=== PATIENT | male | born 1960 | race Caucasian/White ===

== ENCOUNTER 2019-01-02 05:01 | Inpatient (IN) | payer MEDICARE, MEDICAID ==
[2019-01-02] VITALS (19 sets, daily range): BP systolic 122–235; BP diastolic 78–153
[~2019-01-02] VITALS: Ht 175.3 cm; Wt 133.0 kg
--- OUTSIDE RECORDS SUMMARY | 2019-01-02 05:08 | XMS REPORT | Continuity of Care Document ---
Author Organization Unknown Address Unknown Allergies There is no data. Medications There is no data. Problems Date Dx Coded Attending Type Code Diagnosis Diagnosed By 10/14/2012 296.32 MO DEPRESSIVE RECURRENT MODERATE 10/14/2012 300.02 AN GEN ANXIETY 10/14/2012 296.32 MO DEPRESSIVE RECURRENT MODERATE 10/14/2012 300.02 AN GEN ANXIETY 10/14/2012 296.32 MO DEPRESSIVE RECURRENT MODERATE 10/14/2012 300.02 AN GEN ANXIETY 10/14/2012 296.32 MO DEPRESSIVE RECURRENT MODERATE 10/14/2012 300.02 AN GEN ANXIETY 10/14/2012 ESTEVAN MESA PHD 296.32 MO DEPRESSIVE RECURRENT MODERATE 10/14/2012 ESTEVAN MESA PHD 300.02 AN GEN ANXIETY 04/29/2013 ESTEVAN MESA PHD 296.25 MO DEPRESSIVE SINGLE IN PART OR UNSPECIFIED REMISSION Procedures [place] [address] PSYCH DIAGNOSTIC EVALUATION 10/17/2012 61214 PSYTX PT&/FAMILY 45 MINUTES 11/15/2012 65064 PSYTX PT&/FAMILY 45 MINUTES 01/17/2013 62379 PSYTX PT&/FAMILY 45 MINUTES 03/10/2013 33958 PSYTX PT&/FAMILY 30 MINUTES 04/30/2013 Results There is no data. Encounters ACCT No. Visit Date/Time Discharge Status Pt. Type Provider Facility Loc./Unit Complaint [id number] 04/29/2013 09:10:00 04/29/2013 23:59:59 CLS Outpatient ESTEVAN MESA PHD [id number] 10/14/2012 12:46:00 10/14/2012 23:59:59 CLS Outpatient [id number] 03/07/2013 14:21:00 Document Registration [id number] 01/15/2013 13:33:00 Document Registration [id number] 11/15/2012 12:26:00 Document Registration [id number] 10/01/2018 11:20:00 10/01/2018 23:59:59 CLS Outpatient AIDEN LYON LAC
[2019-01-02] MEDS ORDERED: EZET10TA49 PO (05:13)
[2019-01-02] MEDS ORDERED: LISI-552 PO (05:13)
[2019-01-02] MEDS ORDERED: CARV25TA PO (05:13)
[2019-01-02] MEDS ORDERED: ATOR40TA70 PO (05:13)
[2019-01-02] MEDS ORDERED: DAPA10TA PO (05:13)
[2019-01-02] MEDS ORDERED: SITA100T12 PO (05:13)
[2019-01-02] MEDS ORDERED: METF-399 PO (05:13)
[2019-01-02] MEDS ORDERED: LABETALOL HCL 20 MG/4 ML VIAL IV ONE ×2 (05:15→06:00)
[2019-01-02] MEDS ORDERED: ONDANSETRON 4 MG/2 ML (SDV) Z0FRAN IVP ONE ×2 (05:15→06:30)
[2019-01-02 05:20] LABS: BASOPHILS # (AUTO) 0.1 10^3/uL (0.0-0.1); BASOPHILS % (AUTO) 1 % (0-10); EOSINOPHILS # (AUTO) 0.2 10^3/uL (0.0-0.3); EOSINOPHILS % (AUTO) 2 % (0-10); HEMATOCRIT 51 % (40-54); HEMOGLOBIN 17.8 G/DL (13.3-17.7); LYMPHOCYTES # (AUTO) 2.5 X 10^3 (1.0-4.0); LYMPHOCYTES % (AUTO) 23 % (12-44); MEAN CORPUSCULAR HEMOGLOBIN 29 PG (25-34); MEAN CORPUSCULAR HGB CONC 35 G/DL (32-36); MEAN CORPUSCULAR VOLUME 81 FL (80-99); MEAN PLATELET VOLUME 10.2 FL (7.4-10.4); MONOCYTES # (AUTO) 0.7 X 10^3 (0.0-1.0); MONOCYTES % (AUTO) 6 % (0-12); NEUTROPHILS # (AUTO) 7.6 X 10^3 (1.8-7.8); NEUTROPHILS % (AUTO) 69 % (42-75); PLATELET COUNT 253 10^3/uL (130-400); RED CELL DISTRIBUTION WIDTH 14.8 % (10.0-14.5)
[2019-01-02 05:39] LABS: FIBRIN DEGRADATION PRODUCTS 0.78 UG/ML (0.00-0.49); INR 0.9 (0.8-1.4); PROTHROMBIN TIME PATIENT 12.6 SEC (12.2-14.7)
--- NOTE | 2019-01-02 05:43 | NUR ---
iv x 1 by me 18 g l f/a. labs with iv and to lab by me
--- NOTE | 2019-01-02 05:45 | ED Neurological Problem ---
General Chief Complaint: Altered Mental Status Stated Complaint: ALTERED MENTAL STATUS Nursing Triage Note: altered mental status, hypertension, high glucose Nursing Sepsis Screen: No Definite Risk Source: EMS Exam Limitations: other (PT IS UNABLE TO GIVE ANY RELIABLE INFORMATION--IS CONFUSED AND HAVING SOME DIFFUCULTY GETTING WORDS OUT, NO PRIOR RECORDS HERE, AND DID NOT ACCOMPANY PT TO ER. ) History of Present Illness Date Seen by Provider: Jan 02, 2019 Time Seen by Provider: 04:59 Initial Comments PT ARRIVES VIA EMS CALLED EMS DUE TO PT WAKING UP CONFUSED, AND HAD WET THE BED--OCCURRED JUST PRIOR TO CALLING EMS REPORTED TO EMS THAT WHEN THEY WENT TO BED AT 2230, HE "WASN'T ACTING RIGHT" AT THAT TIME WELL LAST KNOWN WELL TIME IS NOT KNOWN. REPORTED TO EMS THAT PT SIMPLY QUIT TAKING ALL OF HIS MEDICATIONS AT LEAST 2 MONTHS AGO PT IS DIABETIC, AND HAS PRESCRIPTIONS FOR : FARXIGA, JANUVIA, METFORMIN AND VICTOZA ACCUCHECK 240 FOR EMS PT ALSO HAS HISTORY OF HTN, AND HAS PRESCRIPTION FOR ZETIA, COREG, LISINOPRIL BP"S FOR EMS > 200'S/>100'S PT ALSO HAS RX FOR CYMBALTA EMS REPORTS THAT PT C/O HEADACHE PT WITH NAUSEA AND DRY HEAVES ENROUTE EMS REPORTS THAT PT REPEATS "I JUST CAN'T" ( JUST CAN'T UNDERSTAND WHAT'S GOING ON ) PT UNABLE TO FOLLOW MOST COMMANDS PT IS CONFUSED ON ARRIVAL AND IS UNABLE TO COMPLETE SENTENCES PT DOES ANSWER SOME YES/NO QUESTIONS, SEEMINGLY APPROPRIATE DENIES CHEST PAIN DENIES SHORTNESS OF BREATH DENIES ABDOMINAL PAIN PMH IS ROUGHLY BASED ON EXAM, MEDICATIONS AND FINDINGS ON XRAY/CT. PCP: [facility], PER PT'S PRESCRIPTIONS Allergies and Home Medications Allergies Coded Allergies: No Allergy Information Available (Unverified , 01/02/19) Patient Home Medication List Home Medication List Reviewed: Yes Review of Systems Review of Systems Constitutional: other (VERY LIMITED) Respiratory: No short of breath Cardiovascular: No chest pain Gastrointestinal: nausea, vomiting (DRY HEAVES) Genitourinary: incontinence Psychiatric/Neurological: Cognitive Dysfunction, Headache Endocrine: See HPI Past Ldnawfs-Xdpwht-Erepsn Hx Patient Social History Recreational Drug Use: Yes (TESTED + FOR THC ON 01/02/19) Drug of Choice: TESTED + FOR THC ON 01/02/19 Smoking Status: Unknown if Ever Smoked 2nd Hand Smoke Exposure: No Recent Foreign Travel: No Contact w/Someone Who Travel: No Recent Infectious Disease Expo: No Recent Hopitalizations: No Immunizations Up To Date Tetanus Booster (TDap): Unknown Seasonal Allergies Seasonal Allergies: No Past Medical History Surgeries: Yes (BASED ON EXAM AND XRAY/CT FINDINGS: RIGHT FOOT SURGERY; CERVICAL SPINE SURGERY) Orthopedic Respiratory: No Cardiac: Yes (BASED ON MEDICATIONS) High Cholesterol, Hypertension Neurological: No (UNKNOWN) Genitourinary: No (UNKNOWN) Gastrointestinal: No (UNKNOWN) Musculoskeletal: Yes (DOES STATE BORN WITH RIGHT LEG "CRIPPLED" ; EVIDENCE OF CERVICAL SPINE SURGERY ON XRAYS) Endocrine: Yes Diabetes, Insulin dep, Diabetes, Non-Insulin dep HEENT: No (UNKNOWN) Cancer: No (UNKNOWN) Psychosocial: No (UNKNOWN--PT IS ON CYMBALTA) Physical Exam Vital Signs Vital Signs - First Documented Capillary Refill : Less Than 3 Seconds Height, Weight, BMI Height: 6'" Weight: 260lbs. oz. 117.422692zq; BMI Method:Estimated General Appearance: obese, other (MILDLY LETHARGIC, DRY HEAVING ON ARRIVAL) HEENT: other (ORAL MUCOSA DRY) Neck: normal inspection Respiratory: normal breath sounds, no respiratory distress, no accessory muscle use Cardiovascular: regular rate, rhythm, no murmur Peripheral Pulses: 2+ Dorsalis Pedis (R), 2+ Left Dors-Pedis (L), 2+ Radial Pulses (R), 2+ Radial Pulses (L) Gastrointestinal: non tender, soft Back: no CVA tenderness Extremities: normal capillary refill, other (RIGHT LEG WITH GENERALIZED ATROPHY, AND CHRONIC APPEARING ) Neurologic/Psychiatric: alert; No facial droop; other (PT KNOWS OWN NAME, BUT NOT WIFES' NAME. PT KNOWS HE IS IN HOSPITAL, BUT DOES NOT KNOW WHICH ONE OR WHAT TOWN, OR THE NAME OF THE TOWN THAT HE LIVES IN . PT CONFUSED TO EVERYTHING ELSE. PT UNABLE TO COMPLETE SENTENCES, AND SPEECH IS NON-SENSICAL AND UNINTELLIGIBLE AT TIMES. PT HAS DIFFICULTY FOLLOWING COMMANDS, BUT IS ABLE TO TRANSFER HIMSELF FROM EMS CART ER ER CART WITH SOME ASSIST, WHEN ASKED, BUT CANNOT FOLLOW MANY OTHER COMMANDS. PT WITH GENERALIZED WEAKNESS, BUT DOES NOT APPEAR TO HAVE UNILATERAL WEAKNESS, BUT CANNOT FOLLOW COMMANDS TO DO SPECIFIC MOTOR TESTING. ) Skin: normal color, warm/dry, tattoos/piercings (TATTOOS) Focused Exam Lactate Level 01/02/19 05:09: Lactic Acid Level 2.31*H Lactic Acid Level Laboratory Tests Test 01/02/19 05:09 Lactic Acid Level 2.31 MMOL/L (0.50-2.00) *H Progress/Results/Core Measures Results/Orders Lab Results Laboratory Tests Test 01/02/19 05:09 01/02/19 05:39 01/02/19 05:45 01/02/19 05:56 Range/Units White Blood Count 11.0 4.3-11.0 10^3/uL Red Blood Count 6.22 H 4.35-5.85 10^6/uL Hemoglobin 17.8 H 13.3-17.7 G/DL Hematocrit 51 40-54 % Mean Corpuscular Volume 81 80-99 FL Mean Corpuscular Hemoglobin 29 25-34 PG Mean Corpuscular Hemoglobin Concent 35 32-36 G/DL Red Cell Distribution Width 14.8 H 10.0-14.5 % Platelet Count 253 130-400 10^3/uL Mean Platelet Volume 10.2 7.4-10.4 FL Neutrophils (%) (Auto) 69 42-75 % Lymphocytes (%) (Auto) 23 12-44 % Monocytes (%) (Auto) 6 0-12 % Eosinophils (%) (Auto) 2 0-10 % Basophils (%) (Auto) 1 0-10 % Neutrophils # (Auto) 7.6 1.8-7.8 X 10^3 Lymphocytes # (Auto) 2.5 1.0-4.0 X 10^3 Monocytes # (Auto) 0.7 0.0-1.0 X 10^3 Eosinophils # (Auto) 0.2 0.0-0.3 10^3/uL Basophils # (Auto) 0.1 0.0-0.1 10^3/uL Prothrombin Time 12.6 12.2-14.7 SEC INR Comment 0.9 0.8-1.4 Activated Partial Thromboplast Time 29 24-35 SEC D-Dimer 0.78 H 0.00-0.49 UG/ML Sodium Level 137 135-145 MMOL/L Potassium Level 3.3 L 3.6-5.0 MMOL/L Chloride Level 97 L 98-107 MMOL/L Carbon Dioxide Level 23 21-32 MMOL/L Anion Gap 17 H 5-14 MMOL/L Blood Urea Nitrogen 14 7-18 MG/DL Creatinine 1.44 H 0.60-1.30 MG/DL Estimat Glomerular Filtration Rate 51 BUN/Creatinine Ratio 10 Glucose Level 346 H 70-105 MG/DL Lactic Acid Level 2.31 *H 0.50-2.00 MMOL/L Calcium Level 9.6 8.5-10.1 MG/DL Corrected Calcium 9.7 8.5-10.1 MG/DL Magnesium Level 1.9 1.8-2.4 MG/DL Total Bilirubin 0.7 0.1-1.0 MG/DL Aspartate Amino Transf (AST/SGOT) 17 5-34 U/L Alanine Aminotransferase (ALT/SGPT) 17 0-55 U/L Alkaline Phosphatase 122 40-136 U/L Myoglobin 55.3 10.0-92.0 NG/ML Troponin I < 0.028 <0.028 NG/ML B-Type Natriuretic Peptide 10.8 <100.0 PG/ML Total Protein 7.9 6.4-8.2 GM/DL Albumin 3.9 3.2-4.5 GM/DL Amylase Level 28 25-125 U/L Lipase 53 8-78 U/L TSH Grant Testing 0.90 0.35-4.94 UIU/ML Serum Alcohol < 10 <10 MG/DL Blood Gas Puncture Site RRAD Blood Gas Patient Temperature 97.3 Arterial Blood pH 7.36 L 7.37-7.43 Arterial Blood Partial Pressure CO2 54 H 35-45 MMHG Arterial Blood Partial Pressure O2 75 L 79-93 MMHG Arterial Blood HCO3 30 H 23-27 MMOL/L Arterial Blood Total CO2 31.5 H 21.0-31.0 MMOL/L Arterial Blood Oxygen Saturation 95 94-100 % Arterial Blood Base Excess 4.5 H -2.5-2.5 MMOL/L Noel Test YES-POS Blood Gas Ventilator Setting NO Blood Gas Inspired Oxygen 4L Glucometer 379 H 70-110 MG/DL Urine Color YELLOW Urine Clarity CLEAR Urine pH 7 5-9 Urine Specific [place] 1.015 L 1.016-1.022 Urine Protein 4+ NEGATIVE Urine Glucose (UA) 4+ H NEGATIVE Urine Ketones 1+ H NEGATIVE Urine Nitrite NEGATIVE NEGATIVE Urine Bilirubin NEGATIVE NEGATIVE Urine Urobilinogen NORMAL NORMAL MG/DL Urine Leukocyte Esterase NEGATIVE NEGATIVE Urine RBC (Auto) 2+ H NEGATIVE Urine RBC RARE /HPF Urine WBC RARE /HPF Urine Squamous Epithelial Cells NONE /HPF Urine Crystals NONE /LPF Urine Bacteria NEGATIVE /HPF Urine Casts NONE /LPF Urine Mucus SMALL H /LPF Urine Culture Indicated NO Urine Opiates Screen NEGATIVE NEGATIVE Urine Oxycodone Screen NEGATIVE NEGATIVE Urine Methadone Screen NEGATIVE NEGATIVE Urine Propoxyphene Screen NEGATIVE NEGATIVE Urine Barbiturates Screen NEGATIVE NEGATIVE Ur Tricyclic Antidepressants Screen NEGATIVE NEGATIVE Urine Phencyclidine Screen NEGATIVE NEGATIVE Urine Amphetamines Screen NEGATIVE NEGATIVE Urine Methamphetamines Screen NEGATIVE NEGATIVE Urine Benzodiazepines Screen NEGATIVE NEGATIVE Urine Cocaine Screen NEGATIVE NEGATIVE Urine Cannabinoids Screen POSITIVE H NEGATIVE Test 01/02/19 06:25 Range/Units Ammonia 14 11-32 UMOL/L My Orders Orders - ALEX RODRIGUEZ DO Cbc With Automated Diff (01/02/19 05:06) Protime With Inr (01/02/19 05:06) Partial Thromboplastin Time (01/02/19 05:06) Comprehensive Metabolic Panel (01/02/19 05:06) Fibrin Degradation Products (01/02/19 05:06) Troponin I (01/02/19 05:06) Ua Culture If Indicated (01/02/19 05:06) Chest 1 View, Ap/Pa Only (01/02/19 05:06) Catheter(Urinary) Insert & Ass 03,15 (01/02/19 05:06) Ekg Tracing (01/02/19 05:06) Nothing By Mouth (01/02/19 Lunch) Accucheck Stat ONCE (01/02/19 05:06) Ed Iv/Invasive Line Start (01/02/19 05:06) Ed Iv/Invasive Line Start (01/02/19 05:06) Vital Signs Stroke Patient Q15M (01/02/19 05:06) Ct Head Wo-R/O Stroke (01/02/19 05:06) O2 (01/02/19 05:06) Intake & Output 06,14,22 (01/02/19 05:06) Monitor-Rhythm Ecg Trace Only (01/02/19 05:06) Dysphagia Screening Tool (01/02/19 05:06) Post Thrombolytic Adminstratio (01/02/19 05:06) Lipid Panel (01/03/19 06:00) I-Stat Bedside Testing (01/02/19 05:06) Alcohol (01/02/19 05:06) Amylase (01/02/19 05:06) BNP (01/02/19 05:06) Drug Screen Stat (Urine) (01/02/19 05:06) Lactic Acid Analyzer (01/02/19 05:06) Lipase (01/02/19 05:06) Magnesium (01/02/19 05:06) Thyroid Analyzer (01/02/19 05:06) Blood Culture (01/02/19 05:06) Ed Iv/Invasive Line Start (01/02/19 05:06) Ondansetron Injection (Zofran Injectio (01/02/19 05:15) Labetalol Injection (Normodyne Injection (01/02/19 05:15) Arterial Blood Gas (01/02/19 05:13) Myoglobin Serum (01/02/19 05:13) Ct Angio Head/Neck (01/02/19 05:32) Ed Iv/Invasive Line Start (01/02/19 05:49) Ns Iv 1000 Ml (Sodium Chloride 0.9%) (01/02/19 05:49) Insulin (Regular) Human (Humulin R (Per (01/02/19 06:00) Labetalol Injection (Normodyne Injection (01/02/19 06:00) Ammonia (01/02/19 06:05) Rt Request For Service (01/02/19 06:05) Ondansetron Injection (Zofran Injectio (01/02/19 06:30) Scopolamine Patch (Transderm-Scop Patch) (01/02/19 06:30) Iohexol Injection (Omnipaque 350 Mg/Ml 1 (01/02/19 06:30) Received Contrast (Hold Metformin- Contr (01/02/19 06:30) Ns (Ivpb) (Sodium Chloride 0.9% Ivpb Bag (01/02/19 06:30) Ns Iv 1000 Ml (Sodium Chloride 0.9%) (01/02/19 05:49) Insulin (Regular) Human (Humulin R (Per (01/02/19 05:50) Scopolamine Patch (Transderm-Scop Patch) (01/02/19 06:20) Medications Given in ED Current Medications Medications Dose Ordered Sig/Jarvis Route Start Time Stop Time Status Last Admin Dose Admin Insulin Human Regular 20 unit ONCE ONCE IV 01/02/19 06:00 01/02/19 06:36 DC 01/02/19 05:55 20 UNIT Iohexol 75 ml ONCE ONCE IV 01/02/19 06:30 01/02/19 06:31 DC 01/02/19 06:22 75 ML Labetalol HCl 20 mg ONCE ONCE IV 01/02/19 05:15 01/02/19 05:16 DC 01/02/19 05:20 20 MG Labetalol HCl 20 mg ONCE ONCE IV 01/02/19 06:00 01/02/19 06:36 DC 01/02/19 05:55 20 MG Ondansetron HCl 8 mg ONCE ONCE IVP 01/02/19 05:15 01/02/19 05:16 DC 01/02/19 05:20 8 MG Ondansetron HCl 8 mg ONCE ONCE IVP 01/02/19 06:30 01/02/19 06:36 DC 01/02/19 06:25 8 MG Scopolamine 1.5 mg ONCE ONCE TD 01/02/19 06:30 01/02/19 06:36 DC 01/02/19 06:25 1.5 MG Sodium Chloride 100 ml ONCE ONCE IV 01/02/19 06:30 01/02/19 06:31 DC 01/02/19 06:22 80 ML Sodium Chloride 1,000 ml @ 0 mls/hr Q0M ONCE IV 01/02/19 05:49 01/02/19 06:36 DC 01/02/19 05:55 0 MLS/HR Vital Signs/I&O 01/02/19 01/02/19 01/02/19 05:02 05:02 06:38 Temp 97.3 Pulse 103 77 Resp 14 17 B/P (MAP) 205/140 (161) Pulse Ox 93 94 97 O2 Delivery Nasal Cannula Nasal Cannula O2 Flow Rate 4.00 4.00 50.00 Blood Pressure Mean: 161 Progress Progress Note : Progress Note O2 SATS 90-92% ON O2 AT 5L/NC BIPAP INITIATED AFTER RECEIVING ABG RESULTS. O2 SATS IMPROVED, AND PT SEEMS TO HAVE SOME SLIGHT IMPROVEMENT IN MENTATION, SEEMS SOMEWHAT LESS CONFUSED, BUT IS STILL HAVING DIFFICULTY GETTING WORDS OUT, ALTHOUGH THIS ALSO APPEARS TO BE MILDLY IMPROVED. . BP HIGH 240'S/160'S AT ONE POINT. PT GIVEN LABETALOL 40 MG TOTAL, WITHOUT SIGNIFICANT IMPROVEMENT. PT GIVEN HYDRALAZINE 10 MG WITH SIGNIFICANT IMPROVEMENT--BP DOWN TO 160'S/90'S NAUSEA RESOLVED WITH ZOFRAN AND SCOPOLAMINE. Initial ECG Impression Date: Jan 02, 2019 Initial ECG Impression Time: 05:29 Initial ECG Rate: 80 Initial ECG Rhythm: Normal Sinus Initial ECG Comparisson: No Previous ECG Available Diagnostic Imaging Comments CT HEAD--CHRONIC SMALL VESSEL ISCHEMIC CHANGES, NO ACUTE PROCESS, PER [facility] RADIOLOGIST VIA PHONE AND FAX AT 0532 CXR--CARDIOMEGALY, MILD VASCULAR CONGESTION, PENDING RADIOLOGIST REVIEW CT ANGIOGRAM OF HEAD AND NECK --NO ACUTE PROCESS, NO LARGE VESSEL OCCLUSION, MILD CAROTID DISEASE, AND SMALL VESSEL DISEASE--PER RADIOLOGIST VIA PHONE AT 0637 Reviewed: Reviewed by Me, Discussed w/Radiologist Critical Care Note Critical Care Total Time (minutes) 60 Departure Communication (Admissions) 0640--SPOKE WITH DR. MAYFIELD, HOSPITALIST, ACCEPTS PT FOR ADMIT Impression Primary Impression: Altered mental status Additional Impressions: Uncontrolled diabetes mellitus MILD DIABETIC KETOACIDOSIS Malignant hypertension Hypokalemia Respiratory failure with hypoxia and hypercapnia Lactic acidosis Non-compliance Nausea & vomiting Marijuana use Disposition: ADMITTED INPATIENT Condition: Improved Admissions Decision to Admit/Date: Jan 02, 2019 Time/Decision to Admit Time: 06:40 Departure-Patient Inst. Referrals: PRICE MARIA MD (PCP) Primary Care Physician ALEX RODRIGUEZ DO Jan 02, 2019 05:45
--- NOTE | 2019-01-02 05:46 | NUR ---
[place] colon in [facility] - 01/02/19 at 0604 by [id number] morelia levine w/o problems and ua to lab by
[2019-01-02 05:47] LABS: ALANINE AMINOTRANSFERASE 17 U/L (0-55); ALBUMIN 3.9 GM/DL (3.2-4.5); ALKALINE PHOSPHATASE 122 U/L (40-136); AMYLASE 28 U/L (25-125); BILIRUBIN,TOTAL 0.7 MG/DL (0.1-1.0); BUN/CREATININE RATIO 10; CALCIUM 9.6 MG/DL (8.5-10.1); CARBON DIOXIDE 23 MMOL/L (21-32); CHLORIDE 97 MMOL/L (98-107); CREATININE SERUM 1.44 MG/DL (0.60-1.30); GFR ESTIMATED 51; GLUCOSE 346 MG/DL (70-105); LIPASE 53 U/L (8-78); MAGNESIUM 1.9 MG/DL (1.8-2.4); POTASSIUM 3.3 MMOL/L (3.6-5.0); SODIUM 137 MMOL/L (135-145); TOTAL PROTEIN 7.9 GM/DL (6.4-8.2)
[2019-01-02 05:47] LABS: ABG BASE EXCESS 4.5 MMOL/L (-2.5-2.5); ABG OXYGEN SATURATION 95 % (94-100); ABG PCO2 54 MMHG (35-45); ABG PH 7.36 (7.37-7.43); ABG PO2 75 MMHG (79-93); ABG TCO2 31.5 MMOL/L (21.0-31.0)
[2019-01-02 05:49] LABS: ALLENS TEST YES-POS; INSPIRED O2 4L; PATIENT TEMP 97.3; VENTILATOR NO
[2019-01-02] MEDS ORDERED: NS IV 1000 ML 1,000 ML IV ONE (05:49)
[2019-01-02] MEDS ORDERED: NS IV 1000 ML 1,000 ML ONE (05:49)
[2019-01-02] MEDS ORDERED: inSUlin (REGULAR) HUMAN 1 UNIT/0.01 ML (CHARGE PER UNIT) ONE (05:50)
--- NOTE | 2019-01-02 05:56 | NUR ---
morelia by me /o problems and ua to lab by me
[2019-01-02] MEDS ORDERED: inSUlin (REGULAR) HUMAN 1 UNIT/0.01 ML (CHARGE PER UNIT) IV ONE (06:00)
--- NOTE | 2019-01-02 06:11 | Diagnostic Imaging Report ---
PROCEDURE: CT head wo r/o stroke. TECHNIQUE: Multiple contiguous axial images were obtained through the brain without the use of intravenous contrast. Auto Exposure Controls were utilized during the CT exam to meet ALARA standards for radiation dose reduction. INDICATION: Altered mental status with weakness There is no previous study for comparison. There is ventricular prominence diffusely with low density seen throughout the cerebral white matter. There is also focal low density in the inferior left cerebellar hemisphere. No hemorrhage is identified. There is no abnormal mass effect or shift of midline structures. There is no evidence of calvarial fracture. Minimal mural thickening seen within the left maxillary sinus. IMPRESSION: Findings suggest advanced involutional changes for patient's age. There may be mild hydrocephalus as well. Normal pressure hydrocephalus is not excluded. Clinical correlation is recommended. Consideration could be given to MRI for further characterization. Dictated by: Dictated on workstation # [id number]
[2019-01-02] MEDS ORDERED: SCOPOLAMINE 1.5 MG (TRANSDERM-SCOP) PATCH ONE (06:20)
[2019-01-02 06:21] LABS: BACTERIA,URINE NEGATIVE /HPF; BILIRUBIN,URINE NEGATIVE (NEGATIVE); CLARITY,URINE CLEAR; COLOR,URINE YELLOW; GLUCOSE, URINE (UA) 4+ (NEGATIVE); KETONES,URINE 1+ (NEGATIVE); LEUKOCYTE ESTERASE ,URINE NEGATIVE (NEGATIVE); NITRITE,URINE NEGATIVE (NEGATIVE); PH,URINE 7 (5-9); PROTEIN,URINE 4+ (NEGATIVE); RBC,URINE RARE /HPF; UROBILINOGEN,URINE NORMAL (NORMAL); WBC,URINE RARE /HPF
--- NOTE | 2019-01-02 06:27 | NUR ---
more labs from pl by me and to lab by me
[2019-01-02] MEDS ORDERED: NS 100 ML (IVPB) BAG IV ONE (06:30)
[2019-01-02] MEDS ORDERED: IOHEXOL 350 MG/ML 100 ML (OMNIPAQUE 350) VIAL IV ONE (06:30)
[2019-01-02] MEDS ORDERED: HOLD METFORMIN - RECEIVED CONTRAST 20 ML VIAL IV SCH (06:30)
[2019-01-02] MEDS ORDERED: SCOPOLAMINE 1.5 MG (TRANSDERM-SCOP) PATCH TD ONE (06:30)
[2019-01-02 06:33] LABS: AMPHETAMINE SCREEN, URINE NEGATIVE (NEGATIVE); BARBITURATE SCREEN URINE NEGATIVE (NEGATIVE); BENZODIAZEPINES SCREEN URINE NEGATIVE (NEGATIVE); CANNABINOID SCREEN, URINE POSITIVE (NEGATIVE); COCAINE SCREEN URINE NEGATIVE (NEGATIVE); METHADONE STAT NEGATIVE (NEGATIVE); METHAMPHETAMINE SCREEN URINE S NEGATIVE (NEGATIVE); OPIATE SCREEN URINE NEGATIVE (NEGATIVE); OXYCODONE STAT NEGATIVE (NEGATIVE); PROPOXYPHENE STAT NEGATIVE (NEGATIVE); TRICYCLIC ANTIDEPRESSANTS SCRE NEGATIVE (NEGATIVE)
--- OUTSIDE RECORDS SUMMARY | 2019-01-02 06:51 | XMS REPORT | Continuity of Care Document ---
[...] MESA PHD 300.02 AN GEN ANXIETY 04/29/2013 ESTEVNA MESA PHD 296.25 MO DEPRESSIVE SINGLE IN PART OR UNSPECIFIED REMISSION Procedures Code [place] [address] PSYCH DIAGNOSTIC EVALUATION 10/17/2012 72639 PSYTX PT&/FAMILY 45 MINUTES 11/15/2012 81166 PSYTX PT&/FAMILY 45 MINUTES 01/17/2013 10903 PSYTX PT&/FAMILY 45 MINUTES 03/10/2013 49194 PSYTX PT&/FAMILY 30 MINUTES 04/30/2013 Results There is no data. Encounters ACCT No. Visit Date/Time Discharge Status Pt. Type Provider Facility Loc./Unit Complaint [id number] 04/29/2013 09:10:00 04/29/2013 23:59:59 CLS Outpatient ESTEVAN MESA PHD [id number] 10/14/2012 12:46:00 10/14/2012 23:59:59 CLS Outpatient [id number] 03/07/2013 14:21:00 Document Registration [id number] 01/15/2013 13:33:00 Document Registration [id number] 11/15/2012 12:26:00 Document Registration [id number] 10/01/2018 11:20:00 10/01/2018 23:59:59 CLS Outpatient AIDEN LYON LAC
[2019-01-02] MEDS ORDERED: hydrALAZINE (APESOLINE) 20 MG/ML VIAL IV ONE (07:00)
--- NOTE | 2019-01-02 07:23 | Diagnostic Imaging Report ---
PROCEDURE: CT angiography of the head and CT angiography of the neck with and without contrast. TECHNIQUE: Contiguous noncontrast images were obtained from the skull base through the vertex. After intravenous contrast administration, helical CT angiography of the neck was performed. Source data was reformatted into multiple MIP projections. Delayed post contrast acquisition was also obtained. Auto Exposure Controls were utilized during the CT exam to meet ALARA standards for radiation dose reduction. INDICATION: Altered mental status, weakness and vomiting. Comparison made with prior CT head from 01/02/2019. FINDINGS: The lung apices are clear. Evaluation of the aortic bifurcation is limited due to body habitus. Neither proximal vertebral artery is well visualized. More distally there appear to be codominant vertebral arteries. The common carotid arteries are widely patent. There is minimal plaque about the carotid bifurcations bilaterally. There is no dissection, stenosis or occlusion in the neck. Distal vertebral arteries and basilar artery are widely patent. There is some mild atherosclerotic calcification of the cavernous carotid arteries bilaterally. There are no proximal intracranial branch occlusions, vascular malformations or aneurysms. There are no large vessel occlusions. The globes and intraorbital structures are unremarkable. The sinuses and mastoid air cells are clear. The nasopharyngeal, oropharyngeal, hypopharyngeal tissues are symmetric and without mass effect. The parotid, submandibular and thyroid gland is normal in appearance. Lung apices are clear. There is moderate cervical spondylosis. There are also postsurgical changes in the lower cervical spine. The epiglottis is unremarkable. Prevertebral soft tissues are within normal limits. IMPRESSION: Minimal atherosclerotic plaque about the carotid bifurcations bilaterally. There is no dissection, stenosis or occlusion in the neck although the proximal vertebral arteries and common carotid arteries are not well visualized due to body habitus and beam hardening artifact. No evidence of large vessel intracranial occlusion. Atrophy and moderately severe chronic microvascular ischemic disease greater than expected for age. Dictated by: Dictated on workstation # [id number]
--- NOTE | 2019-01-02 07:26 | Diagnostic Imaging Report ---
INDICATION: Weakness and vomiting. No prior examinations are available for comparison. FINDINGS: There is cardiomegaly. There is mild venous congestion. There is no pleural effusion, pneumothorax or pneumonia. Mediastinum is unremarkable. IMPRESSION: Cardiomegaly and mild central pulmonary venous congestion. Dictated by: Dictated on workstation # [id number]
--- NOTE | 2019-01-02 08:05 | NUR ---
TYLER RODRÍGUEZ Tod admitted to room CU8-1, with an admitting diagnosis of AMS, RESP FAILURE, DKA, N/V, MALIGNANT HTN, on 01/02/19 from ER via ST[facility], accompanied by STAFF.TYLER RODRÍGUEZ introduced to surroundings, call light, bed controls, phone, TV, temperature control, lights, meal times, smoking policy, visitor policy, side rail policy, bathrooms and showers. Patient Rights given to patient in the handbook. TYLER RODRÍGUEZ verbalizes understanding that [facility] is not responsible for the loss or damage to any personal effects or valuables that are kept in the patients posession during their hospitalization. The following Patient Care Plans were discussed with the PT: Discharge Planning, FEAR,ANXIETY, and HIGH RISK INJURY. TYLER RODRÍGUEZ verbalizes understanding of Interdisciplinary Patient Education. Patient and family were informed about the Rapid Response Team and its purpose.
--- NOTE | 2019-01-02 08:31 | NUR ---
please note--dr correa unavailable for consult.
[2019-01-02] MEDS ORDERED: CATHETER FLUSH 10 ML SYR IV PRN (08:45)
[2019-01-02] MEDS ORDERED: ONDANSETRON 4 MG/2 ML (SDV) Z0FRAN IV PRN (08:45)
[2019-01-02] MEDS: NS W/KCL 20 MEQ/L 1,000 ML IV SCH ×3 (08:59→21:59)
--- NOTE | 2019-01-02 09:30 | NUR ---
DR MAYFIELD INFORMED OF CONSISTENTLY ELEVATED BP, DR TO ENTER NEW ORDERS.
[2019-01-02] MEDS ORDERED: OMG1KC PO (09:38)
[2019-01-02] MEDS ORDERED: IBUP-30 PO (09:38)
--- NOTE | 2019-01-02 09:39 | NUR ---
THE BOTTLES THE PATIENT BROUGHT IN ARE FROM JUNE 2018- MOST OF THEM HAVE BEEN REFILLED IN NOVEMBER AT [facility] HOWEVER HIS GIRLFRIEND STATES HE HAS NOT TAKEN ANY OF THESE MEDICATIONS FOR THE PAST 6 MONTHS. IN ADDITION TO THE MEDS I PUT ON THE MED REC HE HAS A BOTTLE OF CYMBALTA AND A BOX OF VICTOZA WITH HIM HOWEVER THEY HAVE NOT BEEN FILLED SINCE . HIS GIRLFRIEND STATES HE HAS NEVER USED THE VICTOZA AND HE TOOK ONE DOSE OF THE CYMBALTA AND HAD A SIMILAR EPISODE HE IS HAVING NOW THAT HE ENDED UP IN THE [facility] AND HE HAS NOT TAKEN THAT MEDICATION SINCE. I DID NOT INCLUDE THE VICTOZA OR THE CYMBALTA ON THE MED REC AT THIS TIME. SHE STATES HE OCCASIONALLY WILL TAKE IBU OTC PRN AND IS SUPPOSED TO TAKE FISH OIL.
--- NOTE | 2019-01-02 11:12 | NUR ---
DR MAYFIELD INFORMED OF BP 235/136.
[2019-01-02] MEDS ORDERED: RT-ALBUTEROL/IPRATROPIUM 3 ML (DUONEB) VIAL INH PRN (11:15)
[2019-01-02] MEDS: hydrALAZINE (APESOLINE) 20 MG/ML VIAL IV PRN ×2 (11:27→17:38)
[2019-01-02] MEDS: inSUlin ASPART (NovoLOG) 1 UNIT/0.01 ML (CHARGE PER UNIT) SC SCH ×3 (12:10→23:34)
--- NOTE | 2019-01-02 12:51 | NUR ---
DR MAYFIELD INFORMED PTS BP CONTINUES TO BE HIGH DESPITE APRESOLINE.
[2019-01-02] MEDS ORDERED: meTOprolol 5 MG/5 ML (LOPRESSOR) VIAL IV NR (13:30)
--- NOTE | 2019-01-02 14:00 | History & Physical-Hospitalist ---
History of Present Illness HPI/Chief Complaint The patient is a 58-year-old white male who appeared at the emergency room early this morning. He been brought there by family because he had been found to be quite clearly confused. Workup at the emergency room was negative for stroke. It was determined that the patient was very hypertensive. It was further determ ined that several months ago he had a referral he discontinued all of his medications. This included diabetic and antihypertensive drugs. More recently and without apparent rationale, he had renewed a few of these. The blood pressure maximum has been to 35 or 136. His weight is 285+. His lactic acid was noted to be 2.31. CT scans of the head was negative and the stroke workup. Hemoglobin was 17.8 and appears to be likely a function of both smoking and likely sleep apnea. Blood sugars have been running in the 300 range. The pharmacy informatics manager has informed me that he stopped all medications several months ago and then more recently has refilled some of them without apparent rationale. Date Seen 01/02/19 Time Seen by a Provider: 13:53 Attending Physician Pedro Mayfield MD PCP Demond Craig MD Referring Physician Date of Admission Jan 02, 2019 at 06:47 Home Medications & Allergies Home Medications Reviewed patient Home Medication Reconciliation performed by pharmacy medication reconciliations mechanical system technician and/or nursing. Patients Allergies have been reviewed. Allergies Allergies Coded Allergies No Allergy Information Available (Unverified01/02/19) Past Nqlgwjw-Oifgpl-Egwtqw Hx Past Med/Social Hx: Reviewed Nursing Past Med/Soc Hx Patient Social History Recreational Drug Use: Yes (TESTED + FOR THC ON 01/02/19) Drug of Choice: TESTED + FOR THC ON 01/02/19 Smoking Status: Unknown if Ever Smoked 2nd Hand Smoke Exposure: No Recent Foreign Travel: No Contact w/other who traveled: No Recent Hopitalizations: No Recent Infectious Disease Expo: No Immunizations Up To Date Tetanus Booster (TDap): Unknown Seasonal Allergies Seasonal Allergies: No Past Medical History Surgeries: Orthopedic Cardiac: High Cholesterol, Hypertension Endocrine: Diabetes, Insulin dep, Diabetes, Non-Insulin dep Family History Patient reports no known family medical history. Review of Systems Constitutional: see HPI EENTM: no symptoms reported Respiratory: short of breath Cardiovascular: no symptoms reported Gastrointestinal: no symptoms reported Genitourinary: frequency Musculoskeletal: no symptoms reported Skin: no symptoms reported Psychiatric/Neurological: No Symptoms Reported Physical Exam Physical Exam Vital Signs Vital Signs - First Documented 01/02/19 08:05 FiO2 50 Capillary Refill : Less Than 3 SecondsLess Than 3 Seconds Height, Weight, BMI Height: 5'9.00" Weight: 290lbs. 8.0oz. [id number]; 42.9 BMI Method:Estimated General Appearance: Mild Distress Eyes: Bilateral Eye Normal Inspection HEENT: Normal ENT Inspection Neck: Other (short neck and double chin) Respiratory: Accessory Muscle Use, Decreased Breath Sounds (distant. BiPAP mask is in place.) Cardiovascular: Regular Rate, Rhythm, No Edema, No Gallop, No JVD, No Murmur, Normal Peripheral Pulses Gastrointestinal: Other (very large tummy) Back: Normal Inspection Neurologic/Psychiatric: Alert, No Motor/Sensory Deficits, Normal Mood/Affect Comments Bizarre right foot deformity with very prominent bunion and valgus deformity. The second and fourth toes are underlying Results Results/Procedures Labs Laboratory Tests 01/02/19 05:09 Patient resulted labs reviewed. Assessment/Plan Admission Diagnosis Altered mental status. 2.severe hypertension. 3.poor diabetic management. 4.morbid obesity. 5.suspect sleep apnea Admission Status: Inpatient Order (span 2 midnights) Reason for Inpatient Admission: too many problems to fix in 2 days Clinical Quality Measures DVT/VTE Risk/Contraindication: Risk Factor Score Per Nursin RFS Level Per Nursing on Admit: 4+=Very High PEDRO MAYFIELD MD Jan 02, 2019 14:00
--- NOTE | 2019-01-02 16:03 | NUR ---
ATTEMPTED TO CALL DR MAYFIELD REGARDING BP, NO ANSWER.
--- NOTE | 2019-01-02 16:05 | NUR ---
E-ICU NOTIFIED OF ELEVATED BP, AWAITING CALL BACK W/ NEW ORDERS.
[2019-01-02] MEDS ORDERED: lisINopril 20 MG (PRINIVIL) TABLET ONE (16:23)
[2019-01-02] MEDS ORDERED: lisINopril 20 MG (PRINIVIL) TABLET PO NR (16:30)
--- NOTE | 2019-01-02 16:45 | NUR ---
LISINOPRIL GIVEN PER E-ICU ORDER.
[2019-01-02] MEDS: meTOprolol 5 MG/5 ML (LOPRESSOR) VIAL IV SCH ×2 (17:38→23:34)
[2019-01-02] MEDS: RT-ALBUTEROL/IPRATROPIUM 3 ML (DUONEB) VIAL INH ONE ×2 (18:59→22:12)
[2019-01-03] VITALS (17 sets, daily range): BP systolic 120–176; BP diastolic 75–111
[2019-01-03 04:05] LABS: BASOPHILS # (AUTO) 0.1 10^3/uL (0.0-0.1); BASOPHILS % (AUTO) 0 % (0-10); EOSINOPHILS % (AUTO) 0 % (0-10); HEMATOCRIT 45 % (40-54); HEMOGLOBIN 15.3 G/DL (13.3-17.7); LYMPHOCYTES # (AUTO) 2.5 X 10^3 (1.0-4.0); LYMPHOCYTES % (AUTO) 19 % (12-44); MEAN CORPUSCULAR HEMOGLOBIN 29 PG (25-34); MEAN CORPUSCULAR HGB CONC 34 G/DL (32-36); MEAN CORPUSCULAR VOLUME 85 FL (80-99); MEAN PLATELET VOLUME 10.7 FL (7.4-10.4); MONOCYTES # (AUTO) 0.7 X 10^3 (0.0-1.0); MONOCYTES % (AUTO) 5 % (0-12); NEUTROPHILS # (AUTO) 10.2 X 10^3 (1.8-7.8); NEUTROPHILS % (AUTO) 75 % (42-75); PLATELET COUNT 260 10^3/uL (130-400); WHITE BLOOD COUNT 13.5 10^3/uL (4.3-11.0)
[2019-01-03 04:26] LABS: CALCIUM 8.5 MG/DL (8.5-10.1); CREATININE SERUM 1.33 MG/DL (0.60-1.30); MAGNESIUM 1.7 MG/DL (1.8-2.4); POTASSIUM 3.6 MMOL/L (3.6-5.0)
[2019-01-03] MEDS: NS W/KCL 20 MEQ/L 1,000 ML IV SCH ×3 (04:28→16:45)
[2019-01-03] MEDS ORDERED: POTASSIUM CL 10MEQ/50ML IVPB 100 ML IV ONE (04:34)
[2019-01-03] MEDS ORDERED: MAGNESIUM 1 GM/100 ML IVPB 200 ML IV ONE (04:34)
[2019-01-03] MEDS: POTASSIUM CL 10MEQ/50ML IVPB 50 ML IV SCH ×2 (04:56→05:53)
[2019-01-03] MEDS: MAGNESIUM 1 GM/100 ML IVPB 100 ML IV SCH ×2 (04:56→05:53)
[2019-01-03 04:59] LABS: CHOLESTEROL 183 MG/DL (< 200); HDL CHOLESTEROL 31 MG/DL (40-60); TRIGLYCERIDES 376 MG/DL (<150); VLDL CHOLESTEROL 75 MG/DL (5-40)
[2019-01-03] MEDS: inSUlin ASPART (NovoLOG) 1 UNIT/0.01 ML (CHARGE PER UNIT) SC SCH ×4 (05:36→21:04)
[2019-01-03] MEDS: meTOprolol 5 MG/5 ML (LOPRESSOR) VIAL IV SCH ×2 (05:36→11:15)
[2019-01-03] MEDS ORDERED: KCL 20 MEQ TAB (K-DUR) PO SCH (06:00)
[2019-01-03] MEDS ORDERED: MAGNESIUM 1 GM/100 ML IVPB 100 ML IV SCH (06:00)
[2019-01-03] MEDS ORDERED: POTASSIUM CL 10MEQ/50ML IVPB 50 ML IV SCH (06:00)
--- NOTE | 2019-01-03 07:07 | Diagnostic Imaging Report ---
INDICATION: Shortness of air. Altered mental status. COMPARISON: 01/02/2019 FINDINGS: Single frontal radiographic view of the chest was obtained and shows stable mild cardiomegaly. Pulmonary vasculature is within normal limits. There has been interval development of alveolar airspace disease within the right base partially obscuring the right hemidiaphragm. Patchy opacities are also noted in the left base. No large effusion or pneumothorax is seen on either side. Bony structures show no gross acute abnormalities. IMPRESSION: 1. Interval development of bibasilar airspace disease concerning for pneumonia, right greater than left. Continued followup is recommended. 2. Mild cardiomegaly. Dictated by: Dictated on workstation # [id number]
[2019-01-03] MEDS: lisINopril 20 MG (PRINIVIL) TABLET PO SCH (09:06)
--- NOTE | 2019-01-03 13:30 | NUR ---
Report called to DWAIN Salinas on 4th floor.
--- NOTE | 2019-01-03 13:35 | Progress Note-Hospitalist ---
Progress Note Progress Notes/Assess & Plan Date Seen 01/03/19 Time Seen by Provider: 13:32 Assessment & Plan The patient looks greatly improved. He has been taken off of ventilatory pressure support. He is oriented. He does not have any particular insight into what brought him here. Physical exam: He is pink and alert. Lungs show breath sounds to be somewhat distant. CV is regular. Abdomen is obese. The dorsum of the hands appears to be swollen left greater than right. Impression altered mental status improved. 2.evidence of mild metabolic acidosis. 3.accelerated hypertension with possible encephalopathy. 4.suspect sleep apnea. Plan: Transfer to fourth floor and mobilize Focused Exam Lactate Level 01/02/19 05:09: Lactic Acid Level 2.31*H 01/02/19 07:10: Lactic Acid Level 3.22*H STANTON MAYFIELD MD Jan 03, 2019 13:35
[2019-01-03] MEDS: hydrALAZINE (APESOLINE) 20 MG/ML VIAL IV PRN (13:42)
--- NOTE | 2019-01-03 13:50 | NUR ---
Pt transferred to room 420 via recliner. Personal belongings accompanied pt, Laura, girlfriend accompanied pt during transfer. Met COMMERCIAL PLUMBER in room. Pt alert and oriented and in stable condition at time of transfer.
[2019-01-03] MEDS: CARVEDILOL 12.5 MG (COREG) TABLET PO SCH ×2 (16:48→21:03)
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
[2019-01-04] VITALS: BP 159/84
[2019-01-04 04:00] VITALS: BP 111/70
[2019-01-04] MEDS: inSUlin ASPART (NovoLOG) 1 UNIT/0.01 ML (CHARGE PER UNIT) SC SCH ×4 (06:05→21:23)
[2019-01-04] MEDS: lisINopril 20 MG (PRINIVIL) TABLET PO SCH (08:26)
[2019-01-04] MEDS: CARVEDILOL 12.5 MG (COREG) TABLET PO SCH ×2 (08:26→21:23)
--- NOTE | 2019-01-04 10:43 | Progress Note-Hospitalist ---
Subjective HPI/CC On Admission Date Seen by Provider: Jan 04, 2019 Time Seen by Provider: 10:30 The patient is a 58-year-old white male who appeared at the emergency room early this morning. He been brought there by family because he had been found to be quite clearly confused. Workup at the emergency room was negative for stroke. It was determined that the patient was very hypertensive. It was further determined that several months ago he had a referral he discontinued all of his medications. This included diabetic and antihypertensive drugs. More recently and without apparent rationale, he had renewed a few of these. The blood pressure maximum has been to 35 or 136. His weight is 285+. His lactic acid was noted to be 2.31. CT scans of the head was negative and the stroke workup. Hemoglobin was 17.8 and appears to be likely a function of both smoking and likely sleep apnea. Blood sugars have been running in the 300 range. The pharmacy messenger has informed me that he stopped all medications several months ago and then more recently has refilled some of them without apparent rationale. Subjective/Events-last exam Patient is sitting up this morning seems to be alert and oriented. He is on disability and lives alone with 2 dogs in his greatest amount of activity is letting the dogs out in the backyard. He has a club foot of the right leg which is the etiology for his disability. CT showed a great deal of atrophy of the brain. He relates having had a very heavy alcohol use in the past. Patient complains primarily of urinary incontinence this morning he had had a catheter placed and is now having trouble. He admits to having had a history of sleep apnea but doesn't wear his CPAP mask. He doesn't really have a doctor and noncompliance seems to be his biggest problem. He was restarted on some of his medications blood pressure is much better this morning. Review of Systems Genitourinary: Frequency, Incontinence Neurological: Weakness Focused Exam Lactate Level Objective Exam Vital Signs Vital Signs Date Time Temp Pulse Resp B/P (MAP) Pulse Ox O2 Delivery O2 Flow Rate FiO2 01/06/19 01:41 70 01/06/19 00:25 97.0 21 173/74 (107) 95 Nasal Cannula 4.00 01/02/19 16:00 45 Capillary Refill : Less Than 3 SecondsLess Than 3 Seconds General Appearance: No Apparent Distress, WD/WN, Mild Distress HEENT: Normal ENT Inspection Neck: Other (short neck and double chin) Respiratory: Accessory Muscle Use, Decreased Breath Sounds (distant. BiPAP mask is in place.) Cardiovascular: Regular Rate, Rhythm, No Edema, No Gallop, No JVD, No Murmur, Normal Peripheral Pulses Gastrointestinal: Other (very large tummy) Back: Normal Inspection Extremity: Other (Clubfoot right) Neurologic/Psychiatric: Alert, No Motor/Sensory Deficits, Normal Mood/Affect Results/Procedures Lab Laboratory Tests 01/05/19 10:42 Patient resulted labs reviewed. Assessment/Plan Assessment and Plan Assess & Plan/Chief Complaint Mental status changes with hypertensive encephalopathy. Currently resolved Urinary incontinence we will check bladder scan for post void residual Hypertensive emergency. Resolved Weakness Possibly underlying dementia consider normal pressure hydrocephalus. Diabetes with medical noncompliance started on insulin-will probably need an oral agent for ease of administration Clinical Quality Measures DVT/VTE Risk/Contraindication: Risk Factor Score Per Nursin RFS Level Per Nursing on Admit: 4+=Very High ARIES VEGA MD Jan 04, 2019 10:43
[2019-01-04] MEDS ORDERED: glipiZIDE 5 MG (GLUCOTROL) TAB PO ONE (11:30)
[2019-01-04 15:55] VITALS: BP 157/79
[2019-01-04] MEDS: metFORMIN 500 MG (GLUCOPHAGE) TAB PO SCH (17:06)
[2019-01-04 20:16] VITALS: BP 156/84
[2019-01-04 23:55] VITALS: BP 166/88
[2019-01-05] MEDS: inSUlin ASPART (NovoLOG) 1 UNIT/0.01 ML (CHARGE PER UNIT) SC SCH ×4 (05:58→20:45)
[2019-01-05] MEDS: metFORMIN 500 MG (GLUCOPHAGE) TAB PO SCH ×2 (06:09→17:04)
[2019-01-05 08:00] VITALS: BP 169/82
[2019-01-05] MEDS ORDERED: SCOPOLAMINE PATCH REMOVAL TP SCH (08:59)
[2019-01-05] MEDS ORDERED: SCOPOLAMINE 1.5 MG (TRANSDERM-SCOP) PATCH TOP SCH (09:00)
[2019-01-05] MEDS: lisINopril 20 MG (PRINIVIL) TABLET PO SCH (09:30)
[2019-01-05] MEDS: CARVEDILOL 12.5 MG (COREG) TABLET PO SCH ×2 (09:30→20:45)
[2019-01-05 10:50] LABS: BASOPHILS % (AUTO) 0 % (0-10); EOSINOPHILS # (AUTO) 0.2 10^3/uL (0.0-0.3); EOSINOPHILS % (AUTO) 3 % (0-10); HEMATOCRIT 46 % (40-54); HEMOGLOBIN 15.8 G/DL (13.3-17.7); LYMPHOCYTES # (AUTO) 1.9 X 10^3 (1.0-4.0); LYMPHOCYTES % (AUTO) 21 % (12-44); MEAN CORPUSCULAR HEMOGLOBIN 29 PG (25-34); MEAN CORPUSCULAR HGB CONC 34 G/DL (32-36); MEAN CORPUSCULAR VOLUME 85 FL (80-99); MEAN PLATELET VOLUME 10.6 FL (7.4-10.4); MONOCYTES # (AUTO) 0.6 X 10^3 (0.0-1.0); MONOCYTES % (AUTO) 7 % (0-12); NEUTROPHILS # (AUTO) 6.2 X 10^3 (1.8-7.8); NEUTROPHILS % (AUTO) 69 % (42-75); PLATELET COUNT 236 10^3/uL (130-400); RED CELL DISTRIBUTION WIDTH 14.6 % (10.0-14.5)
[2019-01-05 11:10] LABS: ALBUMIN 3.4 GM/DL (3.2-4.5); BILIRUBIN,TOTAL 0.6 MG/DL (0.1-1.0); CALCIUM 8.9 MG/DL (8.5-10.1); CREATININE SERUM 1.41 MG/DL (0.60-1.30); POTASSIUM 3.8 MMOL/L (3.6-5.0); TOTAL PROTEIN 6.4 GM/DL (6.4-8.2)
--- NOTE | 2019-01-05 11:12 | Diagnostic Imaging Report ---
EXAM: CHEST PA/LAT (2 VIEW) INDICATION: Hypoxia. COMPARISON: Chest radiograph 01/03/2019. FINDINGS: Stable cardiomegaly and prominence of central pulmonary vascularity. Mild increased interstitial opacities. No pleural effusion or pneumothorax. No acute osseous findings. Postoperative changes in the cervical spine. IMPRESSION: 1. Cardiomegaly with prominent central pulmonary vascularity and mild interstitial opacities suggesting a degree of interstitial edema. 2. Previously seen consolidation in the right lung base has resolved. Dictated by: Dictated on workstation # [id number]
--- NOTE | 2019-01-05 11:43 | Progress Note-Hospitalist ---
Subjective HPI/CC On Admission Date Seen by Provider: Jan 05, 2019 Time Seen by Provider: 11:05 The patient is a 58-year-old white male who appeared at the emergency room early this morning. He been brought there by family because he had been found to be quite clearly confused. Workup at the emergency room was negative for stroke. It was determined that the patient was very hypertensive. It was further determined that several months ago he had a referral he discontinued all of his medications. This included diabetic and antihypertensive drugs. More recently and without apparent rationale, he had renewed a few of these. The blood pressure maximum has been to 35 or 136. His weight is 285+. His lactic acid was noted to be 2.31. CT scans of the head was negative and the stroke workup. Hemoglobin was 17.8 and appears to be likely a function of both smoking and likely sleep apnea. Blood sugars have been running in the 300 range. The pharmacy messenger has informed me that he stopped all medications several months ago and then more recently has refilled some of them without apparent rationale. Subjective/Events-last exam Patient says he feels a lot better. He continues to wear his oxygen. His primary complaint is that he continues to be completely incontinent of urine since he had a Aguero catheter taken out. BNP is normal chest x-ray shows what appears to be like interstitial edema. Blood sugars are much better control he was restarted on his metformin Review of Systems Genitourinary: Frequency, Incontinence Objective Exam Vital Signs Vital Signs Date Time Temp Pulse Resp B/P (MAP) Pulse Ox O2 Delivery O2 Flow Rate FiO2 01/05/19 19:21 Room Air 01/05/19 19:00 69 01/05/19 16:06 98.8 20 177/89 (118) 92 4.00 01/02/19 16:00 45 Capillary Refill : Less Than 3 SecondsLess Than 3 Seconds General Appearance: No Apparent Distress, WD/WN, Mild Distress HEENT: Normal ENT Inspection Neck: Other (short neck and double chin) Respiratory: Accessory Muscle Use, Decreased Breath Sounds (distant. BiPAP mask is in place.) Cardiovascular: Regular Rate, Rhythm, No Edema, No Gallop, No JVD, No Murmur, Normal Peripheral Pulses Gastrointestinal: Other (very large tummy) Back: Normal Inspection Extremity: Other (Clubfoot right) Neurologic/Psychiatric: Alert, No Motor/Sensory Deficits, Normal Mood/Affect Results/Procedures Lab Laboratory Tests 01/05/19 10:42 Patient resulted labs reviewed. Assessment/Plan Assessment and Plan Assess & Plan/Chief Complaint Mental status changes with hypertensive encephalopathy. Currently resolved Urinary incontinence we will check bladder scan for post void residual-we'll consult Dr. Ruano-we'll check a UA Hypertensive emergency. Resolved Weakness Possibly underlying dementia consider normal pressure hydrocephalus. Diabetes with medical noncompliance could be started on glyburide since I think he would be noncompliant with insulin. Also restarted on metformin. 2100: O2 sat did not drop below 92 %, Dr. Ruano to see pt in consult in am , needs SW to help coordinate medication complience Clinical Quality Measures DVT/VTE Risk/Contraindication: Risk Factor Score Per Nursin RFS Level Per Nursing on Admit: 4+=Very High ARIES VEGA MD Jan 05, 2019 11:43
--- NOTE | 2019-01-05 14:26 | NUR ---
HOME OXYGEN STUDY PT WALKED ON ROOM AIR AND DIDNT DESATURATE BELOW 92% SPO2, PT DOES NOT REQUIRE OXYGEN AT THIS TIME.
[2019-01-05 15:46] LABS: BILIRUBIN,URINE NEGATIVE (NEGATIVE); CLARITY,URINE CLEAR; COLOR,URINE YELLOW; GLUCOSE, URINE (UA) 2+ (NEGATIVE); KETONES,URINE NEGATIVE (NEGATIVE); LEUKOCYTE ESTERASE ,URINE 1+ (NEGATIVE); NITRITE,URINE NEGATIVE (NEGATIVE); PH,URINE 5 (5-9); PROTEIN,URINE 3+ (NEGATIVE); UROBILINOGEN,URINE 1 MG/DL (NORMAL)
[2019-01-05 16:06] VITALS: BP 177/89
[2019-01-05 16:09] LABS: BACTERIA,URINE MODERATE /HPF
[2019-01-06 00:25] VITALS: BP 173/74
[2019-01-06] MEDS: inSUlin ASPART (NovoLOG) 1 UNIT/0.01 ML (CHARGE PER UNIT) SC SCH ×4 (05:19→21:33)
[2019-01-06] MEDS: metFORMIN 500 MG (GLUCOPHAGE) TAB PO SCH ×2 (06:00→16:49)
[2019-01-06 08:00] VITALS: BP 181/87
[2019-01-06] MEDS: CARVEDILOL 12.5 MG (COREG) TABLET PO SCH ×2 (08:02→21:32)
[2019-01-06] MEDS: lisINopril 20 MG (PRINIVIL) TABLET PO SCH (08:02)
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
--- NOTE | 2019-01-06 09:30 | NUR ---
BLADDER SCAN AFTER [id number] JC NOTIFIED OF RESULTS.
--- NOTE | 2019-01-06 09:33 | Physical Therapy Evaluation ---
PT Evaluation-General Medical Diagnosis Admission Date Jan 02, 2019 at 06:47 Medical Diagnosis: AMS/respiratory failure/DKA Onset Date: Jan 02, 2019 Therapy Diagnosis Therapy Diagnosis: debility Height/Weight Height (Feet): 5 Height (Inches): 9.00 Weight (Pounds): 293 Weight (Ounces): 2.0 Precautions Precautions/Isolations: Standard Precautions Weight Bear Status Right Lower Extremity: Right Weight Bearing/Tolerated Left Lower Extremity: Left Weight Bearing/Tolerated Referral Physician: Joshua Reason for Referral: Evaluation/Treatment Medical History Pertinent Medical History: DM, HTN Current History EMS secondary to increase confusion and 2 month ceasing of meds Reviewed History: Yes Social History Home: Single Level Current Living Status: Significant Other Entry Into Home: Level Entry Prior/Core FIM Prior Level of Function Therapy Code Descriptions/Definitions Functional [place] Measure: 0=Not Assessed/NA 4=Minimal Assistance 1=Total Assistance 5=Supervision or Setup 2=Maximal Assistance 6=Modified [place] 3=Moderate Assistance 7=Complete [place] Therapy Quality Codes: 6 Independent with activity with or without an assistive device 5 Patient requires set up or clean up by helper. Patient completes activity by themselves 4 Supervision or touching assist (CGA). [place] provide cues , steadying assist 3 The helper provides less than half the effort to complete the activity 2 The helper provides more than half the effort to complete the activity 1 Dependent. The helper does all the effort to complete an activity 7 Patient refused to complete or attempt activity 9 The patient did not perform the activity before the current illness or injury 88 Not attempted due to Medical conditions or safety concerns Functional Abilities and Goals: Independent: Patient completed the activities by him/herself, with or without an assistive device, with no assistance from a helper. Needed Some Help: Patient needed partial assistance from another person to complete activities. Dependent: A helper completed the activities for the patient. Unknown: Not Applicable: Bed Mobility: 6 Transfers (B,C,W/C) (FIM): 6 Gait: 6 Indoor Mobility (Ambulation): Independent Prior Devices Use: None (cane) PT Evaluation-Current Subjective Patient reports he is up in room independently. Agrees to PT. Pain Numeric Pain Scale: 0-No Pain Location: No Pain Reported Objective Patient Orientation: Person, Time, Situation Problem Solving: Fair ROM/Strength ROM Lower Extremities bilateral LE WFL Strength Lower Extremities right LE 3+/5 grossly/left LE 4/5 grossly Integumentary/Posture Integumentary refer to nursing notes Bowel Incontinence: No Bladder Incontinence: No Posture WFL Neuromuscular (Tone, Coordination, Reflexes) grossly intact Sensory Vision: Wears Glasses Hearing: Functional Sensation Right Lower Extremit: Impaired Sensation Left Lower Extremity: Impaired Transfers Therapy Code Descriptions/Definitions Functional [place] Measure: 0=Not Assessed/NA 4=Minimal Assistance 1=Total Assistance 5=Supervision or Setup 2=Maximal Assistance 6=Modified [place] 3=Moderate Assistance 7=Complete [place] Transfers (B, C, W/C) (FIM): 6 Scootin Rollin Supine to/from Sit: 6 Sit to/from Stand: 6 Gait Mode of Locomotion: Walk Anticipated Mode of Locomotion: Walk Gait (FIM): 6 Distance (FIM): 3=150 ft Distance: >500' Gait Level of Assist: 6 Gait Assistive Device: FWW Comments/Gait Description safe and functional Balance Sitting Static: Normal Sitting Dynamic: Normal Standing Static: Normal Standing Dynamic: Normal Assessment/Needs 58 y.o. male, will be seen short term by skilled PT to address safe functional mobility to ensure safe return to home at maximum LOF. Rehab Potential: Fair Post Rehab Potential-Barriers: compliance PT Short Term Goals Short Term Goals Time Frame: Jan 10, 2019 Transfers (B,C,W/C) (FIM): 6 Gait (FIM): 6 Distance (FIM): 3=150 ft Gait Level of Assist: 6 Gait Assistive Device: FWW PT Plan Treatment/Plan Treatment Plan: Continue Plan of Care Treatment Plan: Education, Functional Activity Andrei, Functional Strength, Gait, Safety, Therapeutic Exercise Treatment Duration: Jan 10, 2019 Frequency: 5 times per week Estimated Hrs Per Day: .25 hour per day Patient and/or Family Agrees t: Yes Discharge Recommendations Therapy D/C Recommendations: Home w/ Family Support Time/GCodes Time In: 825 Time Out: 845 Total Billed Treatment Time: 20 Total Billed Treatment 1 visit EVMod 20 min MIRIAN OLIVA PT Jan 06, 2019 09:33
--- NOTE | 2019-01-06 09:58 | Pulmonary Consultation ---
History of Present Illness History of Present Illness Date of Consultation 01/06/19 09:53 Time Seen by Provider: 12:34 Date of Admission History of Present Illness 58yo with hx of DM, and morbid obesity presented to ED secondary to worsening confusion. Pt went to bed at 2230 and woke up confused. pt quit taking all of his meds 2 mo ago. He was found to have a BS of 240. no prior episodes like this in the past. I am consulted for pulmonary management. Allergies and Home Medications Allergies Coded Allergies: No Allergy Information Available (Unverified , 01/02/19) Home Medications Atorvastatin Calcium 40 Mg Tablet, 40 MG PO HS, (Reported) Carvedilol 25 Mg Tablet, 25 MG PO BID, (Reported) Dapagliflozin Propanediol 10 Mg Tablet, 10 MG PO DAILY, (Reported) Ezetimibe 10 Mg Tablet, 10 MG PO DAILY, (Reported) Glyburide 5 Mg Tablet, 5 MG PO twice a day Prescribed by: STANTON MAYFIELD on 01/07/19 1239 Ibuprofen 200 Mg Tablet, 400 MG PO TID PRN for PAIN-MILD, (Reported) Lisinopril 20 Mg Tablet, 20 MG PO DAILY, (Reported) Metformin HCl 1,000 Mg Tablet, 1,000 MG PO BID, (Reported) [place] 3 Polyunsat Fatty Acids 1,000 Mg Cap, 1,000 MG PO DAILY, (Reported) Sitagliptin Phosphate 100 Mg Tablet, 100 MG PO DAILY, (Reported) Past Ueglfot-Gzooyg-Nlorkt Hx Past Med/Social Hx: Reviewed Nursing Past Med/Soc Hx Patient Social History Recreational Drug Use: Yes (TESTED + FOR THC ON 01/02/19) Drug of Choice: TESTED + FOR THC ON 01/02/19 Smoking Status: Unknown if Ever Smoked 2nd Hand Smoke Exposure: No Recent Foreign Travel: No Contact w/Someone Who Travel: No Recent Infectious Disease Expo: No Recent Hopitalizations: No Immunizations Up To Date Tetanus Booster (TDap): Unknown Seasonal Allergies Seasonal Allergies: No Past Medical History Surgeries: Yes (BASED ON EXAM AND XRAY/CT FINDINGS: RIGHT FOOT SURGERY; CERVICAL SPINE SURGERY) Orthopedic Respiratory: No Cardiac: Yes (BASED ON MEDICATIONS) High Cholesterol, Hypertension Neurological: No (UNKNOWN) Genitourinary: No (UNKNOWN) Gastrointestinal: No (UNKNOWN) Musculoskeletal: Yes (DOES STATE BORN WITH RIGHT LEG "CRIPPLED" ; EVIDENCE OF CERVICAL SPINE SURGERY ON XRAYS) Endocrine: Yes Diabetes, Insulin dep, Diabetes, Non-Insulin dep HEENT: No (UNKNOWN) Cancer: No (UNKNOWN) Psychosocial: No (UNKNOWN--PT IS ON CYMBALTA) Family Medical History Patient reports no known family medical history. Review of Systems Time Seen by Provider: 12:36 Constitutional: Fever, Sweats, Weakness, Malaise; No: Chills, Other Eyes: No: Pain, Vision change, Conjunctivae inflammation, Eyelid inflammation, Other, Redness ENT: Nose congestion; No: Ear pain, Ear discharge, Nose pain, Nose discharge, Mouth pain, Mouth swelling, Throat pain, Throat swelling, Other Respiratory: Cough, Shortness of breath, SOB with excertion, Wheezing Cardiovascular: No: Chest Pain, Palpitations, Orthopnea, Paroxysmal Noc. Dyspnea, Edema, Lt Headedness, Other Gastrointestinal: Nausea, Constipation; No: Vomiting, Abdominal Pain, Diarrhea, Melena, Hematochezia, Other Sepsis Event Evaluation Height, Weight, BMI Height: 5'9.00" Weight: 293lbs. 2.0oz. 132.333777bi; 42.9 BMI Method:Estimated Exam Exam Vital Signs Date Time Temp Pulse Resp B/P (MAP) Pulse Ox O2 Delivery O2 Flow Rate FiO2 01/06/19 08:00 97.3 69 22 181/87 (118) 95 Room Air 01/06/19 07:00 64 01/06/19 01:41 70 01/06/19 00:25 97.0 64 21 173/74 (107) 95 Nasal Cannula 4.00 01/05/19 20:00 Nasal Cannula 4.00 01/05/19 19:21 Room Air 01/05/19 19:00 69 01/05/19 16:06 98.8 70 20 177/89 (118) 92 Nasal Cannula 4.00 01/05/19 13:00 66 I & O 01/06/19 07:00 Intake Total 1340 ml Output Total 900 ml Balance 440 ml Height & Weight Height: 5'9.00" Weight: 293lbs. 2.0oz. 132.379627wl; 42.9 BMI Method:Estimated General Appearance: No Apparent Distress, WD/WN, Mild Distress HEENT: Normal ENT Inspection Neck: Other (short neck and double chin) Respiratory: Accessory Muscle Use, Decreased Breath Sounds (distant. BiPAP mask is in place.) Cardiovascular: Regular Rate, Rhythm, No Edema, No Gallop, No JVD, No Murmur, Normal Peripheral Pulses Capillary Refill: Less Than 3 Seconds Peripheral Pulses: 2+ Dorsalis Pedis (R), 2+ Left Dors-Pedis (L), 2+ Radial Pulses (R), 2+ Radial Pulses (L) Gastrointestinal: non tender, soft Extremity: Normal Capillary Refill, Normal Inspection, No Pedal Edema, Other (Clubfoot right) Neurologic/Psychiatric: Alert, No Motor/Sensory Deficits, Normal Mood/Affect Results Lab Laboratory Tests 01/05/19 10:42 Assessment/Plan Assessment/Plan chronic respiratory failure with Morbid obesity with OHS -ABG shows C02 54 -pt would benefit from vent to mask -PT is at risk of multiple hospitalizations secondary to chronic respiratory failure and OHS. -I discussed with [facility] they are going to try to arrange home vent to mask. Metabolic encephalopathy SANTY BEAN DO Jan 06, 2019 09:58
--- NOTE | 2019-01-06 13:10 | Progress Note-Hospitalist ---
Progress Note Progress Notes/Assess & Plan Date Seen 01/06/19 Time Seen by Provider: 13:06 Assessment & Plan The patient is beginning to ambulate. He is feeling much better. 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 Vital signs are stable. It would appear he will be able to manage his diabetes at this time with oral agents. Physical exam: He is sitting in the chair at bedside he has alert and oriented and his color is good. Lungs are clear to auscultation. CV is regular without murmur. He reports that ambulation is difficult as he has some atrophy and deformity of the right ankle and foot. He had club foot surgery as a child. Impression: Hypertensive urgency/possible encephalopathy. 2.suspect sleep apnea. 3.diabetes. 4.noncompliance with antihypertensives and hypoglycemics. Plan: Discontinue telemetry. Encourage ambulation. Await completion of urologic needs. STANTON MAYFIELD MD Jan 06, 2019 13:10
--- NOTE | 2019-01-06 14:53 | CONSULTATION REPORT ---
DATE OF SERVICE: 01/06/2019 ATTENDING PHYSICIAN: ____. SUMMARY: A 58-year-old white man who was admitted with unconsciousness. He had a Aguero catheter that was about 2 days, it was removed. The patient was voiding well, but had complains of frequency, nocturia and urgency with some incontinence mostly at night when he cannot get on time to the bathroom. He is able to get on time to the bathroom during the daytime. He denies any previous voiding symptoms before the incident and he is not taking any medication for prostate or bladder. He denies any infections in the bladder or prostate before or surgeries. Physical exam was deferred at the time of cystoscopy. We did a bladder scan postvoid residual on him. It was 264 mL. We will observe for now. IMPRESSION: Benign prostatic hyperplasia with overactive bladder and some retention with possible silent prostatism. PLAN: Flexible cystoscopy at bedside tomorrow under local. Physical exam at that time. Procedure was fully explained to the patient. His questions were answered. Job ID: [id number] DocumentID: [id number] Dictated Date: 01/06/2019 09:32:05 Power And Recovery Supervisor Date: 01/06/2019 10:04:29 Dictated By: MORGAN JC MD
[2019-01-06 16:33] VITALS: BP 216/106
[2019-01-06] MEDS: hydrALAZINE (APESOLINE) 20 MG/ML VIAL IV PRN (16:49)
--- NOTE | 2019-01-06 16:49 | NUR ---
BP= 216/106 APRESOLINE 10 MG GIVEN IV SLOWLY . TEL ON. DR. MAYFIELD NOTIFIED OF PTS HIGH BP AND UNABLE TO DC TEL. AT THIS TIME BECAUSE OF IV BP MEDS.
[2019-01-06] MEDS ORDERED: MILK OF MAGNESIA 400 MG/5 ML 30 ML UDC PO PRN (17:00)
[2019-01-06 18:39] VITALS: BP 181/91
[2019-01-06 19:00] VITALS: BP 169/79
[2019-01-06] MEDS ORDERED: diphenhydrAMINE 25 MG TAB (BENADRYL) PO PRN (19:15)
[2019-01-06] MEDS: hydrALAZINE (APRESOLINE) 25 MG TAB PO PRN (23:31)
[2019-01-06 23:48] VITALS: BP 184/88
[2019-01-07] MEDS: inSUlin ASPART (NovoLOG) 1 UNIT/0.01 ML (CHARGE PER UNIT) SC SCH ×2 (06:33→11:13)
[2019-01-07] MEDS: metFORMIN 500 MG (GLUCOPHAGE) TAB PO SCH (06:43)
--- NOTE | 2019-01-07 07:21 | Pulmonary Progress Note ---
Subjective Time Seen by a Provider: 12:40 Sepsis Event Evaluation Height, Weight, BMI Height: 5'9.00" Weight: 293lbs. 2.0oz. 132.555226ne; 42.9 BMI Method:Estimated Exam Exam Vital Signs Date Time Temp Pulse Resp B/P (MAP) Pulse Ox O2 Delivery O2 Flow Rate FiO2 01/06/19 23:48 97.6 70 20 184/88 (120) 90 Room Air 01/06/19 20:00 Room Air 01/06/19 19:00 98.4 84 20 169/79 (109) 92 Room Air 01/06/19 18:47 Room Air 01/06/19 18:39 80 20 181/91 (121) 94 Room Air 01/06/19 16:33 98.0 63 20 216/106 (142) 95 Room Air 01/06/19 13:00 65 01/06/19 08:00 97.3 69 22 181/87 (118) 95 Room Air 01/06/19 08:00 Nasal Cannula 4.00 I & O 01/07/19 07:00 Intake Total 1540 ml Balance 1540 ml Height & Weight Height: 5'9.00" Weight: 293lbs. 2.0oz. 132.046727oo; 42.9 BMI Method:Estimated General Appearance: No Apparent Distress, WD/WN, Mild Distress HEENT: Normal ENT Inspection Neck: Other (short neck and double chin) Respiratory: Accessory Muscle Use, Decreased Breath Sounds (distant. BiPAP mask is in place.) Cardiovascular: Regular Rate, Rhythm, No Edema, No Gallop, No JVD, No Murmur, Normal Peripheral Pulses Capillary Refill: Less Than 3 Seconds Peripheral Pulses: 2+ Dorsalis Pedis (R), 2+ Left Dors-Pedis (L), 2+ Radial Pulses (R), 2+ Radial Pulses (L) Gastrointestinal: non tender, soft Extremity: Other (Clubfoot right) Neurologic/Psychiatric: Alert, No Motor/Sensory Deficits, Normal Mood/Affect Results Lab Laboratory Tests 01/05/19 10:42 Assessment/Plan Assessment/Plan chronic respiratory failure with Morbid obesity with OHS -ABG shows C02 54 -pt would benefit from vent to mask -PT is at risk of multiple hospitalizations secondary to chronic respiratory failure and OHS. -I discussed with Nick[facility] PEREYRA they are unable to get it approved. Will have to do out pt PSG Metabolic encephalopathy DM SANTY RANDALL DO Jan 07, 2019 07:21
[2019-01-07 08:00] VITALS: BP 168/90
--- NOTE | 2019-01-07 08:12 | Progress Note-Pre Operative ---
Pre-Operative Progress Note H&P Reviewed The H&P was reviewed, patient examined and no changes noted. Date Seen by Provider: Jan 07, 2019 Time Seen by Provider: 08:12 Date H&P Reviewed: Jan 07, 2019 Time H&P Reviewed: 08:12 Pre-Operative Diagnosis: URINE RETENTION AND INCONTINENCE MORGAN JC MD Jan 07, 2019 08:12
--- NOTE | 2019-01-07 08:13 | Progress Note-Post Operative ---
Post-Operative Progess Note Surgeon (s)/Billing Coordinator (s) Surgeon MORGAN JC MD Billing Coordinator: NONE Pre-Operative Diagnosis URINE RETENTION AND INCONTINENCE Post-Operative Diagnosis SAME Procedure & Operative Findings Date of Procedure 01/07/19 Procedure Performed/Findings CYSTOSCOPY Anesthesia Type LOCAL Estimated Blood Loss Estimated blood loss (mL): NONE Specimens/Packing Specimens Removed NONE Packing: NONE MORGAN JC MD Jan 07, 2019 08:13
[2019-01-07] MEDS ORDERED: LIDOCAINE UROJET 2% GEL 10 ML PKG ONE (08:14)
[2019-01-07] MEDS: lisINopril 20 MG (PRINIVIL) TABLET PO SCH (08:15)
[2019-01-07] MEDS: CARVEDILOL 12.5 MG (COREG) TABLET PO SCH (08:15)
[2019-01-07] MEDS: hydrALAZINE (APRESOLINE) 25 MG TAB PO PRN (08:25)
--- NOTE | 2019-01-07 11:42 | Physical Therapy Daily Note ---
PT Daily Note-Current Subjective Patient reports he hopes to go home today. Agrees to PT. Pain Numeric Pain Scale: 0-No Pain Location: No Pain Reported Mental Status Patient Orientation: Normal For Age Transfers Therapy Code Descriptions/Definitions Functional [place] Measure: 0=Not Assessed/NA 4=Minimal Assistance 1=Total Assistance 5=Supervision or Setup 2=Maximal Assistance 6=Modified [place] 3=Moderate Assistance 7=Complete [place] Therapy Quality Codes: 6 Independent with activity with or without an assistive device 5 Patient requires set up or clean up by helper. Patient completes activity by themselves 4 Supervision or touching assist (CGA). [place] provide cues , steadying assist 3 The helper provides less than half the effort to complete the activity 2 The helper provides more than half the effort to complete the activity 1 Dependent. The helper does all the effort to complete an activity 7 Patient refused to complete or attempt activity 9 The patient did not perform the activity before the current illness or injury 88 Not attempted due to Medical conditions or safety concerns Transfers (B, C, W/C) (FIM): 6 Scootin Sit to/from Stand: 6 Weight Bearing Right Lower Extremity: Right Weight Bearing/Tolerated Left Lower Extremity: Left Weight Bearing/Tolerated Gait Training Gait (FIM): 6 Distance (FIM): 3=150 ft Distance: >500' Gait Level of Assist: 6 Gait Assistive Device: FWW Assessment Patient is currently at [facility] with all gross motor skills safely and no longer requires skilled therapy intervention. PT to dismiss patient from services at this time. PT Short Term Goals Short Term Goals Time Frame: Jan 10, 2019 Transfers (B,C,W/C) (FIM): 6 Gait (FIM): 6 Distance (FIM): 3=150 ft Gait Level of Assist: 6 Gait Assistive Device: FWW PT Plan Treatment/Plan Treatment Plan: Discontinue PT, goals met Treatment Plan: Education, Functional Activity Andrei, Functional Strength, Gait, Safety, Therapeutic Exercise Treatment Duration: Jan 10, 2019 Frequency: 5 times per week Estimated Hrs Per Day: .25 hour per day Patient and/or Family Agrees t: Yes Time/GCodes Time In: 1050 Time Out: 1100 Total Billed Treatment Time: 10 Total Billed Treatment 1 visit FA 10 min MIRIAN OLIVA PT Jan 07, 2019 11:42
--- NOTE | 2019-01-07 12:35 | Progress Note-Hospitalist ---
Progress Note Progress Notes/Assess & Plan Date Seen 01/07/19 Time Seen by Provider: 12:32 Assessment & Plan The patient had a bedside cystoscopy performed by Dr. Ruano this morning. As voiced by the patient no obstruction or prostate problem was noted. He has been able to empty his bladder. He is ready for discharge. Physical exam: Lungs are clear to auscultation. CV is regular. Abdomen is quite large. Extremities show any with third right lower extremity without edema and a normal left lower extremity with 1+ pretibial edema. Impression: Altered mental status of combined etiology. This has now cleared. 2.morbid obesity. 3.hypercapnia/sleep apnea. 4.diabetes mellitus type II. Plan: Discharge. See discharge sequence for meds and routines. STANTON MAYFIELD MD Jan 07, 2019 12:35
[2019-01-07] MEDS ORDERED: GLYB5TAB6 PO (12:39)
--- NOTE | 2019-01-07 12:45 | Discharge Inst-Simple/Standard ---
Discharge Inst-Standard Discharge Medications New, Converted or Re-Newed RX: Transmitted to Pharmacy Patient Instructions/Follow Up Plan of Care/Instructions/FU: Medications as listed in the discharge sequence. Make appointment to see Dr. Garcia in 10-14 days. An appointment has been made for you to see Leigh Cordova at [facility] on 01/09 at 1 p.m. The project here is to address more aggressive treatment of diabetes. Activity as Tolerated: Yes Goal: General improvement in managing sleep apnea issues. Better management of diabetes and hypertension. Discharge Diet: ADA Diet Planned Outpatient Orders/Ref. Pneu Vac Indicated: Yes STANTON MAYFIELD MD Jan 07, 2019 12:45
--- NOTE | 2019-01-07 14:55 | OPERATIVE REPORT ---
DATE OF SERVICE: 01/07/2019 PREOPERATIVE DIAGNOSIS: Urinary retention and incontinence. POSTOPERATIVE DIAGNOSIS: Urinary retention and incontinence. OPERATION PERFORMED: Cystoscopy. SURGEON: Jovanny Jc MD ANESTHESIA: Local. COMPLICATIONS: None. DESCRIPTION OF PROCEDURE: With the patient in supine position, genitalia were prepped and draped in the usual sterile fashion. The urethra was infiltrated with 2% lidocaine jelly. Penile clamp was applied. This was then removed and a flexible cystoscope was introduced under vision. The anterior urethra was normal. The prostate was small and nonobstructing. The bladder neck was open. Bladder was entered, revealed mild trabeculation. No foreign body, bladder tumor or stone visualized. Ureteric orifices with clear effluxes. Cystoscopy was confirmed in an antegrade fashion and the cystoscope was removed. The patient tolerated the procedure and anesthesia well and will remain in his bed in stable condition. PLAN: Since his frequency and nocturia has gradually improved. We will just observe. We will put him on some Flomax because he had some residual yesterday. We will watch the residual bladder scan and possible straight catheterization of over 300 and we will manage accordingly. The plan was fully explained to the patient. Job ID: [id number] DocumentID: [id number] Dictated Date: 01/07/2019 09:16:05 Cargo Supervisor Date: 01/07/2019 14:54:41 Dictated By: JOVANNY JC MD
[2019-01-07] MEDS ORDERED: TAMSULOSIN 0.4 MG (FLOMAX) CAP PO SCH (18:00)
== END 2019-01-07 14:00 | disposition home or self-care (01) | DRG 77 ==
LOC: EDUNIT# 05:01 → ER 05:04 → ICU 06:47 → 4TH 01-03 13:50
PROVIDERS: ADMIT Internal Medicine; ATTEND Family Medicine
PROC: 0TJD8ZZ Inspection of Urethra, Via Natural or Artificial Opening Endoscopic (ICD-10-PCS; 2019-01-07)
PROC: 0TJB8ZZ Inspection of Bladder, Via Natural or Artificial Opening Endoscopic (ICD-10-PCS; principal; 2019-01-07 08:48)
DX: I67.4 Hypertensive encephalopathy (principal); I16.1 Hypertensive emergency; G93.41 Metabolic encephalopathy; E11.10 Type 2 diabetes mellitus with ketoacidosis without coma; E66.2 Morbid (severe) obesity with alveolar hypoventilation; J96.11 Chronic respiratory failure with hypoxia; J96.12 Chronic respiratory failure with hypercapnia; E87.2 Acidosis; N40.1 Benign prostatic hyperplasia with lower urinary tract symptoms; R32 Unspecified urinary incontinence; R35.0 Frequency of micturition; N32.81 Overactive bladder; R35.1 Nocturia; R39.15 Urgency of urination; Z91.14 Patient's other noncompliance with medication regimen; F03.90 Unspecified dementia, unspecified severity, without behavioral disturbance, psychotic disturbance, mood disturbance, and anxiety; E78.00 Pure hypercholesterolemia, unspecified; E87.6 Hypokalemia; Q66.89 Other specified congenital deformities of feet
CPT/HCPCS: 36415; 51702; 70450; 70496; 70498; 71045; 71046; 80048; 80053; 80061; 80306; 80320; 81000; 82140; 82150; 82805; 82962; 83036; 83605; 83690; 83735; 83874; 83880; 84100; 84443; 84484; 85025; 85379; 85610; 85730; 87040; 87081; 87088; 93005; 93041; 94640; 94664; 94761; 96361; 96374; 96375; 96376; 99291

== ENCOUNTER 2019-05-01 19:37 | Outpatient (CLI) | payer MEDICARE, MEDICAID ==
[~2019-05-01 19:37] MED LIST: ATOR40TA70 PO; CARV25TA PO; DAPA10TA PO; EZET10TA49 PO; GLYB5TAB6 PO; IBUP-30 PO; LISI-552 PO; METF-399 PO; OMG1KC PO; SITA100T12 PO
== END 2019-05-02 07:04 | disposition home or self-care (01) ==
LOC: SLEEP 19:37
PROVIDERS: ATTEND Nurse Practitioner Family
DX: G47.33 Obstructive sleep apnea (adult) (pediatric) (principal); J98.4 Other disorders of lung; J30.9 Allergic rhinitis, unspecified; Z72.0 Tobacco use

== ENCOUNTER 2019-05-07 08:33 | Outpatient (RCR) | payer MEDICARE, MEDICAID | END 2019-05-23 11:54 | disposition home or self-care (01) | PROVIDERS: ATTEND Nurse Practitioner Family | DX: M17.0 Bilateral primary osteoarthritis of knee (principal) ==

== ENCOUNTER 2019-06-09 05:48 | Outpatient (CLI) | payer MEDICARE, MEDICAID ==
[~2019-06-09] VITALS: Ht 175.3 cm; Wt 140.5 kg
[2019-06-09] MEDS ORDERED: CYAN100088 PO (13:43)
[2019-06-09] MEDS ORDERED: GABA-488 PO (13:43)
[2019-06-09] MEDS ORDERED: GLYB5TAB6 PO (13:43)
== END 2019-06-09 13:47 | disposition home or self-care (01) ==
LOC: PREOP 05:48
PROVIDERS: ATTEND Surgery
DX: Z01.818 Encounter for other preprocedural examination (principal)

== ENCOUNTER 2019-06-16 09:20 | Day surgery (SDC) | payer MEDICARE, MEDICAID ==
[2019-06-16] VITALS (8 sets, daily range): BP systolic 97–193; BP diastolic 56–109
[~2019-06-16] VITALS: Ht 175.3 cm; Wt 140.5 kg
[~2019-06-16 09:20] MED LIST changes: +CYAN100088 PO; +GABA-488 PO
[2019-06-16] MEDS ORDERED: LACTATED RINGERS 1,000 ML IV STA (09:29)
[2019-06-16] MEDS ORDERED: LACTATED RINGERS 1,000 ML IV ONE (09:36)
--- NOTE | 2019-06-16 11:15 | Progress Note-Pre Operative ---
Pre-Operative Progress Note H&P Reviewed The H&P was reviewed, patient examined and no changes noted. Time Seen by Provider: 10:51 Date H&P Reviewed: Jun 16, 2019 Time H&P Reviewed: 10:52 Pre-Operative Diagnosis: hx of colon polyps TOVA CORDOVA DO Jun 16, 2019 11:15 POS
[2019-06-16] MEDS ORDERED: PROPOFOL INJECTION 50 ML IV ONE (11:48)
[2019-06-16] MEDS ORDERED: proPOfol 200 MG/20 ML (DIPRIVAN) VIAL IV ONE (12:15)
--- NOTE | 2019-06-16 13:40 | Endoscopy Discharge Instruct ---
Endo Procedure/Findings Findings 1.: Polyp 2.: Internal Hemorrhoids Discharge Instructions - Activity: You might feel a little sleepy until tomorrow. This is due to the medicine you received to relax you. Until tomorrow, you should: NOT drive a car, operate machinery or power tools. NOT drink any alcoholic beverages. NOT make any important decisions or sign importortant papers. Do not return to work until tomorrow, unless otherwise instructed. Resume previous activities tomorrow. Diet: Start by taking liquids. If you tolerate liquids, advance to solid food. make an appointment for one week 1.: Colonoscopy in 1 year Notify Physician - If you experience excessive bleeding, unusual abdominal pain, fever, or chest pain, contact your doctor immediately. TOVA CORDOVA DO Jun 16, 2019 13:40 POS
--- NOTE | 2019-06-16 14:25 | Anesthesia-General Post-Op ---
MAC Patient Condition Mental Status/LOC: Same as Preop Cardiovascular: Satisfactory Nausea/Vomiting: Absent Respiratory: Satisfactory Pain: Controlled Complications: Absent Post Op Complications Complications None Follow Up Care/Instructions Patient Instructions None needed. Anesthesiology Discharge Order Discharge Order Patient is doing well, no complaints, stable vital signs, no apparent adverse anesthesia problems. No complications reported per nursing. ERICKA DAS CRNA Jun 16, 2019 14:25 POS
--- NOTE | 2019-06-16 15:05 | OPERATIVE REPORT ---
DATE OF SERVICE: 06/16/2019 PREOPERATIVE DIAGNOSIS: History of colon polyps. POSTOPERATIVE DIAGNOSES: 1. Colon polyps. 2. Internal hemorrhoids. PROCEDURE PERFORMED: Colonoscopy with snare polypectomy. SURGEON: Bryan Kelly DO. BIOPHYSICS SCIENTIST: Deion Brooks MS3 ANESTHESIA: IV sedation by AUTOMOTIVE HARDWARE ENGINEER. SPECIMEN: A polyp from the transverse colon. BLOOD LOSS: Scant. FLUIDS: Per Anesthesia. POSTOPERATIVE CONDITION: Stable. INDICATION FOR PROCEDURE: The patient is a 59-year-old male with a history of colon polyps and needs a surveillance colonoscopy. FINDINGS: The patient had a polyp in the transverse colon. He also had a polyp in the cecum. They were unable to obtain, a little bit of retained fecal material, able to suction most of this out and had some small internal hemorrhoids. PROCEDURE NOTE: After informed consent was obtained, the patient was brought to the endoscopy suite and placed in the left lateral decubitus position. He was administered IV sedation by the AUTOMOTIVE HARDWARE ENGINEER who then monitored his vitals the entire time, heart rate, blood pressure, continuous pulse ox. Scope was then inserted, pushed in. The patient had a very large belly and large colon. In the transverse colon, saw a polyp, able to do a snare polypectomy of this, removed in 2 pieces and then continued on pushed all the way to the cecum, able to get to the cecum after some manipulation. The patient had to be rolled onto his back and then pressing on his abdomen, able to get into the cecum, saw the appendiceal orifice and then saw a polyp. I elected to try and do a snare polypectomy on this polyp, but unfortunately the patient coughed and pushed this right out. I then spent 20 minutes trying to get back in the cecum and could not get back into the cecum because of a very small polyp. So at this point, I elected just to slowly withdraw the scope, insufflating to look circumferentially at the casas, looking at the ascending colon up to the hepatic flexure, down the transverse colon, the splenic flexure, into the descending colon down in the sigmoid and finally into the rectum, retroflexed the rectal vault, saw some minimal internal hemorrhoids, took a picture of this and then removed the scope. The patient tolerated the procedure. He will need a repeat colonoscopy within the next year because of the polyp left behind, maybe a little better prep and we may have to try different positioning in order to get all the way to cecum. Job ID: [id number] DocumentID: [id number] Dictated Date: 06/16/2019 13:12:04 Face Cleaner Date: 06/16/2019 15:04:43 Dictated By: DO MADISON HOSKINS
== END 2019-06-16 13:50 | disposition home or self-care (01) ==
LOC: ENDO 09:20
PROVIDERS: ATTEND Surgery
DX: Z12.11 Encounter for screening for malignant neoplasm of colon (principal); D12.3 Benign neoplasm of transverse colon; K64.8 Other hemorrhoids; I10 Essential (primary) hypertension; G47.33 Obstructive sleep apnea (adult) (pediatric); K21.9 Gastro-esophageal reflux disease without esophagitis; E66.01 Morbid (severe) obesity due to excess calories; F17.210 Nicotine dependence, cigarettes, uncomplicated; Z68.42 Body mass index [BMI] 45.0-49.9, adult; Z83.3 Family history of diabetes mellitus; Z80.9 Family history of malignant neoplasm, unspecified
CPT/HCPCS: 82962; 88305

== ENCOUNTER → 2019-07-14 | Outpatient (CLI) | payer MEDICARE, MEDICAID ==
[~2019-07-14] MED LIST changes: +RT-ALBUTEROL SULF 2.5 MG/3 ML PRE-MIX VIAL INH ONE
[2019-07-14 08:08] LABS: CREATININE SERUM 1.61 MG/DL (0.60-1.30)
--- NOTE | 2019-07-14 09:01 | Diagnostic Imaging Report ---
EXAMINATION: CT Chest without contrast. TECHNIQUE: Multiple contiguous axial images were obtained through the chest without the use of intravenous contrast. All CT scans use one or more of the following dose optimizing techniques: automated exposure control, MA and/or KvP adjustment based on a patient size and exam type, or iterative reconstruction. HISTORY: COPD COMPARISON: None available. FINDINGS: There is no significant emphysema. No bronchial wall thickening or mucous plugging. A lobular focus of air trapping in the left upper lobe is within the spectrum of normal. No edema or pneumonia. No pleural effusion or pneumothorax. No suspicious nodules. Heart size is normal. No pericardial effusion. Aorta is normal in caliber. There is no axillary or supraclavicular lymphadenopathy. There is no mediastinal lymphadenopathy. Limited views of the upper abdomen are unremarkable. There are no suspicious osseus lesions. IMPRESSION: 1. No CT evidence of emphysema or chronic bronchitis. Dictated by: Dictated on workstation # [id number]
== END ==
LOC: RT 07:30
PROVIDERS: ATTEND Nurse Practitioner Family
DX: J44.9 Chronic obstructive pulmonary disease, unspecified (principal); J98.4 Other disorders of lung; G47.33 Obstructive sleep apnea (adult) (pediatric); G47.36 Sleep related hypoventilation in conditions classified elsewhere; Z72.0 Tobacco use; T78.40XA Allergy, unspecified, initial encounter
CPT/HCPCS: 36415; 71250; 82565; 84520; 94060; 94726; 94729

== ENCOUNTER → 2020-07-15 | Outpatient (CLI) | payer MEDICARE, MEDICAID ==
[~2020-07-15] MED LIST changes: -RT-ALBUTEROL SULF 2.5 MG/3 ML PRE-MIX VIAL INH ONE
--- NOTE | 2020-07-15 14:12 | Diagnostic Imaging Report ---
CT Lung Screening INDICATION:45 pack year smoking history for low dose CT screening. TECHNIQUE: Noncontrast, low-dose CT imaging performed according to the lung cancer screening protocol. Auto Exposure Controls were utilize during the CT exam to meet ALARA standards for radiation dose reduction. COMPARISON: Routine chest CT 07/14/2019 FINDINGS: No lung mass or suspicious pulmonary nodule. No bronchiectasis, blebs, bullous disease or air cysts. The lungs are clear. Thoracic aorta normal in caliber. There is no pleural or pericardial effusion. No acute soft tissue or osseous chest wall pathology. The visualized upper abdomen appeared nonacute. IMPRESSION: Negative exam. No mass or acute abnormality. No suspicious finding. LUNG-RADS CATEGORY: Category 1 MODIFIER: None OTHER SIGNIFICANT FINDINGS: None Dictated by: Dictated on workstation # [id number]
== END ==
LOC: RAD 12:29
PROVIDERS: ATTEND Nurse Practitioner Family
DX: Z12.2 Encounter for screening for malignant neoplasm of respiratory organs (principal); F17.210 Nicotine dependence, cigarettes, uncomplicated

== ENCOUNTER → 2020-11-01 | Outpatient (CLI) | payer MEDICARE, MEDICAID ==
[~2020-11-01] MED LIST changes: +AMLO-250 PO; +ASCO100024 PO; +ASPI-1238 PO; +ATOR80TA76 PO; +CETI10TA49 PO; +CHOL-34 PO; +CLOP75TA28 PO; +DAPA1TAB3 PO; +DULA0.75 SQ; +FISH1CAP15 PO; +GABA300C PO; +GLBR5T PO; +GLIP10TA13 PO; -GLYB5TAB6 PO; -LISI-552 PO; +LISI20TA26 PO; +LISI40TA9 PO; +ZINC50TA58 PO
== END ==
LOC: PREOP 06:36
PROVIDERS: ATTEND Surgery
DX: Z01.812 Encounter for preprocedural laboratory examination (principal); Z86.010 Personal history of colon polyps

== ENCOUNTER 2020-11-04 00:35 | Inpatient (IN) | payer MEDICARE, MEDICAID ==
[~2020-11-04] VITALS: Ht 175 cm; Wt 146.0 kg
[2020-11-04] VITALS (8 sets, daily range): BP systolic 144–182; BP diastolic 72–94
[~2020-11-04 00:35] MED LIST changes: -AMLO-250 PO; -ASCO100024 PO; -ASPI-1238 PO; -ATOR80TA76 PO; -CETI10TA49 PO; -CHOL-34 PO; -CLOP75TA28 PO; -DAPA1TAB3 PO; -DULA0.75 SQ; -FISH1CAP15 PO; -GABA300C PO; -GLIP10TA13 PO; -LISI40TA9 PO; -ZINC50TA58 PO
[2020-11-04 01:04] LABS: BASOPHILS # (AUTO) 0.1 10^3/uL (0.0-0.1); BASOPHILS % (AUTO) 1 % (0-10); EOSINOPHILS # (AUTO) 0.4 10^3/uL (0.0-0.3); EOSINOPHILS % (AUTO) 3 % (0-10); HEMATOCRIT 49 % (40-54); HEMOGLOBIN 15.9 g/dL (13.3-17.7); LYMPHOCYTES # (AUTO) 3.6 10^3/uL (1.0-4.0); LYMPHOCYTES % (AUTO) 23 % (12-44); MEAN CORPUSCULAR HEMOGLOBIN 29 pg (25-34); MEAN CORPUSCULAR HGB CONC 32 g/dL (32-36); MEAN CORPUSCULAR VOLUME 88 fL (80-99); MONOCYTES # (AUTO) 1.2 10^3/uL (0.0-1.0); MONOCYTES % (AUTO) 7 % (0-12); NEUTROPHILS # (AUTO) 10.5 10^3/uL (1.8-7.8); NEUTROPHILS % (AUTO) 66 % (42-75); PLATELET COUNT 353 10^3/uL (130-400); WHITE BLOOD COUNT 15.8 10^3/uL (4.3-11.0)
[2020-11-04 01:08] LABS: ALBUMIN 3.8 GM/DL (3.2-4.5); POTASSIUM 3.8 MMOL/L (3.6-5.0)
[2020-11-04 01:09] LABS: CALCIUM 9.7 MG/DL (8.5-10.1)
[2020-11-04 01:11] LABS: TOTAL PROTEIN 7.7 GM/DL (6.4-8.2)
[2020-11-04 01:12] LABS: BILIRUBIN,TOTAL 0.4 MG/DL (0.1-1.0); FIBRIN DEGRADATION PRODUCTS 0.84 UG/ML (0.00-0.49); INR 0.9 (0.8-1.4); PROTHROMBIN TIME PATIENT 12.3 SEC (12.2-14.7)
[2020-11-04 01:14] LABS: CREATININE SERUM 1.87 MG/DL (0.60-1.30)
[2020-11-04 01:31] LABS: BAND NEUTROPHILS 0 %; BASOPHILS % (MANUAL) 0 %; EOSINOPHILS % (MANUAL) 1 %; LYMPHOCYTES % (MANUAL) 21 %; MONOCYTES % (MANUAL) 2 %; NEUTROPHILS % (MANUAL) 68 %; RBC MORPH NORMAL; REACTIVE LYMPHOCYTES 8 %
[2020-11-04] MEDS ORDERED: NS IV 1000 ML 1,000 ML IV SCH ×2 (02:00→04:15)
[2020-11-04 02:32] LABS: BILIRUBIN,URINE NEGATIVE (NEGATIVE); CLARITY,URINE CLEAR; COLOR,URINE YELLOW; GLUCOSE, URINE (UA) 3+ (NEGATIVE); KETONES,URINE NEGATIVE (NEGATIVE); LEUKOCYTE ESTERASE ,URINE NEGATIVE (NEGATIVE); NITRITE,URINE NEGATIVE (NEGATIVE); PH,URINE 5.5 (5-9); PROTEIN,URINE TRACE (NEGATIVE)
[2020-11-04 02:40] LABS: AMORPHOUS SEDIMENT,UR FEW AMOR URATES /LPF; BACTERIA,URINE NEGATIVE /HPF; HYALINE CASTS, URINE RARE /LPF; SQUAMOUS EPITHELIAL CELL,UR RARE /HPF; WBC,URINE RARE /HPF
[2020-11-04] MEDS ORDERED: ASPIRIN 325 MG (5 GR) TABLET PO ONE (03:00)
[2020-11-04] MEDS ORDERED: CLOPIDOGREL 75 MG (PLAVIX) TABLET PO ONE (03:15)
--- NOTE | 2020-11-04 03:19 | ED Neurological Problem ---
General Chief Complaint: Neuro-Stroke Like Symptoms Stated Complaint: WEAKNESS Nursing Triage Note: Pt to ED 6 via EMS w/ c/o right sided weakness, states he has fallen 3-4 times today since 729. Nursing Sepsis Screen: No Definite Risk Source: patient, EMS, old records Exam Limitations: no limitations History of Present Illness Date Seen by Provider: Nov 04, 2020 Time Seen by Provider: 00:36 Initial Comments This 60-year-old gentleman presents to the emergency room via EMS with complaints of right sided weakness. Symptoms developed sometime between him getting up around 07:30 and noon. He reports symptoms were definitely worse at noon than they were when he woke up. He walks with a walker which he has been able to continue doing, but he states it feels like his right leg is giving out. 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 He denies any cognitive or speech deficits. Blood sugar was 218 by EMS. Stroke activation was paged during initial assessment and NIH score was 2 for numbness of the right hand and subtle drift of the right leg. Allergies and Home Medications Allergies Coded Allergies: No Known Drug Allergies (Verified , 06/16/19) Home Medications Atorvastatin Calcium 40 Mg Tablet, 40 MG PO HS, (Reported) Carvedilol 25 Mg Tablet, 25 MG PO BID, (Reported) Cyanocobalamin (Vitamin B-12) 1,000 Mcg Tablet, 1,000 MCG PO DAILY, (Reported) Dapagliflozin Propanediol 10 Mg Tablet, 10 MG PO DAILY, (Reported) Ezetimibe 10 Mg Tablet, 10 MG PO DAILY, (Reported) Gabapentin 300 Mg Capsule, 300 MG PO TID, (Reported) Glyburide 5 Mg Tablet, 5 MG PO BID, (Reported) Ibuprofen 200 Mg Tablet, 400 MG PO TID PRN for PAIN-MILD, (Reported) Lisinopril 20 Mg Tablet, 20 MG PO DAILY, (Reported) Metformin HCl 1,000 Mg Tablet, 1,000 MG PO BID, (Reported) [place] 3 Polyunsat Fatty Acids 1,000 Mg Cap, 1,000 MG PO DAILY, (Reported) Sitagliptin Phosphate 100 Mg Tablet, 100 MG PO DAILY, (Reported) Patient Home Medication List Home Medication List Reviewed: Yes Review of Systems Review of Systems Constitutional: no symptoms reported Eyes: No Symptoms Reported Ears, Nose, Mouth, Throat: no symptoms reported Respiratory: no symptoms reported Cardiovascular: no symptoms reported Gastrointestinal: no symptoms reported Genitourinary: no symptoms reported Musculoskeletal: no symptoms reported Skin: no symptoms reported Psychiatric/Neurological: See HPI Endocrine: No Symptoms Reported Hematologic/Lymphatic: No Symptoms Reported Past Jzfsbje-Vtycqp-Rpdxkw Hx Past Med/Social Hx: Reviewed Nursing Past Med/Soc Hx Patient Social History Alcohol Use: Denies Use Drug of Choice: TESTED + FOR THC ON 01/02/19 Type Used: Cigarettes 2nd Hand Smoke Exposure: No Recent Infectious Disease Expo: No Recent Hopitalizations: No Immunizations Up To Date Tetanus Booster (TDap): Unknown PED Vaccines UTD: No Date of Influenza Vaccine: Apr 29, 2020 Seasonal Allergies Seasonal Allergies: No Past Medical History Surgeries: Yes Appendectomy, Orthopedic Respiratory: No Currently Using CPAP: No Currently Using BIPAP: No Cardiac: Yes (BASED ON MEDICATIONS) High Cholesterol, Hypertension Neurological: No Sexually Transmitted Disease: No HIV/AIDS: No Genitourinary: No Gastrointestinal: No 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 Physical Exam Vital Signs Vital Signs - First Documented 11/04/20 11/04/20 00:40 01:43 Temp 36.8 Pulse 87 Resp 18 B/P (MAP) 152/81 (104) Pulse Ox 92 O2 Delivery Room Air O2 Flow Rate 2.00 Capillary Refill : Less Than 3 Seconds Height, Weight, BMI Height: 5'9.00" Weight: 293lbs. 2.0oz. 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 nml as tested, no motor/sensory deficits, alert, normal mood/affect, oriented x 3, abnormal cerebellar tests Crainal Nerves: normal hearing, normal speech, PERRL Motor/Sensory: sensory deficit (Partial numbness of the right hand), weak motor strength RLE (Subtle drift) Skin: normal color, warm/dry Stroke Onset of Symptoms Date of Onset of Symptoms: Nov 03, 2020 NIH Stroke Scale Assessment Select: Initial Level of Consciousness: 0=Alert (0), Level of Consciousness- Questions: 0=Answers both month/age (0), LOC Commands: 0=Performs both tasks (0), Visual Choudhury: 0=No visual loss (0), Facial Movement (Facial Paresis): 0=Normal symmetrical mnt (0), Motor Function-Arms Right: 0=No drift (0), Motor Function-Arms Left: 0=No drift (0), Motor Function-Legs Right: 1=Drift (1), Motor Function-Legs Left: 0=No drift (0), Limb Ataxia: 0=Absent (0), Sensory: 1=Mild to Moderate loss (1), Best Language: 0=No aphasia (0), Dysarthria: 0=Normal (0), Extinction & Inattention: 0=No abnormality (0), Total: 2 Stroke Thrombolytic Exclusion Age 18 or Over: Yes Progress/Results/Core Measures Results/Orders Lab Results Laboratory Tests Test 11/04/20 00:46 11/04/20 01:26 11/04/20 02:18 Range/Units White Blood Count 15.8 H 4.3-11.0 10^3/uL Red Blood Count 5.57 H 4.30-5.52 10^6/uL Hemoglobin 15.9 13.3-17.7 g/dL Hematocrit 49 40-54 % Mean Corpuscular Volume 88 80-99 fL Mean Corpuscular Hemoglobin 29 25-34 pg Mean Corpuscular Hemoglobin Concent 32 32-36 g/dL Red Cell Distribution Width 15.1 H 10.0-14.5 % Platelet Count 353 130-400 10^3/uL Mean Platelet Volume 11.0 9.0-12.2 fL Immature Granulocyte % (Auto) 0 % Neutrophils (%) (Auto) 66 42-75 % Lymphocytes (%) (Auto) 23 12-44 % Monocytes (%) (Auto) 7 0-12 % Eosinophils (%) (Auto) 3 0-10 % Basophils (%) (Auto) 1 0-10 % Neutrophils # (Auto) 10.5 H 1.8-7.8 10^3/uL Lymphocytes # (Auto) 3.6 1.0-4.0 10^3/uL Monocytes # (Auto) 1.2 H 0.0-1.0 10^3/uL Eosinophils # (Auto) 0.4 H 0.0-0.3 10^3/uL Basophils # (Auto) 0.1 0.0-0.1 10^3/uL Immature Granulocyte # (Auto) 0.1 0.0-0.1 10^3/uL Neutrophils % (Manual) 68 % Lymphocytes % (Manual) 21 % Monocytes % (Manual) 2 % Eosinophils % (Manual) 1 % Basophils % (Manual) 0 % Band Neutrophils 0 % Reactive Lymphocytes 8 % Blood Morphology Comment NORMAL Prothrombin Time 12.3 12.2-14.7 SEC INR Comment 0.9 0.8-1.4 Activated Partial Thromboplast Time 35 24-35 SEC D-Dimer 0.84 H 0.00-0.49 UG/ML Sodium Level 138 135-145 MMOL/L Potassium Level 3.8 3.6-5.0 MMOL/L Chloride Level 102 98-107 MMOL/L Carbon Dioxide Level 21 21-32 MMOL/L Anion Gap 15 H 5-14 MMOL/L Blood Urea Nitrogen 20 H 7-18 MG/DL Creatinine 1.87 H 0.60-1.30 MG/DL Estimat Glomerular Filtration Rate 37 BUN/Creatinine Ratio 11 Glucose Level 237 H 70-105 MG/DL Calcium Level 9.7 8.5-10.1 MG/DL Corrected Calcium 9.9 8.5-10.1 MG/DL Total Bilirubin 0.4 0.1-1.0 MG/DL Aspartate Amino Transf (AST/SGOT) 13 5-34 U/L Alanine Aminotransferase (ALT/SGPT) 22 0-55 U/L Alkaline Phosphatase 112 40-136 U/L Troponin I 0.090 H <0.028 NG/ML C-Reactive Protein High Sensitivity 1.87 H 0.00-0.50 MG/DL Total Protein 7.7 6.4-8.2 GM/DL Albumin 3.8 3.2-4.5 GM/DL Glucometer 279 H 70-110 MG/DL Urine Color YELLOW Urine Clarity CLEAR Urine pH 5.5 5-9 Urine Specific [place] 1.025 H 1.016-1.022 Urine Protein TRACE H NEGATIVE Urine Glucose (UA) 3+ H NEGATIVE Urine Ketones NEGATIVE NEGATIVE Urine Nitrite NEGATIVE NEGATIVE Urine Bilirubin NEGATIVE NEGATIVE Urine Urobilinogen 0.2 < = 1.0 MG/DL Urine Leukocyte Esterase NEGATIVE NEGATIVE Urine RBC (Auto) NEGATIVE NEGATIVE Urine RBC NONE /HPF Urine WBC RARE /HPF Urine Squamous Epithelial Cells RARE /HPF Urine Crystals PRESENT H /LPF Urine Amorphous Sediment FEW ANGELA URATES H /LPF Urine Bacteria NEGATIVE /HPF Urine Casts PRESENT /LPF Urine Hyaline Casts RARE /LPF Urine Mucus SMALL H /LPF Urine Culture Indicated NO My Orders Orders - RICKY NUNO MD Cbc With Automated Diff (11/04/20 00:57) Protime With Inr (11/04/20 00:57) Partial Thromboplastin Time (11/04/20 00:57) Comprehensive Metabolic Panel (11/04/20 00:57) Fibrin Degradation Products (11/04/20 00:57) Troponin I (11/04/20 00:57) Ua Culture If Indicated (11/04/20 00:57) Chest 1 View, Ap/Pa Only (11/04/20 00:57) Ekg Tracing (11/04/20 00:57) Nothing By Mouth (11/04/20 Breakfast) Accucheck Stat ONCE (11/04/20 00:57) Ed Iv/Invasive Line Start (11/04/20 00:57) Ed Iv/Invasive Line Start (11/04/20 00:57) Vital Signs Stroke Patient Q15M (11/04/20 00:57) Ct Head Wo-R/O Stroke (11/04/20 00:57) O2 (11/04/20 00:57) Intake & Output 06,14,22 (11/04/20 00:57) Monitor-Rhythm Ecg Trace Only (11/04/20 00:57) Dysphagia Screening Tool (11/04/20 00:57) Lipid Panel (11/05/20 06:00) Manual Differential (11/04/20 00:46) Hs C Reactive Protein (11/04/20 01:34) Ns Iv 1000 Ml (Sodium Chloride 0.9%) (11/04/20 02:00) Aspirin Tablet (Aspirin Tablet) (11/04/20 03:00) Clopidogrel Tablet (Plavix Tablet) (11/04/20 03:15) Medications Given in ED Current Medications Medications Dose Ordered Sig/Jarvis Route Start Time Stop Time Status Last Admin Dose Admin Aspirin 325 mg ONCE ONCE PO 11/04/20 03:00 11/04/20 03:01 DC 11/04/20 02:59 325 MG Vital Signs/I&O 11/04/20 11/04/20 11/04/20 11/04/20 00:40 00:50 00:50 01:43 Temp 36.8 Pulse 87 87 Resp 18 18 B/P (MAP) 152/81 (104) 152/81 Pulse Ox 92 92 92 94 O2 Delivery Room Air Room Air Nasal Cannula O2 Flow Rate 2.00 11/04/20 01:45 Pulse 80 Resp 18 B/P (MAP) 175/94 Pulse Ox 94 Blood Pressure Mean: 104 FSBG Bedside Testing Finger Stick Blood Glucose: 279 Progress Progress Note : Progress Note Patient had subtle deficits on the right during examination. Stroke activation was paged. CT of the head was unremarkable. I discussed the patient with Dr. Hsu at 01:35. Due to the patient's kidney failure and low NIH score, we will not be obtaining a CT angiogram of the head and neck. Alternatively, Dr. Hsu recommends MRA of the head and neck later in the morning. Patient received a liter of IV fluid for treatment of acute kidney injury. Troponin was noted to be elevated on the stroke work-up. No ST elevation was identified on EKG. Dr. Alexander was consulted and recommended treating with both aspirin and Plavix. Both were administered in the ER. Patient passed his dysphagia screen. Initial ECG Impression Date: Nov 04, 2020 Initial ECG Impression Time: 01:19 Initial ECG Rate: 82 Initial ECG Rhythm: Normal Sinus Comment Sinus rhythm with no ST elevation or depression. Right bundle branch block. CO interval 233. No axis deviation. Diagnostic Imaging Diagonstic Imaging: Xray Plain Films/CT/US/NM/MRI: chest Comments No significant adverse change since prior. X-ray viewed by me. Report not yet available. Compared with prior. Diagonstic Imaging: CT Plain Films/CT/US/NM/MRI: head Comments CT head viewed by me and stat rad report reviewed. No acute pathology identified. Departure Communication (Admissions) Time/Spoke to Admitting Phy: 02:55 Dr. Kerr Time/Spoke to Consulting Phy: 03:00 Dr. Alexander Impression Primary Impression: Right sided weakness Additional Impressions: Elevated troponin Acute kidney injury Disposition: ADMITTED INPATIENT Condition: Stable Admissions Decision to Admit Reason: Admit from ER (General) Decision to Admit/Date: Nov 04, 2020 Time/Decision to Admit Time: 03:40 Departure-Patient Inst. Referrals: NO,LOCAL PHYSICIAN (PCP) Primary Care Physician RONAN REHMAN APRN (Family) Primary Care Physician Copy Copies To 1: JAYNA SMALL JOSHUA T MD Nov 04, 2020 03:19
[2020-11-04] MEDS ORDERED: ONDANSETRON 4 MG/2 ML (SDV) Z0FRAN IVP PRN (04:15)
[2020-11-04] MEDS ORDERED: MILK OF MAGNESIA 400 MG/5 ML 30 ML UDC PO PRN (04:15)
[2020-11-04] MEDS ORDERED: BISACODYL 10 MG SUPP (DULCOLAX) PR PRN (04:15)
--- NOTE | 2020-11-04 05:58 | Diagnostic Imaging Report ---
INDICATION: Right-sided paresthesia. Portable chest 11:00 AM FINDINGS: Heart size and pulmonary vascularity are normal. Lungs are clear. There are no effusions or pneumothoraces. IMPRESSION: No acute abnormalities in the chest. Dictated by: Dictated on workstation # [id number]
[2020-11-04] MEDS: inSUlin ASPART (NovoLOG) 1 UNIT/0.01 ML (CHARGE PER UNIT) SC SCH ×4 (06:12→20:11)
[2020-11-04] MEDS ORDERED: RT-ALBUTEROL/IPRATROPIUM 3 ML (DUONEB) VIAL INH PRN (06:30)
--- NOTE | 2020-11-04 07:28 | Diagnostic Imaging Report ---
PROCEDURE: CT head wo r/o stroke. TECHNIQUE: Multiple contiguous axial images were obtained through the brain without the use of intravenous contrast. Auto Exposure Controls were utilized during the CT exam to meet ALARA standards for radiation dose reduction. INDICATION: Right-sided weakness There is mild atrophy. There are no masses or hemorrhages. There are no extra-axial fluid collections. Paranasal sinuses are clear. 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 There is no CT evidence of acute infarct or hemorrhage. I agree with preliminary interpretation. Dictated by: Dictated on workstation # [id number]
--- NOTE | 2020-11-04 09:27 | Speech Therapy Progress Note ---
Therapy Progress Note ST received bedside dysphasia orders, however, pt is on regular diet level with thin liquids. No difficulty or s/s of aspiration noted. D/C orders. LAUREN KENDRICK Nov 04, 2020 09:27
[2020-11-04] MEDS ORDERED: ATOR80TA76 PO (09:33)
[2020-11-04] MEDS ORDERED: GLIP10TA13 PO (09:33)
[2020-11-04] MEDS ORDERED: GABA300C PO ×2 (09:33)
[2020-11-04] MEDS ORDERED: DAPA1TAB3 PO (09:33)
[2020-11-04] MEDS ORDERED: ASPI-1238 PO (09:33)
[2020-11-04] MEDS ORDERED: AMLO-250 PO (09:33)
[2020-11-04] MEDS ORDERED: ZINC50TA58 PO (09:33)
[2020-11-04] MEDS ORDERED: LISI40TA9 PO (09:33)
[2020-11-04] MEDS ORDERED: CHOL-34 PO (09:33)
[2020-11-04] MEDS ORDERED: CETI10TA49 PO (09:33)
[2020-11-04] MEDS ORDERED: FISH1CAP15 PO (09:33)
[2020-11-04] MEDS ORDERED: ASCO100024 PO (09:33)
[2020-11-04] MEDS: CLOPIDOGREL 75 MG (PLAVIX) TABLET PO SCH (09:35)
[2020-11-04] MEDS: ASPIRIN E.C. 325 MG (ECOTRIN) TABLET PO SCH (09:35)
[2020-11-04] MEDS ORDERED: DULA0.75 SQ (09:43)
[2020-11-04 09:57] LABS: BASOPHILS # (AUTO) 0.1 10^3/uL (0.0-0.1); BASOPHILS % (AUTO) 1 % (0-10); EOSINOPHILS # (AUTO) 0.4 10^3/uL (0.0-0.3); EOSINOPHILS % (AUTO) 3 % (0-10); HEMATOCRIT 50 % (40-54); HEMOGLOBIN 15.4 g/dL (13.3-17.7); LYMPHOCYTES # (AUTO) 3.4 10^3/uL (1.0-4.0); LYMPHOCYTES % (AUTO) 26 % (12-44); MEAN CORPUSCULAR HEMOGLOBIN 29 pg (25-34); MEAN CORPUSCULAR HGB CONC 31 g/dL (32-36); MEAN CORPUSCULAR VOLUME 92 fL (80-99); MEAN PLATELET VOLUME 10.6 fL (9.0-12.2); MONOCYTES % (AUTO) 8 % (0-12); NEUTROPHILS % (AUTO) 61 % (42-75); PLATELET COUNT 297 10^3/uL (130-400)
[2020-11-04] MEDS: RT-ALBUTEROL/IPRATROPIUM 3 ML (DUONEB) VIAL INH SCH ×2 (09:57→21:26)
[2020-11-04 10:15] LABS: POTASSIUM 4.1 MMOL/L (3.6-5.0)
[2020-11-04 10:16] LABS: CALCIUM 8.7 MG/DL (8.5-10.1)
[2020-11-04 10:21] LABS: CREATININE SERUM 1.47 MG/DL (0.60-1.30)
--- NOTE | 2020-11-04 10:22 | Physical Therapy Evaluation ---
PT Evaluation-General Medical Diagnosis Admission Date Nov 04, 2020 at 03:07 Medical Diagnosis: right sided weakness/elevated troponin, AMI Onset Date: Nov 04, 2020 Therapy Diagnosis Therapy Diagnosis: debility/weakness Height/Weight Height (Feet): 5 Height (Inches): 9.00 Weight (Pounds): 293 Weight (Ounces): 2.0 Precautions Precautions/Isolations: Fall Prevention, Standard Precautions Referral Physician: Usha Reason for Referral: Evaluation/Treatment Medical History Pertinent Medical History: DM, HTN, Smoking Additional Medical History morbid obesity Current History EMS secondary to right sided weakness and multiple falls. Reviewed History: Yes Social History Home: Apartment Current Living Status: Alone Entry Into Home: Level Entry Prior Prior Level of Function SCALE: Activities may be completed with or without assistive devices. 1-Ehukrgwcmf-ddthxlm completes the activity by him/herself with no assistance from a helper. 5-Set-up or Clean-up Assistance-helper sets up or cleans up; patient completes activity. [place] assists only prior to or following the activity. 4-Supervision or Touching Assistance-helper provides verbal cues and/or touching/steadying and/or contact guard assistance as patient completes activity. Assistance may be provided throughout the activity or intermittently. 3-Partial/Moderate Assistance-helper does LESS THAN HALF the effort. [place] lifts, holds or supports trunk or limbs, but provides less than half the effort. 2-Substantial/Maximal Assistance-helper does MORE THAN HALF the effort. [place] lifts or holds trunk or limbs and provides more than half the effort. 6-Klicytaml-spifmu does ALL the effort. Patient does none of the effort to complete the activity. Or, the assistance of 2 or more helpers is required for the patient to complete the activity. If activity was not attempted, code reason: 7-Patient Refused. 9-Not Applicable-not attempted and the patient did not perform the activity before the current illness, exacerbation or injury. 10-Not Attempted due to Environmental Limitations-(lack of equipment, weather restraints, etc.). 88-Not Attempted due to Medical Conditions or Safety Concerns. Bed Mobility: 6 Transfers (B,C,W/C): 6 Gait: 6 Stairs: 9 Indoor Mobility (Ambulation): Independent Stairs: Not Applicalbe Prior Devices Use: Walker per patient ambulates short distances only PT Evaluation-Current Subjective Patient reports 9/10 right knee pain. Reluctantly agrees to PT. Pain Numeric Pain Scale: 9 Location: Right Location Body Site: Knee Pain Description: Ache Objective Patient Orientation: Normal For Age Attachments: IV ROM/Strength ROM Lower Extremities bilateral LE WFL Strength Lower Extremities right knee flexion 3+/5; extension 4-/5; hip flexion 4/5 left knee flexion 4-/5; extension, 4-/5; hip flexion 4/5 Integumentary/Posture Integumentary refer to nursing notes Bowel Incontinence: No Bladder Incontinence: Yes Posture WFL Neuromuscular (Tone, Coordination, Reflexes) grossly intact Sensory Vision: Functional Hearing: Functional Transfers Roll Left to Right (QC): 6 Sit to Lying (QC): 6 Lying to Sitting/Side of Bed(Q: 6 Sit to Stand (QC): 4 Chair/Hhe-fz-Wrqjy Xfer(QC): 7 Gait Does the Patient Walk?: Yes Mode of Locomotion: Walk Anticipated Mode of Locomotion: Walk Walk 10 feet (QC): 4 Walk 50 ft with 2 Turns(QC): 7 Walk 150 ft (QC): 7 Distance: 10' Gait Assistive Device: FWW Comments/Gait Description yelled in pain with right LE weight bearing/adamantly declined to ambulate distance Balance Sitting Static: Normal Sitting Dynamic: Normal Standing Static: Fair Standing Dynamic: Fair Assessment/Needs 60 y.o. male, will be seen short term by skilled PT to address functional mobility to improve current LOF. Patient is currently limited by right knee pain and morbid obesity. Rehab Potential: Fair PT Senior Living Goals Senior Living Goals PT Survey Research Analyst Goals Time Frame: Nov 13, 2020 Roll Left & Right (QC): 6 Sit to Lying (QC): 6 Lying-Sitting on Side/Bed(QC): 6 Sit to Stand (QC): 6 Chair/Rvj-xb-Mcjkn Xfer(QC): 6 Toilet Transfer (QC): 6 Does the Patient Walk: Yes Walk 10 feet (QC): 6 Walk 50ft with 2 Turns (QC): 6 PT Plan Problem List Problem List: Activity Tolerance, Functional Strength, Safety, Balance, Gait, Transfer Treatment/Plan Treatment Plan: Continue Plan of Care Treatment Plan: Education, Functional Activity Andrei, Functional Strength, Gait, Safety, Therapeutic Exercise, Transfers Treatment Duration: Nov 13, 2020 Frequency: 6 times per week Estimated Hrs Per Day: .25 hour per day Patient and/or Family Agrees t: Yes Time/GCodes Time In: 901 Time Out: 916 Total Billed Treatment Time: 15 Total Billed Treatment 1 visit [facility] 15 min MIRIAN OLIVA PT Nov 04, 2020 10:22
[2020-11-04] MEDS ORDERED: NON-FORMULARY MEDICATION 1 EA EA (Dulaglutide (Trulicity) 0.75 MG) SQ SCH (11:45)
--- NOTE | 2020-11-04 12:18 | History & Physical-Hospitalist ---
MJ ROSARIO MED STUDENT 11/04/20 1218: History of Present Illness HPI/Chief Complaint CC: Acute R-Sided Weakness Mr. 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 He presented to [facility] ED via EMS yesterday with acute onset right-sided weakness that occurred upon awakening morning of 11/03 causing him to fall 4x at home. He complains of right leg "giving out" and right UE weakness with right hand numbness but no cognitive, visual or speech deficits. Initial NIH score was [address] head CT was negative for acute infarct or hemorrhage. He presented with glucose of 279, normotensive, with leukocytosis (15.8), elevated troponin (0.09), and AMI (creatinine 1.87). He is admitted for further workup of stroke- like symptoms; however, his size prohibits use of MRI so pt needs to lose 23 lbs before able to investigate symptoms further. Pt injured R knee during falls so we will obtain 3-view R knee xray today. Source: patient, old records Exam Limitations: no limitations Date Seen 11/04/20 Time Seen by a Provider: 11:00 Attending Physician Shayy Hroton DO PCP No,Local Physician Referring Physician Date of Admission Nov 04, 2020 at 03:07 Home Medications & Allergies Home Medications Reviewed patient Home Medication Reconciliation performed by pharmacy medication reconciliations radiology technician and/or nursing. Patients Allergies have been reviewed. Allergies Allergies Coded Allergies No Known Drug Allergies ([id number]/19) Patient Social History Tobacco Use?: Yes Tobacco type used: Cigarettes Smoking Status: Current Everyday Smoker Use of E-Cig and/or Vaping dev: No Substance use?: Yes Substance type: Marijuana Substance frequency: Daily Alcohol Use?: No Pt stated abuse/neglect: No Immunizations Up To Date Influenza Vaccine Up-to-Date: Yes; Up-to-Date Tetanus Booster (TDap): Less Than 5 Years Current Status Do you have an Advance Directi: No Communicates: Verbally Primary Language: Khmer Preferred Spoken Language: Khmer Is interpretation needed?: No Sensory deficits: Vision impairment Implanted or Applied Medical D: CPAP Past Medical History HTN Hyperlipidemia Diabetes Family Medical History No known family hx Review of Systems Constitutional: No chills, No diaphoresis, No fever; weakness (R leg weakness) EENTM: No hearing loss, No blurred vision, No throat pain Respiratory: No cough, No dyspnea on exertion, No orthopnea, No short of breath; wheezing (expiratory wheezing) Cardiovascular: No chest pain, No edema, No palpitations, No syncope Gastrointestinal: No abdominal pain, No dysphagia, No nausea, No vomiting Genitourinary: No hematuria, No hesitancy Musculoskeletal: joint pain; No muscle cramps (R knee pain), No muscle twitching; muscle weakness (R UE and R LE weakness); No neck pain Skin: No rash; other (abrasion R knee) Psychiatric/Neurological: Denies Headache; Numbness (R Hand 1-3rd digits), Paresthesia Physical Exam Physical Exam Vital Signs Vital Signs - First Documented 11/04/20 11/04/20 11/04/20 00:40 01:43 06:17 Temp 36.8 Pulse 87 Resp 18 B/P (MAP) 152/81 (104) Pulse Ox 92 O2 Delivery Room Air O2 Flow Rate 2.00 FiO2 32 Capillary Refill : Less Than 3 Seconds Height, Weight, BMI Height: 5'9.00" Weight: 293lbs. 2.0oz. 132.308917sq; 47.67 BMI Method:Estimated General Appearance: No Apparent Distress; No Anxious; Obese Eyes: Bilateral Eye Normal Inspection HEENT: Pharynx Normal, Moist Mucous Membranes Neck: Full Range of Motion, Normal Inspection, Non Tender Respiratory: Chest Non Tender, No Accessory Muscle Use, No Respiratory Distress; No Crackles; Wheezing (expiratory) Cardiovascular: Regular Rate, Rhythm, No Edema, No JVD, Normal Peripheral Pulses Gastrointestinal: Normal Bowel Sounds, Non Tender, Soft Back: Normal Inspection, No CVA Tenderness Extremity: Normal Capillary Refill, Non Tender, No Calf Tenderness, Other (decreased strength UE - R hand 3/5) Neurologic/Psychiatric: Alert, Oriented x3, Normal Mood/Affect, Abnormal Gait (unable to walk due to right leg weakness) Skin: Normal Color, Warm/Dry Lymphatic: No Adenopathy Results Results/Procedures Labs Laboratory Tests 11/04/20 00:46 11/04/20 09:47 Patient resulted labs reviewed. Imaging: Reviewed Imaging Films, Reviewed Imaging Report Imaging CXR negative Head CT no contrast - no evidence of acute infarct or hemorrhage Assessment/Plan Admission Diagnosis R-Sided Weakness Admission Status: Inpatient Order (span 2 midnights) Reason for Inpatient Admission: Evaluation of acute right-sided weakness AMI Mildly elevated troponin Assessment and Plan 11/04/20 Acute Onset R-Sided Weakness - Head CT negative. Size prohibits MRI. Begin inpatient diet. ASA 325 and Clopidogrel 75 mg Leukoctyosis - CXR negative; monitor WBC. Obtain UA if no improvement or worsening Elevated troponin - EKG normal; down to 0.072 from 0.09 on admission AMI- improved since admission (creatinine 1.47 down from 1.87) IVF; recheck kidney function tomorrow JULIANA - uses CPAP at home; continue. MAT protocol Right Knee Pain - obtain 3 view xray of R knee Diabetes - Sliding scale insulin, Glipizide 10 mg HTN - resume home meds (Amlodipine 5mg PO, Carvedilol 25 mg, Lisinopril 40 mg) Hyperlipidemia - resume home meds (Ezetimibe 10 mg, Atorvastatin 80 mg) Obesity H/O Anxiety Depression Diagnosis/Problems Diagnosis/Problems (1) Elevated troponin Status: Acute (2) Acute kidney injury Status: Acute (3) Right sided weakness Status: Acute (4) Hypertension Status: Chronic (5) Hyperlipemia Status: Chronic (6) Diabetes Status: Chronic Clinical Quality Measures Stroke: Date of last known well: Nov 03, 2020 CLIFFORDSHAYY ORDOÑEZ 11/05/20 0556: History of Present Illness HPI/Chief Complaint CC: Right sided weakness HPI: This is a very complicated 60yoWM who presents to the ER with right sided weakness and falls. Patient has findings suspicious for CVA but MRI cannot be performed due to weight limitations. Knee xray ordered due to fall and knee pain now. DM is OOC. Cardiology consulted; Patient Social History Marrital Status: Employed/Student: unemployed Smoking Status: Current Everyday Smoker Current Status Implanted or Applied Medical D: CPAP Past Medical History HTN DM HLP JULIANA Family Medical History Family Hx: HTN Review of Systems Constitutional: see HPI, weakness (R leg weakness) Physical Exam Physical Exam General Appearance: No Apparent Distress, Chronically ill, Obese Respiratory: No Accessory Muscle Use, No Respiratory Distress, Decreased Breath Sounds Cardiovascular: Regular Rate, Rhythm Neurologic/Psychiatric: Alert, Oriented x3, No Motor/Sensory Deficits, Normal Mood/Affect Assessment/Plan Admission Diagnosis Assessment: CVA with right sided weakness Obesity JULIANA on CPAP DM HTN HLP Plan: PT OT Right knee xray Admission Status: Inpatient Order (span 2 midnights) Reason for Inpatient Admission: CVA Supervisory-Addendum Brief Verification & Attestation Participated in pt care: history, MDM, physical Personally performed: exam, history, MDM, supervision of care Care discussed with: Medical Student Procedures: n/a Results interpretation: Verified all documentation Verification and Attestation of Medical Student E/M Service A medical student performed and documented this service in my presence. I reviewed and verified all information documented by the medical student and made modifications to such information, when appropriate. I personally performed the physical exam and medical decision making. Shayy Horton, Nov 05, 2020,05:56 MJ ROSARIO MED STUDENT Nov 04, 2020 12:18 SHAYY HORTON DO Nov 05, 2020 05:56
--- NOTE | 2020-11-04 14:43 | Diagnostic Imaging Report ---
INDICATION: Right knee pain. Time of exam 1:22 PM 3 views right knee were obtained. There are severe medial and patellofemoral compartmental degenerative changes with joint space narrowing and marginal spurring. Milder lateral compartment degenerative changes noted. There is no fracture or dislocation. A moderate-sized joint effusion is noted. IMPRESSION: Degenerative changes and moderate joint effusion. No acute bony abnormality is detected. Dictated by: Dictated on workstation # [id number]
--- NOTE | 2020-11-04 15:06 | Occupational Therapy Eval ---
OT Evaluation-General/PLF Medical Diagnosis Admission Date Nov 04, 2020 at 03:07 Medical Diagnosis: right sided weakness/elevated troponin, AMI Onset Date: Nov 04, 2020 Therapy Diagnosis Therapy Diagnosis: Debility Height/Weight Height (Feet): 5 Height (Inches): 9.00 Weight (Pounds): 293 Weight (Ounces): 2.0 Precautions Precautions/Isolations: Fall Prevention, Standard Precautions Weight Bear Status Weight Bearing Restriction: Weight Bearing/Tolerated Referral Physician: Usha Referral Reason: Activity Tolerance, Self Care, Evaluation/Treatment, Strengthening/ROM Medical History Pertinent Medical History: DM, HTN, Smoking 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 began falling at home. Came to ER with right sided weakness. Reviewed History: Yes Social History Home: Apartment Current Living Status: Significant Other Entry Into Home: Level Entry Pt. lives in apartment with girlfriend. She doesn't work but does drive. Pt. does not drive. She will be home with him. ADL-Prior Level of Function SCALE: Activities may be completed with or without assistive devices. 3-Tajjkiabgw-lcijqjg completes the activity by him/herself with no assistance from a helper. 5-Set-up or Clean-up Assistance-helper sets up or cleans up; patient completes activity. [place] assists only prior to or following the activity. 4-Supervision or Touching Assistance-helper provides verbal cues and/or touching/steadying and/or contact guard assistance as patient completes act ivity. Assistance may be provided throughout the activity or intermittently. 3-Partial/Moderate Assistance-helper does LESS THAN HALF the effort. [place] lifts, holds or supports trunk or limbs, but provides less than half the effort. 2-Substantial/Maximal Assistance-helper does MORE THAN HALF the effort. [place] lifts or holds trunk or limbs and provides more than half the effort. 9-Jqsedainq-swbgeo does ALL the effort. Patient does none of the effort to complete the activity. Or, the assistance of 2 or more helpers is required for the patient to complete the activity. If activity was not attempted, code reason: 7-Patient Refused. 9-Not Applicable-not attempted and the patient did not perform the activity before the current illness, exacerbation or injury. 10-Not Attempted due to Environmental Limitations-(lack of equipment, weather restraints, etc.). 88-Not Attempted due to Medical Conditions or Safety Concerns. ADL PLOF Comments Pt. states that he is independent at home with bathing and dressing, but does state that sometimes his girlfriend does help him. He uses a walker at home. 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 He is unsure if his current pain is due to that or from multiple falls at home from weakness. Self Care: Unknown Functional Cognition: Unknown DME/Equipment: Bath Chair, Tub/Shower DME/Equipment Comments Pt. has walker and cane Occupation: Pt. does not work Drive Self: No OT Current Status Subjective Pt. states that he only has pain in right knee when he stands on it. Pt. stands, and reports pain, but does not state pain level. Pt. has had pain medication. Mental Status/Objective Patient Orientation: Person, Place Current Upper Extremity ROM WFL bilateral UE Upper Extremity Sensation Pt. indicates numbness and tingling on right palm. Does not report this anywhere else. Upper Extremity Strength Right UE- 3/5 overall left UE- 4/5 proximal, 3+/5 distally ADL-Treatment Eating (QC): 6 (Reported by pt.) Upper Body Dressing (QC): 5 (Per clinical judgment, pt. could don shirt with set up.) On/Off Footwear (QC): 4 (Increased time needed to doff/don slipper socks seated in chair.) Other Treatments Pt. is able to stand from chair with SBA at walker. Pt. is able to maintain standing, but states, "I can't take any steps." Reports pain in right knee, but does not report pain level. Pt. is unsure when knee starting to hurt, if it was from falling. Pt. has some reported memory issues, and in fact can't tell this therapist what town he lives in. States that he lives past the hospital, but can't remember exact location. Pt. is educated about OT goals and pt. verbalizes understanding. Pt. states that he lives with girlfriend, and she babysits a child in the home. Otherwise, she helps him as needed. Pt does not drive, but his girlfriend does. All needs are met up in chair. Education OT Patient Education: Correct positioning, Modified ADL techniques, Progress toward Goal/Update tx plan, Purpose of tx/functional activities, Reviewed precautions, Rehab process, Transfer techniques Teaching Recipient: Patient Teaching Methods: Demonstration, Discussion Response to Teaching: Verbalize Understanding, Return Demonstration OT Half-Way Goals Education Instructor Goals Time Frame: Nov 18, 2020 Eating (QC): 6 Oral Hygiene (QC): 6 Toileting Hygiene (QC): 6 Shower/Bathe Self (QC): 4 Upper Body Dressing (QC): 6 Lower Body Dressing (QC): 6 On/Off Footwear (QC): 6 Additional Goals: 1-Demonstrate ADL Tasks, 2-Verbalize Understanding, 3- ImproveStrength/Andrei 1=Demonstrate adherence to instructed precautions during ADL tasks. 2=Patient will verbalize/demonstrate understanding of assistive devices/modifications for ADL. 3=Patient will improve strength/tolerance for activity to enable patient to perform ADL's. OT Education/Plan Problem List/Assessment Assessment: Decreased Activ Tolerance, Decreased UE Strength, Impaired I ADL's, Impaired Self-Care Skills Discharge Recommendations Plan/Recommendations: Continue POC Therapy Discharge Recommendati: Post Acute OT Treatment Plan/Plan of Care Treatment,Training & Education: Yes Patient would benefit from OT for education, treatment and training to promote independence in ADL's, mobility, safety and/or upper extremity function for ADL's. Plan of Care: ADL Retraining, Functional Mobility, UE Funct Exercise/Act Treatment Duration: Nov 18, 2020 Frequency: 5 times per week Estimated Hrs Per Day: .25 hour per day Agreement: Yes Rehab Potential: Good Time/GCodes Start Time: 14:00 Stop Time: 14:18 Total Time Billed (hr/min): 18 Billed Treatment Time 1, RON POOLE OT Nov 04, 2020 15:06
--- NOTE | 2020-11-04 16:04 | Consultation-Cardiology ---
HPI-Cardiology Cardiology Consultation Date of Consultation 11/04/20 Date of Admission Time Seen by Provider: 08:00 Indication: Right-sided weakness HPI 60 years old gentleman with history of hypertension, hyperlipidemia and diabetes mellitus, uses a walker usually, noted that he has been having right-sided weakness occurred on waking up on November 03, 2020. He fell at home, he reported that he has been having episodes of falling and numbness in his leg. He did not have any chest pain, no palpitation. No syncope Home Medications & Allergies Allergies: Coded Allergies: No Known Drug Allergies (Verified , 06/16/19) Home Medication List Reviewed: Yes DOS-Rnasyz-Vhxxai Hx Patient Social History Recreational Drug Use: No Drug of Choice: TESTED + FOR THC ON 01/02/19 Smoking Status: Current Everyday Smoker Type Used: Cigarettes 2nd Hand Smoke Exposure: No Recent Hopitalizations: No Have you traveled recently?: No Alcohol Use?: No Substance type: Marijuana Immunizations Up To Date Tetanus Booster (TDap): Unknown Date of Influenza Vaccine: Apr 29, 2020 Past Medical History Discussed below Family Medical History Family Medical Hx Noncontributory Family History: Patient reports no known family medical history. Review of Systems-General Review of Systems Constitutional: see HPI; No chills, No diaphoresis, No fever; weakness (R leg weakness) EENTM: see HPI; No hearing loss, No blurred vision, No throat pain Respiratory: see HPI; No cough, No dyspnea on exertion, No orthopnea, No short of breath; wheezing (expiratory wheezing) Cardiovascular: see HPI; No chest pain, No edema, No palpitations, No syncope Gastrointestinal: No abdominal pain, No dysphagia, No nausea, No vomiting Genitourinary: No hematuria, No hesitancy Musculoskeletal: joint pain; No muscle cramps (R knee pain), No muscle twitching; muscle weakness (R UE and R LE weakness); No neck pain Skin: No rash; other (abrasion R knee) Psychiatric/Neurological: Denies Headache; Numbness (R Hand 1-3rd digits), Paresthesia Reviewed Test Results Reviewed Test Results Lab Laboratory Tests Test 11/04/20 00:46 11/04/20 01:26 11/04/20 02:18 11/04/20 06:07 Range/Units White Blood Count 15.8 H 4.3-11.0 10^3/uL Red Blood Count 5.57 H 4.30-5.52 10^6/uL Hemoglobin 15.9 13.3-17.7 g/dL Hematocrit 49 40-54 % Mean Corpuscular Volume 88 80-99 fL Mean Corpuscular Hemoglobin 29 25-34 pg Mean Corpuscular Hemoglobin Concent 32 32-36 g/dL Red Cell Distribution Width 15.1 H 10.0-14.5 % Platelet Count 353 130-400 10^3/uL Mean Platelet Volume 11.0 9.0-12.2 fL Immature Granulocyte % (Auto) 0 % Neutrophils (%) (Auto) 66 42-75 % Lymphocytes (%) (Auto) 23 12-44 % Monocytes (%) (Auto) 7 0-12 % Eosinophils (%) (Auto) 3 0-10 % Basophils (%) (Auto) 1 0-10 % Neutrophils # (Auto) 10.5 H 1.8-7.8 10^3/uL Lymphocytes # (Auto) 3.6 1.0-4.0 10^3/uL Monocytes # (Auto) 1.2 H 0.0-1.0 10^3/uL Eosinophils # (Auto) 0.4 H 0.0-0.3 10^3/uL Basophils # (Auto) 0.1 0.0-0.1 10^3/uL Immature Granulocyte # (Auto) 0.1 0.0-0.1 10^3/uL Neutrophils % (Manual) 68 % Lymphocytes % (Manual) 21 % Monocytes % (Manual) 2 % Eosinophils % (Manual) 1 % Basophils % (Manual) 0 % Band Neutrophils 0 % Reactive Lymphocytes 8 % Blood Morphology Comment NORMAL Prothrombin Time 12.3 12.2-14.7 SEC INR Comment 0.9 0.8-1.4 Activated Partial Thromboplast Time 35 24-35 SEC D-Dimer 0.84 H 0.00-0.49 UG/ML Sodium Level 138 135-145 MMOL/L Potassium Level 3.8 3.6-5.0 MMOL/L Chloride Level 102 98-107 MMOL/L Carbon Dioxide Level 21 21-32 MMOL/L Anion Gap 15 H 5-14 MMOL/L Blood Urea Nitrogen 20 H 7-18 MG/DL Creatinine 1.87 H 0.60-1.30 MG/DL Estimat Glomerular Filtration Rate 37 BUN/Creatinine Ratio 11 Glucose Level 237 H 70-105 MG/DL Calcium Level 9.7 8.5-10.1 MG/DL Corrected Calcium 9.9 8.5-10.1 MG/DL Total Bilirubin 0.4 0.1-1.0 MG/DL Aspartate Amino Transf (AST/SGOT) 13 5-34 U/L Alanine Aminotransferase (ALT/SGPT) 22 0-55 U/L Alkaline Phosphatase 112 40-136 U/L Troponin I 0.090 H <0.028 NG/ML C-Reactive Protein High Sensitivity 1.87 H 0.00-0.50 MG/DL Total Protein 7.7 6.4-8.2 GM/DL Albumin 3.8 3.2-4.5 GM/DL Glucometer 279 H 151 H 70-110 MG/DL Urine Color YELLOW Urine Clarity CLEAR Urine pH 5.5 5-9 Urine Specific Palmer 1.025 H 1.016-1.022 Urine Protein TRACE H NEGATIVE Urine Glucose (UA) 3+ H NEGATIVE Urine Ketones NEGATIVE NEGATIVE Urine Nitrite NEGATIVE NEGATIVE Urine Bilirubin NEGATIVE NEGATIVE Urine Urobilinogen 0.2 < = 1.0 MG/DL Urine Leukocyte Esterase NEGATIVE NEGATIVE Urine RBC (Auto) NEGATIVE NEGATIVE Urine RBC NONE /HPF Urine WBC RARE /HPF Urine Squamous Epithelial Cells RARE /HPF Urine Crystals PRESENT H /LPF Urine Amorphous Sediment FEW ANGELA URATES H /LPF Urine Bacteria NEGATIVE /HPF Urine Casts PRESENT /LPF Urine Hyaline Casts RARE /LPF Urine Mucus SMALL H /LPF Urine Culture Indicated NO Test 11/04/20 09:47 11/04/20 12:04 11/04/20 15:30 Range/Units White Blood Count 13.0 H 4.3-11.0 10^3/uL Red Blood Count 5.41 4.30-5.52 10^6/uL Hemoglobin 15.4 13.3-17.7 g/dL Hematocrit 50 40-54 % Mean Corpuscular Volume 92 80-99 fL Mean Corpuscular Hemoglobin 29 25-34 pg Mean Corpuscular Hemoglobin Concent 31 L 32-36 g/dL Red Cell Distribution Width 15.2 H 10.0-14.5 % Platelet Count 297 130-400 10^3/uL Mean Platelet Volume 10.6 9.0-12.2 fL Immature Granulocyte % (Auto) 1 % Neutrophils (%) (Auto) 61 42-75 % Lymphocytes (%) (Auto) 26 12-44 % Monocytes (%) (Auto) 8 0-12 % Eosinophils (%) (Auto) 3 0-10 % Basophils (%) (Auto) 1 0-10 % Neutrophils # (Auto) 8.0 H 1.8-7.8 10^3/uL Lymphocytes # (Auto) 3.4 1.0-4.0 10^3/uL Monocytes # (Auto) 1.0 0.0-1.0 10^3/uL Eosinophils # (Auto) 0.4 H 0.0-0.3 10^3/uL Basophils # (Auto) 0.1 0.0-0.1 10^3/uL Immature Granulocyte # (Auto) 0.1 0.0-0.1 10^3/uL Sodium Level 137 135-145 MMOL/L Potassium Level 4.1 3.6-5.0 MMOL/L Chloride Level 106 98-107 MMOL/L Carbon Dioxide Level 18 L 21-32 MMOL/L Anion Gap 13 5-14 MMOL/L Blood Urea Nitrogen 17 7-18 MG/DL Creatinine 1.47 H 0.60-1.30 MG/DL Estimat Glomerular Filtration Rate 49 BUN/Creatinine Ratio 12 Glucose Level 162 H 70-105 MG/DL Calcium Level 8.7 8.5-10.1 MG/DL Troponin I 0.072 H <0.028 NG/ML C-Reactive Protein High Sensitivity 1.77 H 0.00-0.50 MG/DL Glucometer 169 H 167 H 70-110 MG/DL Physical Exam Physical Exam Vital Signs Vital Signs - First Documented 11/04/20 11/04/20 11/04/20 00:40 01:43 06:17 Temp 36.8 Pulse 87 Resp 18 B/P (MAP) 152/81 (104) Pulse Ox 92 O2 Delivery Room Air O2 Flow Rate 2.00 FiO2 32 Capillary Refill : Less Than 3 Seconds Height, Weight, BMI Height: 5'9.00" Weight: 293lbs. 2.0oz. 132.713365dg; 47.67 BMI Method:Estimated General Appearance: No Apparent Distress; No Anxious; Obese Eyes: Bilateral Eye Normal Inspection HEENT: Pharynx Normal, Moist Mucous Membranes Neck: Full Range of Motion, Normal Inspection, Non Tender Respiratory: Chest Non Tender, No Accessory Muscle Use, No Respiratory Distress; No Crackles; Wheezing (expiratory) Cardiovascular: Regular Rate, Rhythm, No Edema, No JVD, Normal Peripheral Pulses Gastrointestinal: Normal Bowel Sounds, Non Tender, Soft Back: Normal Inspection, No CVA Tenderness Extremity: Normal Capillary Refill, Non Tender, No Calf Tenderness, Other (decreased strength UE - R hand 3/5) Neurologic/Psychiatric: Alert, Oriented x3, Normal Mood/Affect, Abnormal Gait (unable to walk due to right leg weakness) Skin: Normal Color, Warm/Dry Lymphatic: No Adenopathy A/P-Cardiology Admission Diagnosis Acute CVA Type II myocardial infarction Hypertension Hyperlipidemia Assessment/Plan Acute CVA with right-sided weakness, work-up so far has been negative with CT scan, treated with aspirin and Plavix, continue to monitor, evaluate carotid ultrasound Elevated troponin, type II myocardial infarction, no chest pain, no acute EKG changes. Continue to monitor to trend, patient was started on aspirin and Plavix. Acute renal failure, started on IV fluid, monitor renal function closely Hypertension, restart home medication and monitor blood pressure Hyperlipidemia, restart home medication monitor lipids Obstructive sleep apnea, using CPAP at home Obesity, discussed weight loss Diabetes mellitus, followed and managed by primary care physician History of anxiety, depression. Followed and managed by primary care physician Clinical Quality Measures Stroke: Date of last known well: Nov 03, 2020 SMITA PEÑA MD Nov 04, 2020 16:04
[2020-11-04] MEDS: GABAPENTIN 300 MG (NEURONTIN) CAP PO SCH ×2 (17:17→20:13)
[2020-11-04] MEDS: CARVEDILOL 12.5 MG (COREG) TABLET PO SCH (20:13)
[2020-11-04] MEDS: OMEGA 3 (FISH OIL) 1000 MG CAP PO SCH (20:13)
[2020-11-04] MEDS ORDERED: LORATADINE (CLARITIN) 10 MG TAB PO SCH (21:00)
[2020-11-04] MEDS ORDERED: NON-FORMULARY MEDICATION 1 EA EA (Glipizide 10 MG) PO SCH (21:00)
[2020-11-04] MEDS ORDERED: NON-FORMULARY MEDICATION 1 EA EA (Carvedilol 25 MG) PO SCH (21:00)
[2020-11-04] MEDS ORDERED: glipiZIDE 5 MG (GLUCOTROL) TAB PO SCH (21:00)
[2020-11-04] MEDS ORDERED: NON-FORMULARY MEDICATION 1 EA EA (Fish Oil/Dha/Epa (Fish Oil 1,200 mg Fish Oil) 1 EACH) PO SCH (21:00)
[2020-11-04] MEDS ORDERED: NON-FORMULARY MEDICATION 1 EA EA (Cetirizine HCl (Zyrtec) 10 MG) PO SCH (21:00)
[2020-11-05 00:58] VITALS: BP 157/83
[2020-11-05 04:28] VITALS: BP 128/76
[2020-11-05 05:51] LABS: TRIGLYCERIDES 266 MG/DL (<150); VLDL CHOLESTEROL 53 MG/DL (5-40)
[2020-11-05 05:55] LABS: CHOLESTEROL 114 MG/DL (< 200)
[2020-11-05 05:56] LABS: HDL CHOLESTEROL 28 MG/DL (40-60)
[2020-11-05] MEDS: inSUlin ASPART (NovoLOG) 1 UNIT/0.01 ML (CHARGE PER UNIT) SC SCH ×2 (06:20→12:09)
[2020-11-05] MEDS: RT-ALBUTEROL/IPRATROPIUM 3 ML (DUONEB) VIAL INH SCH (06:47)
[2020-11-05 07:48] LABS: BASOPHILS # (AUTO) 0.1 10^3/uL (0.0-0.1); BASOPHILS % (AUTO) 1 % (0-10); EOSINOPHILS # (AUTO) 0.4 10^3/uL (0.0-0.3); EOSINOPHILS % (AUTO) 4 % (0-10); HEMATOCRIT 45 % (40-54); HEMOGLOBIN 14.4 g/dL (13.3-17.7); LYMPHOCYTES # (AUTO) 3.6 10^3/uL (1.0-4.0); LYMPHOCYTES % (AUTO) 31 % (12-44); MEAN CORPUSCULAR HEMOGLOBIN 28 pg (25-34); MEAN CORPUSCULAR HGB CONC 32 g/dL (32-36); MEAN CORPUSCULAR VOLUME 88 fL (80-99); MEAN PLATELET VOLUME 11.2 fL (9.0-12.2); MONOCYTES % (AUTO) 8 % (0-12); NEUTROPHILS # (AUTO) 6.6 10^3/uL (1.8-7.8); NEUTROPHILS % (AUTO) 56 % (42-75); PLATELET COUNT 323 10^3/uL (130-400); WHITE BLOOD COUNT 11.8 10^3/uL (4.3-11.0)
[2020-11-05 07:55] LABS: ALBUMIN 3.4 GM/DL (3.2-4.5); POTASSIUM 3.8 MMOL/L (3.6-5.0)
[2020-11-05 07:56] LABS: CALCIUM 8.5 MG/DL (8.5-10.1)
[2020-11-05 07:58] LABS: TOTAL PROTEIN 6.7 GM/DL (6.4-8.2)
[2020-11-05 07:59] LABS: BILIRUBIN,TOTAL 0.5 MG/DL (0.1-1.0)
[2020-11-05] MEDS ORDERED: ASCORBIC ACID (VIT C) 500 MG TABLET PO SCH (08:00)
[2020-11-05] MEDS ORDERED: ZINC SULFATE 220 MG CAPSULE PO SCH (08:00)
[2020-11-05 08:01] LABS: CREATININE SERUM 1.27 MG/DL (0.60-1.30)
[2020-11-05 08:08] VITALS: BP 178/83
[2020-11-05] MEDS: ASPIRIN E.C. 325 MG (ECOTRIN) TABLET PO SCH (08:27)
[2020-11-05] MEDS: CLOPIDOGREL 75 MG (PLAVIX) TABLET PO SCH (08:27)
[2020-11-05] MEDS: CARVEDILOL 12.5 MG (COREG) TABLET PO SCH (08:28)
[2020-11-05] MEDS: OMEGA 3 (FISH OIL) 1000 MG CAP PO SCH (08:28)
[2020-11-05] MEDS: GABAPENTIN 300 MG (NEURONTIN) CAP PO SCH (08:28)
[2020-11-05] MEDS ORDERED: VITAMIN D3 25 MCG (1,000 UNITS) TABLET PO SCH (09:00)
[2020-11-05] MEDS ORDERED: NON-FORMULARY MEDICATION 1 EA EA (Ascorbic Acid (Vitamin C) 1,000 MG) PO SCH (09:00)
[2020-11-05] MEDS ORDERED: eZETimibe 10 MG (ZETIA) TABLET PO SCH (09:00)
[2020-11-05] MEDS ORDERED: lisINopril 40 MG (PRINIVIL) TABLET PO SCH (09:00)
[2020-11-05] MEDS ORDERED: amLODIPine 5 MG (NORVASC) TAB PO SCH (09:00)
[2020-11-05] MEDS ORDERED: NON-FORMULARY MEDICATION 1 EA EA (Zinc 50 MG) PO SCH (09:00)
--- NOTE | 2020-11-05 09:07 | Diagnostic Imaging Report ---
PROCEDURE: US carotid duplex, bilateral. INDICATION: History of diabetes and tobacco use. Stroke. TECHNIQUE: Multiple real-time grayscale images were obtained over the carotid arteries in various projections bilaterally. Additional spectral analysis and color Doppler and Duplex images were also obtained. FINDINGS: Right carotid circulation: There is mild plaque formation in the right carotid bifurcation. Based on grayscale images and flow velocity criteria, there is no significant stenoses of the right internal carotid artery. Left carotid circulation: There is mild plaque formation in the left carotid bifurcation. Based on grayscale images and flow velocity criteria, there is no significant stenoses of the left internal carotid artery. Flow in the bilateral vertebral arteries is antegrade. IMPRESSION: 1. No significant stenosis of the internal carotid arteries. Parameters based on the consensus panel Mckinney-Scale and Doppler ultrasound criteria published May 2003, Radiology, Volume 229. DOPPLER (peak systolic velocity M/S Right Left CCA 0.84 1.12 ICA Proximal 0.40 0.45 ICA Mid 0.52 0.67 ICA Distal 0.52 0.64 RATIO 0.62 0.59 ECA 1.52 1.05 VERT 0.17 0.15 Dictated by: Dictated on workstation # [id number]
[2020-11-05] MEDS ORDERED: methylPREDNISolone 40 MG/ML (DEPO MEDROL) VIAL IA ONE (10:15)
[2020-11-05] MEDS ORDERED: BUPIVACAINE 0.25% 30 ML (SENSORCAINE) VIAL INJ ONE (10:15)
[2020-11-05] MEDS ORDERED: methylPREDNISolone 80 MG/ML (DEPO MEDROL) VIAL IA ONE (10:45)
[2020-11-05 11:39] VITALS: BP 145/77
--- NOTE | 2020-11-05 12:29 | Progress Note - Hospitalist ---
MJ ROSARIO MED STUDENT 11/05/20 1229: Subjective HPI/CC On Admission Date Seen by Provider: Nov 05, 2020 Time Seen by Provider: 12:15 CC: Right sided weakness HPI: This is a very complicated 60yoWM who presents to the ER with right sided weakness and falls. Patient has findings suspicious for CVA but MRI cannot be performed due to weight limitations. Knee xray ordered due to fall and knee pain now - it was negative for acute bony abnormalities but did show moderate effusion. DM is OOC. Cardiology consulted; ortho consulted Subjective/Events-last exam 11/05/20 Pt appears stronger today and moves about room to shower, etc Right senior center manager strength improved on PE today (+4/5) although patient denies feeling stronger Continues to complain of numbness in R hand R knee pain bothersome but xray negative except for mod effusion - ortho will drain effusion and do steroid injection Glucose better controlled today at 116 Possible transfer to IRF pending approval from insurance and progress of patient Objective Exam Vital Signs Vital Signs Date Time Temp Pulse Resp B/P (MAP) Pulse Ox O2 Delivery O2 Flow Rate FiO2 11/05/20 11:39 36.0 68 18 145/77 (99) 92 Room Air 11/05/20 08:00 2.00 11/04/20 06:17 32 Capillary Refill : Less Than 3 Seconds General Appearance: No Apparent Distress, Obese HEENT: PERRL/EOMI Neck: Full Range of Motion, Non Tender Respiratory: Chest Non Tender, Lungs Clear, Normal Breath Sounds, No Accessory Muscle Use, No Respiratory Distress Cardiovascular: Regular Rate, Rhythm, No Gallop, No JVD, Normal Peripheral Pulses Gastrointestinal: Normal Bowel Sounds, Non Tender, Soft Back: No CVA Tenderness, No Vertebral Tenderness Extremity: Normal Capillary Refill, No Calf Tenderness, Pedal Edema (1+ b/l), Other (r knee abrasion) Neurologic/Psychiatric: Alert, Oriented x3, Normal Mood/Affect, Other (senior center manager strength R hand 4/5, left hand 5/5) Skin: Normal Color, Warm/Dry Lymphatic: No Adenopathy Results/Procedures Lab Laboratory Tests 11/05/20 06:15 Patient resulted labs reviewed. Imaging: Reviewed Imaging Films, Reviewed Imaging Report Assessment/Plan Assessment and Plan Assess & Plan/Chief Complaint 11/04/20 Discussed possibility of inpatient rehab with pt. He is willing to try pending approval by insurance. Pt may gain enough strength before discharge and not require any rehab. Acute Onset R-Sided Weakness - Improved, ASA 325 and Clopidogrel [address] negative. Size prohibits MRI so may repeat CT in a few weeks Leukoctyosis - Improved. CXR negative, UA negative. Monitor WBC Elevated troponin - EKG normal; down to 0.072 from 0.09 on admission AMI- improved since admission (creatinine 1.27 down from 1.47) IVF; recheck kidney function tomorrow JULIANA - uses CPAP at home; continue. MAT protocol Right Knee Pain - obtained 3 view xray of R knee - moderate effusion and degenerative changes. Ortho consulted to drain effusion and inject with steroid Diabetes - better controlled today. Sliding scale insulin, Glipizide 10 mg HTN - resume home meds (Amlodipine 5mg PO, Carvedilol 25 mg, Lisinopril 40 mg) Hyperlipidemia - resume home meds (Ezetimibe 10 mg, Atorvastatin 80 mg) Obesity H/O Anxiety Depression Diagnosis/Problems Diagnosis/Problems (1) Elevated troponin Status: Acute (2) Acute kidney injury Status: Acute (3) Right sided weakness Status: Acute (4) Hypertension Status: Chronic (5) Hyperlipemia Status: Chronic (6) Diabetes Status: Chronic Clinical Quality Measures Stroke: Date of last known well: Nov 03, 2020 SHAYY HORTON DO 11/06/20 0926: Supervisory-Addendum Brief Verification & Attestation Participated in pt care: history, MDM, physical Personally performed: exam, history, MDM, supervision of care Care discussed with: Medical Student Procedures: n/a Results interpretation: Verified all documentation Verification and Attestation of Medical Student E/M Service A medical student performed and documented this service in my presence. I reviewed and verified all information documented by the medical student and made modifications to such information, when appropriate. I personally performed the physical exam and medical decision making. Shayy Horton, Nov 06, 2020,09:25 MJ ROSARIO MED STUDENT Nov 05, 2020 12:29 SHAYY HORTON DO Nov 06, 2020 09:26
--- NOTE | 2020-11-05 14:21 | Physical Therapy Daily Note ---
PT Daily Note-Current Subjective Patient states he is feeling better today and agrees to PT. Mental Status Patient Orientation: Normal For Age Transfers SCALE: Activities may be completed with or without assistive devices. 2-Ruoacmsfsm-vclcdqs completes the activity by him/herself with no assistance from a helper. 5-Set-up or Clean-up Assistance-helper sets up or cleans up; patient completes activity. [place] assists only prior to or following the activity. 4-Supervision or Touching Assistance-helper provides verbal cues and/or touching/steadying and/or contact guard assistance as patient completes activity. Assistance may be provided throughout the activity or intermittently. 3-Partial/Moderate Assistance-helper does LESS THAN HALF the effort. [place] lifts, holds or supports trunk or limbs, but provides less than half the effort. 2-Substantial/Maximal Assistance-helper does MORE THAN HALF the effort. [place] lifts or holds trunk or limbs and provides more than half the effort. 2-Jbhcllyzh-cmfzaw does ALL the effort. Patient does none of the effort to complete the activity. Or, the assistance of 2 or more helpers is required for the patient to complete the activity. If activity was not attempted, code reason: 7-Patient Refused. 9-Not Applicable-not attempted and the patient did not perform the activity before the current illness, exacerbation or injury. 10-Not Attempted due to Environmental Limitations-(lack of equipment, weather restraints, etc.). 88-Not Attempted due to Medical Conditions or Safety Concerns. Sit to Stand (QC): 4 (SBA) Gait Training Does the Patient Walk?: Yes Distance: 50' x 2 Walk 10 feet (QC): 4 Walk 50 ft with 2 Turns(QC): 4 Gait Assistive Device: FWW functional gait sequence (patient declined distance secondary he reports he does not ambulate more than 20-50' at home) Exercises Seated Therapy Exercises: Ankle pumps, Long arc quads, Hip flexion Seated Reps: 15 Assessment Patient remains up in recliner with needs met. Patient tolerated treatment well. PT Senior Living Goals Simplex Printer Installer Goals PT Senior Living Goals Time Frame: Nov 13, 2020 Roll Left & Right (QC): 6 Sit to Lying (QC): 6 Lying-Sitting on Side/Bed(QC): 6 Sit to Stand (QC): 6 Chair/Ccu-rm-Lenyb Xfer(QC): 6 Toilet Transfer (QC): 6 Does the Patient Walk: Yes Walk 10 feet (QC): 6 Walk 50ft with 2 Turns (QC): 6 PT Plan Treatment/Plan Treatment Plan: Continue Plan of Care Treatment Plan: Education, Functional Activity Andrei, Functional Strength, Gait, Safety, Therapeutic Exercise, Transfers Treatment Duration: Nov 13, 2020 Frequency: 6 times per week Estimated Hrs Per Day: .25 hour per day Patient and/or Family Agrees t: Yes Time/GCodes Time In: 1345 Time Out: 1355 Total Billed Treatment Time: 10 Total Billed Treatment 1 visit FA 10 min MIRIAN OLIVA PT Nov 05, 2020 14:21
--- NOTE | 2020-11-05 14:45 | Occupational Ther Daily Note ---
OT Current Status-Daily Note Subjective Pt alert, sitting in recliner. Pt agrees to therapy. No c/o pain. Mental Status/Objective Patient Orientation: Person, Place, Time, Situation ADL-Treatment Therapy Code Descriptions/Definitions Functional [place] Measure: 0=Not Assessed/NA 4=Minimal Assistance 1=Total Assistance 5=Supervision or Setup 2=Maximal Assistance 6=Modified [place] 3=Moderate Assistance 7=Complete IndependenceSCALE: Activities may be completed with or without assistive devices. 7-Lmcmsjlwqm-fgvbjbx completes the activity by him/herself with no assistance f rom a helper. 5-Set-up or Clean-up Assistance-helper sets up or cleans up; patient completes activity. [place] assists only prior to or following the activity. 4-Supervision or Touching Assistance-helper provides verbal cues and/or touching/steadying and/or contact guard assistance as patient completes activity. Assistance may be provided throughout the activity or intermittently. 3-Partial/Moderate Assistance-helper does LESS THAN HALF the effort. [place] lifts, holds or supports trunk or limbs, but provides less than half the effort. 2-Substantial/Maximal Assistance-helper does MORE THAN HALF the effort. [place] lifts or holds trunk or limbs and provides more than half the effort. 9-Rvutdwqpu-qvgwpi does ALL the effort. Patient does none of the effort to complete the activity. Or, the assistance of 2 or more helpers is required for the patient to complete the activity. If activity was not attempted, code reason: 7-Patient Refused. 9-Not Applicable-not attempted and the patient did not perform the activity before the current illness, exacerbation or injury. 10-Not Attempted due to Environmental Limitations-(lack of equipment, weather restraints, etc.). 88-Not Attempted due to Medical Conditions or Safety Concerns. Other Treatment Pt stated that he had already bathed today. Pt stated that he was not able to complete footwear due to painful knees. Pt educated on lower body dressing equipment to assist with donning/doffing footwear. Pt then completed 3 B UE exercises to increase strength for daily functional tasks, 2 sets 10 reps due to increased fatigue. After therapy, pt sitting in recliner with call light/phone in reach. All needs met in room. OT Custodial Goals Nurse First Assist Goals Time Frame: Nov 18, 2020 Eating (QC): 6 Oral Hygiene (QC): 6 Toileting Hygiene (QC): 6 Shower/Bathe Self (QC): 4 Upper Body Dressing (QC): 6 Lower Body Dressing (QC): 6 On/Off Footwear (QC): 6 Additional Goals: 1-Demonstrate ADL Tasks, 2-Verbalize Understanding, 3- ImproveStrength/Andrei 1=Demonstrate adherence to instructed precautions during ADL tasks. 2=Patient will verbalize/demonstrate understanding of assistive devices/modifications for ADL. 3=Patient will improve strength/tolerance for activity to enable patient to perform ADL's. OT Education/Plan Problem List/Assessment Assessment: Decreased Activ Tolerance, Decreased UE Strength, Impaired Self- Care Skills Discharge Recommendations Plan/Recommendations: Continue POC Treatment Plan/Plan of Care Patient would benefit from OT for education, treatment and training to promote independence in ADL's, mobility, safety and/or upper extremity function for ADL's. Plan of Care: ADL Retraining, Functional Mobility, UE Funct Exercise/Act Treatment Duration: Nov 18, 2020 Frequency: 5 times per week Estimated Hrs Per Day: .25 hour per day Agreement: Yes Rehab Potential: Good Time/GCodes Start Time: 13:25 Stop Time: 13:35 Total Time Billed (hr/min): 10 Billed Treatment Time 1 visit-EX 1 (10 min) PAULA FIERRO Nov 05, 2020 14:45
[2020-11-05 15:22] VITALS: BP 145/78
[2020-11-05] MEDS ORDERED: CLOP75TA28 PO (15:22)
--- NOTE | 2020-11-05 15:23 | Discharge Summary ---
Diagnosis/Chief Complaint Date of Admission Nov 04, 2020 at 03:07 Date of Discharge Discharge Date: Nov 05, 2020 Discharge Diagnosis Acute Onset R-Sided Weakness - Improved, ASA 325 and Clopidogrel [address] negative. Size prohibits MRI so may repeat CT in a few weeks Leukoctyosis - Improved. CXR negative, UA negative. Monitor WBC Elevated troponin - EKG normal; down to 0.072 from 0.09 on admission AMI- improved since admission (creatinine 1.27 down from 1.47) IVF; recheck kidney function tomorrow JULIANA - uses CPAP at home; continue. MAT protocol Right Knee Pain - obtained 3 view xray of R knee - moderate effusion and degenerative changes. Ortho consulted to drain effusion and inject with steroid Diabetes - better controlled today. Sliding scale insulin, Glipizide 10 mg HTN - resume home meds (Amlodipine 5mg PO, Carvedilol 25 mg, Lisinopril 40 mg) Hyperlipidemia - resume home meds (Ezetimibe 10 mg, Atorvastatin 80 mg) Obesity H/O Anxiety Depression Discharge Summary Discharge Physical Examination Allergies: Coded Allergies: No Known Drug Allergies (Verified , 06/16/19) Vitals & I&Os Vital Signs Date Time Temp Pulse Resp B/P (MAP) Pulse Ox O2 Delivery O2 Flow Rate FiO2 11/05/20 15:22 36.4 68 18 145/78 (100) 92 Room Air 11/05/20 08:00 2.00 11/04/20 06:17 32 General Appearance: Alert, Oriented X3, Cooperative Respiratory: Clear to Auscultation Cardiovascular: Regular Rate Hospital Course Was the Problem List Reviewed?: Yes Labs (last 24 hrs) Laboratory Tests 11/04/20 00:46: White Blood Count 15.8H, Red Blood Count 5.57H, Hemoglobin 15.9, Hematocrit 49, Mean Corpuscular Volume 88, Mean Corpuscular Hemoglobin 29, Mean Corpuscular Hemoglobin Concent 32, Red Cell Distribution Width 15.1H, Platelet Count 353, Mean Platelet Volume 11.0, Immature Granulocyte % (Auto) 0, Neutrophils (%) (Auto) 66, Lymphocytes (%) (Auto) 23, Monocytes (%) (Auto) 7, Eosinophils (%) (Auto) 3, Basophils (%) (Auto) 1, Neutrophils # (Auto) 10.5H, Lymphocytes # (Aut o) 3.6, Monocytes # (Auto) 1.2H, Eosinophils # (Auto) 0.4H, Basophils # (Auto) 0.1, Immature Granulocyte # (Auto) 0.1, Neutrophils % (Manual) 68, Lymphocytes % (Manual) 21, Monocytes % (Manual) 2, Eosinophils % (Manual) 1, Basophils % (Manual) 0, Band Neutrophils 0, Reactive Lymphocytes 8, Blood Morphology Comment NORMAL, Prothrombin Time 12.3, INR Comment 0.9, Activated Partial Thromboplast Time 35, D-Dimer 0.84H, Sodium Level 138, Potassium Level 3.8, Chloride Level 102, Carbon Dioxide Level 21, Anion Gap 15H, Blood Urea Nitrogen 20H, Creatinine 1.87H, Estimat Glomerular Filtration Rate 37, BUN/Creatinine Ratio 11, Glucose Level 237H, Calcium Level 9.7, Corrected Calcium 9.9, Total Bilirubin 0.4, Aspartate Amino Transf (AST/SGOT) 13, Alanine Aminotransferase (ALT/SGPT) 22, Alkaline Phosphatase 112, Troponin I 0.090H, C-Reactive Protein High Sensitivity 1.87H, Total Protein 7.7, Albumin 3.8 11/04/20 01:26: Glucometer 279H 11/04/20 02:18: Urine Color YELLOW, Urine Clarity CLEAR, Urine pH 5.5, Urine Specific [place] 1.025H, Urine Protein TRACEH, Urine Glucose (UA) 3+H, Urine Ketones NEGATIVE, Urine Nitrite NEGATIVE, Urine Bilirubin NEGATIVE, Urine Urobilinogen 0.2, Urine Leukocyte Esterase NEGATIVE, Urine RBC (Auto) NEGATIVE, Urine RBC NONE, Urine WBC RARE, Urine Squamous Epithelial Cells RARE, Urine Crystals PRESENTH, Urine Amorphous Sediment FEW ANGELA URATESH, Urine Bacteria NEGATIVE, Urine Casts PRESENT, Urine Hyaline Casts RARE, Urine Mucus SMALLH, Urine Culture Indicated NO 11/04/20 06:07: Glucometer 151H 11/04/20 09:47: White Blood Count 13.0H, Red Blood Count 5.41, Hemoglobin 15.4, Hematocrit 50, Mean Corpuscular Volume 92, Mean Corpuscular Hemoglobin 29, Mean Corpuscular Hemoglobin Concent 31L, Red Cell Distribution Width 15.2H, Platelet Count 297, Mean Platelet Volume 10.6, Immature Granulocyte % (Auto) 1, Neutrophils (%) (Auto) 61, Lymphocytes (%) (Auto) 26, Monocytes (%) (Auto) 8, Eosinophils (%) (Auto) 3, Basophils (%) (Auto) 1, Neutrophils # (Auto) 8.0H, Lymphocytes # (Aut o) 3.4, Monocytes # (Auto) 1.0, Eosinophils # (Auto) 0.4H, Basophils # (Auto) 0.1, Immature Granulocyte # (Auto) 0.1, Sodium Level 137, Potassium Level 4.1, Chloride Level 106, Carbon Dioxide Level 18L, Anion Gap 13, Blood Urea Nitrogen 17, Creatinine 1.47H, Estimat Glomerular Filtration Rate 49, BUN/Creatinine Ratio 12, Glucose Level 162H, Calcium Level 8.7, Troponin I 0.072H, C-Reactive Protein High Sensitivity 1.77H 11/04/20 12:04: Glucometer 169H 11/04/20 15:30: Glucometer 167H 11/04/20 20:11: Glucometer 134H 11/05/20 05:04: Triglycerides Level 266H, Cholesterol Level 114, LDL Cholesterol Direct 49, VLDL Cholesterol 53H, HDL Cholesterol 28L 11/05/20 06:13: Glucometer 116H 11/05/20 06:15: White Blood Count 11.8H, Red Blood Count 5.09, Hemoglobin 14.4, Hematocrit 45, Mean Corpuscular Volume 88, Mean Corpuscular Hemoglobin 28, Mean Corpuscular Hemoglobin Concent 32, Red Cell Distribution Width 15.0H, Platelet Count 323, Mean Platelet Volume 11.2, Immature Granulocyte % (Auto) 1, Neutrophils (%) (Auto) 56, Lymphocytes (%) (Auto) 31, Monocytes (%) (Auto) 8, Eosinophils (%) (Auto) 4, Basophils (%) (Auto) 1, Neutrophils # (Auto) 6.6, Lymphocytes # (Auto) 3.6, Monocytes # (Auto) 1.0, Eosinophils # (Auto) 0.4H, Basophils # (Auto) 0.1, Immature Granulocyte # (Auto) 0.1, Sodium Level 139, Potassium Level 3.8, Chloride Level 105, Carbon Dioxide Level 23, Anion Gap 11, Blood Urea Nitrogen 15, Creatinine 1.27, Estimat Glomerular Filtration Rate 58, BUN/Creatinine Ratio 12, Glucose Level 94, Calcium Level 8.5, Corrected Calcium 9.0, Total Bilirubin 0.5, Aspartate Amino Transf (AST/SGOT) 16, Alanine Aminotransferase (ALT/SGPT) 18, Alkaline Phosphatase 87, Total Protein 6.7, Albumin 3.4 11/05/20 11:42: Glucometer 195H 11/05/20 16:24: Glucometer 145H Pending Labs Laboratory Tests 11/04/20 00:46: White Blood Count 15.8, Red Blood Count 5.57, Hemoglobin 15.9, Hematocrit 49, Mean Corpuscular Volume 88, Mean Corpuscular Hemoglobin 29, Mean Corpuscular Hemoglobin Concent 32, Red Cell Distribution Width 15.1, Platelet Count 353, Mean Platelet Volume 11.0, Immature Granulocyte % (Auto) 0, Neutrophils (%) (Auto) 66, Lymphocytes (%) (Auto) 23, Monocytes (%) (Auto) 7, Eosinophils (%) (Auto) 3, Basophils (%) (Auto) 1, Neutrophils # (Auto) 10.5, Lymphocytes # (Auto) 3.6, Monocytes # (Auto) 1.2, Eosinophils # (Auto) 0.4, Basophils # (Auto) 0.1, Immature Granulocyte # (Auto) 0.1, Neutrophils % (Manual) 68, Lymphocytes % (Manual) 21, Monocytes % (Manual) 2, Eosinophils % (Manual) 1, Basophils % (Manual) 0, Band Neutrophils 0, Reactive Lymphocytes 8, Blood Morphology Comment NORMAL, Prothrombin Time 12.3, INR Comment 0.9, Activated Partial Thromboplast Time 35, D-Dimer 0.84, Sodium Level 138, Potassium Level 3.8, Chloride Level 102, Carbon Dioxide Level 21, Anion Gap 15, Blood Urea Nitrogen 20, Creatinine 1.87, Estimat Glomerular Filtration Rate 37, BUN/Creatinine Ratio 11, Glucose Level 237, Calcium Level 9.7, Corrected Calcium 9.9, Total Bilirubin 0.4, Aspartate Amino Transf (AST/SGOT) 13, Alanine Aminotransferase (ALT/SGPT) 22, Alkaline Phosphatase 112, Troponin I 0.090, C-Reactive Protein High Sensitivity 1.87, Total Protein 7.7, Albumin 3.8 11/04/20 01:26: Glucometer 279 11/04/20 02:18: Urine Color YELLOW, Urine Clarity CLEAR, Urine pH 5.5, Urine Specific [place] 1.025, Urine Protein TRACE, Urine Glucose (UA) 3+, Urine Ketones NEGATIVE, Urine Nitrite NEGATIVE, Urine Bilirubin NEGATIVE, Urine Urobilinogen 0.2, Urine Leukocyte Esterase NEGATIVE, Urine RBC (Auto) NEGATIVE, Urine RBC NONE, Urine WBC RARE, Urine Squamous Epithelial Cells RARE, Urine Crystals PRESENT, Urine Amorphous Sediment FEW [place] URATES, Urine Bacteria NEGATIVE, Urine Casts PRESENT, Urine Hyaline Casts RARE, Urine Mucus SMALL, Urine Culture Indicated NO 11/04/20 06:07: Glucometer 151 11/04/20 09:47: White Blood Count 13.0, Red Blood Count 5.41, Hemoglobin 15.4, Hematocrit 50, Mean Corpuscular Volume 92, Mean Corpuscular Hemoglobin 29, Mean Corpuscular Hemoglobin Concent 31, Red Cell Distribution Width 15.2, Platelet Count 297, Mean Platelet Volume 10.6, Immature Granulocyte % (Auto) 1, Neutrophils (%) (Auto) 61, Lymphocytes (%) (Auto) 26, Monocytes (%) (Auto) 8, Eosinophils (%) (Auto) 3, Basophils (%) (Auto) 1, Neutrophils # (Auto) 8.0, Lymphocytes # (Auto) 3.4, Monocytes # (Auto) 1.0, Eosinophils # (Auto) 0.4, Basophils # (Auto) 0.1, Immature Granulocyte # (Auto) 0.1, Sodium Level 137, Potassium Level 4.1, Chloride Level 106, Carbon Dioxide Level 18, Anion Gap 13, Blood Urea Nitrogen 17, Creatinine 1.47, Estimat Glomerular Filtration Rate 49, BUN/Creatinine Ratio 12, Glucose Level 162, Calcium Level 8.7, Troponin I 0.072, C-Reactive Protein High Sensitivity 1.77 11/04/20 12:04: Glucometer 169 11/04/20 15:30: Glucometer 167 11/04/20 20:11: Glucometer 134 11/05/20 05:04: Triglycerides Level 266, Cholesterol Level 114, LDL Cholesterol Direct 49, VLDL Cholesterol 53, HDL Cholesterol 28 11/05/20 06:13: Glucometer 116 11/05/20 06:15: White Blood Count 11.8, Red Blood Count 5.09, Hemoglobin 14.4, Hematocrit 45, Mean Corpuscular Volume 88, Mean Corpuscular Hemoglobin 28, Mean Corpuscular Hemoglobin Concent 32, Red Cell Distribution Width 15.0, Platelet Count 323, Mean Platelet Volume 11.2, Immature Granulocyte % (Auto) 1, Neutrophils (%) (Auto) 56, Lymphocytes (%) (Auto) 31, Monocytes (%) (Auto) 8, Eosinophils (%) (Auto) 4, Basophils (%) (Auto) 1, Neutrophils # (Auto) 6.6, Lymphocytes # (Auto) 3.6, Monocytes # (Auto) 1.0, Eosinophils # (Auto) 0.4, Basophils # (Auto) 0.1, Immature Granulocyte # (Auto) 0.1, Sodium Level 139, Potassium Level 3.8, Chloride Level 105, Carbon Dioxide Level 23, Anion Gap 11, Blood Urea Nitrogen 15, Creatinine 1.27, Estimat Glomerular Filtration Rate 58, BUN/Creatinine Ratio 12, Glucose Level 94, Calcium Level 8.5, Corrected Calcium 9.0, Total Bilirubin 0.5, Aspartate Amino Transf (AST/SGOT) 16, Alanine Aminotransferase (ALT/SGPT) 18, Alkaline Phosphatase 87, Total Protein 6.7, Albumin 3.4 11/05/20 11:42: Glucometer 195 11/05/20 16:24: Glucometer 145 Discussion & Recommendations Standard med-surg hospital course. Admitted for suspicion for CVA. Right sided weakness. Right knee pain due to 5 falls on it required ortho consult and knee injection with good results. DM and HTN were in better control and ultimately patient was approved for rehab by insurance and was transferred for aggressive PT OT. Discharge Home Medications: Active Scripts Active Clopidogrel (Clopidogrel Bisulfate) 75 Mg Tablet 75 Mg PO DAILY 365 Days Reported Trulicity (Dulaglutide) 0.75 Mg/0.5 Ml Pen.injctr 0.75 Mg SQ Sun11-03-2020 WAS THE FIRST INJECTION Zyrtec (Cetirizine HCl) 10 Mg Tablet 10 Mg PO HS Aspirin EC (Aspirin) 81 Mg Tablet.dr 81 Mg PO DAILY Vitamin D3 (Cholecalciferol (Vitamin D3)) 25 Mcg Tablet 25 Mcg PO DAILY Zinc 50 Mg Tablet 50 Mg PO DAILY Vitamin C (Ascorbic Acid) 1,000 Mg Tablet 1,000 Mg PO DAILY Fish Oil 1,200 mg Fish Oil (Fish Oil/Dha/Epa) 1 Each Capsule 1 Each PO BID Glipizide 10 Mg Tablet 10 Mg PO HS Atorvastatin Calcium 80 Mg Tablet 80 Mg PO HS Lisinopril 40 Mg Tablet 40 Mg PO DAILY Amlodipine Besylate 5 Mg Tablet 5 Mg PO DAILY Xigduo Xr 5 mg-1,000 mg Tablet (Dapagliflozin/Metformin HCl) 1 Each Tab.bp.24h 1 Ea PO DAILY Neurontin (Gabapentin) 300 Mg Capsule 300 Mg PO 0800,1700,2200 Ezetimibe 10 Mg Tablet 10 Mg PO DAILY Carvedilol 25 Mg Tablet 25 Mg PO BID Instructions to patient/family Please see electronic discharge instructions given to patient. Clinical Quality Measures Stroke: Date of last known well: Nov 03, 2020 TAMRA HORTON DO Nov 05, 2020 15:23
--- NOTE | 2020-11-05 15:27 | Cardiology Progress Note ---
Subjective Date Seen by Provider: Nov 05, 2020 Time Seen by Provider: 15:25 Subjective/Events-last exam Patient seen at bedside, feeling better today Review of Systems General: No Chills, No Night Sweats, No Fatigue, No Malaise, No Appetite, No Other HEENT: No Head Aches, No Visual Changes, No Eye Pain, No Ear Pain, No Dysphasia, No Sinus Congestion, No Post Nasal Drip, No Sore Throat, No Other Pulmonary: No Dyspnea, No Cough, No Pleuritic Chest Pain, No Other Cardiovascular: No: Chest Pain, Palpitations, Orthopnea, Paroxysmal Noc. Dyspnea, Edema, Lt Headedness, Other Objective-Cardiology Exam Last Set of Vital Signs Vital Signs 11/04/20 11/05/20 11/05/20 06:17 08:00 15:22 Temp 36.4 Pulse 68 Resp 18 B/P (MAP) 145/78 (100) Pulse Ox 92 O2 Delivery Room Air O2 Flow Rate 2.00 FiO2 32 Capillary Refill : Less Than 3 Seconds I&O Intake and Output 11/05/20 00:00 Intake Total 3200 ml Output Total 1100 ml Balance 2100 ml Intake Oral 1200 ml IV Total 2000 ml Output Urine Total 1100 ml # Voids 3 Daily Weight Change No General: Alert, Oriented X3, Cooperative HEENT: Atraumatic, PERRLA Neck: Supple, No JVD, No Thyromegaly Lungs: Clear to Auscultation, Normal Air Movement Heart: Regular Rate, Normal S1, Normal S2, No Murmurs Abdomen: Normal Bowel Sounds, Soft, No Tenderness, No Hepatosplenomegaly, No Masses Extremities: No Clubbing, No Cyanosis, No Edema, Normal Pulses, No Tend erness/Swelling Skin: No Rashes, No Breakdown, No Significant Lesion Neuro: Normal Gait, Normal Speech, Strength at 5/5 X4 Ext, Normal Tone, Sensation Intact Psych/Mental Status: Mental Status NL, Mood NL Results Lab Laboratory Tests 11/05/20 06:15 A/P-Cardiology Admission Diagnosis Acute CVA Type II myocardial infarction Hypertension Hyperlipidemia Assessment/Plan Acute CVA with right-sided weakness, work-up so far has been negative with CT scan, Carotid Us was negative, treated with aspirin and Plavix, continue to monitor Elevated troponin, type II myocardial infarction, no chest pain, no acute EKG changes. Continue to monitor to trend, patient was started on aspirin and Plavix. Acute renal failure, Improved, renal function are back to normal Hypertension,monitor blood pressure Hyperlipidemia, monitor lipids Obstructive sleep apnea, using CPAP at home Obesity, discussed weight loss Diabetes mellitus, followed and managed by primary care physician History of anxiety, depression. Followed and managed by primary care physician Clinical Quality Measures Stroke: Date of last known well: Nov 03, 2020 SMITA PEÑA MD Nov 05, 2020 15:27
== END 2020-11-05 15:35 | DRG 64 ==
LOC: EDUNIT# 00:35 → ER 00:36 → CSD 03:07 → 4TH 12:30
PROVIDERS: ADMIT Internal Medicine; ATTEND Internal Medicine
DX: I63.9 Cerebral infarction, unspecified (principal); I21.A1 Myocardial infarction type 2; G81.91 Hemiplegia, unspecified affecting right dominant side; N17.9 Acute kidney failure, unspecified; Z68.41 Body mass index [BMI] 40.0-44.9, adult; R29.702 NIHSS score 2; E11.9 Type 2 diabetes mellitus without complications; G47.33 Obstructive sleep apnea (adult) (pediatric); E66.9 Obesity, unspecified; S89.91XA Unspecified injury of right lower leg, initial encounter; W19.XXXA Unspecified fall, initial encounter; Z91.81 History of falling; E78.00 Pure hypercholesterolemia, unspecified; E78.5 Hyperlipidemia, unspecified; I10 Essential (primary) hypertension; D72.829 Elevated white blood cell count, unspecified; H54.7 Unspecified visual loss; F41.9 Anxiety disorder, unspecified; F32.9 Major depressive disorder, single episode, unspecified; F17.210 Nicotine dependence, cigarettes, uncomplicated; Z89.421 Acquired absence of other right toe(s); Z79.84 Long term (current) use of oral hypoglycemic drugs
CPT/HCPCS: 36415; 51701; 70450; 71045; 73562; 80048; 80053; 80061; 81000; 82962; 84484; 85007; 85025; 85027; 85379; 85610; 85730; 86141; 93005; 93041; 93306; 93880; 94640; 94664; 94760

== ENCOUNTER 2020-11-05 15:16 | Inpatient (IN) | payer MEDICARE, MEDICAID ==
[~2020-11-05] VITALS: Ht 175.3 cm; Wt 143.5 kg
[~2020-11-05 15:16] MED LIST changes: +AMLO-250 PO; +ASCO100024 PO; +ASPI-1238 PO; +ATOR80TA76 PO; +CETI10TA49 PO; +CHOL-34 PO; +DAPA1TAB3 PO; +DULA0.75 SQ; +FISH1CAP15 PO; +GABA300C PO; +GLIP10TA13 PO; +LISI40TA9 PO; +ZINC50TA58 PO
[2020-11-05] MEDS ORDERED: CLOP75TA28 PO (15:22)
[2020-11-05] MEDS ORDERED: DOCUSATE SODIUM 100 MG (COLACE) CAP PO PRN (15:30)
[2020-11-05] MEDS ORDERED: FLEET ENEMA ADULT 1 EA BTL PR PRN (15:30)
[2020-11-05] MEDS ORDERED: LOPERAMIDE 2 MG (IMODIUM) TABLET PO PRN (15:30)
[2020-11-05] MEDS ORDERED: ALPRAZolam 0.25 MG (XANAX) TAB PO PRN (15:30)
[2020-11-05] MEDS ORDERED: BISACODYL 10 MG SUPP (DULCOLAX) PR PRN ×2 (15:30→16:15)
[2020-11-05] MEDS ORDERED: MELATONIN 3 MG TABLET PO PRN (15:30)
[2020-11-05] MEDS ORDERED: LACTULOSE SYRUP 10GM/15ML (ENULOSE) 30ML UDC PO PRN (15:30)
[2020-11-05] MEDS ORDERED: guaiFENesin/CODEINE (ROBITUSSIN AC) 10ML UDC PO PRN (15:30)
[2020-11-05] MEDS ORDERED: ONDANSETRON 4 MG (ZOFRAN) ORAL DISSOLVE TAB PO PRN (15:30)
[2020-11-05] MEDS ORDERED: CALCIUM CARBONATE 500 MG (TUMS) TAB.CHEW PO PRN (15:30)
--- NOTE | 2020-11-05 15:55 | Occupational Therapy Eval ---
OT Evaluation-General/PLF Medical Diagnosis Admission Date Nov 05, 2020 at 15:44 Medical Diagnosis: CVA Onset Date: Nov 04, 2020 Therapy Diagnosis Therapy Diagnosis: weakness, decreased ADL status Height/Weight Height (Feet): 5 Height (Inches): 9.00 Weight (Pounds): 293 Weight (Ounces): 2.0 Referral Physician: Usha Referral Reason: Evaluation/Treatment Medical History Pertinent Medical History: DM, HTN, Smoking 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 began falling at home. Came to ER with right sided weakness. Social History Home: Apartment Current Living Status: Significant Other (girlfriend) Entry Into Home: Level Entry ADL-Prior Level of Function SCALE: Activities may be completed with or without assistive devices. 0-Blhziczyvm-arqsnaj completes the activity by him/herself with no assistance from a helper. 5-Set-up or Clean-up Assistance-helper sets up or cleans up; patient completes activity. [place] assists only prior to or following the activity. 4-Supervision or Touching Assistance-helper provides verbal cues and/or touching/steadying and/or contact guard assistance as patient completes activity. Assistance may be provided throughout the activity or intermittently. 3-Partial/Moderate Assistance-helper does LESS THAN HALF the effort. [place] lifts, holds or supports trunk or limbs, but provides less than half the effort. 2-Substantial/Maximal Assistance-helper does MORE THAN HALF the effort. [place] lifts or holds trunk or limbs and provides more than half the effort. 4-Cikxmodcc-ugjitq does ALL the effort. Patient does none of the effort to complete the activity. Or, the assistance of 2 or more helpers is required for the patient to complete the activity. If activity was not attempted, code reason: 7-Patient Refused. 9-Not Applicable-not attempted and the patient did not perform the activity before the current illness, exacerbation or injury. 10-Not Attempted due to Environmental Limitations-(lack of equipment, weather restraints, etc.). 88-Not Attempted due to Medical Conditions or Safety Concerns. ADL PLOF Comments Pt reports independent with ADLs and functional mobility at PLOF, using 4WW. Upon further evaluation, pt reports he had difficulty completing footwear, especially R foot. Self Care: Independent Functional Cognition: Independent DME/Equipment: Tub/Shower DME/Equipment Comments 4WW OT Current Status Subjective Pt agreeable to OT evaluation then OT/PT cotreat. Mental Status/Objective Patient Orientation: Person, Place, Time, Situation Current Glasses/Contacts: Yes Hearing Aids: No Dentures/Partials: No Hand Dominance: Right Upper Extremity ROM WFL, BUE shoulder flexion to approx 150 degrees Upper Extremity Coordination WFL Upper Extremity Sensation WFL, pt denies tingling/numbness Upper Extremity Strength BUE grossly 4/5 ADL-Treatment Eating (QC): 6 (IND per pt report) Oral Hygiene (QC): 4 (SBA standing at sink, pt fatigued requiring seated rest break with task, R knee buckled x1 in stand) Shower/Bathe Self (QC): 3 (Based on pt report: Assist bilateral LE lower legs/feet. Pt able to wash BUEs, chest, abdomen, buttocks, thighs, and periarea. ) Upper Body Dressing (QC): 5 (Based on clinical judgement) Lower Body Dressing (QC): 4 (CGA in stand. Pt able to don/doff pants) On/Off Footwear (QC): 3 (Pt able to remove socks, assit to don RLE gripper socks.) Toileting Hygiene (QC): 4 (CGA, pt able to complete clothing management and hygiene. ) Other Treatments OT evaluation complete, then OT/PT cotreat due to skill of 2 clinicians required in order to coordinate UE/LE with tasks, to decrease fall risk, and due to pt's limitations in strength, activity tolerance, mobility, and standing balance. OT focused on ADLs, UE positioning, cues for sequencing and safety while PT focused on LE placement, gross overall movements, and mobility/transfers. Pt performed functional transfers, using FWW to ambulate, transfer in/out of car simulator, over uneven surface and up/down 1 step. Pt then performed functional w/c mobility around [facility] common area and to pt's room. Pt stood at sink to complete oral care, SBA with task. Pt reports R knee almost gave out with stand, then required seated rest break to complete task. Pt donned clothes w/c level, declined showering due to taking one earlier today. Pt then transferred in/out of bed, and over to recliner. Please refer to PT evaluation for QC scores related to mobility/transfers. OT educated pt on purpose and benefits of UE exer cises, pt completed x15 reps BUE AROM for the following: shoulder flexion, elbow flexion/extension, and finger flexion/extension. Post tx, pt seated in recliner, call light in reach and all needs met. Education OT Patient Education: Correct positioning, Exercise program, Modified ADL techniques, Progress toward Goal/Update tx plan, Purpose of tx/functional activities Teaching Recipient: Patient Teaching Methods: Discussion Response to Teaching: Verbalize Understanding OT Short Term Goals Short Term Goals Time Frame: Nov 12, 2020 Shower/bathe self: 5 Lower body dressin Putting on/taking off footwear: 5 OT Nursing Home Goals Nursing Home Goals Time Frame: Nov 26, 2020 Eating (QC): 6 Oral Hygiene (QC): 6 Toileting Hygiene (QC): 6 Shower/Bathe Self (QC): 6 Upper Body Dressing (QC): 6 Lower Body Dressing (QC): 6 On/Off Footwear (QC): 6 Additional Goals: 1-Demonstrate ADL Tasks, 2-Verbalize Understanding, 3- ImproveStrength/Andrei 1=Demonstrate adherence to instructed precautions during ADL tasks. 2=Patient will verbalize/demonstrate understanding of assistive devices/modifications for ADL. 3=Patient will improve strength/tolerance for activity to enable patient to perform ADL's. OT Education/Plan Problem List/Assessment Assessment: Decreased Activ Tolerance, Decreased UE Strength, Impaired Funct Balance, Impaired I ADL's, Impaired Self-Care Skills Discharge Recommendations Plan/Recommendations: Continue POC Treatment Plan/Plan of Care Patient would benefit from OT for education, treatment and training to promote independence in ADL's, mobility, safety and/or upper extremity function for ADL's. Plan of Care: ADL Retraining, Functional Mobility, Group Exercise/Act as Ind, UE Funct Exercise/Act Treatment Duration: Nov 26, 2020 Frequency: At least 5 of 7 days/Wk (IRF) Estimated Hrs Per Day: 1.5 hours per day Rehab Potential: Good Time/GCodes Start Time: 15:35 Stop Time: 16:20 Total Time Billed (hr/min): 45 Billed Treatment Time 1, EVM (10'), FA (20'), ADL (15') CHARLEEN VILLEDA OT Nov 05, 2020 15:55
[2020-11-05] MEDS ORDERED: NON-FORMULARY MEDICATION 1 EA EA (Dulaglutide (Trulicity) 0.75 MG) SQ SCH (16:15)
[2020-11-05] MEDS ORDERED: MILK OF MAGNESIA 400 MG/5 ML 30 ML UDC PO PRN (16:15)
[2020-11-05] MEDS ORDERED: ONDANSETRON 4 MG/2 ML (SDV) Z0FRAN IVP PRN (16:15)
--- NOTE | 2020-11-05 16:19 | Physical Therapy Evaluation ---
PT Evaluation-General Medical Diagnosis Admission Date Nov 05, 2020 at 15:44 Medical Diagnosis: CVA Onset Date: Nov 04, 2020 Therapy Diagnosis Therapy Diagnosis: impaired mobility, strength, endurance Height/Weight Height (Feet): 5 Height (Inches): 9.00 Weight (Pounds): 293 Weight (Ounces): 2.0 Precautions Precautions/Isolations: Fall Prevention, Standard Precautions Referral Physician: Shayy Kerr DO Reason for Referral: Evaluation/Treatment Medical History Pertinent Medical History: DM, HTN, Smoking Reviewed History: Yes Social History Home: Apartment Current Living Status: Significant Other (girlfriend) Entry Into Home: Level Entry Prior Prior Level of Function SCALE: Activities may be completed with or without assistive devices. 4-Dvpobfwpme-vpwbqzi completes the activity by him/herself with no assistance from a helper. 5-Set-up or Clean-up Assistance-helper sets up or cleans up; patient completes a ctivity. [place] assists only prior to or following the activity. 4-Supervision or Touching Assistance-helper provides verbal cues and/or touching/steadying and/or contact guard assistance as patient completes activity. Assistance may be provided throughout the activity or intermittently. 3-Partial/Moderate Assistance-helper does LESS THAN HALF the effort. [place] lifts, holds or supports trunk or limbs, but provides less than half the effort. 2-Substantial/Maximal Assistance-helper does MORE THAN HALF the effort. [place] lifts or holds trunk or limbs and provides more than half the effort. 0-Hzkohfevd-avyuwa does ALL the effort. Patient does none of the effort to complete the activity. Or, the assistance of 2 or more helpers is required for the patient to complete the activity. If activity was not attempted, code reason: 7-Patient Refused. 9-Not Applicable-not attempted and the patient did not perform the activity before the current illness, exacerbation or injury. 10-Not Attempted due to Environmental Limitations-(lack of equipment, weather restraints, etc.). 88-Not Attempted due to Medical Conditions or Safety Concerns. Bed Mobility: 6 Transfers (B,C,W/C): 6 Gait: 6 Indoor Mobility (Ambulation): Independent Patient states he ambulates short distances only PT Evaluation-Current Subjective Patient in recliner pre tx, agrees to PT, has no complaints of pain. Will be co-treating with OT after evaluation due to poor patient mobility, strength, endurance, coordinate UE and LE during activity, safety and reduce risk of falls. Pt/Family Goals to be independent at home Objective Patient Orientation: Person, Place, Situation ROM/Strength ROM Lower Extremities limited due to obesity Strength Lower Extremities LLE (hip flexion 4/5, knee flexion 4+/5, knee extension 4+/5, dorsiflexion 4/5), RLE (hip flexion 3+/5, knee flexion 4/5, knee extension 4/5, dorsiflexion 3+/5) Sensory Vision: Wears Glasses Hearing: Functional Hand Dominance: Right Transfers Roll Left & Right (QC): 6 Sit to Lying (QC): 6 Lying to Sitting/Side of Bed(Q: 6 Sit to Stand (QC): 4 Chair/Hyd-st-Ckcvj Xfer(QC): 4 Toilet Transfer (QC): 4 Car Transfer (QC): 4 Patient performs bed mobility and supine <-> sit with independence, sit <-> stand CGA, transfers and car transfer CGA. occasional cues for hand placement and positioning Gait Does the Patient Walk?: Yes Mode of Locomotion: Walk Anticipated Mode of Locomotion: Walk Walk 10 feet (QC): 4 Walk 50 ft with 2 Turns(QC): 88 Walk 150 ft (QC): 88 Walking 10ft/uneven surface-QC: 4 Distance: 20'x4 Gait Assistive Device: FWW Comments/Gait Description Patient can ambulate 20' with a rolling walker with CGA (including 10' over an uneven surface). He ambulates slow but steady, has a wide [place] Wheelchair Training Does the Pt Use a Wheelchair?: Yes Distance: 50' Wheel 50 ft with 2 turns (QC): 3 Wheel 150 ft (QC): 88 Type of Wheelchair: Manual Stairs #of Steps: 1 1 Step (curb) (QC): 4 4 Steps (QC): 88 12 Steps (QC): 88 Walking Assistive Device: Walker Balance Sitting Static: Normal Sitting Dynamic: Normal Standing Static: Good Standing Dynamic: Good Picking up an Object (QC): 5 (with fire medic) Treatment BLE seated exercises x20 (AP, LAQ). Patient instructed to perform these intermittently for strengthening and DVT prevention. OT performed UE exercises. PT performed bed mobility and transfer training, functional mobility training, standing during ADLs, OT performed ADL's and UE positioning and safety during activity. Assessment/Needs Patient has impaired mobility, strength, endurance. Patient in recliner post tx with nurse call, phone, tray, all needs met. Patient is CGA with transfers and ambulation. Patient instructed to call nurse if he needs to get up. Rehab Potential: Fair PT Short Term Goals Short Term Goals Time Frame: Nov 12, 2020 Roll Left & Right: 6 Sit to lyin Lying to sitting on side of be: 6 Sit to stand: 4 (SBA) Chair/wcx-sb-nqmja transfer: 4 (SBA) Toilet transfer: 4 (SBA) Car transfer: 4 (SBA) Walk 10 feet: 4 (SBA) Walk 50 feet with two turns: 4 (SBA) 1 step (curb): 4 (SBA) PT Airport Ramp Agent Goals Airport Ramp Agent Goals PT Long-Term Goals Time Frame: Nov 26, 2020 Roll Left & Right (QC): 6 Sit to Lying (QC): 6 Lying-Sitting on Side/Bed(QC): 6 Sit to Stand (QC): 6 Chair/Ajp-fj-Qsknw Xfer(QC): 6 Toilet Transfer (QC): 6 Car Transfer (QC): 6 Does the Patient Walk: Yes Walk 10 feet (QC): 6 Walk 50ft with 2 Turns (QC): 6 Walk 150 ft (QC): 88 Walking 10ft on Uneven Surface: 6 1 Step (curb) (QC): 6 4 Steps (QC): 88 12 Steps (QC): 88 Picking up an Object (QC): 6 Wheel 50 feet with 2 turns (QC: 6 Wheel 150 feet: 6 PT Plan Problem List Problem List: Activity Tolerance, Functional Strength, Safety, Balance, Gait, Transfer, Bed Mobility, ROM Treatment/Plan Treatment Plan: Continue Plan of Care Treatment Plan: Bed Mobility, Education, Functional Activity Andrei, Functional Strength, Group Therapy, Gait, Safety, Therapeutic Exercise, Transfers Treatment Duration: Nov 26, 2020 Frequency: At least 5 of 7 days/Wk (IRF) Estimated Hrs Per Day: 1.5 hours per day Patient and/or Family Agrees t: Yes Safety Risks/Education Patient Education: Gait Training, Transfer Techniques, Steps, Correct Positioning, W/C Management, Safety Issues Teaching Recipient: Patient Teaching Methods: Demonstration, Discussion Response to Teaching: Reinforcement Needed Discharge Recommendations Plan Patient will perform bed mobility and transfer training, balance and endurance training, functional strengthening, stair training, gait training, and education, to improve functional mobility and independence at home. Therapy Discharge Recommendati: Home & Family, Post Acute PT Time/GCodes Time In: 1524 Time Out: 1620 Total Billed Treatment Time: 45 Total Billed Treatment 1 visit EVM 10' FA 35' PT eval from [id number], OT eval from [id number], co-treat from [id number] MEGAN WEBER PT Nov 05, 2020 16:19
[2020-11-05 17:05] VITALS: BP 180/79
[2020-11-05] MEDS: GABAPENTIN 300 MG (NEURONTIN) CAP PO SCH ×2 (17:25→21:26)
--- NOTE | 2020-11-05 17:51 | PM&R Post Admission Assessment ---
PM&R HP Date of Visit: Nov 05, 2020 Time of Visit: 18:00 History of Present Illness CC: CVA HPI: This is a 60yoWM of [facility] who presents from med-surg following a CVA with right sided weakness. He had multiple falls and fell on his weak side right knee. Ortho was consulted and performed right knee pain injection. Patient was too heavy to obtain MRI and confirm CVA but all signs and risk factors he has confirms CVA. Home meds restarted. Uses walker at home. Past Yrveoyk-Ngvauc-Dkugal Hx Past Med/Social Hx: Reviewed Nursing Past Med/Soc Hx, Reviewed and Corrections made Patient Social History Marrital Status: single Employed/Student: unemployed Alcohol Use: Denies Use Drug of Choice: TESTED + FOR THC ON 01/02/19 Smoking Status: Current Everyday Smoker Type Used: Cigarettes 2nd Hand Smoke Exposure: No Recent Hopitalizations: No Immunizations Up To Date Tetanus Booster (TDap): Unknown Pediatric: No Date of Influenza Vaccine: Apr 29, 2020 Seasonal Allergies Seasonal Allergies: No Past Medical History Surgeries: Appendectomy, Orthopedic Currently Using CPAP: No Currently Using BIPAP: No Cardiac: High Cholesterol, Hypertension Sexually Transmitted Disease: No HIV/AIDS: No Musculoskeletal: Amputee Endocrine: Diabetes, Non-Insulin dep Loss of Vision: Left Psychosocial: Anxiety, Depression History of Blood Disorders: No Family History Patient reports no known family medical history. HTN Prior Level of Function Bed Mobility: 6 Transfers: 6 Gait: 6 Indoor Mobility (Ambulation): Independent Self Care: Independent Functional Cognition: Independent Occupation: Pt. does not work Current Level of Fuctioning Roll Left to Right: 6 Sit to Lyin Lying to Sitting/Side of Bed: 6 Sit to Stand: 4 Chair/Ncj-sy-Tjvso Xfer: 4 Car Transfer: 4 Does the Patient Walk: Yes Mode of Locomotion: Walk Anticipated Mode of Locomotion: Walk Walk 10 feet: 4 Walk 50 ft with 2 Turns: 88 Walk 150 ft: 88 Walking 10ft on uneven surface: 4 Gait Assistive Device: FWW Does the Pt Use a Wheelchair: Yes Wheelchair Distance: 50' Wheel 50 ft with 2 turns: 3 Wheel 150 ft: 88 Type of Wheelchair: Manual #of Steps: 1 1 Step (curb): 4 4 Steps: 88 Walking Assistive Device: Walker 12 Steps: 88 Picking up an Object: 5 (with chief operator reformer) Eatin (IND per pt report) Oral Hygiene: 4 (SBA standing at sink, pt fatigued requiring seated rest break with task, R knee buckled x1 in stand) Shower/Bathe Self: 3 (Based on pt report: Assist bilateral LE lower legs/feet. Pt able to wash BUEs, chest, abdomen, buttocks, thighs, and periarea. ) Upper Body Dressin (Based on clinical judgement) Lower Body Dressin (CGA in stand. Pt able to don/doff pants) On/Off Footwear: 3 (Pt able to remove socks, assit to don RLE gripper socks.) Toileting Hygiene: 4 (CGA, pt able to complete clothing management and hygiene. ) PM&R Allergy/Meds/Data Review Allergies Coded Allergies: No Known Drug Allergies (Verified , 06/16/19) Home Medications Scheduled Amlodipine Besylate (Amlodipine Besylate), 5 MG PO DAILY, (Reported) Ascorbic Acid (Vitamin C), 1,000 MG PO DAILY, (Reported) Aspirin (Aspirin EC), 81 MG PO DAILY, (Reported) Atorvastatin Calcium (Atorvastatin Calcium), 80 MG PO HS, (Reported) Carvedilol (Carvedilol), 25 MG PO BID, (Reported) Cetirizine HCl (Zyrtec), 10 MG PO HS, (Reported) Cholecalciferol (Vitamin D3) (Vitamin D3), 25 MCG PO DAILY, (Reported) Clopidogrel Bisulfate (Clopidogrel), 75 MG PO DAILY Dapagliflozin/Metformin HCl (Xigduo Xr 5 mg-1,000 mg Tablet), 1 EA PO DAILY, (Reported) Dulaglutide (Trulicity), 0.75 MG SQ WED, (Reported) Ezetimibe (Ezetimibe), 10 MG PO DAILY, (Reported) Fish Oil/Dha/Epa (Fish Oil 1,200 mg Fish Oil), 1 EACH PO BID, (Reported) Gabapentin (Neurontin), 300 MG PO 0800,1700,2200, (Reported) Glipizide (Glipizide), 10 MG PO HS, (Reported) Lisinopril (Lisinopril), 40 MG PO DAILY, (Reported) Zinc (Zinc), 50 MG PO DAILY, (Reported) Discontinued Medications Atorvastatin Calcium (Atorvastatin Calcium), 40 MG PO HS, (Reported) Discontinued Reason: Duplicate Order Cyanocobalamin (Vitamin B-12) (B-12), 1,000 MCG PO DAILY, (Reported) Discontinued Reason: No Longer Taking Dapagliflozin Propanediol (Farxiga), 10 MG PO DAILY, (Reported) Discontinued Reason: No Longer Taking Gabapentin (Neurontin), 300 MG PO TID, (Reported) Discontinued Reason: Duplicate Order Glyburide (Glyburide), 5 MG PO BID, (Reported) Discontinued Reason: No Longer Taking Ibuprofen (Advil), 400 MG PO TID PRN for PAIN-MILD, (Reported) Discontinued Reason: No Longer Taking Lisinopril (Lisinopril), 20 MG PO DAILY, (Reported) Discontinued Reason: No Longer Taking Metformin HCl (Metformin HCl), 1,000 MG PO BID, (Reported) Discontinued Reason: No Longer Taking [place] 3 Polyunsat Fatty Acids (Fish Oil 1,000 mg Capsule), 1,000 MG PO DAILY, (Reported) Discontinued Reason: No Longer Taking Sitagliptin Phosphate (Januvia), 100 MG PO DAILY, (Reported) Discontinued Reason: No Longer Taking Current Medications Current Medications Reviewed Review of Systems Constitutional: see HPI, weakness EENTM: no symptoms reported Respiratory: no symptoms reported Cardiovascular: no symptoms reported Gastrointestinal: no symptoms reported Genitourinary: no symptoms reported Musculoskeletal: joint pain Skin: no symptoms reported Psychiatric/Neurological: Tingling, Weakness Physical Exam Physical Exam Vital Signs Vital Signs - First Documented 11/05/20 11/05/20 16:53 17:05 Temp 36.2 Pulse 73 Resp 20 B/P (MAP) 180/79 (112) Pulse Ox 90 O2 Delivery Room Air Capillary Refill : Height, Weight, BMI Height: 5'9.00" Weight: 293lbs. 2.0oz. 132.607174pv; 47.51 BMI Method:Estimated General Appearance: No Apparent Distress, WD/WN, Chronically ill, Obese Eyes: Bilateral Eye Normal Inspection, Bilateral Eye PERRL HEENT: PERRL/EOMI, Normal ENT Inspection, Pharynx Normal Neck: Full Range of Motion, Normal Inspection, Non Tender, Supple, Carotid Bruit Respiratory: Chest Non Tender, Lungs Clear, Normal Breath Sounds, No Accessory Muscle Use, No Respiratory Distress Cardiovascular: Regular Rate, Rhythm, No Gallop, No JVD, No Murmur, Normal Peripheral Pulses Gastrointestinal: Normal Bowel Sounds, No Organomegaly, No Pulsatile Mass, Non Tender, Soft Back: Normal Inspection, No CVA Tenderness, No Vertebral Tenderness Extremity: Normal Capillary Refill, Normal Inspection, Normal Range of Motion, Non Tender, No Calf Tenderness, Pedal Edema Neurologic/Psychiatric: Alert, Oriented x3, No Motor/Sensory Deficits, Normal Mood/Affect, Motor Weakness (right sided 3/5 hand and right leg) Skin: Normal Color, Warm/Dry Lymphatic: No Adenopathy PM&R Medical Assessment & Plan REHAB/MEDICAL ASSESSMENT AND PLAN: REHAB IMPAIRMENT GROUP: CVA ETIOLOGIC DIAGNOSIS: CVA The comorbidities that impact the patients function and/or functional outcome by: Obesity, DM, HTN, JULIANA, Right knee pain REHAB PLAN: The patient is being admitted to our comprehensive inpatient rehabilitation facility and can tolerate the intensity of service consisting of at least: 180 minutes of therapy a day, 5 out of 7 days a week Rehab treatment will consist of: PT OT will focus on regaining function of right arm and right leg and use AD to regain independence The patient/family has a good understanding of our discharge process and will benefit from an interdisciplinary inpatient rehabilitation program. The patient has potential to make improvement and is in need of at least two of the following multidisciplinary therapies including but not limited to physical, occupational, speech, and prosthetics and orthotics. Additionally the patient will need services from respiratory, nutritional services, wound care, psychology, etc. (Customize this to each patient). Given the patients complex condition and risk of further medical complications, rehabilitation services cannot be safely or effectively provided at a lower level of care such as a longterm facility. BARRIERS TO DISCHARGE: Right sided weakness ESTIMATED LOS: 10 days DISPOSITION: Home RELEVANT CHANGES SINCE PREADMISSION SCREENING: I have compared the patients medical and functional status at the time of the preadmission screening and there are: no changes PROGNOSIS: Good REHABILITATION GOALS: 1. PT OT will focus on regaining function of right arm and right leg and use AD to regain independence All the above goals were reviewed with the patient and he/she is in agreement. By signing this document, I acknowledge that I have personally performed a full physical examination on this patient within 24 hours of admission to this inpatient rehabilitation facility and have determined the patient to be able to tolerate the above course of treatment at an intensive level for a reasonable period of time. I will be completing a detailed individualized Plan of Care for this patient by day #4 of the patients stay based upon the Preadmission Screen, the Post-Admission Evaluation, and the therapy evaluations. Admission Dx/Comorbidities: (1) CVA (cerebral vascular accident) ICD Codes: I63.9 - Cerebral infarction, unspecified (2) Hypertension Status: Chronic ICD Codes: I10 - Essential (primary) hypertension (3) Hyperlipemia Status: Chronic ICD Codes: E78.5 - Hyperlipidemia, unspecified (4) Diabetes Status: Chronic ICD Codes: E11.9 - Type 2 diabetes mellitus without complications (5) Right sided weakness Status: Acute ICD Codes: R53.1 - Weakness (6) Acute kidney injury Status: Acute ICD Codes: N17.9 - Acute kidney failure, unspecified (7) Non-compliance Status: Acute ICD Codes: Z91.19 - Patient's noncompliance with other medical treatment and regimen; J96.92 - Respiratory failure, unspecified with hypercapnia (8) Marijuana use Status: Acute ICD Codes: F12.90 - Cannabis use, unspecified, uncomplicated Assessment/Plan Assessment and Plan Assess & Plan/Chief Complaint Assessment: CVA with right sided weakness DM HTN HLP JULIANA on CPAP AMI THC use Smoker Plan: Monitor closely DM management IRF protocol TAMRA HORTON DO Nov 05, 2020 17:51
[2020-11-05] MEDS: RT-ALBUTEROL/IPRATROPIUM 3 ML (DUONEB) VIAL INH SCH (19:13)
--- NOTE | 2020-11-05 20:23 | CONSULTATION REPORT ---
DATE OF SERVICE: 11/05/2020 INPATIENT CONSULT ROOM: 403. CHIEF COMPLAINT: Right knee pain and stiffness. HISTORY OF PRESENT ILLNESS: This is a 60-year-old disabled male who is currently admitted with elevated troponin levels, and difficulty with ambulation. He also reports frequent falls. He is consulted to orthopedics for a right knee injection. PAST MEDICAL HISTORY: Includes a history of stroke, osteoarthritis, hypertension, dyslipidemia, intestinal polyps, diabetes and kidney disease. He has no known medication allergies. On exam, the right knee demonstrates a mild effusion. No warmth, erythema or skin changes are noted. There is a small 1 cm abrasion noted over the tibial tubercle anteriorly. Range of motion of the right knee is 0/3/95. He has a negative anterior drawer, negative posterior drawer. No varus or valgus laxity noted. He did have diffuse joint line tenderness most notable along the medial compartment, but no significant pain is reproduced with Shanta. I reviewed x-rays of the right knee from [facility] dated 11/04/2020 showed mild severe degenerative changes with joint space narrowing of both the medial and patellofemoral compartment, significant osteophyte formations are noted diffusely as well as subchondral sclerosis, no evidence of acute changes or bony abnormalities were otherwise noted. IMPRESSION: Right knee osteoarthritis. PLAN: Risks and benefits of the injection were discussed with the patient including risk of infection as well as the significant increase in blood sugars over the next 2 to 3 days. The patient did verbalize understanding. Under sterile conditions with alcohol and Betadine prepped, the right knee was injected with 80 mg of Depo-Medrol and 4 mL of 0.25% Marcaine. He tolerated the injection well and standard post-injection precautions were discussed and ice treatments were recommended. We will plan to recheck in as needed. Dr. Cage is informed of the consult and the procedure. Job ID: [id number] DocumentID: [id number] Dictated Date: 11/05/2020 15:57:23 Gericare Aide Teacher Date: 11/05/2020 20:22:31 Dictated By: NAKIA PEREZ
[2020-11-05] MEDS: inSUlin ASPART (NovoLOG) 1 UNIT/0.01 ML (CHARGE PER UNIT) SC SCH (21:24)
[2020-11-05] MEDS: CARVEDILOL 12.5 MG (COREG) TABLET PO SCH (21:25)
[2020-11-05] MEDS: OMEGA 3 (FISH OIL) 1000 MG CAP PO SCH (21:25)
[2020-11-05] MEDS: polyethylene glycoL POWDER 17 GM (MIRALAX) PACK PO SCH (21:25)
[2020-11-05] MEDS: glipiZIDE 5 MG (GLUCOTROL) TAB PO SCH (21:25)
[2020-11-05] MEDS: LORATADINE (CLARITIN) 10 MG TAB PO SCH (21:25)
[2020-11-05] MEDS: SENNA W/DOCUSATE (SENOKOT S) TABLET PO SCH (21:25)
[2020-11-05] MEDS: DOCUSATE SODIUM 100 MG (COLACE) CAP PO SCH (21:25)
[2020-11-06 05:47] LABS: BASOPHILS % (AUTO) 0 % (0-10); EOSINOPHILS % (AUTO) 0 % (0-10); HEMATOCRIT 51 % (40-54); HEMOGLOBIN 16.8 g/dL (13.3-17.7); LYMPHOCYTES # (AUTO) 1.6 10^3/uL (1.0-4.0); LYMPHOCYTES % (AUTO) 11 % (12-44); MEAN CORPUSCULAR HEMOGLOBIN 29 pg (25-34); MEAN CORPUSCULAR HGB CONC 33 g/dL (32-36); MEAN CORPUSCULAR VOLUME 86 fL (80-99); MEAN PLATELET VOLUME 10.7 fL (9.0-12.2); MONOCYTES # (AUTO) 0.2 10^3/uL (0.0-1.0); MONOCYTES % (AUTO) 1 % (0-12); NEUTROPHILS # (AUTO) 13.1 10^3/uL (1.8-7.8); NEUTROPHILS % (AUTO) 88 % (42-75); PLATELET COUNT 350 10^3/uL (130-400); WHITE BLOOD COUNT 14.9 10^3/uL (4.3-11.0)
[2020-11-06 06:07] LABS: ALBUMIN 3.7 GM/DL (3.2-4.5); BILIRUBIN,TOTAL 0.7 MG/DL (0.1-1.0); CALCIUM 9.3 MG/DL (8.5-10.1); CREATININE SERUM 1.39 MG/DL (0.60-1.30); POTASSIUM 4.2 MMOL/L (3.6-5.0); TOTAL PROTEIN 7.5 GM/DL (6.4-8.2)
[2020-11-06 06:15] VITALS: BP 148/72
[2020-11-06] MEDS: inSUlin ASPART (NovoLOG) 1 UNIT/0.01 ML (CHARGE PER UNIT) SC SCH ×4 (06:29→22:03)
[2020-11-06] MEDS: CLOPIDOGREL 75 MG (PLAVIX) TABLET PO SCH (08:01)
[2020-11-06] MEDS: eZETimibe 10 MG (ZETIA) TABLET PO SCH (08:01)
[2020-11-06] MEDS: ASPIRIN E.C. 325 MG (ECOTRIN) TABLET PO SCH (08:01)
[2020-11-06] MEDS: amLODIPine 5 MG (NORVASC) TAB PO SCH (08:01)
[2020-11-06] MEDS: OMEGA 3 (FISH OIL) 1000 MG CAP PO SCH ×2 (08:01→22:04)
[2020-11-06] MEDS: GABAPENTIN 300 MG (NEURONTIN) CAP PO SCH ×3 (08:01→22:03)
[2020-11-06] MEDS: ZINC SULFATE 220 MG CAPSULE PO SCH (08:01)
[2020-11-06] MEDS: ASCORBIC ACID (VIT C) 500 MG TABLET PO SCH (08:01)
[2020-11-06] MEDS: VITAMIN D3 25 MCG (1,000 UNITS) TABLET PO SCH (08:01)
[2020-11-06] MEDS: CARVEDILOL 12.5 MG (COREG) TABLET PO SCH ×2 (08:02→22:03)
[2020-11-06] MEDS: FUROSEMIDE 20 MG (LASIX) TAB PO SCH (08:02)
[2020-11-06] MEDS: lisINopril 40 MG (PRINIVIL) TABLET PO SCH (08:02)
[2020-11-06] MEDS ORDERED: amLODIPine 5 MG (NORVASC) TAB PO SCH (09:00)
--- NOTE | 2020-11-06 09:58 | Occupational Ther Daily Note ---
OT Current Status-Daily Note Subjective Pt seen in room, up in recliner, agreeable to OT. No pain mentioned. Appearance Alert, cooperative ADL-Treatment Pt did not want to take a bath or shower and did not need to toilet. Pt did wash under arms and fareed areas with warm bath pack. CGA when standing to wash fareed area, FWW. Donned t shirt with setup. Donned pants, with help to pull pants up on R side of hip and with CGA, FWW. Combed hair mod I. Sit to stand with close SBA. Walked a few feet to w/c,with CGA, FWW. Pt educ to reach back with arms to sit. Therapy Code Descriptions/Definitions Functional [place] Measure: 0=Not Assessed/NA 4=Minimal Assistance 1=Total Assistance 5=Supervision or Setup 2=Maximal Assistance 6=Modified [place] 3=Moderate Assistance 7=Complete IndependenceSCALE: Activities may be completed with or without assistive devices. 5-Mwqziuyfin-yvbnmqd completes the activity by him/herself with no assistance from a helper. 5-Set-up or Clean-up Assistance-helper sets up or cleans up; patient completes activity. [place] assists only prior to or following the activity. 4-Supervision or Touching Assistance-helper provides verbal cues and/or touching/steadying and/or contact guard assistance as patient completes activity. Assistance may be provided throughout the activity or intermittently. 3-Partial/Moderate Assistance-helper does LESS THAN HALF the effort. [place] lifts, holds or supports trunk or limbs, but provides less than half the effort. 2-Substantial/Maximal Assistance-helper does MORE THAN HALF the effort. [place] lifts or holds trunk or limbs and provides more than half the effort. 1-Trorrmryq-ebgzky does ALL the effort. Patient does none of the effort to complete the activity. Or, the assistance of 2 or more helpers is required for the patient to complete the activity. If activity was not attempted, code reason: 7-Patient Refused. 9-Not Applicable-not attempted and the patient did not perform the activity before the current illness, exacerbation or injury. 10-Not Attempted due to Environmental Limitations-(lack of equipment, weather restraints, etc.). 88-Not Attempted due to Medical Conditions or Safety Concerns. Upper Body Dressing (QC): 5 Lower Body Dressing (QC): 3 (Help to pull pants up on R side. Steadying) Other Treatment Transported to gym per w/c. Pt reported numbness in R hand, mainly little, ring and middle fingers, and reported that he has dropped things with R hand. Worked on eye-hand coordination, using graded clothespins, placing pegs, and working with nuts and bolts. Pt encouraged to use visual cues when hand is doing tasks. Care transferred to PT. Education OT Patient Education: Disease process, Progress toward Goal/Update tx plan, Purpose of tx/functional activities, Safety issues, Transfer techniques Teaching Recipient: Patient Teaching Methods: Discussion Response to Teaching: Verbalize Understanding OT Short Term Goals Short Term Goals Time Frame: Nov 12, 2020 Shower/bathe self: 5 Lower body dressin Putting on/taking off footwear: 5 OT Custodial Goals Custodial Goals Time Frame: Nov 26, 2020 Eating (QC): 6 Oral Hygiene (QC): 6 Toileting Hygiene (QC): 6 Shower/Bathe Self (QC): 6 Upper Body Dressing (QC): 6 Lower Body Dressing (QC): 6 On/Off Footwear (QC): 6 Additional Goals: 1-Demonstrate ADL Tasks, 2-Verbalize Understanding, 3- ImproveStrength/Andrei 1=Demonstrate adherence to instructed precautions during ADL tasks. 2=Patient will verbalize/demonstrate understanding of assistive devices/modifications for ADL. 3=Patient will improve strength/tolerance for activity to enable patient to perform ADL's. OT Education/Plan Discharge Recommendations Plan/Recommendations: Continue POC Treatment Plan/Plan of Care Patient would benefit from OT for education, treatment and training to promote independence in ADL's, mobility, safety and/or upper extremity function for ADL's. Plan of Care: ADL Retraining, Functional Mobility, Group Exercise/Act as Ind, UE Funct Exercise/Act Treatment Duration: Nov 26, 2020 Frequency: At least 5 of 7 days/Wk (IRF) Estimated Hrs Per Day: 1.5 hours per day Rehab Potential: Fair Time/GCodes Start Time: 08:50 Stop Time: 09:37 Total Time Billed (hr/min): 47 Billed Treatment Time visit, 20 minutes ADL, 27 minutes neuromotor ANN MACHUCA OT Nov 06, 2020 09:58
[2020-11-06] MEDS: DOCUSATE SODIUM 100 MG (COLACE) CAP PO SCH ×2 (10:10→21:45)
[2020-11-06] MEDS: SENNA W/DOCUSATE (SENOKOT S) TABLET PO SCH ×2 (10:10→21:45)
[2020-11-06] MEDS: polyethylene glycoL POWDER 17 GM (MIRALAX) PACK PO SCH ×2 (10:10→21:45)
--- NOTE | 2020-11-06 10:26 | Cardiology Progress Note ---
Subjective Date Seen by Provider: Nov 06, 2020 Time Seen by Provider: 10:24 Subjective/Events-last exam Patient was seen at bedside, sitting comfortably, no new complaint, still having weakness in his right lower extremity, slight residual weakness in the upper extremity Review of Systems General: No Chills, No Night Sweats, No Fatigue, No Malaise, No Appetite, No Other HEENT: No Head Aches, No Visual Changes, No Eye Pain, No Ear Pain, No Dysphasia, No Sinus Congestion, No Post Nasal Drip, No Sore Throat, No Other Pulmonary: No Dyspnea, No Cough, No Pleuritic Chest Pain, No Other Cardiovascular: No: Chest Pain, Palpitations, Orthopnea, Paroxysmal Noc. Dyspnea, Edema, Lt Headedness, Other Objective-Cardiology Exam Last Set of Vital Signs Vital Signs 11/06/20 06:15 Temp 36.2 Pulse 68 Resp 20 B/P (MAP) 148/72 (97) Pulse Ox 92 O2 Delivery Room Air Capillary Refill : I&O Intake and Output 11/05/20 23:59 Daily Weight Change No General: Alert, Oriented X3, Cooperative HEENT: Atraumatic, PERRLA Neck: Supple, No JVD, No Thyromegaly Lungs: Clear to Auscultation, Normal Air Movement Heart: Regular Rate, Normal S1, Normal S2, No Murmurs Abdomen: Normal Bowel Sounds, Soft, No Tenderness, No Hepatosplenomegaly, No Masses Extremities: No Clubbing, No Cyanosis, No Edema, Normal Pulses, No Tenderness/Swelling Skin: No Rashes, No Breakdown, No Significant Lesion Neuro: Normal Gait, Normal Speech, Strength at 5/5 X4 Ext, Normal Tone, Sensation Intact Psych/Mental Status: Mental Status NL, Mood NL Results Lab Laboratory Tests 11/06/20 05:35 A/P-Cardiology Assessment/Plan Acute CVA with right-sided weakness, work-up so far has been negative with CT scan, Carotid Us was negative, treated with aspirin and Plavix, telemetry failed to detect any arrhythmia, planning to proceed with loop monitor implant next week Elevated troponin, type II myocardial infarction, no chest pain, no acute EKG changes. Conservative management recommended, patient was started on aspirin an d Plavix. Acute renal failure, Improved, renal function are back to normal Hypertension,monitor blood pressure Hyperlipidemia, monitor lipids Obstructive sleep apnea, using CPAP at home Obesity, discussed weight loss Diabetes mellitus, followed and managed by primary care physician History of anxiety, depression. Followed and managed by primary care physician SMITA PEÑA MD Nov 06, 2020 10:26 am
[2020-11-06] MEDS: RT-ALBUTEROL/IPRATROPIUM 3 ML (DUONEB) VIAL INH SCH ×2 (10:44→18:29)
--- NOTE | 2020-11-06 12:33 | Physical Therapy Daily Note ---
PT Daily Note-Current Subjective Pt sitting in Therapy Gym after finishing OT tx. Pt agrees to PT. Pain Numeric Pain Scale: 5-Moderate Pain Location: Right Location Body Site: Knee Pain Description: Ache Mental Status Patient Orientation: Person, Place, Time, Situation Transfers SCALE: Activities may be completed with or without assistive devices. 8-Ujkhicklwp-hzcyzry completes the activity by him/herself with no assistance from a helper. 5-Set-up or Clean-up Assistance-helper sets up or cleans up; patient completes activity. [place] assists only prior to or following the activity. 4-Supervision or Touching Assistance-helper provides verbal cues and/or touch ing/steadying and/or contact guard assistance as patient completes activity. Assistance may be provided throughout the activity or intermittently. 3-Partial/Moderate Assistance-helper does LESS THAN HALF the effort. [place] lifts, holds or supports trunk or limbs, but provides less than half the effort. 2-Substantial/Maximal Assistance-helper does MORE THAN HALF the effort. [place] lifts or holds trunk or limbs and provides more than half the effort. 3-Kgxlkxkhn-cvmxjc does ALL the effort. Patient does none of the effort to complete the activity. Or, the assistance of 2 or more helpers is required for the patient to complete the activity. If activity was not attempted, code reason: 7-Patient Refused. 9-Not Applicable-not attempted and the patient did not perform the activity before the current illness, exacerbation or injury. 10-Not Attempted due to Environmental Limitations-(lack of equipment, weather restraints, etc.). 88-Not Attempted due to Medical Conditions or Safety Concerns. Sit to Stand (QC): 4 Weight Bearing Full Weight Bearing Full Weight Bearing Gait Training Does the Patient Walk?: Yes Distance: 150' Walk 10 feet (QC): 4 Walk 50 ft with 2 Turns(QC): 4 Walk 150 ft (QC): 4 Gait Persons Needed: 1 Gait Assistive Device: FWW Exercises Standing: Hip Abduction, Hamstring curls, Heel/toe raises, Marching, Mini squats, Side steps Standing Reps: 15 NuStep Minutes: 2 NuStep Workload: 3 Treatments TF to standing and completes Standing EX at //bars. Pt attempts using NuStep but reports uncomfortable even with repositioning so discontinued. Pt amb. in hallway and returns to room to rest in recliner. All needs met, call light in hand. Assessment Current Status: Fair Progress Pt is limited by pain in R knee although declines wanting to take anything for pain. PT Short Term Goals Short Term Goals Time Frame: Nov 12, 2020 Roll Left & Right: 6 Sit to lyin Lying to sitting on side of be: 6 Sit to stand: 4 (SBA) Chair/uqi-gw-vpfqh transfer: 4 (SBA) Toilet transfer: 4 (SBA) Car transfer: 4 (SBA) Walk 10 feet: 4 (SBA) Walk 50 feet with two turns: 4 (SBA) 1 step (curb): 4 (SBA) PT [place] Goals Fpc Goals PT [place] Goals Time Frame: Nov 26, 2020 Roll Left & Right (QC): 6 Sit to Lying (QC): 6 Lying-Sitting on Side/Bed(QC): 6 Sit to Stand (QC): 6 Chair/Pjb-tn-Blqwv Xfer(QC): 6 Toilet Transfer (QC): 6 Car Transfer (QC): 6 Does the Patient Walk: Yes Walk 10 feet (QC): 6 Walk 50ft with 2 Turns (QC): 6 Walk 150 ft (QC): 88 Walking 10ft on Uneven Surface: 6 1 Step (curb) (QC): 6 4 Steps (QC): 88 12 Steps (QC): 88 Picking up an Object (QC): 6 Wheel 50 feet with 2 turns (QC: 6 Wheel 150 feet: 6 PT Plan Problem List Problem List: Activity Tolerance, Functional Strength Treatment/Plan Treatment Plan: Continue Plan of Care Treatment Plan: Bed Mobility, Education, Functional Activity Andrei, Functional Strength, Group Therapy, Gait, Safety, Therapeutic Exercise, Transfers Treatment Duration: Nov 26, 2020 Frequency: At least 5 of 7 days/Wk (IRF) Estimated Hrs Per Day: 1.5 hours per day Patient and/or Family Agrees t: Yes Safety Risks/Education Patient Education: Correct Positioning, Safety Issues Teaching Recipient: Patient Teaching Methods: Discussion Response to Teaching: Verbalize Understanding Time/GCodes Time In: 945 Time Out: 1030 Total Billed Treatment Time: 45 Total Billed Treatment 1, EX x2 (30m) & GT (15m) NATALI DRUMMOND SECURITY FLEX UTILITY OFFICER Nov 06, 2020 12:33
--- NOTE | 2020-11-06 13:36 | PM&R Progress Note ---
Subjective HPI/CC On Admission Date Seen by Provider: Nov 06, 2020 Time Seen by Provider: 12:40 Subjective/Events-last exam 11/06/20: Patient doing well Settling in well in IRF Diarrhea prompted addition of Imodium Tingling in right fingers Monitoring right knee pain improved from injection Review of Systems General: Fatigue, Malaise Musculoskeletal: leg pain Objective Exam Vital Signs Vital Signs Date Time Temp Pulse Resp B/P (MAP) Pulse Ox O2 Delivery O2 Flow Rate FiO2 11/06/20 10:44 92 Room Air 11/06/20 06:15 36.2 68 20 148/72 (97) Capillary Refill : General Appearance: No Apparent Distress, WD/WN, Chronically ill, Obese HEENT: PERRL/EOMI, Normal ENT Inspection, Pharynx Normal Neck: Full Range of Motion, Normal Inspection, Non Tender, Supple, Carotid Bruit Respiratory: Chest Non Tender, Lungs Clear, Normal Breath Sounds, No Accessory Muscle Use, No Respiratory Distress Cardiovascular: Regular Rate, Rhythm, No Gallop, No JVD, No Murmur, Normal Peripheral Pulses Gastrointestinal: Normal Bowel Sounds, No Organomegaly, No Pulsatile Mass, Non Tender, Soft Back: Normal Inspection, No CVA Tenderness, No Vertebral Tenderness Extremity: Normal Capillary Refill, Normal Inspection, Normal Range of Motion, Non Tender, No Calf Tenderness, Pedal Edema Neurologic/Psychiatric: Alert, Oriented x3, No Motor/Sensory Deficits, Normal Mood/Affect, Motor Weakness (right sided 3/5 hand and right leg) Skin: Normal Color, Warm/Dry Lymphatic: No Adenopathy Results/Procedures Lab Laboratory Tests 11/06/20 05:35 Patient resulted labs reviewed. FIM Transfers Therapy Code Descriptions/Definitions Functional [place] Measure: 0=Not Assessed/NA 4=Minimal Assistance 1=Total Assistance 5=Supervision or Setup 2=Maximal Assistance 6=Modified [place] 3=Moderate Assistance 7=Complete IndependenceSCALE: Activities may be completed with or without assistive devices. 0-Brngiscmec-tdkqzst completes the activity by him/herself with no assistance from a helper. 5-Set-up or Clean-up Assistance-helper sets up or cleans up; patient completes activity. [place] assists only prior to or following the activity. 4-Supervision or Touching Assistance-helper provides verbal cues and/or touching/steadying and/or contact guard assistance as patient completes activity. Assistance may be provided throughout the activity or intermittently. 3-Partial/Moderate Assistance-helper does LESS THAN HALF the effort. [place] lifts, holds or supports trunk or limbs, but provides less than half the effort. 2-Substantial/Maximal Assistance-helper does MORE THAN HALF the effort. [place] lifts or holds trunk or limbs and provides more than half the effort. 4-Nibvokcfp-xrklbg does ALL the effort. Patient does none of the effort to complete the activity. Or, the assistance of 2 or more helpers is required for the patient to complete the activity. If activity was not attempted, code reason: 7-Patient Refused. 9-Not Applicable-not attempted and the patient did not perform the activity before the current illness, exacerbation or injury. 10-Not Attempted due to Environmental Limitations-(lack of equipment, weather restraints, etc.). 88-Not Attempted due to Medical Conditions or Safety Concerns. Roll Left to Right (QC): 6 Sit to Lying (QC): 6 Sit to Stand (QC): 4 Chair/Mpx-fw-Wlvog Xfer(QC): 4 Car Transfer (QC): 4 Gait Training Does the Patient Walk?: Yes Distance: 150' Walk 10 feet (QC): 4 Walk 50 ft with 2 Turns(QC): 4 Walk 150 ft (QC): 4 Walking 10ft/uneven surface-QC: 4 Gait Persons Needed: 1 Gait Assistive Device: FWW Wheelchair Training Does the Pt Use a Wheelchair?: Yes Distance: 50' Wheel 50 ft with 2 turns (QC): 3 Wheel 150 ft (QC): 88 Type of Wheelchair: Manual Stair Training #of Steps: 1 1 Step (curb) (QC): 4 4 Steps (QC): 88 12 Steps (QC): 88 Balance Picking up an Object (QC): 5 (with gravity manager) ADL-Treatment Eating (QC): 6 (IND per pt report) Oral Hygiene (QC): 4 (SBA standing at sink, pt fatigued requiring seated rest break with task, R knee buckled x1 in stand) Shower/Bathe Self (QC): 3 (Based on pt report: Assist bilateral LE lower legs/feet. Pt able to wash BUEs, chest, abdomen, buttocks, thighs, and periarea. ) Upper Body Dressing (QC): 5 Lower Body Dressing (QC): 3 (Help to pull pants up on R side. Steadying) On/Off Footwear (QC): 3 (Pt able to remove socks, assit to don RLE gripper socks.) Toileting Hygiene (QC): 4 (CGA, pt able to complete clothing management and hygiene. ) Assessment/Plan Assessment and Plan Assess & Plan/Chief Complaint Assessment: CVA with right sided weakness DM HTN HLP JULIANA on CPAP AMI THC use Smoker Anxiety Depression Plan: Monitor closely DM management IRF protocol 11/06/20: Monitor sugar and BP Improved right knee from injection Monitor diarrhea (1) CVA (cerebral vascular accident) (2) Hypertension Status: Chronic (3) Hyperlipemia Status: Chronic (4) Diabetes Status: Chronic (5) Right sided weakness Status: Acute (6) Acute kidney injury Status: Acute (7) Non-compliance Status: Acute (8) Marijuana use Status: Acute TAMRA HORTON DO Nov 06, 2020 13:36
--- NOTE | 2020-11-06 13:36 | Individualized Plan of Care ---
Individualized Plan of Care Rehab Nursing IPOC Order Admission Date Nov 05, 2020 at 15:44 Current Orders Orders Admission Order(Inpt,Obs,Sdc) (11/05/20 15:23) Vital Signs: Per Unit Policy ( 08,16,00 (11/05/20 15:23) Sequential Compression Device .admit (11/05/20 15:23) Parking Control Officer-Inpt Rehab Con (11/05/20 15:23) Rehab Nursing Orders-Ipoc (11/05/20 15:23) Physical Therapy Rehab Orders (11/05/20 15:23) Occupational Therapy Rehab Ord (11/05/20 15:23) Speech Therapy Rehab Orders (11/05/20 15:23) Cbc With Automated Diff (11/06/20 06:00) Comprehensive Metabolic Panel (11/06/20 06:00) Intake & Output 06,14,22 (11/05/20 15:23) Precautions (Aru) (11/05/20 15:23) Rehab-Intensity Of Therapy (11/05/20 15:23) Initiate Admission Nursing Pro .admission (11/05/20 15:23) Alprazolam Tablet (Xanax Tablet) (11/05/20 15:30) Calcium Carbonate Chew Tablet (Antacid C (11/05/20 15:30) Diphenhydramine Tablet (Benadryl Tablet) (11/05/20 15:30) Docusate Sodium Capsule (Colace Capsule) (11/05/20 21:00) Docusate Sodium Capsule (Colace Capsule) (11/05/20 15:30) Bisacodyl Suppository (Dulcolax Supposit (11/05/20 15:30) Lactulose Oral Solution (Enulose Oral So (11/05/20 15:30) Na Phos/Na Biphos Enema (Fleet Enema Jaya (11/05/20 15:30) Guaifenesin/Codeine Syrup (Robitussin Ac (11/05/20 15:30) Loperamide Tablet (Imodium Tablet) (11/05/20 15:30) Melatonin Tablet (Melatonin Tablet) (11/05/20 15:30) Polyethylene Glycol Powder Pkt (Miralax (11/05/20 21:00) Ondansetron Oral Dissolve Tab (Zofran (11/05/20 15:30) Senna S Tablet (Senokot S Tablet) (11/05/20 21:00) Initiate Admission Nursing Pro .admission (11/05/20 15:23) Admission Arrival Bed Request (11/05/20 15:37) Code/Resuscitation (11/05/20 16:01) Incentive Spirometry (Nursing) Q2H (11/05/20 16:01) [place] Hose (11/05/20 16:01) Cho 60g/M 3snack (16-1999 Arjun) (11/05/20 Dinner) (Nf) Dulaglutide (Trulicity) (11/05/20 16:15) Albuterol/Ipra Inhalation Soln (Duoneb I (11/05/20 21:00) Ascorbic Acid Tablet (Vitamin C Tablet) (11/06/20 08:00) Aspirin Enteric Coated Tablet (Ecotrin T (11/06/20 09:00) Atorvastatin Tablet (Lipitor Tablet) (11/05/20 21:00) Carvedilol Tablet (Coreg Tablet) (11/05/20 21:00) Cholecalciferol Capsule/Tablet (Vitamin (11/06/20 09:00) Bisacodyl Suppository (Dulcolax Supposit (11/05/20 16:15) Gabapentin Capsule/Tablet (Neurontin Cap (11/05/20 17:00) Loratadine Tablet (Claritin Tablet) (11/05/20 21:00) Magnesium Hydroxide Oral Susp (Mom Oral (11/05/20 16:15) Insulin Aspart (Novolog) (Novolog (Charg (11/05/20 21:00) Gates 3 Capsule (Fish Oil Capsule) (11/05/20 21:00) Ondansetron Injection (Zofran Injectio (11/05/20 16:15) Clopidogrel Tablet (Plavix Tablet) (11/06/20 09:00) Zinc Sulfate Capsule (Zinc 50 Mg Capsule (11/06/20 08:00) Amlodipine Tablet (Norvasc Tablet) (11/06/20 09:00) Ezetimibe Tablet (Zetia Tablet) (11/06/20 09:00) Glipizide Tablet (Glucotrol Tablet) (11/05/20 21:00) Lisinopril Tablet (Zestril Tablet) (11/06/20 09:00) Consult Cardiology (11/05/20 16:01) Mat Initiate Protocol (11/05/20 16:01) Svn Small Volume Nebulizer (11/05/20 16:01) Accucheck Achs ACHS (11/05/20 16:01) Patient Visit (11/05/20 ) Pt Eval Moderate Complexity (11/05/20 ) Functional Activities, Ea 15 (11/05/20 ) Amlodipine Tablet (Norvasc Tablet) (11/06/20 09:00) Furosemide Tablet (Lasix Tablet) (11/06/20 09:00) Cbc No Diff (11/07/20 05:00) Basic Metabolic Panel (11/07/20 05:00) Magnesium (11/07/20 05:00) Patient Visit (11/06/20 ) Exercise Therap, Ea 15 Min (11/06/20 ) Gait Training, Ea 15 Min (11/06/20 ) Rehab Nursing Orders: Ongoing Assess. of Cognitive Status, Ongoing Assess. of Function Status, Bladder Management, Bladder Scan, Bladder Training, Bowel Management, Bowel Training, Disease Management & Educaiton, DVT Prophylaxis, Fall Prevention, Fluid/Electrolyte/Nutrition Mgmt, Infection Prevention, Medication Management & Education, Management of Risks & Complications, Nutrition Management, Pain Management, Patient/Family Support, Safety Management, Swallow Precautions Intensity of Therapy to be met Patient to be seen: Min.3h per day/5 of 7d PT IPOC Problem List: Activity Tolerance, Functional Strength Treatment Plan: Continue Plan of Care Bed Mobility, Education, Functional Activity Andrei, Functional Strength, Group Therapy, Gait, Safety, Therapeutic Exercise, Transfers Treatment Duration: Nov 26, 2020 Frequency: At least 5 of 7 days/Wk (IRF) Estimated Hrs Per Day: 1.5 hours per day OT IPOC Problems: Decreased Activ Tolerance, Decreased UE Strength, Impaired Funct Balance, Impaired I ADL's, Impaired Self-Care Skills OT Treatment, Training and Edu: Yes Plan of Care: ADL Retraining, Functional Mobility, Group Exercise/Act as Ind, UE Funct Exercise/Act Treatment Duration: Nov 26, 2020 Frequency: At least 5 of 7 days/Wk (IRF) Estimated Hrs Per Day: 1.[address] IPOC Speech Therapy Treatment Plan: Discontinue ST Treatment Duration: Nov 05, 2020 Frequency: Modified Program (IRF) Estimated Hrs Per Day: Other Parking Control Officer/Case Mgmt Parking Control Officer/Case Managemen: Discharge Planning Dietitian/Shake Backboard Notcher Dietitian/Shake Backboard Notcher to monitor nutritional status and make changes and/or recommendations as needed and work with speech pathology on dietary upgrades as the occur. Physician IPOC Medical Issues being managed closely and that require the 24 hour availability of a physician: Recent CVA with BP and BS OOC will require close monitoring for decompensation and recurrent extension of CVA Medical Issues: Bowel/Bladder Function, DVT Prophylaxis, Falls Precautions, Fluid/Electrolyte/Nutrition Balance, Infection Protection, Pain Management Brief Synthesis of Preadmission Screen, Post-Admission Evaluation, and Therapy Evaluations: PT OT will focus on regaining independence in ADL's and ambulation and monitor with use of AD to help prevent falls Medical Prognosis: Good Anticipated Length of Stay: 10 days TAMRA HORTON DO Nov 06, 2020 13:36
[2020-11-06 17:57] VITALS: BP 154/76
[2020-11-06] MEDS: LORATADINE (CLARITIN) 10 MG TAB PO SCH (22:03)
[2020-11-06] MEDS: glipiZIDE 5 MG (GLUCOTROL) TAB PO SCH (22:03)
[2020-11-07 06:06] LABS: HEMOGLOBIN 16.3 g/dL (13.3-17.7); MEAN PLATELET VOLUME 10.8 fL (9.0-12.2); WHITE BLOOD COUNT 18.8 10^3/uL (4.3-11.0)
[2020-11-07 06:10] VITALS: BP 158/72
[2020-11-07 06:29] LABS: CALCIUM 8.9 MG/DL (8.5-10.1); CREATININE SERUM 1.44 MG/DL (0.60-1.30); MAGNESIUM 2.2 MG/DL (1.6-2.4); POTASSIUM 4.4 MMOL/L (3.6-5.0)
[2020-11-07] MEDS: inSUlin ASPART (NovoLOG) 1 UNIT/0.01 ML (CHARGE PER UNIT) SC SCH ×4 (06:31→21:00)
--- NOTE | 2020-11-07 07:06 | PM&R Progress Note ---
Subjective HPI/CC On Admission Date Seen by Provider: Nov 07, 2020 Time Seen by Provider: 12:30 Subjective/Events-last exam 11/07/20: Patient doing well Lungs are coarse and noted elevated wbc but he did have steroid injection in his right knee CXR and PCT obtained and noted early infiltrate so will start abx Nebs already ordered Dr Alexander may place loop recorder tomorrow BM 11/0611/06/20: Patient doing well Settling in well in IRF Diarrhea prompted addition of Imodium Tingling in right fingers Monitoring right knee pain improved from injection Review of Systems General: Fatigue Pulmonary: Dyspnea Neurological: Weakness, Incoordination Focused Exam Lactate Level 11/07/20 13:14: Lactic Acid Level 1.92 Objective Exam Vital Signs Vital Signs Date Time Temp Pulse Resp B/P (MAP) Pulse Ox O2 Delivery O2 Flow Rate FiO2 11/07/20 18:40 94 Room Air 11/07/20 17:05 35.9 70 18 151/82 (105) Capillary Refill : General Appearance: No Apparent Distress, WD/WN, Chronically ill, Obese HEENT: PERRL/EOMI, Normal ENT Inspection, Pharynx Normal Neck: Full Range of Motion, Normal Inspection, Non Tender, Supple, Carotid Bruit Respiratory: Chest Non Tender, No Accessory Muscle Use, No Respiratory Distress, Crackles, Decreased Breath Sounds, Wheezing Cardiovascular: Regular Rate, Rhythm, No Gallop, No JVD, No Murmur, Normal Peripheral Pulses Gastrointestinal: Normal Bowel Sounds, No Organomegaly, No Pulsatile Mass, Non Tender, Soft Back: Normal Inspection, No CVA Tenderness, No Vertebral Tenderness Extremity: Normal Capillary Refill, Normal Inspection, Normal Range of Motion, Non Tender, No Calf Tenderness, Pedal Edema Neurologic/Psychiatric: Alert, Oriented x3, No Motor/Sensory Deficits, Normal Mood/Affect, Motor Weakness (right sided 3/5 hand and right leg) Skin: Normal Color, Warm/Dry Lymphatic: No Adenopathy Results/Procedures Lab Laboratory Tests 11/07/20 05:49 Patient resulted labs reviewed. FIM Transfers Therapy Code Descriptions/Definitions Functional [place] Measure: 0=Not Assessed/NA 4=Minimal Assistance 1=Total Assistance 5=Supervision or Setup 2=Maximal Assistance 6=Modified [place] 3=Moderate Assistance 7=Complete IndependenceSCALE: Activities may be completed with or without assistive devices. 9-Uwovjzgrbc-laanvut completes the activity by him/herself with no assistance from a helper. 5-Set-up or Clean-up Assistance-helper sets up or cleans up; patient completes activity. [place] assists only prior to or following the activity. 4-Supervision or Touching Assistance-helper provides verbal cues and/or touching/steadying and/or contact guard assistance as patient completes activ ity. Assistance may be provided throughout the activity or intermittently. 3-Partial/Moderate Assistance-helper does LESS THAN HALF the effort. [place] lifts, holds or supports trunk or limbs, but provides less than half the effort. 2-Substantial/Maximal Assistance-helper does MORE THAN HALF the effort. [place] lifts or holds trunk or limbs and provides more than half the effort. 8-Mvavnyrwt-vsatqk does ALL the effort. Patient does none of the effort to complete the activity. Or, the assistance of 2 or more helpers is required for the patient to complete the activity. If activity was not attempted, code reason: 7-Patient Refused. 9-Not Applicable-not attempted and the patient did not perform the activity before the current illness, exacerbation or injury. 10-Not Attempted due to Environmental Limitations-(lack of equipment, weather restraints, etc.). 88-Not Attempted due to Medical Conditions or Safety Concerns. Roll Left to Right (QC): 6 Sit to Lying (QC): 6 Sit to Stand (QC): 4 Chair/Rjd-ot-Acarn Xfer(QC): 4 Car Transfer (QC): 4 Gait Training Does the Patient Walk?: Yes Distance: 150' Walk 10 feet (QC): 4 Walk 50 ft with 2 Turns(QC): 4 Walk 150 ft (QC): 4 Walking 10ft/uneven surface-QC: 4 Gait Persons Needed: 1 Gait Assistive Device: FWW Wheelchair Training Does the Pt Use a Wheelchair?: Yes Distance: 50' Wheel 50 ft with 2 turns (QC): 3 Wheel 150 ft (QC): 88 Type of Wheelchair: Manual Stair Training #of Steps: 1 1 Step (curb) (QC): 4 4 Steps (QC): 88 12 Steps (QC): 88 Balance Picking up an Object (QC): 5 (with shift supervisor film processing) ADL-Treatment Eating (QC): 6 (IND per pt report) Oral Hygiene (QC): 4 (SBA standing at sink, pt fatigued requiring seated rest break with task, R knee buckled x1 in stand) Shower/Bathe Self (QC): 3 (Based on pt report: Assist bilateral LE lower legs/feet. Pt able to wash BUEs, chest, abdomen, buttocks, thighs, and periarea. ) Upper Body Dressing (QC): 5 Lower Body Dressing (QC): 3 (Help to pull pants up on R side. Steadying) On/Off Footwear (QC): 3 (Pt able to remove socks, assit to don RLE gripper socks.) Toileting Hygiene (QC): 4 (CGA, pt able to complete clothing management and hygiene. ) Assessment/Plan Assessment and Plan Assess & Plan/Chief Complaint Assessment: CVA with right sided weakness DM HTN HLP JULIANA on CPAP AMI THC use Smoker Anxiety Depression Early PNA started abx 11/07/20 Plan: Monitor closely DM management IRF protocol 11/06/20: Monitor sugar and BP Improved right knee from injection Monitor diarrhea 11/07/20: Treat early PNA Monitor closely (1) CVA (cerebral vascular accident) (2) Hypertension Status: Chronic (3) Hyperlipemia Status: Chronic (4) Diabetes Status: Chronic (5) Right sided weakness Status: Acute (6) Acute kidney injury Status: Acute (7) Non-compliance Status: Acute (8) Marijuana use Status: Acute TAMRA HORTON DO Nov 07, 2020 07:06
[2020-11-07] MEDS: eZETimibe 10 MG (ZETIA) TABLET PO SCH (08:08)
[2020-11-07] MEDS: lisINopril 40 MG (PRINIVIL) TABLET PO SCH (08:08)
[2020-11-07] MEDS: amLODIPine 5 MG (NORVASC) TAB PO SCH (08:08)
[2020-11-07] MEDS: ASPIRIN E.C. 325 MG (ECOTRIN) TABLET PO SCH (08:08)
[2020-11-07] MEDS: FUROSEMIDE 20 MG (LASIX) TAB PO SCH (08:08)
[2020-11-07] MEDS: CARVEDILOL 12.5 MG (COREG) TABLET PO SCH ×2 (08:09→21:31)
[2020-11-07] MEDS: CLOPIDOGREL 75 MG (PLAVIX) TABLET PO SCH (08:09)
[2020-11-07] MEDS: ASCORBIC ACID (VIT C) 500 MG TABLET PO SCH (08:09)
[2020-11-07] MEDS: GABAPENTIN 300 MG (NEURONTIN) CAP PO SCH ×3 (08:09→21:31)
[2020-11-07] MEDS: VITAMIN D3 25 MCG (1,000 UNITS) TABLET PO SCH (08:09)
[2020-11-07] MEDS: ZINC SULFATE 220 MG CAPSULE PO SCH (08:09)
[2020-11-07] MEDS: OMEGA 3 (FISH OIL) 1000 MG CAP PO SCH ×2 (08:09→21:31)
[2020-11-07] MEDS: RT-ALBUTEROL/IPRATROPIUM 3 ML (DUONEB) VIAL INH SCH ×2 (09:41→18:40)
[2020-11-07] MEDS: polyethylene glycoL POWDER 17 GM (MIRALAX) PACK PO SCH ×2 (10:43→21:32)
[2020-11-07] MEDS: SENNA W/DOCUSATE (SENOKOT S) TABLET PO SCH ×2 (10:43→21:32)
[2020-11-07] MEDS: DOCUSATE SODIUM 100 MG (COLACE) CAP PO SCH ×2 (10:43→21:31)
--- NOTE | 2020-11-07 11:58 | Cardiology Progress Note ---
Subjective Date Seen by Provider: Nov 07, 2020 Time Seen by Provider: 11:57 Subjective/Events-last exam Patient was seen at bedside, sitting comfortably, no new complaint Review of Systems General: No Chills, No Night Sweats, No Fatigue, No Malaise, No Appetite, No Other HEENT: No Head Aches, No Visual Changes, No Eye Pain, No Ear Pain, No Dysphasia, No Sinus Congestion, No Post Nasal Drip, No Sore Throat, No Other Pulmonary: No Dyspnea, No Cough, No Pleuritic Chest Pain, No Other Cardiovascular: No: Chest Pain, Palpitations, Orthopnea, Paroxysmal Noc. Dyspnea, Edema, Lt Headedness, Other Objective-Cardiology Exam Last Set of Vital Signs Vital Signs 11/07/20 11/07/20 06:10 09:41 Temp 36.0 Pulse 67 Resp 20 B/P (MAP) 158/72 (100) Pulse Ox 92 O2 Delivery Room Air Capillary Refill : I&O Intake and Output 11/07/20 00:00 Intake Total 1560 ml Balance 1560 ml Intake Oral 1560 ml # Voids 10 # Bowel Movements 4 General: Alert, Oriented X3, Cooperative HEENT: Atraumatic, PERRLA Neck: Supple, No JVD, No Thyromegaly Lungs: Clear to Auscultation, Normal Air Movement Heart: Regular Rate, Normal S1, Normal S2, No Murmurs Abdomen: Normal Bowel Sounds, Soft, No Tenderness, No Hepatosplenomegaly, No Masses Extremities: No Clubbing, No Cyanosis, No Edema, Normal Pulses, No Tenderness/Swelling Skin: No Rashes, No Breakdown, No Significant Lesion Neuro: Normal Gait, Normal Speech, Strength at 5/5 X4 Ext, Normal Tone, Sensation Intact Psych/Mental Status: Mental Status NL, Mood NL Results Lab Laboratory Tests 11/07/20 05:49 A/P-Cardiology Admission Diagnosis CVA Hypertension Hyperlipidemia COPD Assessment/Plan Acute CVA with right-sided weakness, work-up so far has been negative with CT scan, Carotid Us was negative, treated with aspirin and Plavix, telemetry failed to detect any arrhythmia, planning to proceed with loop monitor implant tomorrow Elevated troponin, type II myocardial infarction, no chest pain, no acute EKG changes. Conservative management recommended, patient was started on aspirin and Plavix. Acute renal failure, Improved, renal function are back to normal Hypertension,monitor blood pressure Hyperlipidemia, monitor lipids Obstructive sleep apnea, using CPAP at home Obesity, discussed weight loss Diabetes mellitus, followed and managed by primary care physician History of anxiety, depression. Followed and managed by primary care physician SMITA PEÑA MD Nov 07, 2020 11:58 am
--- NOTE | 2020-11-07 13:49 | Diagnostic Imaging Report ---
INDICATION: Wheezing. Comparison made with prior examination from 11/04/2020. FINDINGS: The heart size is normal. There is patchy right basal infiltrate. There is no pleural effusion or pneumothorax. Mediastinum is unremarkable IMPRESSION: Questionable patchy right base infiltrate however no other acute cardiopulmonary abnormality. Dictated by: Dictated on workstation # [id number]
[2020-11-07 17:05] VITALS: BP 151/82
[2020-11-07] MEDS: CEFEPIME INJECTION 1,000 MG in WATER (STERILE) FOR INJECTION 10 ML IV SCH (21:05)
[2020-11-07] MEDS: AZITHROMYCIN INJECTION 500 MG in NS (IVPB) 250 ML IV SCH (21:07)
[2020-11-07 21:30] VITALS: BP 157/83
[2020-11-07] MEDS: LORATADINE (CLARITIN) 10 MG TAB PO SCH (21:31)
[2020-11-07] MEDS: glipiZIDE 5 MG (GLUCOTROL) TAB PO SCH (21:31)
[2020-11-08] MEDS: CEFEPIME INJECTION 1,000 MG in WATER (STERILE) FOR INJECTION 10 ML IV SCH ×4 (01:21→17:30)
[2020-11-08 02:22] VITALS: BP 157/83
[2020-11-08 05:56] VITALS: BP 156/68
[2020-11-08 06:24] LABS: BASOPHILS # (AUTO) 0.2 10^3/uL (0.0-0.1); BASOPHILS % (AUTO) 1 % (0-10); EOSINOPHILS # (AUTO) 0.2 10^3/uL (0.0-0.3); EOSINOPHILS % (AUTO) 1 % (0-10); HEMATOCRIT 52 % (40-54); HEMOGLOBIN 16.8 g/dL (13.3-17.7); LYMPHOCYTES % (AUTO) 35 % (12-44); MEAN CORPUSCULAR HEMOGLOBIN 28 pg (25-34); MEAN CORPUSCULAR HGB CONC 32 g/dL (32-36); MEAN CORPUSCULAR VOLUME 88 fL (80-99); MEAN PLATELET VOLUME 10.6 fL (9.0-12.2); MONOCYTES # (AUTO) 1.4 10^3/uL (0.0-1.0); MONOCYTES % (AUTO) 10 % (0-12); NEUTROPHILS # (AUTO) 7.2 10^3/uL (1.8-7.8); NEUTROPHILS % (AUTO) 51 % (42-75); PLATELET COUNT 315 10^3/uL (130-400)
[2020-11-08] MEDS: inSUlin ASPART (NovoLOG) 1 UNIT/0.01 ML (CHARGE PER UNIT) SC SCH ×4 (06:30→21:00)
[2020-11-08 06:41] LABS: ALBUMIN 3.6 GM/DL (3.2-4.5); BILIRUBIN,TOTAL 0.6 MG/DL (0.1-1.0); CALCIUM 8.6 MG/DL (8.5-10.1); CREATININE SERUM 1.45 MG/DL (0.60-1.30); POTASSIUM 3.8 MMOL/L (3.6-5.0)
[2020-11-08] MEDS: RT-ALBUTEROL/IPRATROPIUM 3 ML (DUONEB) VIAL INH SCH ×2 (06:50→21:34)
[2020-11-08 07:45] VITALS: BP 147/72
--- NOTE | 2020-11-08 08:36 | Cardiology Progress Note ---
Subjective Date Seen by Provider: Nov 08, 2020 Time Seen by Provider: 08:35 Subjective/Events-last exam Patient with PT. Denies any chest pain or dyspnea, denies dizziness. Review of Systems General: No Chills, No Night Sweats, No Fatigue, No Malaise, No Appetite, No Other HEENT: No Head Aches, No Visual Changes, No Eye Pain, No Ear Pain, No Dysphasia, No Sinus Congestion, No Post Nasal Drip, No Sore Throat, No Other Pulmonary: No Dyspnea, No Cough, No Pleuritic Chest Pain, No Other Cardiovascular: No: Chest Pain, Palpitations, Orthopnea, Paroxysmal Noc. Dyspnea, Edema, Lt Headedness, Other Focused Exam Lactate Level 11/07/20 13:14: Lactic Acid Level 1.92 Objective-Cardiology Exam Last Set of Vital Signs Vital Signs 11/08/20 11/08/20 11/08/20 11/08/20 11/08/20 02:22 05:56 06:52 07:45 08:00 Temp 36.4 Pulse 72 Resp 19 B/P (MAP) 147/72 (97) Pulse Ox 94 O2 Delivery Room Air FiO2 21 Capillary Refill : I&O Intake and Output 11/08/20 00:00 Intake Total 1240 ml Balance 1240 ml Intake Oral 1240 ml # Voids 9 General: Alert, Oriented X3, Cooperative HEENT: Atraumatic, PERRLA Neck: Supple, No JVD, No Thyromegaly Lungs: Clear to Auscultation, Normal Air Movement Heart: Regular Rate, Normal S1, Normal S2, No Murmurs Abdomen: Normal Bowel Sounds, Soft, No Tenderness, No Hepatosplenomegaly, No Masses Extremities: No Clubbing, No Cyanosis, No Edema, Normal Pulses, No Tenderness/Swelling Skin: No Rashes, No Breakdown, No Significant Lesion Neuro: Normal Gait, Normal Speech, Strength at 5/5 X4 Ext, Normal Tone, Sensation Intact Psych/Mental Status: Mental Status NL, Mood NL Results Lab Laboratory Tests 11/08/20 06:08 A/P-Cardiology Admission Diagnosis CVA Hypertension Hyperlipidemia COPD Assessment/Plan Acute CVA with right-sided weakness, work-up so far has been negative with CT scan, Carotid Us was negative, treated with aspirin and Plavix, telemetry failed to detect any arrhythmia, planning to proceed with loop monitor implant Elevated troponin, type II myocardial infarction, no chest pain, no acute EKG changes. Conservative management recommended, patient was started on aspirin and Plavix. Acute renal failure, Improved, renal function are back to normal Hypertension,monitor blood pressure Hyperlipidemia, monitor lipids Obstructive sleep apnea, using CPAP at home Obesity, discussed weight loss Diabetes mellitus, followed and managed by primary care physician History of anxiety, depression. Followed and managed by primary care physician Patient was seen and evaluated with Johana, examination performed, management plan was discussed, agree with the current scribed note, I made few changes to the note using Italic font Patient had a loop monitor implanted with no complication Continue current medication monitor, monitor blood pressure and lipids Supervisory-Addendum Brief Supervisory Addendum Participated in pt care: history, MDM, physical Personally performed: exam, history, MDM Care discussed with: JOHANA TEIXEIRA Nov 08, 2020 08:36 SMITA PEÑA MD Nov 08, 2020 15:21
[2020-11-08] MEDS: GABAPENTIN 300 MG (NEURONTIN) CAP PO SCH ×3 (09:51→21:27)
[2020-11-08] MEDS: ASPIRIN E.C. 325 MG (ECOTRIN) TABLET PO SCH (09:51)
[2020-11-08] MEDS: VITAMIN D3 25 MCG (1,000 UNITS) TABLET PO SCH (09:51)
[2020-11-08] MEDS: ZINC SULFATE 220 MG CAPSULE PO SCH (09:51)
[2020-11-08] MEDS: amLODIPine 5 MG (NORVASC) TAB PO SCH (09:51)
[2020-11-08] MEDS: OMEGA 3 (FISH OIL) 1000 MG CAP PO SCH ×2 (09:51→21:26)
[2020-11-08] MEDS: FUROSEMIDE 20 MG (LASIX) TAB PO SCH (09:52)
[2020-11-08] MEDS: CLOPIDOGREL 75 MG (PLAVIX) TABLET PO SCH (09:52)
[2020-11-08] MEDS: lisINopril 40 MG (PRINIVIL) TABLET PO SCH (09:52)
[2020-11-08] MEDS: eZETimibe 10 MG (ZETIA) TABLET PO SCH (09:52)
[2020-11-08] MEDS: ASCORBIC ACID (VIT C) 500 MG TABLET PO SCH (09:54)
[2020-11-08] MEDS: AZITHROMYCIN INJECTION 500 MG in NS (IVPB) 250 ML IV SCH (09:54)
[2020-11-08] MEDS: CARVEDILOL 12.5 MG (COREG) TABLET PO SCH ×2 (09:54→21:26)
[2020-11-08] MEDS: DOCUSATE SODIUM 100 MG (COLACE) CAP PO SCH ×2 (09:55→21:29)
[2020-11-08] MEDS: polyethylene glycoL POWDER 17 GM (MIRALAX) PACK PO SCH ×2 (09:55→21:32)
[2020-11-08] MEDS: SENNA W/DOCUSATE (SENOKOT S) TABLET PO SCH ×2 (09:56→21:32)
--- NOTE | 2020-11-08 09:56 | Physical Therapy Daily Note ---
PT Daily Note-Current Subjective Patient reported unrated right pain knee, that is mild and persistent with PMH of foot surgery. Patient reported he was unsure why he needed so much therapy. Patient consented to physical therapy with further discussion about rehab for his knee. Appearance Patient was seated upright in chair, with call button within reach and tray table nearby. Nursing staff in room post tx. Mental Status Patient Orientation: Person, Confused, Time Transfers SCALE: Activities may be completed with or without assistive devices. 7-Zsyonvvixp-gssiqmj completes the activity by him/herself with no assistance from a helper. 5-Set-up or Clean-up Assistance-helper sets up or cleans up; patient completes activity. [place] assists only prior to or following the activity. 4-Supervision or Touching Assistance-helper provides verbal cues and/or touching/steadying and/or contact guard assistance as patient completes activity. Assistance may be provided throughout the activity or intermittently. 3-Partial/Moderate Assistance-helper does LESS THAN HALF the effort. [place] lifts, holds or supports trunk or limbs, but provides less than half the effort. 2-Substantial/Maximal Assistance-helper does MORE THAN HALF the effort. [place] lifts or holds trunk or limbs and provides more than half the effort. 7-Ofcskuzar-oghxno does ALL the effort. Patient does none of the effort to complete the activity. Or, the assistance of 2 or more helpers is required for the patient to complete the activity. If activity was not attempted, code reason: 7-Patient Refused. 9-Not Applicable-not attempted and the patient did not perform the activity be fore the current illness, exacerbation or injury. 10-Not Attempted due to Environmental Limitations-(lack of equipment, weather restraints, etc.). 88-Not Attempted due to Medical Conditions or Safety Concerns. Sit to Stand (QC): 4 CGA Weight Bearing Full Weight Bearing Full Weight Bearing Gait Training Does the Patient Walk?: Yes Distance: 200', 100' Walk 10 feet (QC): 4 Walk 50 ft with 2 Turns(QC): 4 Gait Assistive Device: FWW Patient requires rest breaks within gait. Patient demonstrates letting his walker get too far in front of him with ambulation. Cues to keep walker closer to body and stand upright helped steady patient gait. Exercises Seated Therapy Exercises: Ankle pumps, Long arc quads, Hip flexion, Hip abd/add (big blue ball, RTB) Seated Reps: 20 Standing: Hip Abduction, Hamstring curls, 3 way Ex=Flex, Abd, Ext (Ext) Standing Reps: 20 NuStep Minutes: 3 (Patient noted exercise was uncomfortable on the knee, stopped exercise after 3 min.) NuStep Workload: 3 Treatments LE strengthening, ROM, gait, transfers, endurance Assessment Current Status: Fair Progress Patient requires increased rest breaks between upright activity, demonstrating overall deconditioning PT Short Term Goals Short Term Goals Time Frame: Nov 12, 2020 Roll Left & Right: 6 Sit to lyin Lying to sitting on side of be: 6 Sit to stand: 4 (SBA) Chair/ynp-dd-sxmjm transfer: 4 (SBA) Toilet transfer: 4 (SBA) Car transfer: 4 (SBA) Walk 10 feet: 4 (SBA) Walk 50 feet with two turns: 4 (SBA) 1 step (curb): 4 (SBA) PT Senior Living Goals Hospice Office Coordinator Goals PT Hospice Office Coordinator Goals Time Frame: Nov 26, 2020 Roll Left & Right (QC): 6 Sit to Lying (QC): 6 Lying-Sitting on Side/Bed(QC): 6 Sit to Stand (QC): 6 Chair/Kqz-jv-Ehcoc Xfer(QC): 6 Toilet Transfer (QC): 6 Car Transfer (QC): 6 Does the Patient Walk: Yes Walk 10 feet (QC): 6 Walk 50ft with 2 Turns (QC): 6 Walk 150 ft (QC): 88 Walking 10ft on Uneven Surface: 6 1 Step (curb) (QC): 6 4 Steps (QC): 88 12 Steps (QC): 88 Picking up an Object (QC): 6 Wheel 50 feet with 2 turns (QC: 6 Wheel 150 feet: 6 PT Plan Problem List Problem List: Activity Tolerance, Functional Strength, Safety, Balance, Gait, Transfer, Bed Mobility, ROM Treatment/Plan Treatment Plan: Continue Plan of Care Treatment Plan: Bed Mobility, Education, Functional Activity Andrei, Functional Strength, Group Therapy, Gait, Safety, Therapeutic Exercise, Transfers Treatment Duration: Nov 26, 2020 Frequency: At least 5 of 7 days/Wk (IRF) Estimated Hrs Per Day: 1.5 hours per day Patient and/or Family Agrees t: Yes Safety Risks/Education Patient Education: Gait Training, Transfer Techniques, Correct Positioning, Safety Issues Teaching Recipient: Patient Teaching Methods: Demonstration, Discussion Response to Teaching: Verbalize Understanding, Return Demonstration, Reinforcement Needed Time/GCodes Time In: 0900 Time Out: 1000 Total Billed Treatment Time: 60 Total Billed Treatment 1 visit: GT: 15' FA: 15' EX x2: 30' MEGAN WEBER PT Nov 08, 2020 09:56
--- NOTE | 2020-11-08 10:21 | PM&R Progress Note ---
Subjective HPI/CC On Admission Date Seen by Provider: Nov 08, 2020 Time Seen by Provider: 10:30 Subjective/Events-last exam 11/08/20: Pt doing really well Procalcitonin down since I initiated antibiotics for pneumonia without sepsis CXR will be followed up Creatinine 1.45 WBC 14,000 down from 18.8 Needs his CPAP brought in by his girlfriend 11/07/20: Patient doing well Lungs are coarse and noted elevated wbc but he did have steroid injection in his right knee CXR and PCT obtained and noted early infiltrate so will start abx Nebs already ordered Dr Alexander may place loop recorder tomorrow BM 11/0611/06/20: Patient doing well Settling in well in IRF Diarrhea prompted addition of Imodium Tingling in right fingers Monitoring right knee pain improved from injection Review of Systems General: Fatigue Pulmonary: Dyspnea Focused Exam Lactate Level 11/07/20 13:14: Lactic Acid Level 1.92 Objective Exam Vital Signs Vital Signs Date Time Temp Pulse Resp B/P (MAP) Pulse Ox O2 Delivery O2 Flow Rate FiO2 11/08/20 16:54 36.3 71 16 116/60 (78) 92 Room Air 11/08/20 02:22 21 Capillary Refill : General Appearance: No Apparent Distress, WD/WN, Chronically ill, Obese HEENT: PERRL/EOMI, Normal ENT Inspection, Pharynx Normal Neck: Full Range of Motion, Normal Inspection, Non Tender, Supple, Carotid Bruit Respiratory: Chest Non Tender, No Accessory Muscle Use, No Respiratory Distress, Decreased Breath Sounds Cardiovascular: Regular Rate, Rhythm, No Gallop, No JVD, No Murmur, Normal Peripheral Pulses Gastrointestinal: Normal Bowel Sounds, No Organomegaly, No Pulsatile Mass, Non Tender, Soft Back: Normal Inspection, No CVA Tenderness, No Vertebral Tenderness Extremity: Normal Capillary Refill, Normal Inspection, Normal Range of Motion, Non Tender, No Calf Tenderness, Pedal Edema Neurologic/Psychiatric: Alert, Oriented x3, No Motor/Sensory Deficits, Normal Mood/Affect, Motor Weakness (right sided 3/5 hand and right leg) Skin: Normal Color, Warm/Dry Lymphatic: No Adenopathy Results/Procedures Lab Laboratory Tests 11/08/20 06:08 Patient resulted labs reviewed. FIM Transfers Therapy Code Descriptions/Definitions Functional [place] Measure: 0=Not Assessed/NA 4=Minimal Assistance 1=Total Assistance 5=Supervision or Setup 2=Maximal Assistance 6=Modified [place] 3=Moderate Assistance 7=Complete IndependenceSCALE: Activities may be completed with or without assistive devices. 1-Aeuaqorivk-cvikrfr completes the activity by him/herself with no assistance from a helper. 5-Set-up or Clean-up Assistance-helper sets up or cleans up; patient completes activity. [place] assists only prior to or following the activity. 4-Supervision or Touching Assistance-helper provides verbal cues and/or touching/steadying and/or contact guard assistance as patient completes activity. Assistance may be provided throughout the activity or intermittently. 3-Partial/Moderate Assistance-helper does LESS THAN HALF the effort. [place] li fts, holds or supports trunk or limbs, but provides less than half the effort. 2-Substantial/Maximal Assistance-helper does MORE THAN HALF the effort. [place] lifts or holds trunk or limbs and provides more than half the effort. 9-Illginokl-bnenlp does ALL the effort. Patient does none of the effort to complete the activity. Or, the assistance of 2 or more helpers is required for the patient to complete the activity. If activity was not attempted, code reason: 7-Patient Refused. 9-Not Applicable-not attempted and the patient did not perform the activity before the current illness, exacerbation or injury. 10-Not Attempted due to Environmental Limitations-(lack of equipment, weather restraints, etc.). 88-Not Attempted due to Medical Conditions or Safety Concerns. Roll Left to Right (QC): 6 Sit to Lying (QC): 6 Sit to Stand (QC): 4 Chair/Wnq-fy-Jvkbq Xfer(QC): 4 Car Transfer (QC): 4 Gait Training Does the Patient Walk?: Yes Distance: 200', 100' Walk 10 feet (QC): 4 Walk 50 ft with 2 Turns(QC): 4 Walk 150 ft (QC): 4 Walking 10ft/uneven surface-QC: 4 Gait Persons Needed: 1 Gait Assistive Device: FWW Wheelchair Training Does the Pt Use a Wheelchair?: Yes Distance: 50' Wheel 50 ft with 2 turns (QC): 3 Wheel 150 ft (QC): 88 Type of Wheelchair: Manual Stair Training #of Steps: 1 1 Step (curb) (QC): 4 4 Steps (QC): 88 12 Steps (QC): 88 Balance Picking up an Object (QC): 5 (with core driller helper) ADL-Treatment Eating (QC): 6 (IND per pt report) Oral Hygiene (QC): 4 (SBA standing at sink, pt fatigued requiring seated rest break with task, R knee buckled x1 in stand) Shower/Bathe Self (QC): 3 (Based on pt report: Assist bilateral LE lower legs/feet. Pt able to wash BUEs, chest, abdomen, buttocks, thighs, and periarea. ) Upper Body Dressing (QC): 5 Lower Body Dressing (QC): 3 (Help to pull pants up on R side. Steadying) On/Off Footwear (QC): 3 (Pt able to remove socks, assit to don RLE gripper socks.) Toileting Hygiene (QC): 4 (CGA, pt able to complete clothing management and hygiene. ) Assessment/Plan Assessment and Plan Assess & Plan/Chief Complaint Assessment: CVA with right sided weakness DM HTN HLP JULIANA on CPAP AMI THC use Smoker Anxiety Depression Early PNA started abx 11/07/20 without evidence of sepsis Plan: Monitor closely DM management IRF protocol 11/06/20: Monitor sugar and BP Improved right knee from injection Monitor diarrhea 11/07/20: Treat early PNA Monitor closely 11/08/20: Continue abx Nebs O2 Needs CPAP from home (1) CVA (cerebral vascular accident) (2) Hypertension Status: Chronic (3) Hyperlipemia Status: Chronic (4) Diabetes Status: Chronic (5) Right sided weakness Status: Acute (6) Acute kidney injury Status: Acute (7) Non-compliance Status: Acute (8) Marijuana use Status: Acute TAMRA HORTON DO Nov 08, 2020 10:21
--- NOTE | 2020-11-08 10:34 | Occupational Ther Daily Note ---
OT Current Status-Daily Note Subjective No pain reported. Appearance Pt. up in chair. Agrees to work with OT. Mental Status/Objective Patient Orientation: Person, Place ADL-Treatment Therapy Code Descriptions/Definitions Functional [place] Measure: 0=Not Assessed/NA 4=Minimal Assistance 1=Total Assistance 5=Supervision or Setup 2=Maximal Assistance 6=Modified [place] 3=Moderate Assistance 7=Complete IndependenceSCALE: Activities may be completed with or without assistive devices. 1-Kpqmsnglmk-cgcnrir completes the activity by him/herself with no assistance from a helper. 5-Set-up or Clean-up Assistance-helper sets up or cleans up; patient completes activity. [place] assists only prior to or following the activity. 4-Supervision or Touching Assistance-helper provides verbal cues and/or touching/steadying and/or contact guard assistance as patient completes activity. Assistance may be provided throughout the activity or intermittently. 3-Partial/Moderate Assistance-helper does LESS THAN HALF the effort. [place] lifts, holds or supports trunk or limbs, but provides less than half the effort. 2-Substantial/Maximal Assistance-helper does MORE THAN HALF the effort. [place] lifts or holds trunk or limbs and provides more than half the effort. 3-Tezxmodqc-mzvdeu does ALL the effort. Patient does none of the effort to complete the activity. Or, the assistance of 2 or more helpers is required for the patient to complete the activity. If activity was not attempted, code reason: 7-Patient Refused. 9-Not Applicable-not attempted and the patient did not perform the activity before the current illness, exacerbation or injury. 10-Not Attempted due to Environmental Limitations-(lack of equipment, weather restraints, etc.). 88-Not Attempted due to Medical Conditions or Safety Concerns. Eating (QC): 6 (Reported by pt.) Oral Hygiene (QC): 7 Other Treatment Pt. is up and dressed. He reports that he showered last night, and donned fresh clothes last night. Does not want to change at this time. Agrees to work with OT. Pt. ambulated with CGA, walker, and wheelchair follow to therapy gym. Pt. reports that he does not know why he is here. States that he was just having a little "knee" trouble. Pt. completes 15 minutes at min resistance and slow pace at arm bike to increase overall endurance/UE strength. Pt. states that he does not know why he is working on UE when its his LE that was having trouble. Pt. educated about purpose of rehab, OT goals, need for overall endurance, and need for increased strength. Verbalizes understanding. Pt. engaged in trivia task while performing arm bike for improved overall cognitive function. Pt. tolerated this well. All needs met back in room. Education OT Patient Education: Correct positioning, Exercise program, Modified ADL techniques, Progress toward Goal/Update tx plan, Purpose of tx/functional act ivities, Reviewed precautions, Rehab process, Transfer techniques Teaching Recipient: Patient Teaching Methods: Demonstration, Discussion Response to Teaching: Verbalize Understanding, Return Demonstration, Reinforcement Needed OT Short Term Goals Short Term Goals Time Frame: Nov 12, 2020 Shower/bathe self: 5 Lower body dressin Putting on/taking off footwear: 5 OT Grain Farmworker Goals Halfway Goals Time Frame: Nov 26, 2020 Eating (QC): 6 Oral Hygiene (QC): 6 Toileting Hygiene (QC): 6 Shower/Bathe Self (QC): 6 Upper Body Dressing (QC): 6 Lower Body Dressing (QC): 6 On/Off Footwear (QC): 6 Additional Goals: 1-Demonstrate ADL Tasks, 2-Verbalize Understanding, 3- ImproveStrength/Andrei 1=Demonstrate adherence to instructed precautions during ADL tasks. 2=Patient will verbalize/demonstrate understanding of assistive devices/modifications for ADL. 3=Patient will improve strength/tolerance for activity to enable patient to perform ADL's. OT Education/Plan Problem List/Assessment Assessment: Decreased Activ Tolerance, Decreased UE Strength, Dependent Transfers, Impaired I ADL's, Impaired Self-Care Skills Discharge Recommendations Plan/Recommendations: Continue POC Treatment Plan/Plan of Care Treatment,Training & Education: Yes Patient would benefit from OT for education, treatment and training to promote independence in ADL's, mobility, safety and/or upper extremity function for ADL's. Plan of Care: ADL Retraining, Functional Mobility, Group Exercise/Act as Ind, UE Funct Exercise/Act Treatment Duration: Nov 26, 2020 Frequency: At least 5 of 7 days/Wk (IRF) Estimated Hrs Per Day: 1.5 hours per day Agreement: Yes Rehab Potential: Fair Time/GCodes Start Time: 08:15 Stop Time: 09:00 Total Time Billed (hr/min): 45 Billed Treatment Time 1, Ex x 15minutes, FA x 30minutes RON METZ OT Nov 08, 2020 10:34
--- NOTE | 2020-11-08 11:11 | Diagnostic Imaging Report ---
INDICATION: Pneumonia COMPARISON: 11/07/2020 FINDINGS: Frontal and lateral views of the chest demonstrate normal heart size and pulmonary vascularity. The lungs are clear. There are no signs of infiltrate, pleural effusions or pneumothoraces. The visualized osseous structures show no acute abnormalities. IMPRESSION: 1. No acute process. No signs of infiltrates, effusions or pneumothoraces. Dictated by: Dictated on workstation # [id number]
--- NOTE | 2020-11-08 11:35 | ST Cognitive Linguistic Eval ---
Speech Evaluation-General Medical Diagnosis CVA Onset Date: Nov 04, 2020 Therapy Diagnosis Therapy Diagnosis: Cognitive communication Precautions Precautions: Fall Precautions/Isolations: Fall Prevention, Standard Precautions Referral Referring Physician: Dr. Kerr Medical History Pertinent Medical History: DM, HTN, Smoking Reviewed History: Yes Social History Current Living Status: Significant Other (girlfriend) Speech PLF-Current Status Prior Level of Function Pt plans to return to prior level with significant other. Subjective Pt was pleasant and alert, sitting in the recliner. Pt agreed to ST cognitive evaluation. Language Eval: Auditory Comprehends Simple Yes/No Ques: Functional Follows 1-Step Commands: Functional Follows Complex Directions: Mild Follows General Conversations: Functional Language Eval: Verbal Language Completes Spontaneous Greeting: Functional Produces Auto, Serial Info: Functional Imitates Simple Words/Phrases: Functional Word Finding: Functional Requests Basic Needs: Functional States Basic Personal Info: Functional Cognitive Patient Orientation Pt could recall the day of the week, year, and state. Objective Cognitive Domain Attention: WNL Memory: Moderate Problem Solving: Functional Executive Functions: WNL Visuospatial Skills: WNL Composite Severity Rating: Moderate Objective Formal/Standardized Tests [facility] Mental Status Examination ([facility]) Results 18/30 Oral Motor/Speech Production Within Normal Limits Impression Patient is a pleasant 60 y/o male who was admitted to the ARU due to debility. Patient was given the SLUMS with a score of 18/30 obtained. Patient's score is within the Moderate Dementia range of function with the lowest ability noted for memory. Patient's score indicates he would benefit from skilled ST with focus on memory strategies to be able to return to his home safer. Speech Patient Assess Expression of Ideas/Wants: Expression (4) Understanding Verbal Content: Understands (4) Brief Interview-Mental Status: Yes Repetition of Three Words: Three (3) Temporal Orientation: Year: Correct (3) Temporal Orientation: Month: Accurate within 5 days(2) Temporal Orientation: Day: Correct (1) Recall : Wear to say "Sock": No, could not recall (0) Recall : Color: No, could not recall (0) Recall : Bed: No, could not recall (0) Memory/Recall Ability: That he or she is in a hsp/hsp unit Speech Short Term Goals Short Term Goals Short Term Goals Pt will complete memory tasks at 75% or greater with minimal cues. Pt will complete recall of information tasks at 75% or greater with minimal cu es. Speech Nursing Home Goals Nursing Home Goals Pt will improve cognitive communication skills necessary for safety and daily living tasks with minimal assist. Speech-Plan Patient/Family Goals Patient/Family Goals: Pt plans to return home to prior living situation. Treatment Plan Speech Therapy Treatment Plan: Continue Plan of Care Treatment Duration: Nov 05, 2020 Frequency: 4 times per week (Patient will receive skilled AT 4-5x per week) Estimated Hrs Per Day: .5 hour per day Rehab Potential: Fair Barriers to Learning: Cognitive deficits and medical status. Pt/Family Agrees to Plan: Yes Safety Risks/Education Teaching Recipient: Patient Teaching Methods: Discussion Response to Teaching: Verbalize Understanding Education Topics Provided: Safety and compensatory cognitive communication strategies Time Speech Therapy Time In: 11:15 Speech Therapy Time Out: 11:30 Total Billed Time: 15 Billed Treatment Time 1SONIA BETHANIA ST Nov 08, 2020 11:34
--- NOTE | 2020-11-08 14:18 | Occupational Ther Daily Note ---
OT Current Status-Daily Note Subjective Pt. reports that he is having some soreness in right knee, but does not state pain level. Pt. has already had pain medication. Mental Status/Objective Patient Orientation: Person, Place ADL-Treatment Therapy Code Descriptions/Definitions Functional [place] Measure: 0=Not Assessed/NA 4=Minimal Assistance 1=Total Assistance 5=Supervision or Setup 2=Maximal Assistance 6=Modified [place] 3=Moderate Assistance 7=Complete IndependenceSCALE: Activities may be completed with or without assistive devices. 8-Btewixgemo-wenibux completes the activity by him/herself with no assistance from a helper. 5-Set-up or Clean-up Assistance-helper sets up or cleans up; patient completes activity. [place] assists only prior to or following the activity. 4-Supervision or Touching Assistance-helper provides verbal cues and/or touching/steadying and/or contact guard assistance as patient completes activity. Assistance may be provided throughout the activity or intermittently. 3-Partial/Moderate Assistance-helper does LESS THAN HALF the effort. [place] lifts, holds or supports trunk or limbs, but provides less than half the effort. 2-Substantial/Maximal Assistance-helper does MORE THAN HALF the effort. [place] lifts or holds trunk or limbs and provides more than half the effort. 8-Jlhmhwueo-rcorqf does ALL the effort. Patient does none of the effort to complete the activity. Or, the assistance of 2 or more helpers is required for the patient to complete the activity. If activity was not attempted, code reason: 7-Patient Refused. 9-Not Applicable-not attempted and the patient did not perform the activity before the current illness, exacerbation or injury. 10-Not Attempted due to Environmental Limitations-(lack of equipment, weather restraints, etc.). 88-Not Attempted due to Medical Conditions or Safety Concerns. Eating (QC): 6 (Pt. finishing lunch when OT entered.) Lower Body Dressing (QC): 3 (Pt. is able to doff/don slipper socks with min assist and increased time, without use of AE. OT did introduce AE, and pt. practiced with it. Overall, requires mod assist with AE. Pt. would like to keep trying however.) Other Treatment Pt. ambulated to therapy gym after practicing socks. Utilized walker with CGA. Pt. completed multiple seated exercises for core strengthening. Tolerated 4 exercises, x 15 reps, with increased time and rest breaks in between. Pt. stood at walker and ambulated back to room. All needs met. Education OT Patient Education: Correct positioning, Exercise program, Modified ADL techniques, Progress toward Goal/Update tx plan, Purpose of tx/functional activities, Reviewed precautions, Rehab process, Transfer techniques, Use of adapted equipment Teaching Recipient: Patient Teaching Methods: Demonstration, Discussion Response to Teaching: Verbalize Understanding, Return Demonstration OT Short Term Goals Short Term Goals Time Frame: Nov 12, 2020 Shower/bathe self: 5 Lower body dressin Putting on/taking off footwear: 5 OT Fdc Goals Well Surveying Engineer Goals Time Frame: Nov 26, 2020 Eating (QC): 6 Oral Hygiene (QC): 6 Toileting Hygiene (QC): 6 Shower/Bathe Self (QC): 6 Upper Body Dressing (QC): 6 Lower Body Dressing (QC): 6 On/Off Footwear (QC): 6 Additional Goals: 1-Demonstrate ADL Tasks, 2-Verbalize Understanding, 3- ImproveStrength/Andrei 1=Demonstrate adherence to instructed precautions during ADL tasks. 2=Patient will verbalize/demonstrate understanding of assistive devices/modifications for ADL. 3=Patient will improve strength/tolerance for activity to enable patient to perform ADL's. OT Education/Plan Problem List/Assessment Assessment: Decreased Activ Tolerance, Impaired I ADL's, Impaired Self-Care Skills Discharge Recommendations Plan/Recommendations: Continue POC Therapy Discharge Recommendati: Post Acute OT Treatment Plan/Plan of Care Treatment,Training & Education: Yes Patient would benefit from OT for education, treatment and training to promote independence in ADL's, mobility, safety and/or upper extremity function for ADL's. Plan of Care: ADL Retraining, Functional Mobility, Group Exercise/Act as Ind, UE Funct Exercise/Act Treatment Duration: Nov 26, 2020 Frequency: At least 5 of 7 days/Wk (IRF) Estimated Hrs Per Day: 1.5 hours per day Agreement: Yes Rehab Potential: Fair Time/GCodes Start Time: 13:30 Stop Time: 14:15 Total Time Billed (hr/min): 45 Billed Treatment Time 1, ADL x 15minutes, Ex x 15minutes, FA x 15minutes RON METZ OT Nov 08, 2020 14:18
--- NOTE | 2020-11-08 15:23 | Physical Therapy Daily Note ---
PT Daily Note-Current Subjective Patient reported 3/10 pain in R knee pre tx, consented to therapy. Appearance Patient was seated upright in chair with call button within reach. Patient denied wanted tray table nearby. Reminded patient to call nurse if he needs to get up. Mental Status Patient Orientation: Person, Place, Time, Normal For Age Transfers SCALE: Activities may be completed with or without assistive devices. 1-Lugjrfejjb-bxmohoq completes the activity by him/herself with no assistance from a helper. 5-Set-up or Clean-up Assistance-helper sets up or cleans up; patient completes activity. [place] assists only prior to or following the activity. 4-Supervision or Touching Assistance-helper provides verbal cues and/or touching/steadying and/or contact guard assistance as patient completes activity. Assistance may be provided throughout the activity or intermittently. 3-Partial/Moderate Assistance-helper does LESS THAN HALF the effort. [place] lifts, holds or supports trunk or limbs, but provides less than half the effort. 2-Substantial/Maximal Assistance-helper does MORE THAN HALF the effort. [place] lifts or holds trunk or limbs and provides more than half the effort. 8-Fdlmvbwdc-exkgcb does ALL the effort. Patient does none of the effort to compl ete the activity. Or, the assistance of 2 or more helpers is required for the patient to complete the activity. If activity was not attempted, code reason: 7-Patient Refused. 9-Not Applicable-not attempted and the patient did not perform the activity before the current illness, exacerbation or injury. 10-Not Attempted due to Environmental Limitations-(lack of equipment, weather restraints, etc.). 88-Not Attempted due to Medical Conditions or Safety Concerns. Sit to Stand (QC): 4 CGA Weight Bearing Full Weight Bearing Full Weight Bearing Gait Training Does the Patient Walk?: Yes Distance: 100' x2 Walk 10 feet (QC): 4 Walk 50 ft with 2 Turns(QC): 4 Gait Assistive Device: FWW CGA. Patient is steady with gait but does have episodes of moving walker too far in front of him, but cueing helps patient slow down. Exercises Seated Therapy Exercises: Ankle pumps, Sit to stand (10 reps), Long arc quads, Hip flexion, Hip abd/add (RTB, blue ball), Glut set Seated Reps: 20 Treatments LE strengthening, ROM, gait training, transfers Assessment Current Status: Fair Progress Patient tolerates ther ex well, does complain of knee pain throughout treatment session. PT Short Term Goals Short Term Goals Time Frame: Nov 12, 2020 Roll Left & Right: 6 Sit to lyin Lying to sitting on side of be: 6 Sit to stand: 4 (SBA) Chair/fmu-rr-mespn transfer: 4 (SBA) Toilet transfer: 4 (SBA) Car transfer: 4 (SBA) Walk 10 feet: 4 (SBA) Walk 50 feet with two turns: 4 (SBA) 1 step (curb): 4 (SBA) PT Residential Goals Shop Director Goals PT Shop Director Goals Time Frame: Nov 26, 2020 Roll Left & Right (QC): 6 Sit to Lying (QC): 6 Lying-Sitting on Side/Bed(QC): 6 Sit to Stand (QC): 6 Chair/Tar-bp-Zffpd Xfer(QC): 6 Toilet Transfer (QC): 6 Car Transfer (QC): 6 Does the Patient Walk: Yes Walk 10 feet (QC): 6 Walk 50ft with 2 Turns (QC): 6 Walk 150 ft (QC): 88 Walking 10ft on Uneven Surface: 6 1 Step (curb) (QC): 6 4 Steps (QC): 88 12 Steps (QC): 88 Picking up an Object (QC): 6 Wheel 50 feet with 2 turns (QC: 6 Wheel 150 feet: 6 PT Plan Problem List Problem List: Activity Tolerance, Functional Strength, Safety, Balance, Gait, Transfer, Bed Mobility, ROM Treatment/Plan Treatment Plan: Continue Plan of Care Treatment Plan: Bed Mobility, Education, Functional Activity Andrei, Functional Strength, Group Therapy, Gait, Safety, Therapeutic Exercise, Transfers Treatment Duration: Nov 26, 2020 Frequency: At least 5 of 7 days/Wk (IRF) Estimated Hrs Per Day: 1.5 hours per day Patient and/or Family Agrees t: Yes Safety Risks/Education Patient Education: Gait Training, Transfer Techniques, Correct Positioning, Safety Issues Teaching Recipient: Patient Teaching Methods: Demonstration, Discussion Response to Teaching: Verbalize Understanding, Return Demonstration Time/GCodes Time In: 1430 Time Out: 1500 Total Billed Treatment Time: 30 Total Billed Treatment 1 visit: FA: 15' EX: 15' MEGAN WEBER PT Nov 08, 2020 15:23
[2020-11-08 16:54] VITALS: BP 116/60
[2020-11-08 21:25] VITALS: BP 179/83
[2020-11-08] MEDS: glipiZIDE 5 MG (GLUCOTROL) TAB PO SCH (21:26)
[2020-11-08] MEDS: LORATADINE (CLARITIN) 10 MG TAB PO SCH (21:26)
[2020-11-09] MEDS: CEFEPIME INJECTION 1,000 MG in WATER (STERILE) FOR INJECTION 10 ML IV SCH ×3 (00:23→12:08)
--- NOTE | 2020-11-09 05:29 | PM&R Progress Note ---
Subjective HPI/CC On Admission Date Seen by Provider: Nov 09, 2020 Time Seen by Provider: 09:00 Subjective/Events-last exam 11/09/20: Pt doing pretty well Loop recorder placed yesterday IV antibiotics maintained for pneumonia Toothache in the upper molar area Girlfriend brought the CPAP in and he slept very well last night 11/08/20: Pt doing really well Procalcitonin down since I initiated antibiotics for pneumonia without sepsis CXR will be followed up Creatinine 1.45 WBC 14,000 down from 18.8 Needs his CPAP brought in by his girlfriend 11/07/20: Patient doing well Lungs are coarse and noted elevated wbc but he did have steroid injection in his right knee CXR and PCT obtained and noted early infiltrate so will start abx Nebs already ordered Dr Alexander may place loop recorder tomorrow BM 11/0611/06/20: Patient doing well Settling in well in IRF Diarrhea prompted addition of Imodium Tingling in right fingers Monitoring right knee pain improved from injection Review of Systems General: Fatigue, Malaise Neurological: Weakness, Incoordination Focused Exam Lactate Level 11/07/20 13:14: Lactic Acid Level 1.92 Objective Exam Vital Signs Vital Signs Date Time Temp Pulse Resp B/P (MAP) Pulse Ox O2 Delivery O2 Flow Rate FiO2 11/09/20 21:18 73 18 174/81 (112) 92 Room Air 11/09/20 16:19 36.0 11/08/20 02:22 21 Capillary Refill : General Appearance: No Apparent Distress, WD/WN, Chronically ill, Obese HEENT: PERRL/EOMI, Normal ENT Inspection, Pharynx Normal Neck: Full Range of Motion, Normal Inspection, Non Tender, Supple, Carotid Bruit Respiratory: Chest Non Tender, No Accessory Muscle Use, No Respiratory Distress, Decreased Breath Sounds Cardiovascular: Regular Rate, Rhythm, No Gallop, No JVD, No Murmur, Normal Peripheral Pulses Gastrointestinal: Normal Bowel Sounds, No Organomegaly, No Pulsatile Mass, Non Tender, Soft Back: Normal Inspection, No CVA Tenderness, No Vertebral Tenderness Extremity: Normal Capillary Refill, Normal Inspection, Normal Range of Motion, Non Tender, No Calf Tenderness, Pedal Edema Neurologic/Psychiatric: Alert, Oriented x3, No Motor/Sensory Deficits, Normal Mood/Affect, Motor Weakness (right sided 3/5 hand and right leg) Skin: Normal Color, Warm/Dry Lymphatic: No Adenopathy Results/Procedures Lab Patient resulted labs reviewed. FIM Transfers Therapy Code Descriptions/Definitions Functional [place] Measure: 0=Not Assessed/NA 4=Minimal Assistance 1=Total Assistance 5=Supervision or Setup 2=Maximal Assistance 6=Modified [place] 3=Moderate Assistance 7=Complete IndependenceSCALE: Activities may be completed with or without assistive devices. 5-Jotrcqeuzy-imvzxfp completes the activity by him/herself with no assistance from a helper. 5-Set-up or Clean-up Assistance-helper sets up or cleans up; patient completes activity. [place] assists only prior to or following the activity. 4-Supervision or Touching Assistance-helper provides verbal cues and/or touching/steadying and/or contact guard assistance as patient completes activity. Assistance may be provided throughout the activity or intermittently. 3-Partial/Moderate Assistance-helper does LESS THAN HALF the effort. [place] lifts, holds or supports trunk or limbs, but provides less than half the effort. 2-Substantial/Maximal Assistance-helper does MORE THAN HALF the effort. [place] lifts or holds trunk or limbs and provides more than half the effort. 4-Mlyqhxxxf-pdeuhn does ALL the effort. Patient does none of the effort to complete the activity. Or, the assistance of 2 or more helpers is required for the patient to complete the activity. If activity was not attempted, code reason: 7-Patient Refused. 9-Not Applicable-not attempted and the patient did not perform the activity before the current illness, exacerbation or injury. 10-Not Attempted due to Environmental Limitations-(lack of equipment, weather restraints, etc.). 88-Not Attempted due to Medical Conditions or Safety Concerns. Roll Left to Right (QC): 6 Sit to Lying (QC): 6 Sit to Stand (QC): 4 Chair/Jab-xl-Qgxwm Xfer(QC): 4 Car Transfer (QC): 4 Gait Training Does the Patient Walk?: Yes Distance: 100' x2 Walk 10 feet (QC): 4 Walk 50 ft with 2 Turns(QC): 4 Walk 150 ft (QC): 4 Walking 10ft/uneven surface-QC: 4 Gait Persons Needed: 1 Gait Assistive Device: FWW Wheelchair Training Does the Pt Use a Wheelchair?: Yes Distance: 50' Wheel 50 ft with 2 turns (QC): 3 Wheel 150 ft (QC): 88 Type of Wheelchair: Manual Stair Training #of Steps: 1 1 Step (curb) (QC): 4 4 Steps (QC): 88 12 Steps (QC): 88 Balance Picking up an Object (QC): 5 (with welder) ADL-Treatment Eating (QC): 6 (Pt. finishing lunch when OT entered.) Oral Hygiene (QC): 7 Shower/Bathe Self (QC): 3 (Based on pt report: Assist bilateral LE lower legs/feet. Pt able to wash BUEs, chest, abdomen, buttocks, thighs, and periarea. ) Upper Body Dressing (QC): 5 Lower Body Dressing (QC): 3 (Pt. is able to doff/don slipper socks with min assist and increased time, without use of AE. OT did introduce AE, and pt. practiced with it. Overall, requires mod assist with AE. Pt. would like to keep trying however.) On/Off Footwear (QC): 3 (Pt able to remove socks, assit to don RLE gripper socks.) Toileting Hygiene (QC): 4 (CGA, pt able to complete clothing management and hygiene. ) Assessment/Plan Assessment and Plan Assess & Plan/Chief Complaint Assessment: CVA with right sided weakness DM HTN HLP JULIANA on CPAP AMI THC use Smoker Anxiety Depression Early PNA started abx 11/07/20 without evidence of sepsis Plan: Monitor closely DM management IRF protocol 11/06/20: Monitor sugar and BP Improved right knee from injection Monitor diarrhea 11/07/20: Treat early PNA Monitor closely 11/08/20: Continue abx Nebs O2 Needs CPAP from home 11/10/11: s/p CPAP from home DC tomorrow (1) CVA (cerebral vascular accident) (2) Hypertension Status: Chronic (3) Hyperlipemia Status: Chronic (4) Diabetes Status: Chronic (5) Right sided weakness Status: Acute (6) Acute kidney injury Status: Acute (7) Non-compliance Status: Acute (8) Marijuana use Status: Acute TAMRA HORTON DO Nov 09, 2020 05:29
[2020-11-09] MEDS: inSUlin ASPART (NovoLOG) 1 UNIT/0.01 ML (CHARGE PER UNIT) SC SCH ×4 (06:00→21:28)
[2020-11-09 06:44] VITALS: BP 122/73
[2020-11-09 08:00] VITALS: BP 161/75
[2020-11-09] MEDS: ASPIRIN E.C. 325 MG (ECOTRIN) TABLET PO SCH (08:32)
[2020-11-09] MEDS: VITAMIN D3 25 MCG (1,000 UNITS) TABLET PO SCH (08:32)
[2020-11-09] MEDS: CLOPIDOGREL 75 MG (PLAVIX) TABLET PO SCH (08:32)
[2020-11-09] MEDS: amLODIPine 5 MG (NORVASC) TAB PO SCH (08:32)
[2020-11-09] MEDS: OMEGA 3 (FISH OIL) 1000 MG CAP PO SCH ×2 (08:32→21:21)
[2020-11-09] MEDS: eZETimibe 10 MG (ZETIA) TABLET PO SCH (08:32)
[2020-11-09] MEDS: CARVEDILOL 12.5 MG (COREG) TABLET PO SCH ×2 (08:32→21:25)
[2020-11-09] MEDS: lisINopril 40 MG (PRINIVIL) TABLET PO SCH (08:32)
[2020-11-09] MEDS: FUROSEMIDE 20 MG (LASIX) TAB PO SCH (08:32)
[2020-11-09] MEDS: AZITHROMYCIN INJECTION 500 MG in NS (IVPB) 250 ML IV SCH (08:37)
[2020-11-09] MEDS: ASCORBIC ACID (VIT C) 500 MG TABLET PO SCH (08:41)
[2020-11-09] MEDS: ZINC SULFATE 220 MG CAPSULE PO SCH (08:41)
[2020-11-09] MEDS: GABAPENTIN 300 MG (NEURONTIN) CAP PO SCH ×3 (08:41→21:25)
[2020-11-09] MEDS: SENNA W/DOCUSATE (SENOKOT S) TABLET PO SCH ×2 (08:41→21:20)
[2020-11-09] MEDS: DOCUSATE SODIUM 100 MG (COLACE) CAP PO SCH ×2 (08:41→21:20)
[2020-11-09] MEDS: polyethylene glycoL POWDER 17 GM (MIRALAX) PACK PO SCH ×2 (08:41→21:20)
[2020-11-09] MEDS: RT-ALBUTEROL/IPRATROPIUM 3 ML (DUONEB) VIAL INH SCH ×2 (09:06→18:29)
--- NOTE | 2020-11-09 09:26 | Cardiology Progress Note ---
Subjective Date Seen by Provider: Nov 09, 2020 Time Seen by Provider: 08:20 Subjective/Events-last exam Patient is sitting up in chair, denies any chest pain or dyspnea. Review of Systems General: No Chills, No Night Sweats, No Fatigue, No Malaise, No Appetite, No Other HEENT: No Head Aches, No Visual Changes, No Eye Pain, No Ear Pain, No Dysphasia, No Sinus Congestion, No Post Nasal Drip, No Sore Throat, No Other Pulmonary: No Dyspnea, No Cough, No Pleuritic Chest Pain, No Other Cardiovascular: No: Chest Pain, Palpitations, Orthopnea, Paroxysmal Noc. Dyspnea, Edema, Lt Headedness, Other Focused Exam Lactate Level 11/07/20 13:14: Lactic Acid Level 1.92 Objective-Cardiology Exam Last Set of Vital Signs Vital Signs 11/08/20 11/09/20 11/09/20 02:22 06:44 09:06 Temp 36.4 Pulse 71 Resp 18 B/P (MAP) 122/73 (89) Pulse Ox 94 O2 Delivery Room Air FiO2 21 Capillary Refill : I&O Intake and Output 11/09/20 00:00 Intake Total 1600 ml Balance 1600 ml Intake Oral 1350 ml IV Total 250 ml # Voids 12 General: Alert, Oriented X3, Cooperative HEENT: Atraumatic, PERRLA Neck: Supple, No JVD, No Thyromegaly Lungs: Clear to Auscultation, Normal Air Movement Heart: Regular Rate, Normal S1, Normal S2, No Murmurs Abdomen: Normal Bowel Sounds, Soft, No Tenderness, No Hepatosplenomegaly, No Masses Extremities: No Clubbing, No Cyanosis, No Edema, Normal Pulses, No Tenderness/Swelling Skin: No Rashes, No Breakdown, No Significant Lesion Neuro: Normal Gait, Normal Speech, Strength at 5/5 X4 Ext, Normal Tone, Sensation Intact Psych/Mental Status: Mental Status NL, Mood NL A/P-Cardiology Admission Diagnosis CVA Hypertension Hyperlipidemia COPD Assessment/Plan Acute CVA with right-sided weakness, work-up so far has been negative with CT scan, Carotid Us was negative, treated with aspirin and Plavix, telemetry failed to detect any arrhythmia, s/p loop monitor implant Elevated troponin, type II myocardial infarction, no chest pain, no acute EKG changes. Conservative management recommended, patient was started on aspirin and Plavix. Recent pneumonia, resolved. Acute renal failure, Improved, renal function are back to normal Hypertension,monitor blood pressure Hyperlipidemia, monitor lipids Obstructive sleep apnea, using CPAP at home Obesity, discussed weight loss Diabetes mellitus, followed and managed by primary care physician History of anxiety, depression. Followed and managed by primary care physician Patient was seen and evaluated with Johana, examination performed, management plan was discussed, agree with the current scribed note, I made few changes to the note using Italic font Patient was seen at bedside, sitting comfortably Site of the loop monitor insertion is healing well Blood pressure is stable Continue to monitor, no changes are recommended Supervisory-Addendum Brief Supervisory Addendum Participated in pt care: history, MDM, physical Personally performed: exam, history, MDM Care discussed with: JOHANA TEIXEIRA Nov 09, 2020 09:26 SMITA PEÑA MD Nov 09, 2020 13:24
--- NOTE | 2020-11-09 10:18 | Physical Therapy Daily Note ---
PT Daily Note-Current Subjective Pt c/o knee pain upon arrival and states therapy worked him hard yesterday. Pt was asking about when he will be discharged and asking why he needs so much therapy. Pt agrees to PT. Pain Numeric Pain Scale: 5-Moderate Pain Location: Right Location Body Site: Knee Pain Description: Ache Mental Status Patient Orientation: Person, Confused, Place, Time, Situation Attachments: Other-See Comments (mask while out of room), IV Transfers SCALE: Activities may be completed with or without assistive devices. 9-Dlxhimpkrx-qrwnmuk completes the activity by him/herself with no assistance from a helper. 5-Set-up or Clean-up Assistance-helper sets up or cleans up; patient completes activity. [place] assists only prior to or following the activity. 4-Supervision or Touching Assistance-helper provides verbal cues and/or touching/steadying and/or contact guard assistance as patient completes activity. Assistance may be provided throughout the activity or intermittently. 3-Partial/Moderate Assistance-helper does LESS THAN HALF the effort. [place] lifts, holds or supports trunk or limbs, but provides less than half the effort. 2-Substantial/Maximal Assistance-helper does MORE THAN HALF the effort. [place] lifts or holds trunk or limbs and provides more than half the effort. 0-Vzplxjerc-yxtuvy does ALL the effort. Patient does none of the effort to complete the activity. Or, the assistance of 2 or more helpers is required for the patient to complete the activity. If activity was not attempted, code reason: 7-Patient Refused. 9-Not Applicable-not attempted and the patient did not perform the activity before the current illness, exacerbation or injury. 10-Not Attempted due to Environmental Limitations-(lack of equipment, weather restraints, etc.). 88-Not Attempted due to Medical Conditions or Safety Concerns. Sit to Lying (QC): 5 Lying to Sitting/Side of Bed(Q: 5 Sit to Stand (QC): 5 Weight Bearing Full Weight Bearing Full Weight Bearing Gait Training Does the Patient Walk?: Yes Distance: 125' x 2 Walk 10 feet (QC): 5 Walk 50 ft with 2 Turns(QC): 4 Gait Persons Needed: 1 Gait Assistive Device: FWW Pt reports his knee doesn't hurt when walking. Pt is bears a lot weight through UE. RLE is much weaker than LLE. Exercises Supine Ex: Bridging, Short Arc Quads, Straight leg raise Supine Reps: 12 Seated Therapy Exercises: Ankle pumps, Sit to stand, Long arc quads, Hamstring Curls, Glut set Seated Reps: 15 Standing: Hip Abduction, Marching, Mini squats Standing Reps: 10 Treatments TF from recliner and amb to therapy gym. TF to mat performed seated exs. Sit to lying performed supine exs. Lying to sitting then amb to // bars and performs standing exs. Pt IV finished during Rx and informed nurse of this. Pt amb back to room and TF to recliner. Assessment Current Status: Good Progress Pt needs skilled verbal cues about staying within FWW while amb and keep upright posture. Pt needs rest breaks after performing LAQ and exs in // bars to help w/ knee pain. Pt amb 125' x 2 which shows improved endurance from yesterday. Pt in recliner call light in hand and all needs met. PT Short Term Goals Short Term Goals Time Frame: Nov 12, 2020 Roll Left & Right: 6 Sit to lyin Lying to sitting on side of be: 6 Sit to stand: 4 (SBA) Chair/lat-wf-llfkr transfer: 4 (SBA) Toilet transfer: 4 (SBA) Car transfer: 4 (SBA) Walk 10 feet: 4 (SBA) Walk 50 feet with two turns: 4 (SBA) 1 step (curb): 4 (SBA) PT Fpc Goals Metal Window Frame Maker Goals PT Fpc Goals Time Frame: Nov 26, 2020 Roll Left & Right (QC): 6 Sit to Lying (QC): 6 Lying-Sitting on Side/Bed(QC): 6 Sit to Stand (QC): 6 Chair/Eik-od-Pkmmo Xfer(QC): 6 Toilet Transfer (QC): 6 Car Transfer (QC): 6 Does the Patient Walk: Yes Walk 10 feet (QC): 6 Walk 50ft with 2 Turns (QC): 6 Walk 150 ft (QC): 88 Walking 10ft on Uneven Surface: 6 1 Step (curb) (QC): 6 4 Steps (QC): 88 12 Steps (QC): 88 Picking up an Object (QC): 6 Wheel 50 feet with 2 turns (QC: 6 Wheel 150 feet: 6 PT Plan Problem List Problem List: Activity Tolerance Treatment/Plan Treatment Plan: Continue Plan of Care Treatment Plan: Bed Mobility, Education, Functional Activity Andrei, Functional Strength, Group Therapy, Gait, Safety, Therapeutic Exercise, Transfers Treatment Duration: Nov 26, 2020 Frequency: At least 5 of 7 days/Wk (IRF) Estimated Hrs Per Day: 1.5 hours per day Patient and/or Family Agrees t: Yes Safety Risks/Education Patient Education: Gait Training, Correct Positioning, Safety Issues Teaching Recipient: Patient Teaching Methods: Demonstration, Discussion Response to Teaching: Verbalize Understanding, Return Demonstration Time/GCodes Time In: 915 Time Out: 1015 Total Billed Treatment Time: 60 Total Billed Treatment 1, EX x 3 (50m), GT (10m) NATALI DRUMMOND BLENDING COORDINATOR Nov 09, 2020 10:18
--- NOTE | 2020-11-09 11:57 | Speech Therapy Daily Note ---
Speech Daily Progress Note Subjective Date Seen by Provider: Nov 09, 2020 Time Seen by Provider: 00:30 Pt was alert and pleasant. He was cooperative and reported looking forward to going home. Objective Pt completed recall of information tasks at 60% with moderate cues. Assessment Assessment Current Status: Good Progress Treatment Plan Continue Plan of Care Speech Short Term Goals Short Term Goals Short Term Goals Pt will complete memory tasks at 75% or greater with minimal cues. Pt will complete recall of information tasks at 75% or greater with minimal cues. Speech Prison Goals Waiter/Waitress Cocktail Lounge Goals Pt will improve cognitive communication skills necessary for safety and daily living tasks with minimal assist. Speech-Plan Patient/Family Goals Patient/Family Goals: Pt plans to return home to his girlfriend. Treatment Plan Speech Therapy Treatment Plan: Continue Plan of Care Treatment Duration: Nov 05, 2020 Frequency: 4 times per week (Patient will receive skilled AT 4-5x per week) Estimated Hrs Per Day: .5 hour per day Rehab Potential: Fair Barriers to Learning: Cognitive deficits Pt/Family Agrees to Plan: Yes Safety Risks/Education Teaching Recipient: Patient Teaching Methods: Demonstration, Discussion Response to Teaching: Verbalize Understanding, Return Demonstration, Reinforcement Needed Education Topics Provided: Compensatory memory strategies Time Speech Therapy Time In: 10:30 Speech Therapy Time Out: 11:00 Total Billed Time: 30 Billed Treatment Time 1, SLTS No QUALITY CODES: EXPRESSION OF IDEAS/WANTS: 4 UNDERSTANDING VERBAL CONTENT: 4 BRIEF INTERVIEW MENTAL STATUS: YES REPETITION OF 3 WORDS: 3 TEMPORAL ORIENTATION: YEAR: CORRECT, MONTH: CORRECT, DAY: CORRECT RECALL SOCK: YES WITH CUE, COLOR: YES WITH CUE, BED: YES WITH CUE MEMORY/RECALL ABILITY: SEASON, THAT HE IS IN THE [facility] MIREILLELAUREN Nov 09, 2020 11:57
--- NOTE | 2020-11-09 15:02 | Physical Therapy Daily Note ---
PT Daily Note-Current Subjective Pt was asleep in recliner upon arrival. Pt states the therapy is what is hurting his knee. Pt is eager to go home and wonders why he does so much therapy. Pt consented to Rx. Pain Numeric Pain Scale: 7 Location: Right Location Body Site: Knee Pain Description: Ache Mental Status Patient Orientation: Person, Confused, Place, Time, Situation Attachments: Other-See Comments (mask while out of room) Transfers SCALE: Activities may be completed with or without assistive devices. 2-Hyaqsaodbb-tqqsmak completes the activity by him/herself with no assistance from a helper. 5-Set-up or Clean-up Assistance-helper sets up or cleans up; patient completes activity. [place] assists only prior to or following the activity. 4-Supervision or Touching Assistance-helper provides verbal cues and/or touching/steadying and/or contact guard assistance as patient completes activi ty. Assistance may be provided throughout the activity or intermittently. 3-Partial/Moderate Assistance-helper does LESS THAN HALF the effort. [place] lifts, holds or supports trunk or limbs, but provides less than half the effort. 2-Substantial/Maximal Assistance-helper does MORE THAN HALF the effort. [place] lifts or holds trunk or limbs and provides more than half the effort. 1-Yqvpetaqe-lzbmpu does ALL the effort. Patient does none of the effort to complete the activity. Or, the assistance of 2 or more helpers is required for the patient to complete the activity. If activity was not attempted, code reason: 7-Patient Refused. 9-Not Applicable-not attempted and the patient did not perform the activity before the current illness, exacerbation or injury. 10-Not Attempted due to Environmental Limitations-(lack of equipment, weather restraints, etc.). 88-Not Attempted due to Medical Conditions or Safety Concerns. Sit to Stand (QC): 5 Weight Bearing Full Weight Bearing Full Weight Bearing Gait Training Does the Patient Walk?: Yes Distance: 125' Walk 10 feet (QC): 5 Walk 50 ft with 2 Turns(QC): 5 Gait Assistive Device: FWW Treatments Pt TF from chair and amb to therapy gym. Pt left w/ OT at the end of Rx. Assessment Current Status: Good Progress Pt needed a [facility] to gym for knee pain. Provided skilled verbal cues for upright posture while amb and to stay within FWW. Pt left w/ OT in gym at end of Rx. PT Short Term Goals Short Term Goals Time Frame: Nov 12, 2020 Roll Left & Right: 6 Sit to lyin Lying to sitting on side of be: 6 Sit to stand: 4 (SBA) Chair/ndx-cc-zcjlu transfer: 4 (SBA) Toilet transfer: 4 (SBA) Car transfer: 4 (SBA) Walk 10 feet: 4 (SBA) Walk 50 feet with two turns: 4 (SBA) 1 step (curb): 4 (SBA) PT Burr Filer Goals Burr Filer Goals PT Alf Goals Time Frame: Nov 26, 2020 Roll Left & Right (QC): 6 Sit to Lying (QC): 6 Lying-Sitting on Side/Bed(QC): 6 Sit to Stand (QC): 6 Chair/Xou-wh-Fikpp Xfer(QC): 6 Toilet Transfer (QC): 6 Car Transfer (QC): 6 Does the Patient Walk: Yes Walk 10 feet (QC): 6 Walk 50ft with 2 Turns (QC): 6 Walk 150 ft (QC): 88 Walking 10ft on Uneven Surface: 6 1 Step (curb) (QC): 6 4 Steps (QC): 88 12 Steps (QC): 88 Picking up an Object (QC): 6 Wheel 50 feet with 2 turns (QC: 6 Wheel 150 feet: 6 PT Plan Problem List Problem List: Activity Tolerance Treatment/Plan Treatment Plan: Continue Plan of Care Treatment Plan: Bed Mobility, Education, Functional Activity Andrei, Functional Strength, Group Therapy, Gait, Safety, Therapeutic Exercise, Transfers Treatment Duration: Nov 26, 2020 Frequency: At least 5 of 7 days/Wk (IRF) Estimated Hrs Per Day: 1.5 hours per day Patient and/or Family Agrees t: Yes Safety Risks/Education Patient Education: Gait Training, Correct Positioning, Safety Issues Teaching Recipient: Patient Teaching Methods: Demonstration, Discussion Response to Teaching: Verbalize Understanding, Return Demonstration Time/GCodes Time In: 1300 Time Out: 1315 Total Billed Treatment Time: 15 Total Billed Treatment 1, GT BHANUIVETNATALI PROFESSOR OF CHEMICAL ENGINEERING Nov 09, 2020 15:02
--- NOTE | 2020-11-09 15:19 | Occupational Ther Daily Note ---
OT Current Status-Daily Note Subjective No pain reported. Mental Status/Objective Patient Orientation: Person, Place ADL-Treatment Therapy Code Descriptions/Definitions Functional [place] Measure: 0=Not Assessed/NA 4=Minimal Assistance 1=Total Assistance 5=Supervision or Setup 2=Maximal Assistance 6=Modified [place] 3=Moderate Assistance 7=Complete IndependenceSCALE: Activities may be completed with or without assistive devices. 3-Nfopqotnnc-hihtbco completes the activity by him/herself with no assistance from a helper. 5-Set-up or Clean-up Assistance-helper sets up or cleans up; patient completes activity. [place] assists only prior to or following the activity. 4-Supervision or Touching Assistance-helper provides verbal cues and/or touching/steadying and/or contact guard assistance as patient completes activity. Assistance may be provided throughout the activity or intermittently. 3-Partial/Moderate Assistance-helper does LESS THAN HALF the effort. [place] lifts, holds or supports trunk or limbs, but provides less than half the effort. 2-Substantial/Maximal Assistance-helper does MORE THAN HALF the effort. [place] lifts or holds trunk or limbs and provides more than half the effort. 7-Axgtbzuaj-rpyixq does ALL the effort. Patient does none of the effort to complete the activity. Or, the assistance of 2 or more helpers is required for the patient to complete the activity. If activity was not attempted, code reason: 7-Patient Refused. 9-Not Applicable-not attempted and the patient did not perform the activity before the current illness, exacerbation or injury. 10-Not Attempted due to Environmental Limitations-(lack of equipment, weather restraints, etc.). 88-Not Attempted due to Medical Conditions or Safety Concerns. Eating (QC): 6 Oral Hygiene (QC): 6 (Seated at sink.) Shower/Bathe Self (QC): 5 (Set up) Upper Body Dressing (QC): 5 Lower Body Dressing (QC): 5 On/Off Footwear: 6 Toileting Hygiene (QC): 7 Toilet Transfer (QC): 4 Other Treatment Pt. completed shower/dressing tasks this date. Ambulated with walker to therapy gym afterwards. Requires CGA with walker for safety. However, pt. reports that he sometimes has some difficulty due to his "foot." Pt. completed 10 minutes on arm bike x mod resistance for overall strengthening. Tolerated well. Education OT Patient Education: Correct positioning, Exercise program, Modified ADL techn iques, Progress toward Goal/Update tx plan, Purpose of tx/functional activities, Reviewed precautions, Rehab process, Transfer techniques Teaching Recipient: Patient Teaching Methods: Demonstration, Discussion Response to Teaching: Verbalize Understanding, Return Demonstration, Reinforcement Needed OT Short Term Goals Short Term Goals Time Frame: Nov 12, 2020 Shower/bathe self: 5 Lower body dressin Putting on/taking off footwear: 5 OT Wad Lubricator Goals Wad Lubricator Goals Time Frame: Nov 26, 2020 Eating (QC): 6 Oral Hygiene (QC): 6 Toileting Hygiene (QC): 6 Shower/Bathe Self (QC): 6 Upper Body Dressing (QC): 6 Lower Body Dressing (QC): 6 On/Off Footwear (QC): 6 Additional Goals: 1-Demonstrate ADL Tasks, 2-Verbalize Understanding, 3-ImproveStrength/Andrei 1=Demonstrate adherence to instructed precautions during ADL tasks. 2=Patient will verbalize/demonstrate understanding of assistive devices/modifications for ADL. 3=Patient will improve strength/tolerance for activity to enable patient to perform ADL's. OT Education/Plan Problem List/Assessment Assessment: Decreased Activ Tolerance, Impaired I ADL's Discharge Recommendations Plan/Recommendations: Continue POC Treatment Plan/Plan of Care Treatment,Training & Education: Yes Patient would benefit from OT for education, treatment and training to promote independence in ADL's, mobility, safety and/or upper extremity function for ADL's. Plan of Care: ADL Retraining, Functional Mobility, Group Exercise/Act as Ind, UE Funct Exercise/Act Treatment Duration: Nov 26, 2020 Frequency: At least 5 of 7 days/Wk (IRF) Estimated Hrs Per Day: 1.5 hours per day Agreement: Yes Rehab Potential: Fair Time/GCodes Start Time: 11:00 Stop Time: 12:00 Total Time Billed (hr/min): 60 Billed Treatment Time 1, ADL x 45minutes, Ex x 15minutes RON METZ OT Nov 09, 2020 15:19
--- NOTE | 2020-11-09 15:23 | Occupational Ther Daily Note ---
OT Current Status-Daily Note Subjective No pain reported. ADL-Treatment Therapy Code Descriptions/Definitions Functional [place] Measure: 0=Not Assessed/NA 4=Minimal Assistance 1=Total Assistance 5=Supervision or Setup 2=Maximal Assistance 6=Modified [place] 3=Moderate Assistance 7=Complete IndependenceSCALE: Activities may be completed with or without assistive devices. 2-Tnsedwrujo-qilvvbh completes the activity by him/herself with no assistance from a helper. 5-Set-up or Clean-up Assistance-helper sets up or cleans up; patient completes activity. [place] assists only prior to or following the activity. 4-Supervision or Touching Assistance-helper provides verbal cues and/or touching/steadying and/or contact guard assistance as patient completes activity. Assistance may be provided throughout the activity or intermittently. 3-Partial/Moderate Assistance-helper does LESS THAN HALF the effort. [place] lifts, holds or supports trunk or limbs, but provides less than half the effort. 2-Substantial/Maximal Assistance-helper does MORE THAN HALF the effort. [place] lifts or holds trunk or limbs and provides more than half the effort. 2-Xpdktehiy-djyomu does ALL the effort. Patient does none of the effort to complete the activity. Or, the assistance of 2 or more helpers is required for the patient to complete the activity. If activity was not attempted, code reason: 7-Patient Refused. 9-Not Applicable-not attempted and the patient did not perform the activity before the current illness, exacerbation or injury. 10-Not Attempted due to Environmental Limitations-(lack of equipment, weather restraints, etc.). 88-Not Attempted due to Medical Conditions or Safety Concerns. Other Treatment Pt. seen in therapy gym. Pt. completed 5 bilateral UE exercises, x 3 lb. dumbbell, x 15 reps each in all planes. Worked on increased overall strength. Pt. ambulated back to room with CGA and walker. Transferred to chair. All needs met. Education OT Patient Education: Correct positioning, Exercise program, Progress toward Goal/Update tx plan, Purpose of tx/functional activities, Reviewed precautions, Rehab process, Transfer techniques Teaching Recipient: Patient Teaching Methods: Demonstration, Discussion Response to Teaching: Verbalize Understanding, Return Demonstration OT Short Term Goals Short Term Goals Time Frame: Nov 12, 2020 Shower/bathe self: 5 Lower body dressin Putting on/taking off footwear: 5 OT Museum Curator Goals Museum Curator Goals Time Frame: Nov 26, 2020 Eating (QC): 6 Oral Hygiene (QC): 6 Toileting Hygiene (QC): 6 Shower/Bathe Self (QC): 6 Upper Body Dressing (QC): 6 Lower Body Dressing (QC): 6 On/Off Footwear (QC): 6 Additional Goals: 1-Demonstrate ADL Tasks, 2-Verbalize Understanding, 3- ImproveStrength/Andrei 1=Demonstrate adherence to instructed precautions during ADL tasks. 2=Patient will verbalize/demonstrate understanding of assistive devices/modifications for ADL. 3=Patient will improve strength/tolerance for activity to enable patient to perform ADL's. OT Education/Plan Problem List/Assessment Assessment: Decreased Activ Tolerance Discharge Recommendations Plan/Recommendations: Continue POC Treatment Plan/Plan of Care Treatment,Training & Education: Yes Patient would benefit from OT for education, treatment and training to promote independence in ADL's, mobility, safety and/or upper extremity function for ADL's. Plan of Care: ADL Retraining, Functional Mobility, Group Exercise/Act as Ind, UE Funct Exercise/Act Treatment Duration: Nov 26, 2020 Frequency: At least 5 of 7 days/Wk (IRF) Estimated Hrs Per Day: 1.5 hours per day Agreement: Yes Rehab Potential: Fair Time/GCodes Start Time: 13:15 Stop Time: 13:30 Total Time Billed (hr/min): 15 Billed Treatment Time 1, EX RON METZ OT Nov 09, 2020 15:23
[2020-11-09] MEDS ORDERED: FURO20TA4 PO (15:37)
[2020-11-09] MEDS ORDERED: CEFD300C3 PO (15:37)
[2020-11-09] MEDS ORDERED: ASPI325T32 PO (15:37)
[2020-11-09 16:19] VITALS: BP 149/79
[2020-11-09] MEDS: diphenhydrAMINE 25 MG TAB (BENADRYL) PO PRN ×2 (18:25→23:54)
[2020-11-09 21:18] VITALS: BP 174/81
[2020-11-09] MEDS: LORATADINE (CLARITIN) 10 MG TAB PO SCH (21:21)
[2020-11-09] MEDS: CEFDINIR 300 MG (OMNICEF) CAP PO SCH (21:24)
[2020-11-09] MEDS: glipiZIDE 5 MG (GLUCOTROL) TAB PO SCH (21:25)
[2020-11-10 05:59] VITALS: BP 116/62
[2020-11-10] MEDS: inSUlin ASPART (NovoLOG) 1 UNIT/0.01 ML (CHARGE PER UNIT) SC SCH ×2 (06:00→10:59)
[2020-11-10] MEDS: RT-ALBUTEROL/IPRATROPIUM 3 ML (DUONEB) VIAL INH SCH (07:23)
[2020-11-10] MEDS: CLOPIDOGREL 75 MG (PLAVIX) TABLET PO SCH (08:22)
[2020-11-10] MEDS: OMEGA 3 (FISH OIL) 1000 MG CAP PO SCH (08:22)
[2020-11-10] MEDS: VITAMIN D3 25 MCG (1,000 UNITS) TABLET PO SCH (08:22)
[2020-11-10] MEDS: ZINC SULFATE 220 MG CAPSULE PO SCH (08:22)
[2020-11-10] MEDS: eZETimibe 10 MG (ZETIA) TABLET PO SCH (08:23)
[2020-11-10] MEDS: GABAPENTIN 300 MG (NEURONTIN) CAP PO SCH (08:23)
[2020-11-10] MEDS: ASCORBIC ACID (VIT C) 500 MG TABLET PO SCH (08:23)
[2020-11-10] MEDS: CARVEDILOL 12.5 MG (COREG) TABLET PO SCH (08:23)
[2020-11-10] MEDS: CEFDINIR 300 MG (OMNICEF) CAP PO SCH (08:23)
[2020-11-10] MEDS: ASPIRIN E.C. 325 MG (ECOTRIN) TABLET PO SCH (08:24)
[2020-11-10] MEDS: amLODIPine 5 MG (NORVASC) TAB PO SCH (08:24)
[2020-11-10] MEDS: lisINopril 40 MG (PRINIVIL) TABLET PO SCH (08:24)
[2020-11-10] MEDS: FUROSEMIDE 20 MG (LASIX) TAB PO SCH (08:24)
[2020-11-10] MEDS: polyethylene glycoL POWDER 17 GM (MIRALAX) PACK PO SCH (08:25)
[2020-11-10] MEDS: SENNA W/DOCUSATE (SENOKOT S) TABLET PO SCH (08:25)
[2020-11-10] MEDS: DOCUSATE SODIUM 100 MG (COLACE) CAP PO SCH (08:25)
--- NOTE | 2020-11-10 08:32 | Cardiology Progress Note ---
Subjective Date Seen by Provider: Nov 10, 2020 Time Seen by Provider: 08:31 Subjective/Events-last exam Sitting up at bedside, eating breakfast, denies any chest pain. Focused Exam Lactate Level Objective-Cardiology Exam Last Set of Vital Signs Vital Signs 11/08/20 11/10/20 02:22 15:00 Temp 35.9 Pulse 67 Resp 19 B/P (MAP) 166/68 Pulse Ox 93 O2 Delivery Room Air FiO2 21 Capillary Refill : I&O Intake and Output 11/10/20 00:00 Intake Total 1630 ml Balance 1630 ml Intake Oral 1350 ml IV Total 280 ml # Voids 4 General: Alert, Oriented X3, Cooperative HEENT: Atraumatic, PERRLA Neck: Supple, No JVD, No Thyromegaly Lungs: Clear to Auscultation, Normal Air Movement Heart: Regular Rate, Normal S1, Normal S2, No Murmurs Abdomen: Normal Bowel Sounds, Soft, No Tenderness, No Hepatosplenomegaly, No Masses Extremities: No Clubbing, No Cyanosis, No Edema, Normal Pulses, No Tenderness/Swelling Skin: No Rashes, No Breakdown, No Significant Lesion Neuro: Normal Gait, Normal Speech, Strength at 5/5 X4 Ext, Normal Tone, Sensation Intact Psych/Mental Status: Mental Status NL, Mood NL A/P-Cardiology Admission Diagnosis CVA Hypertension Hyperlipidemia COPD Assessment/Plan Acute CVA with right-sided weakness, work-up so far has been negative with CT scan, Carotid Us was negative, treated with aspirin and Plavix, telemetry failed to detect any arrhythmia, s/p loop monitor implant Elevated troponin, type II myocardial infarction, no chest pain, no acute EKG changes. Conservative management recommended, patient was started on aspirin and Plavix. Recent pneumonia, resolved. Acute renal failure, Improved, renal function are back to normal Hypertension,monitor blood pressure Hyperlipidemia, monitor lipids Obstructive sleep apnea, using CPAP at home Obesity, discussed weight loss Diabetes mellitus, followed and managed by primary care physician History of anxiety, depression. Followed and managed by primary care physician OK for discharge from cardiology standpoint. F/u in 1 week. Supervisory-Addendum Brief Supervisory Addendum Participated in pt care: history, MDM, physical Personally performed: exam, history, MDM Care discussed with: MADI TEIXEIRA Nov 10, 2020 08:32 SMITA PEÑA MD Nov 10, 2020 17:00
--- NOTE | 2020-11-10 09:05 | Discharge Summary ---
Diagnosis/Chief Complaint Date of Admission Nov 05, 2020 at 15:44 Date of Discharge Discharge Date: Nov 10, 2020 Discharge Diagnosis Assessment: CVA with right sided weakness DM HTN HLP JULIANA on CPAP AMI THC use Smoker Anxiety Depression Early PNA started abx 11/07/20 without evidence of sepsis Plan: Monitor closely DM management IRF protocol 11/06/20: Monitor sugar and BP Improved right knee from injection Monitor diarrhea 11/07/20: Treat early PNA Monitor closely 11/08/20: Continue abx Nebs O2 Needs CPAP from home 11/10/11: s/p CPAP from home DC tomorrow (1) CVA (cerebral vascular accident) (2) Hypertension Status: Chronic (3) Hyperlipemia Status: Chronic (4) Diabetes Status: Chronic (5) Right sided weakness Status: Acute (6) Acute kidney injury Status: Acute (7) Non-compliance Status: Acute (8) Marijuana use Status: Acute Discharge Summary Discharge Physical Examination Allergies: Coded Allergies: No Known Drug Allergies (Verified , 06/16/19) Vitals & I&Os Vital Signs Date Time Temp Pulse Resp B/P (MAP) Pulse Ox O2 Delivery O2 Flow Rate FiO2 11/10/20 15:00 35.9 67 19 166/68 93 Room Air 11/08/20 02:22 21 General Appearance: Alert, Oriented X3, Cooperative Respiratory: Clear to Auscultation Cardiovascular: Regular Rate Abdominal: Normal Bowel Sounds Neuro: Normal Gait Psych/Mental Status: Mental Status NL Hospital Course Was the Problem List Reviewed?: Yes Hospital course: Pt had an uneventful hospital course, he was admitted for CVA with right-sided weakness, that was much improved by the time he was set for discharge, BP was more controlled, blood sugars were more controlled, he did have a pneumonia to which I initiated broad-spectrum antibiotics and was able to transition to oral antibiotics and Pt was set for discharge in improved condition Labs (last 24 hrs) Laboratory Tests 11/05/20 20:11: Glucometer 254H 11/06/20 05:35: White Blood Count 14.9H, Red Blood Count 5.88H, Hemoglobin 16.8, Hematocrit 51, Mean Corpuscular Volume 86, Mean Corpuscular Hemoglobin 29, Mean Corpuscular Hemoglobin Concent 33, Red Cell Distribution Width 14.6H, Platelet Count 350, Mean Platelet Volume 10.7, Immature Granulocyte % (Auto) 1, Neutrophils (%) (Auto) 88H, Lymphocytes (%) (Auto) 11L, Monocytes (%) (Auto) 1, Eosinophils (%) (Auto) 0, Basophils (%) (Auto) 0, Neutrophils # (Auto) 13.1H, Lymphocytes # (Auto) 1.6, Monocytes # (Auto) 0.2, Eosinophils # (Auto) 0.0, Basophils # (Auto) 0.0, Immature Granulocyte # (Auto) 0.1, Sodium Level 137, Potassium Level 4.2, Chloride Level 102, Carbon Dioxide Level 20L, Anion Gap 15H, Blood Urea Nitrogen 18, Creatinine 1.39H, Estimat Glomerular Filtration Rate 52, BUN/Creatinine Ratio 13, Glucose Level 275H, Calcium Level 9.3, Corrected Calcium 9.5, Total Bilirubin 0.7, Aspartate Amino Transf (AST/SGOT) 16, Alanine Aminotransferase (ALT/SGPT) 21, Alkaline Phosphatase 90, Total Protein 7.5, Albumin 3.7 11/06/20 11:00: Glucometer 310H 11/06/20 15:40: Glucometer 303H 11/06/20 21:27: Glucometer 362H 11/07/20 05:49: White Blood Count 18.8H, Red Blood Count 5.64H, Hemoglobin 16.3, Hematocrit 51, Mean Corpuscular Volume 90, Mean Corpuscular Hemoglobin 29, Mean Corpuscular Hemoglobin Concent 32, Red Cell Distribution Width 15.1H, Platelet Count 343, Me an Platelet Volume 10.8, Sodium Level 138, Potassium Level 4.4, Chloride Level 103, Carbon Dioxide Level 23, Anion Gap 12, Blood Urea Nitrogen 24H, Creatinine 1.44H, Estimat Glomerular Filtration Rate 50, BUN/Creatinine Ratio 17, Glucose Level 180H, Calcium Level 8.9, Magnesium Level 2.2, Procalcitonin 0.23H 11/07/20 10:52: Glucometer 190H 11/07/20 13:14: Lactic Acid Level 1.92 11/07/20 16:24: Glucometer 167H 11/07/20 20:03: Glucometer 167H 11/08/20 06:08: White Blood Count 14.0H, Red Blood Count 5.96H, Hemoglobin 16.8, Hematocrit 52, Mean Corpuscular Volume 88, Mean Corpuscular Hemoglobin 28, Mean Corpuscular Hemoglobin Concent 32, Red Cell Distribution Width 15.0H, Platelet Count 315, Mean Platelet Volume 10.6, Immature Granulocyte % (Auto) 1, Neutrophils (%) (Auto) 51, Lymphocytes (%) (Auto) 35, Monocytes (%) (Auto) 10, Eosinophils (%) (Auto) 1, Basophils (%) (Auto) 1, Neutrophils # (Auto) 7.2, Lymphocytes # (Auto) 5.0H, Monocytes # (Auto) 1.4H, Eosinophils # (Auto) 0.2, Basophils # (Auto) 0.2H , Immature Granulocyte # (Auto) 0.1, Sodium Level 141, Potassium Level 3.8, Chloride Level 103, Carbon Dioxide Level 27, Anion Gap 11, Blood Urea Nitrogen 23H, Creatinine 1.45H, Estimat Glomerular Filtration Rate 50, BUN/Creatinine Ratio 16, Glucose Level 90, Calcium Level 8.6, Corrected Calcium 8.9, Total Bilirubin 0.6, Aspartate Amino Transf (AST/SGOT) 26, Alanine Aminotransferase (ALT/SGPT) 27, Alkaline Phosphatase 77, Total Protein 7.0, Albumin 3.6, Procalcitonin 0.08 11/08/20 11:00: Glucometer 173H 11/08/20 15:40: Glucometer 146H 11/08/20 20:18: Glucometer 118H 11/09/20 06:08: Glucometer 127H 11/09/20 11:05: Glucometer 130H 11/09/20 15:30: Glucometer 162H 11/09/20 21:21: Glucometer 137H 11/10/20 05:26: Glucometer 131H 11/10/20 10:51: Glucometer 177H Microbiology 11/08/20 Blood Culture - Preliminary, Resulted No growth Pending Labs Microbiology Date/Time Source Procedure Growth Status 11/08/20 06:08 Peripheral Rt Hand Blood Culture - Preliminary No growth Resulted 11/07/20 18:27 Peripheral Rt Hand Blood Culture - Preliminary No growth Resulted Laboratory Tests 11/05/20 20:11: Glucometer 254 11/06/20 05:35: White Blood Count 14.9, Red Blood Count 5.88, Hemoglobin 16.8, Hematocrit 51, Mean Corpuscular Volume 86, Mean Corpuscular Hemoglobin 29, Mean Corpuscular Hemoglobin Concent 33, Red Cell Distribution Width 14.6, Platelet Count 350, Mean Platelet Volume 10.7, Immature Granulocyte % (Auto) 1, Neutrophils (%) (Auto) 88, Lymphocytes (%) (Auto) 11, Monocytes (%) (Auto) 1, Eosinophils (%) (Auto) 0, Basophils (%) (Auto) 0, Neutrophils # (Auto) 13.1, Lymphocytes # (Auto) 1.6, Monocytes # (Auto) 0.2, Eosinophils # (Auto) 0.0, Basophils # (Auto) 0.0, Immature Granulocyte # (Auto) 0.1, Sodium Level 137, Potassium Level 4.2, Chloride Level 102, Carbon Dioxide Level 20, Anion Gap 15, Blood Urea Nitrogen 18, Creatinine 1.39, Estimat Glomerular Filtration Rate 52, BUN/Creatinine Ratio 13, Glucose Level 275, Calcium Level 9.3, Corrected Calcium 9.5, Total Bilirubin 0.7, Aspartate Amino Transf (AST/SGOT) 16, Alanine Aminotransferase (ALT/SGPT) 21, Alkaline Phosphatase 90, Total Protein 7.5, Albumin 3.7 11/06/20 11:00: Glucometer 310 11/06/20 15:40: Glucometer 303 11/06/20 21:27: Glucometer 362 11/07/20 05:49: White Blood Count 18.8, Red Blood Count 5.64, Hemoglobin 16.3, Hematocrit 51, Mean Corpuscular Volume 90, Mean Corpuscular Hemoglobin 29, Mean Corpuscular Hemoglobin Concent 32, Red Cell Distribution Width 15.1, Platelet Count 343, Mean Platelet Volume 10.8, Sodium Level 138, Potassium Level 4.4, Chloride Level 103, Carbon Dioxide Level 23, Anion Gap 12, Blood Urea Nitrogen 24, Creatinine 1.44, Estimat Glomerular Filtration Rate 50, BUN/Creatinine Ratio 17, Glucose Level 180, Calcium Level 8.9, Magnesium Level 2.2, Procalcitonin 0.23 11/07/20 10:52: Glucometer 190 11/07/20 13:14: Lactic Acid Level 1.92 11/07/20 16:24: Glucometer 167 11/07/20 20:03: Glucometer 167 11/08/20 06:08: White Blood Count 14.0, Red Blood Count 5.96, Hemoglobin 16.8, Hematocrit 52, Mean Corpuscular Volume 88, Mean Corpuscular Hemoglobin 28, Mean Corpuscular Hemoglobin Concent 32, Red Cell Distribution Width 15.0, Platelet Count 315, Mean Platelet Volume 10.6, Immature Granulocyte % (Auto) 1, Neutrophils (%) (Auto) 51, Lymphocytes (%) (Auto) 35, Monocytes (%) (Auto) 10, Eosinophils (%) (Auto) 1, Basophils (%) (Auto) 1, Neutrophils # (Auto) 7.2, Lymphocytes # (Auto) 5.0, Monocytes # (Auto) 1.4, Eosinophils # (Auto) 0.2, Basophils # (Auto) 0.2, Immature Granulocyte # (Auto) 0.1, Sodium Level 141, Potassium Level 3.8, Chloride Level 103, Carbon Dioxide Level 27, Anion Gap 11, Blood Urea Nitrogen 23, Creatinine 1.45, Estimat Glomerular Filtration Rate 50, BUN/Creatinine Ratio 16, Glucose Level 90, Calcium Level 8.6, Corrected Calcium 8.9, Total Bilirubin 0.6, Aspartate Amino Transf (AST/SGOT) 26, Alanine Aminotransferase (ALT/SGPT) 27, Alkaline Phosphatase 77, Total Protein 7.0, Albumin 3.6, Procalcitonin 0.08 11/08/20 11:00: Glucometer 173 11/08/20 15:40: Glucometer 146 11/08/20 20:18: Glucometer 118 11/09/20 06:08: Glucometer 127 11/09/20 11:05: Glucometer 130 11/09/20 15:30: Glucometer 162 11/09/20 21:21: Glucometer 137 11/10/20 05:26: Glucometer 131 11/10/20 10:51: Glucometer 177 Discharge Home Medications: Active Scripts Active Cefdinir 300 Mg Capsule 300 Mg PO BID Furosemide 20 Mg Tablet 20 Mg PO DAILY Aspirin EC (Aspirin) 325 Mg Tablet.dr 325 Mg PO DAILY Clopidogrel (Clopidogrel Bisulfate) 75 Mg Tablet 75 Mg PO DAILY 365 Days Reported Trulicity (Dulaglutide) 0.75 Mg/0.5 Ml Pen.injctr 0.75 Mg SQ WED 11-03-2020 WAS THE FIRST INJECTION Zyrtec (Cetirizine HCl) 10 Mg Tablet 10 Mg PO HS Vitamin D3 (Cholecalciferol (Vitamin D3)) 25 Mcg Tablet 25 Mcg PO DAILY Zinc 50 Mg Tablet 50 Mg PO DAILY Vitamin C (Ascorbic Acid) 1,000 Mg Tablet 1,000 Mg PO DAILY Fish Oil 1,200 mg Fish Oil (Fish Oil/Dha/Epa) 1 Each Capsule 1 Each PO BID Glipizide 10 Mg Tablet 10 Mg PO HS Atorvastatin Calcium 80 Mg Tablet 80 Mg PO HS Lisinopril 40 Mg Tablet 40 Mg PO DAILY Amlodipine Besylate 5 Mg Tablet 5 Mg PO DAILY Xigduo Xr 5 mg-1,000 mg Tablet (Dapagliflozin/Metformin HCl) 1 Each Tab.bp.24h 1 Ea PO DAILY Neurontin (Gabapentin) 300 Mg Capsule 300 Mg PO 0800,1700,2200 Ezetimibe 10 Mg Tablet 10 Mg PO DAILY Carvedilol 25 Mg Tablet 25 Mg PO BID Instructions to patient/family Please see electronic discharge instructions given to patient. Diagnosis/Problems Diagnosis/Problems (1) CVA (cerebral vascular accident) (2) Hypertension Status: Chronic (3) Hyperlipemia Status: Chronic (4) Diabetes Status: Chronic (5) Right sided weakness Status: Acute (6) Acute kidney injury Status: Acute (7) Non-compliance Status: Acute (8) Marijuana use Status: Acute TAMRA HORTON DO Nov 10, 2020 09:05
--- NOTE | 2020-11-10 09:55 | Speech Therapy Daily Note ---
Speech Daily Progress Note Subjective Date Seen by Provider: Nov 10, 2020 Time Seen by Provider: 00:30 Pt was alert and pleasant. Pt agreed to ST. Pt is looking forward to leaving today with his girlfriend, Laura. Objective Pt utilized taught memory strategies of association and repetition at 70% with moderate cueing. Assessment Assessment Current Status: Good Progress Treatment Plan Continue Plan of Care Speech Short Term Goals Short Term Goals Short Term Goals Pt will complete memory tasks at 75% or greater with minimal cues. Pt will complete recall of information tasks at 75% or greater with minimal cues. Speech Fci Goals Fci Goals Pt will improve cognitive communication skills necessary for safety and daily living tasks with minimal assist. Speech-Plan Patient/Family Goals Patient/Family Goals: Pt plans to return home today with his girlfriend, Laura. Laura assists with scheduling appointments and remembering medications. Treatment Plan Speech Therapy Treatment Plan: Discontinue ST Treatment Duration: Nov 10, 2020 Frequency: 4 times per week (Patient will receive skilled AT 4-5x per week) Estimated Hrs Per Day: .5 hour per day Rehab Potential: Fair Barriers to Learning: Deteriorating memory. Pt/Family Agrees to Plan: Yes Safety Risks/Education Teaching Recipient: Patient Teaching Methods: Demonstration, Discussion Response to Teaching: Verbalize Understanding, Return Demonstration, Reinforcement Needed Education Topics Provided: Memory strategies and safety. Time Speech Therapy Time In: 08:15 Speech Therapy Time Out: 08:45 Total Billed Time: 30 Billed Treatment Time 1, LAUREN Capone Nov 10, 2020 09:55
--- NOTE | 2020-11-10 09:58 | Physical Therapy Daily Note ---
PT Daily Note-Current Subjective "The more therapy you all keep doing the more my right knee hurts""This therapy isnt the thing to do for me" "I want to leave here today no matter what" Pt. c/o pain in his right knee and says it is worse because of therapy and walking Pain Numeric Pain Scale: 5-Moderate Pain Location: Right Location Body Site: Knee Pain Description: Ache Mental Status Patient Orientation: Person, Place, Time, Situation Attachments: Other-See Comments (mask) Transfers SCALE: Activities may be completed with or without assistive devices. 3-Dworelvdcm-meqdsfr completes the activity by him/herself with no assistance from a helper. 5-Set-up or Clean-up Assistance-helper sets up or cleans up; patient completes activity. [place] assists only prior to or following the activity. 4-Supervision or Touching Assistance-helper provides verbal cues and/or touching/steadying and/or contact guard assistance as patient completes activity. Assistance may be provided throughout the activity or intermittently. 3-Partial/Moderate Assistance-helper does LESS THAN HALF the effort. [place] lifts, holds or supports trunk or limbs, but provides less than half the effort. 2-Substantial/Maximal Assistance-helper does MORE THAN HALF the effort. [place] lifts or holds trunk or limbs and provides more than half the effort. 0-Fxwbltgzd-pmmffz does ALL the effort. Patient does none of the effort to com plete the activity. Or, the assistance of 2 or more helpers is required for the patient to complete the activity. If activity was not attempted, code reason: 7-Patient Refused. 9-Not Applicable-not attempted and the patient did not perform the activity before the current illness, exacerbation or injury. 10-Not Attempted due to Environmental Limitations-(lack of equipment, weather restraints, etc.). 88-Not Attempted due to Medical Conditions or Safety Concerns. Roll Left & Right (QC): 6 Sit to Lying (QC): 6 Lying to Sitting/Side of Bed(Q: 6 Sit to Stand (QC): 6 Chair/Eel-ia-Hktwa Xfer(QC): 6 Toilet Transfer (QC): 6 Car Transfer (QC): 6 Weight Bearing Full Weight Bearing Full Weight Bearing Gait Training Does the Patient Walk?: Yes Walk 10 feet (QC): 6 Walk 50 ft with 2 Turns(QC): 6 Walk 150 ft (QC): 6 Walking 10ft/uneven surface-QC: 6 Gait Persons Needed: 0 Gait Assistive Device: FWW pt. leans heavily on FWW and does not walk up close enough in to FWW and needs skilled verbal instruction for position in FWW Wheelchair Training Does the Pt Use a Wheelchair?: No Stair Training 1 Step (curb) (QC): 4 4 Steps (QC): 7 12 Steps (QC): 7 pt. refused steps stating he has no steps at home. Pt. was highly encouraged to trial curb step , needed skilled verbal instruction and sequencing to accomplish this with CGA Balance Picking up an Object (QC): 88 Exercises Supine Ex: Rolling, Heel Slides, Hip abd/add Supine Reps: 12 Seated Therapy Exercises: Ankle pumps, Sit to stand, Long arc quads, Hip flexion, Hip abd/add Seated Reps: 15 NuStep Minutes: 12 NuStep Workload: 4 Assessment Current Status: Good Progress pt. is only partially cooperative for Rx and may lack the intellect to grasp that his recovery, strength and function is essential for his quality of life. Pt. says he doesnt need to move much at home. PT Short Term Goals Short Term Goals Time Frame: Nov 12, 2020 Roll Left & Right: 6 Sit to lyin Lying to sitting on side of be: 6 Sit to stand: 4 (SBA) Chair/kkv-go-kfhjm transfer: 4 (SBA) Toilet transfer: 4 (SBA) Car transfer: 4 (SBA) Walk 10 feet: 4 (SBA) Walk 50 feet with two turns: 4 (SBA) 1 step (curb): 4 (SBA) PT Woods Rider Goals Woods Rider Goals PT Woods Rider Goals Time Frame: Nov 26, 2020 Roll Left & Right (QC): 6 Sit to Lying (QC): 6 Lying-Sitting on Side/Bed(QC): 6 Sit to Stand (QC): 6 Chair/Mgz-un-Cdsse Xfer(QC): 6 Toilet Transfer (QC): 6 Car Transfer (QC): 6 Does the Patient Walk: Yes Walk 10 feet (QC): 6 Walk 50ft with 2 Turns (QC): 6 Walk 150 ft (QC): 88 Walking 10ft on Uneven Surface: 6 1 Step (curb) (QC): 6 4 Steps (QC): 88 12 Steps (QC): 88 Picking up an Object (QC): 6 Wheel 50 feet with 2 turns (QC: 6 Wheel 150 feet: 6 PT Plan Treatment/Plan Treatment Plan: Continue Plan of Care Treatment Plan: Bed Mobility, Education, Functional Activity Andrei, Functional Strength, Group Therapy, Gait, Safety, Therapeutic Exercise, Transfers Treatment Duration: Nov 26, 2020 Frequency: At least 5 of 7 days/Wk (IRF) Estimated Hrs Per Day: 1.5 hours per day Patient and/or Family Agrees t: Yes Safety Risks/Education Patient Education: Gait Training, Transfer Techniques, Steps (curb), Correct Positioning, Disease Process, Safety Issues Teaching Recipient: Patient Teaching Methods: Demonstration, Discussion Response to Teaching: Verbalize Understanding, Return Demonstration, Reinforcement Needed Time/GCodes Time In: 900 Time Out: 1000 Total Billed Treatment Time: 60 Total Billed Treatment 1,GT20m,EX15m,FA25m LAKESHA MACEDO [employer] TENDER Nov 10, 2020 09:58
--- NOTE | 2020-11-10 10:37 | Therapy Team Discharge Summary ---
Therapy Discharge Summary Discharge Recommendations Date of Discharge 11/10/2020 Physical Therapy This patient admitted to ARU post acute hospital stay post CVA. Prior to the hospitalization, pt was indep with functional mobility and living at home. Upon admission to this unit, he was indep with bed mobility but SBA with transfers. He was able to walk 10 ft with FWW with SBA and able to go up/down 1 step with SB-CGA. Treatment has focused on functional strength, balance, activity tolerance and safety training. At last visit, he was mod indep to indep with all funcitonal mobility. He is to [facility] home this date as all goals have been met. He will have support from his significant other. Occupational Therapy Decreased Activ Tolerance PT Jail Goals Remelter Goals PT Jail Goals Time Frame: Nov 26, 2020 Roll Left to Right (QC): 6 Sit to Lying (QC): 6 Lying-Sitting on Side/Bed(QC): 6 Sit to Stand (QC): 6 Chair/Vop-xb-Qshth Xfer(QC): 6 Car Transfer (QC): 6 Does the Patient Walk: Yes Walk 10 feet (QC): 6 Walk 10ft-Uneven Surface(QC): 6 Walk 50ft with 2 Turns (QC): 6 Walk 150 ft (QC): 88 Wheel 50 feet with 2 turns (QC: 6 1 Step (curb) (QC): 6 (scored a 4) 4 Steps (QC): 88 12 Steps (QC): 88 Picking up an Object (QC): 6 All goals met to a satisfactory level. OT Jail Goals Jail Goals Time Frame: Nov 26, 2020 Eating (QC): 6 Oral Hygiene (QC): 6 Shower/Bathe Self (QC): 6 Upper Body Dressing (QC): 6 Lower Body Dressing (QC): 6 On/Off Footwear (QC): 6 Toileting Hygiene (QC): 6 Toilet/Commode Transfer (QC): 6 Additional Goals: 1-Demonstrate ADL Tasks, 2-Verbalize Understanding, 3- ImproveStrength/Andrei 1=Demonstrate adherence to instructed precautions during ADL tasks. 2=Patient will verbalize/demonstrate understanding of assistive devices/modifications for ADL. 3=Patient will improve strength/tolerance for activity to enable patient to perform ADL's. Speech Jail Goals Jail Goals Pt will improve cognitive communication skills necessary for safety and daily living tasks with minimal assist. PAULA CORREA PT Nov 10, 2020 10:37
--- NOTE | 2020-11-10 10:44 | Occupational Ther Daily Note ---
OT Current Status-Daily Note Subjective Pt alert, sitting EOB. Pt agrees to therapy. Pt c/o R knee pain, nrsg aware. Pt states that he is going home today, SW came into room to discuss his discharge today. Mental Status/Objective Patient Orientation: Person, Place, Time, Situation Attachments: IV ADL-Treatment Therapy Code Descriptions/Definitions Functional [place] Measure: 0=Not Assessed/NA 4=Minimal Assistance 1=Total Assistance 5=Supervision or Setup 2=Maximal Assistance 6=Modified [place] 3=Moderate Assistance 7=Complete IndependenceSCALE: Activities may be completed with or without assistive devices. 7-Mkfowmcyqf-zjhkaab completes the activity by him/herself with no assistance from a helper. 5-Set-up or Clean-up Assistance-helper sets up or cleans up; patient completes activity. [place] assists only prior to or following the activity. 4-Supervision or Touching Assistance-helper provides verbal cues and/or touching /steadying and/or contact guard assistance as patient completes activity. Assistance may be provided throughout the activity or intermittently. 3-Partial/Moderate Assistance-helper does LESS THAN HALF the effort. [place] lifts, holds or supports trunk or limbs, but provides less than half the effort. 2-Substantial/Maximal Assistance-helper does MORE THAN HALF the effort. [place] lifts or holds trunk or limbs and provides more than half the effort. 1-Mqpnsuuil-mjqjts does ALL the effort. Patient does none of the effort to complete the activity. Or, the assistance of 2 or more helpers is required for the patient to complete the activity. If activity was not attempted, code reason: 7-Patient Refused. 9-Not Applicable-not attempted and the patient did not perform the activity before the current illness, exacerbation or injury. 10-Not Attempted due to Environmental Limitations-(lack of equipment, weather restraints, etc.). 88-Not Attempted due to Medical Conditions or Safety Concerns. Other Treatment Pt educated on medium resistance theraband for B UE strengthening HEP for home. Pt requires skilled instruction to complete with correct technique. Pt completed 6 exercises 3 sets 10 reps with lengthy recovery break between each set. After therapy, SW in room. Call light/phone in reach. All needs met in room. OT Short Term Goals Short Term Goals Time Frame: Nov 12, 2020 Shower/bathe self: 5 Lower body dressin Putting on/taking off footwear: 5 OT Rug Hooker Hand Goals Rug Hooker Hand Goals Time Frame: Nov 26, 2020 Eating (QC): 6 Oral Hygiene (QC): 6 Toileting Hygiene (QC): 6 Shower/Bathe Self (QC): 6 Upper Body Dressing (QC): 6 Lower Body Dressing (QC): 6 On/Off Footwear (QC): 6 Additional Goals: 1-Demonstrate ADL Tasks, 2-Verbalize Understanding, 3- ImproveStrength/Andrei 1=Demonstrate adherence to instructed precautions during ADL tasks. 2=Patient will verbalize/demonstrate understanding of assistive devices/modifica tions for ADL. 3=Patient will improve strength/tolerance for activity to enable patient to perform ADL's. OT Education/Plan Problem List/Assessment Assessment: Decreased Activ Tolerance, Decreased UE Strength Discharge Recommendations Plan/Recommendations: Discharge/Goals Met Treatment Plan/Plan of Care Patient would benefit from OT for education, treatment and training to promote independence in ADL's, mobility, safety and/or upper extremity function for ADL's. Plan of Care: ADL Retraining, Functional Mobility, Group Exercise/Act as Ind, UE Funct Exercise/Act Treatment Duration: Nov 26, 2020 Frequency: At least 5 of 7 days/Wk (IRF) Estimated Hrs Per Day: 1.5 hours per day Agreement: Yes Rehab Potential: Fair Time/GCodes Start Time: 10:00 Stop Time: 10:45 Total Time Billed (hr/min): 45 Billed Treatment Time 1 visit-EX 3 (45 min) PAULA FIERRO Nov 10, 2020 10:44
--- NOTE | 2020-11-10 13:05 | Therapy Team Discharge Summary ---
Therapy Discharge Summary Discharge Recommendations Date of Discharge Occupational Therapy Decreased Activ Tolerance, Decreased UE Strength Speech-Language Pathology Pt was admitted due to CVA. Pt was administered the SLUMS receiving a score indiacating the need for cognitive ST. Progress made overall with compensatory cognitive strategies for memory. Pt discharged to home with girlfriend today. PT Skilled Nursing [employer] Goals PT Skilled Nursing Goals Time Frame: Nov 26, 2020 Roll Left to Right (QC): 6 Sit to Lying (QC): 6 Lying-Sitting on Side/Bed(QC): 6 Sit to Stand (QC): 6 Chair/Apx-ra-Ppmuq Xfer(QC): 6 Car Transfer (QC): 6 Does the Patient Walk: Yes Walk 10 feet (QC): 6 Walk 10ft-Uneven Surface(QC): 6 Walk 50ft with 2 Turns (QC): 6 Walk 150 ft (QC): 88 Wheel 50 feet with 2 turns (QC: 6 1 Step (curb) (QC): 6 (scored a 4) 4 Steps (QC): 88 12 Steps (QC): 88 Picking up an Object (QC): 6 OT Skilled Nursing [employer] Goals Time Frame: Nov 26, 2020 Eating (QC): 6 Oral Hygiene (QC): 6 Shower/Bathe Self (QC): 6 Upper Body Dressing (QC): 6 Lower Body Dressing (QC): 6 On/Off Footwear (QC): 6 Toileting Hygiene (QC): 6 Toilet/Commode Transfer (QC): 6 Additional Goals: 1-Demonstrate ADL Tasks, 2-Verbalize Understanding, 3- ImproveStrength/Andrei 1=Demonstrate adherence to instructed precautions during ADL tasks. 2=Patient will verbalize/demonstrate understanding of assistive devices/modifications for ADL. 3=Patient will improve strength/tolerance for activity to enable patient to perform ADL's. Speech Skilled Nursing Goals Skilled Nursing Goals Pt will improve cognitive communication skills necessary for safety and daily living tasks with minimal assist. LAUREN KENDRICK Nov 10, 2020 13:05
[2020-11-10 15:00] VITALS: BP 166/68
--- NOTE | 2020-11-11 15:13 | Therapy Team Discharge Summary ---
Therapy Discharge Summary Discharge Recommendations Date of Discharge Nov 10, 2020 at 12:15 Therapy D/C Recommendations: Home w/ Family Support Occupational Therapy Pt. was seen by Occupational therapy to increase overall strength and independence with daily tasks. Pt. was able to do most tasks with set up/Mod I at discharge, with SBA for ambulation and transfers. Pt. demonstrated appropriate strength in UE, and was able to use walker for mobility purposes. Pt. discharged home with significant other. Pt. at PLOF at discharge. Pt. practiced with AE for LE dressing while on rehab, but declined further training with it. No other equipment needs noted. Decreased Activ Tolerance PT [employer] Goals Residential Goals PT Residential Goals Time Frame: Nov 26, 2020 Roll Left to Right (QC): 6 Sit to Lying (QC): 6 Lying-Sitting on Side/Bed(QC): 6 Sit to Stand (QC): 6 Chair/Nbf-pr-Jhxow Xfer(QC): 6 Car Transfer (QC): 6 Does the Patient Walk: Yes Walk 10 feet (QC): 6 Walk 10ft-Uneven Surface(QC): 6 Walk 50ft with 2 Turns (QC): 6 Walk 150 ft (QC): 88 Wheel 50 feet with 2 turns (QC: 6 1 Step (curb) (QC): 6 (scored a 4) 4 Steps (QC): 88 12 Steps (QC): 88 Picking up an Object (QC): 6 OT [employer] Goals [employer] Goals Time Frame: Nov 26, 2020 Eating (QC): 6 (met) Oral Hygiene (QC): 6 (met) Shower/Bathe Self (QC): 6 (not met) Upper Body Dressing (QC): 6 (not met) Lower Body Dressing (QC): 6 (not met) On/Off Footwear (QC): 6 (met) Toileting Hygiene (QC): 6 (met) Toilet/Commode Transfer (QC): 6 (not met) Additional Goals: 1-Demonstrate ADL Tasks, 2-Verbalize Understanding, 3- ImproveStrength/Andrei 1=Demonstrate adherence to instructed precautions during ADL tasks. 2=Patient will verbalize/demonstrate understanding of assistive devices/modifications for ADL. 3=Patient will improve strength/tolerance for activity to enable patient to perform ADL's. Speech [employer] Goals [employer] Goals Pt will improve cognitive communication skills necessary for safety and daily living tasks with minimal assist. RON METZ OT Nov 11, 2020 15:13
== END 2020-11-10 12:15 | disposition home health service (06) | DRG 56 ==
PROVIDERS: ADMIT Internal Medicine; ATTEND Internal Medicine
PROC: 3E0U33Z Introduction of Anti-inflammatory into Joints, Percutaneous Approach (ICD-10-PCS; principal; 2020-11-05)
DX: I69.351 Hemiplegia and hemiparesis following cerebral infarction affecting right dominant side (principal); I21.A1 Myocardial infarction type 2; J18.9 Pneumonia, unspecified organism; N17.9 Acute kidney failure, unspecified; Z68.42 Body mass index [BMI] 45.0-49.9, adult; M17.11 Unilateral primary osteoarthritis, right knee; E66.9 Obesity, unspecified; Z91.81 History of falling; E11.9 Type 2 diabetes mellitus without complications; I10 Essential (primary) hypertension; E78.5 Hyperlipidemia, unspecified; E78.00 Pure hypercholesterolemia, unspecified; F17.210 Nicotine dependence, cigarettes, uncomplicated; G47.33 Obstructive sleep apnea (adult) (pediatric); R19.7 Diarrhea, unspecified; Z91.19 Patient's noncompliance with other medical treatment and regimen; F12.90 Cannabis use, unspecified, uncomplicated; H54.7 Unspecified visual loss; F41.9 Anxiety disorder, unspecified; F32.9 Major depressive disorder, single episode, unspecified; Z79.84 Long term (current) use of oral hypoglycemic drugs; Z79.82 Long term (current) use of aspirin
CPT/HCPCS: 36415; 71046; 80048; 80053; 82962; 83605; 83735; 84145; 85025; 85027; 87040; 94640; 94760

== ENCOUNTER → 2020-11-08 | Outpatient (CLI) | payer MEDICARE, MEDICAID ==
[~2020-11-08] MED LIST changes: +ASPI325T32 PO; +CEFD300C3 PO; +CLOP75TA28 PO; +FURO20TA4 PO; +LIDOCAINE 1% INJ 20 ML 20 ML VIAL ONE
--- NOTE | 2020-11-08 15:24 | Implantation of Loop Monitor ---
Implant of Loop Monitior IMPLANTATION OF LOOP MONITOR REPORT DATE OF PROCEDURE: 11/08/20 PREOP DIAGNOSIS: Cryptogenic stroke POSTOP DIAGNOSIS: Cryptogenic stroke PROCEDURE DETAILS: The patient is a 60 male with Cryptogenic stroke, has been in physical therapy, discussed with him the management plan recommended loop monitor implantation to evaluate for any cardiac source of embolization. Therefore implantable loop recorder was discussed and agreed with the patient. Informed consent was taken. All risks and complications were discussed at length. The patient was draped and prepped in the usual sterile fashion. Local anesthesia was lidocaine, which was given in the substernal area close to the 4th intercostal space. Loop monitor Egalettronic with serial number [id number] was implanted according to the protocol. Steri-Strips were placed at the end of the procedure. There were no complications and the patient tolerated the procedure well. The device was interrogated with a voltage of. ANESTHESIA: Local anesthesia with lidocaine. COMPLICATIONS: None CONTRAST/FLUOROSCOPY: None CONCLUSION: Successful implantation of loop monitor with no complication FINAL DIAGNOSIS: Cryptogenic stroke Hypertension Hyperlipidemia SMITA PEÑA MD Nov 08, 2020 15:24
== END ==
LOC: CATH 11:17
PROVIDERS: ATTEND Internal Medicine Cardiovascular Disease
DX: I63.9 Cerebral infarction, unspecified (principal); I10 Essential (primary) hypertension; E78.5 Hyperlipidemia, unspecified
CPT/HCPCS: 33285

== ENCOUNTER 2020-11-15 12:20 | Emergency (ER) | payer MEDICARE, MEDICAID ==
[~2020-11-15] VITALS: Ht 179.8 cm; Wt 149.7 kg
[~2020-11-15 12:20] MED LIST changes: -LIDOCAINE 1% INJ 20 ML 20 ML VIAL ONE
--- NOTE | 2020-11-15 13:55 | ED Neurological Problem ---
General Chief Complaint: Trauma-Non Activation Stated Complaint: FALLS Nursing Triage Note: jacob 2 weeks ago. fell 3 times since sunday Nursing Sepsis Screen: No Definite Risk Source: patient Exam Limitations: no limitations History of Present Illness Date Seen by Provider: Nov 15, 2020 Time Seen by Provider: 13:30 Initial Comments This is a 60-year-old male who presents to the ER with complaints of tingling se nsation in his right arm and right leg. He was recently diagnosed with a CVA affecting his right side, and states that he was discharged from this hospital couple days ago. States that since he was discharged he has fallen 3 times and is concerned that he is not strong enough to stay at home. He was told by his primary care office to go to the ER to see about admission to the inpatient rehab unit. Allergies and Home Medications Allergies Coded Allergies: No Known Drug Allergies (Verified , 06/16/19) Home Medications Amlodipine Besylate 5 Mg Tablet, 5 MG PO DAILY, (Reported) Ascorbic Acid 1,000 Mg Tablet, 1,000 MG PO DAILY, (Reported) Aspirin 325 Mg Tablet.dr, 325 MG PO DAILY Prescribed by: TAMRA HORTON on 11/09/20 153 Atorvastatin Calcium 80 Mg Tablet, 80 MG PO HS, (Reported) Carvedilol 25 Mg Tablet, 25 MG PO BID, (Reported) Cefdinir 300 Mg Capsule, 300 MG PO BID Prescribed by: TAMRA HORTON on 11/09/20 153 Cetirizine HCl 10 Mg Tablet, 10 MG PO HS, (Reported) Cholecalciferol (Vitamin D3) 25 Mcg Tablet, 25 MCG PO DAILY, (Reported) Clopidogrel Bisulfate 75 Mg Tablet, 75 MG PO DAILY Prescribed by: TAMRA HORTON on 11/05/20 152 Dapagliflozin/Metformin HCl 1 Each Tab.bp.24h, 1 EA PO DAILY, (Reported) Dulaglutide 0.75 Mg/0.5 Ml Pen.injctr, 0.75 MG SQ SUN, (Reported) 11-03-2020 WAS THE FIRST INJECTION Ezetimibe 10 Mg Tablet, 10 MG PO DAILY, (Reported) Fish Oil/Dha/Epa 1 Each Capsule, 1 EACH PO BID, (Reported) Furosemide 20 Mg Tablet, 20 MG PO DAILY Prescribed by: TAMRA HORTON on 11/09/20 153 Gabapentin 300 Mg Capsule, 300 MG PO 0800,1700,2200, (Reported) Glipizide 10 Mg Tablet, 10 MG PO HS, (Reported) Lisinopril 40 Mg Tablet, 40 MG PO DAILY, (Reported) Zinc 50 Mg Tablet, 50 MG PO DAILY, (Reported) Patient Home Medication List Home Medication List Reviewed: Yes Review of Systems Review of Systems Constitutional: no symptoms reported Eyes: No Symptoms Reported Ears, Nose, Mouth, Throat: no symptoms reported Respiratory: no symptoms reported Cardiovascular: no symptoms reported Gastrointestinal: no symptoms reported Genitourinary: no symptoms reported Musculoskeletal: see HPI Skin: no symptoms reported Psychiatric/Neurological: See HPI Endocrine: No Symptoms Reported Hematologic/Lymphatic: No Symptoms Reported Past Mzutdlw-Qcbyoo-Qodzod Hx Patient Social History Alcohol Use: Denies Use Drug of Choice: TESTED + FOR THC ON 01/02/19 Smoking Status: Former Smoker Type Used: Cigarettes 2nd Hand Smoke Exposure: No Recent Infectious Disease Expo: No Recent Hopitalizations: No Immunizations Up To Date Tetanus Booster (TDap): Unknown PED Vaccines UTD: No Date of Influenza Vaccine: Apr 29, 2020 Seasonal Allergies Seasonal Allergies: No Past Medical History Surgeries: Yes Appendectomy, Orthopedic Respiratory: No Currently Using CPAP: No Currently Using BIPAP: No Cardiac: Yes (BASED ON MEDICATIONS) High Cholesterol, Hypertension Neurological: Yes Stroke Sexually Transmitted Disease: No HIV/AIDS: No Genitourinary: No Gastrointestinal: No 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 HTN Physical Exam Vital Signs Vital Signs - First Documented 11/15/20 11/15/20 12:55 18:40 Temp 36.6 Pulse 75 Resp 20 B/P (MAP) 104/68 (80) Pulse Ox 92 O2 Delivery Room Air Capillary Refill : Less Than 3 Seconds Height, Weight, BMI Height: 5'9.00" Weight: 293lbs. 2.0oz. 132.168116tm; 46.00 BMI Method:Estimated General Appearance: WD/WN, no apparent distress HEENT: normal ENT inspection, pharynx normal Neck: full range of motion, normal inspection Respiratory: lungs clear, normal breath sounds, no respiratory distress Cardiovascular: normal peripheral pulses, regular rate, rhythm Gastrointestinal: normal bowel sounds, non tender, soft Extremities: No normal range of motion (limited in RLE); non-tender, normal inspection, pedal edema Neurologic/Psychiatric: alert, normal mood/affect, oriented x 3, motor weakness (BLE, more so on right ) Crainal Nerves: normal hearing, normal speech, PERRL; No facial asymmetry, No facial droop Motor/Sensory: no sensory deficit, weak motor strength RLE, weak motor strength LLE Skin: normal color, warm/dry Stroke Stroke Thrombolytic Exclusion Age 18 or Over: Yes Progress/Results/Core Measures Results/Orders Lab Results Laboratory Tests Test 11/15/20 14:09 11/15/20 14:15 Range/Units White Blood Count 13.6 H 4.3-11.0 10^3/uL Red Blood Count 5.64 H 4.30-5.52 10^6/uL Hemoglobin 16.2 13.3-17.7 g/dL Hematocrit 51 40-54 % Mean Corpuscular Volume 91 80-99 fL Mean Corpuscular Hemoglobin 29 25-34 pg Mean Corpuscular Hemoglobin Concent 32 32-36 g/dL Red Cell Distribution Width 15.2 H 10.0-14.5 % Platelet Count 345 130-400 10^3/uL Mean Platelet Volume 10.8 9.0-12.2 fL Immature Granulocyte % (Auto) 0 % Neutrophils (%) (Auto) 60 42-75 % Lymphocytes (%) (Auto) 29 12-44 % Monocytes (%) (Auto) 8 0-12 % Eosinophils (%) (Auto) 2 0-10 % Basophils (%) (Auto) 1 0-10 % Neutrophils # (Auto) 8.2 H 1.8-7.8 10^3/uL Lymphocytes # (Auto) 3.9 1.0-4.0 10^3/uL Monocytes # (Auto) 1.1 H 0.0-1.0 10^3/uL Eosinophils # (Auto) 0.3 0.0-0.3 10^3/uL Basophils # (Auto) 0.1 0.0-0.1 10^3/uL Immature Granulocyte # (Auto) 0.0 0.0-0.1 10^3/uL Sodium Level 142 135-145 MMOL/L Potassium Level 4.5 3.6-5.0 MMOL/L Chloride Level 101 98-107 MMOL/L Carbon Dioxide Level 28 21-32 MMOL/L Anion Gap 13 5-14 MMOL/L Blood Urea Nitrogen 18 7-18 MG/DL Creatinine 1.64 H 0.60-1.30 MG/DL Estimat Glomerular Filtration Rate 43 BUN/Creatinine Ratio 11 Glucose Level 179 H 70-105 MG/DL Calcium Level 9.4 8.5-10.1 MG/DL Corrected Calcium 9.6 8.5-10.1 MG/DL Total Bilirubin 0.4 0.1-1.0 MG/DL Aspartate Amino Transf (AST/SGOT) 23 5-34 U/L Alanine Aminotransferase (ALT/SGPT) 25 0-55 U/L Alkaline Phosphatase 82 40-136 U/L Total Protein 7.7 6.4-8.2 GM/DL Albumin 3.8 3.2-4.5 GM/DL Urine Color YELLOW Urine Clarity CLEAR Urine pH 6.0 5-9 Urine Specific [place] 1.020 1.016-1.022 Urine Protein NEGATIVE NEGATIVE Urine Glucose (UA) 3+ H NEGATIVE Urine Ketones NEGATIVE NEGATIVE Urine Nitrite NEGATIVE NEGATIVE Urine Bilirubin NEGATIVE NEGATIVE Urine Urobilinogen 0.2 < = 1.0 MG/DL Urine Leukocyte Esterase NEGATIVE NEGATIVE Urine RBC (Auto) NEGATIVE NEGATIVE Urine RBC NONE /HPF Urine WBC NONE /HPF Urine Crystals NONE /LPF Urine Bacteria NEGATIVE /HPF Urine Casts NONE /LPF Urine Mucus NEGATIVE /LPF Urine Culture Indicated NO My Orders Orders - PRINCESS ALCARAZ [employer] Cbc With Automated Diff (11/15/20 13:54) Comprehensive Metabolic Panel (11/15/20 13:54) Urinalysis (11/15/20 13:54) Ns Iv 1000 Ml (Sodium Chloride 0.9%) (11/15/20 15:30) Vital Signs/I&O 11/15/20 11/15/20 11/15/20 12:55 12:55 18:40 Temp 36.6 36.6 36.6 36.6 Pulse 75 75 68 Resp 20 20 18 B/P (MAP) 104/68 (80) 139/93 Pulse Ox 92 92 97 O2 Delivery Room Air Blood Pressure Mean: 80 Progress Progress Note : Progress Note Patient examined and in no acute distress. States that the sensation in his right upper extremity and right lower extremity feels like "[id number]". States this sensation has been present since she was diagnosed with a CVA. However he believes that this is causing some of his weakness and causing him to have frequent falls at home. He was discharged home with aggressive physical and occupational therapy and states they were to start today however when he called his primary care provider office they recommended he go to the emergency department to see about evaluation for inpatient physical therapy. Went ahead and obtain baseline labs. Will discuss with Dr. Horton once labs result. Labs reviewed and are relatively unremarkable other than increased elevation in creatinine at 1.6 from 1.4 on November 08. Will give some IV fluids. Reviewed case with Dr. Horton, states that patient requested to go home at time of discharge despite recommendations to continue therapy in hospital. At this time there are no available beds on the unit. Discussed this with the patient's girlfriend per his request, and she states that she will get in touch with PT/OT and let them know the patient will be home to see about initial evaluation. Discussed with him that he can return if his symptoms worsen and he needs to have close follow-up with his primary care provider to reevaluate his renal function later this week. He verbalized understanding. Reviewed discharge plan of care with patient and girlfriend and they are agreeable with plan. Departure Impression Primary Impression: Neuropathy Disposition: 01 HOME, SELF-CARE Condition: Improved Departure-Patient Inst. Decision time for Depature: 18:06 Referrals: NO,LOCAL PHYSICIAN (PCP) Primary Care Physician RONAN REHMAN APRN (Family) Primary Care Physician Patient Instructions: Diabetic Neuropathy (DC) Add. Discharge Instructions: Plan: 1. Discharge home. 2. Drink plenty of fluids to keep you dehydrated. 3. Continue your PT and OT as directed. 4. Return for any new or concerning symptoms. All discharge instructions reviewed with patient and/or family. Voiced understanding. PRINCESS ALCARAZ APRN Nov 15, 2020 13:55
[2020-11-15 14:14] LABS: BASOPHILS # (AUTO) 0.1 10^3/uL (0.0-0.1); BASOPHILS % (AUTO) 1 % (0-10); EOSINOPHILS # (AUTO) 0.3 10^3/uL (0.0-0.3); EOSINOPHILS % (AUTO) 2 % (0-10); HEMATOCRIT 51 % (40-54); HEMOGLOBIN 16.2 g/dL (13.3-17.7); LYMPHOCYTES # (AUTO) 3.9 10^3/uL (1.0-4.0); LYMPHOCYTES % (AUTO) 29 % (12-44); MEAN CORPUSCULAR HEMOGLOBIN 29 pg (25-34); MEAN CORPUSCULAR HGB CONC 32 g/dL (32-36); MEAN CORPUSCULAR VOLUME 91 fL (80-99); MEAN PLATELET VOLUME 10.8 fL (9.0-12.2); MONOCYTES # (AUTO) 1.1 10^3/uL (0.0-1.0); MONOCYTES % (AUTO) 8 % (0-12); NEUTROPHILS # (AUTO) 8.2 10^3/uL (1.8-7.8); NEUTROPHILS % (AUTO) 60 % (42-75); PLATELET COUNT 345 10^3/uL (130-400); WHITE BLOOD COUNT 13.6 10^3/uL (4.3-11.0)
[2020-11-15 14:21] LABS: BILIRUBIN,URINE NEGATIVE (NEGATIVE); CLARITY,URINE CLEAR; COLOR,URINE YELLOW; GLUCOSE, URINE (UA) 3+ (NEGATIVE); KETONES,URINE NEGATIVE (NEGATIVE); LEUKOCYTE ESTERASE ,URINE NEGATIVE (NEGATIVE); NITRITE,URINE NEGATIVE (NEGATIVE); PROTEIN,URINE NEGATIVE (NEGATIVE)
[2020-11-15 14:25] LABS: ALBUMIN 3.8 GM/DL (3.2-4.5); POTASSIUM 4.5 MMOL/L (3.6-5.0)
[2020-11-15 14:26] LABS: CALCIUM 9.4 MG/DL (8.5-10.1)
[2020-11-15 14:27] LABS: TOTAL PROTEIN 7.7 GM/DL (6.4-8.2)
[2020-11-15 14:29] LABS: BILIRUBIN,TOTAL 0.4 MG/DL (0.1-1.0)
[2020-11-15 14:31] LABS: CREATININE SERUM 1.64 MG/DL (0.60-1.30)
[2020-11-15 14:34] LABS: BACTERIA,URINE NEGATIVE /HPF
[2020-11-15] MEDS ORDERED: NS IV 1000 ML 1,000 ML IV SCH (15:30)
[2020-11-15 18:40] VITALS: BP 139/93
== END 2020-11-15 18:40 | disposition home or self-care (01) ==
LOC: EDUNIT# 12:20 → ER 12:21
DX: G62.9 Polyneuropathy, unspecified (principal); I10 Essential (primary) hypertension; E78.00 Pure hypercholesterolemia, unspecified; E11.9 Type 2 diabetes mellitus without complications; Z86.73 Personal history of transient ischemic attack (TIA), and cerebral infarction without residual deficits; Z87.891 Personal history of nicotine dependence; Z79.82 Long term (current) use of aspirin
CPT/HCPCS: 36415; 80053; 81000; 85025

== ENCOUNTER 2021-08-15 20:36 | Emergency (ER) | payer MEDICARE, MEDICAID ==
--- NOTE | 2021-08-15 21:06 | ED Cough/URI ---
General Chief Complaint: COVID19 Suspect/Confirmed Stated Complaint: COVID POSITIVE Nursing Triage Note: TO ED VIA [facility] WITH C/O COVID + LAST SUNDAY, BODY ACHES, DIARRHEA, DIZZINESS. Source: patient Exam Limitations: no limitations (MJ ROSARIO) History of Present Illness Date Seen by Provider: Aug 15, 2021 Time Seen by Provider: 16:50 Initial Comments Patient is a 61yoM who presents to ED with cc of diarrhea, malaise, and SOA. He tested Covid positive at [facility] yesterday and has deteriorated this evening. Symptoms began yesterday and his weakness and diarrhea are what prompted him to come in today. He reports associated fever, sore throat, cough and headache. He has no appetite and gets light-headed when he stands up. Patient smokes a pack/day and has history of diabetes. He took Tylenol today for fever and pain which seemed to help. Timing/Duration: getting worse Severity/Quality: dry cough Associated Symptoms: cough, headache, lightheadedness, shortness of breath, sore throat (MJ ROSARIO) Allergies and Home Medications Allergies Coded Allergies: No Known Drug Allergies (Verified , 06/16/19) Patient Home Medication List Home Medication List Reviewed: Yes (JENNIFER GHOSH MD) Amlodipine Besylate (Amlodipine Besylate) 5 Mg Tablet, 5 MG PO DAILY, (Reported) Entered as Reported by: DOMINICK PATEL on 11/04/20932 Ascorbic Acid (Vitamin C) 1,000 Mg Tablet, 1,000 MG PO DAILY, (Reported) Entered as Reported by: DOMINICK PATEL on 11/04/20932 Aspirin (Aspirin EC) 325 Mg Tablet.dr, 325 MG PO DAILY Prescribed by: TAMRA HORTON on 11/09/20 153 Atorvastatin Calcium (Atorvastatin Calcium) 80 Mg Tablet, 80 MG PO HS, (Reported) Entered as Reported by: DOMINICK PATEL on 11/04/20932 Carvedilol (Carvedilol) 25 Mg Tablet, 25 MG PO BID, (Reported) Entered as Reported by: ALVARO PHILLIPS on 01/02/19 0513 Cefdinir (Cefdinir) 300 Mg Capsule, 300 MG PO BID Prescribed by: TAMRA HORTON on 11/09/20 1537 Cetirizine HCl (Zyrtec) 10 Mg Tablet, 10 MG PO HS, (Reported) Entered as Reported by: DOMINICK PATEL on 11/04/20932 Cholecalciferol (Vitamin D3) (Vitamin D3) 25 Mcg Tablet, 25 MCG PO DAILY, (Reported) Entered as Reported by: DOMINICK PATEL on 11/04/20932 Clopidogrel Bisulfate (Clopidogrel) 75 Mg Tablet, 75 MG PO DAILY Prescribed by: TAMRA HORTON on 11/05/20 1522 Dapagliflozin/Metformin HCl (Xigduo Xr 5 mg-1,000 mg Tablet) 1 Each Tab.bp.24h, 1 EA PO DAILY, (Reported) Entered as Reported by: DOMINICK PATEL on 11/04/20932 Dulaglutide (Trulicity) 0.75 Mg/0.5 Ml Pen.injctr, 0.75 MG SQ WED, (Reported) Entered as Reported by: DOMINICK PATEL on 11/04/20942 Ezetimibe (Ezetimibe) 10 Mg Tablet, 10 MG PO DAILY, (Reported) Entered as Reported by: ALVARO PHILLIPS on 01/02/19 0513 Fish Oil/Dha/Epa (Fish Oil 1,200 mg Fish Oil) 1 Each Capsule, 1 EACH PO BID, (Reported) Entered as Reported by: DOMINICK PATEL on 11/04/20932 Furosemide (Furosemide) 20 Mg Tablet, 20 MG PO DAILY Prescribed by: TAMRA HORTON on 11/09/20 1537 Gabapentin (Neurontin) 300 Mg Capsule, 300 MG PO 0800,1700,2200, (Reported) Entered as Reported by: DOMINICK PATEL on 11/04/20932 Glipizide (Glipizide) 10 Mg Tablet, 10 MG PO HS, (Reported) Entered as Reported by: DOMINICK PATEL on 11/04/20932 Lisinopril (Lisinopril) 40 Mg Tablet, 40 MG PO DAILY, (Reported) Entered as Reported by: DOMINICK PATEL on 11/04/20932 Zinc (Zinc) 50 Mg Tablet, 50 MG PO DAILY, (Reported) Entered as Reported by: DOMINICK PATEL on 11/04/20932 [molnupiravir] , 800 MG PO BID Prescribed by: JENNIFER GHOSH on 08/15/21 3975 Review of Systems Review of Systems Constitutional: No chills, No diaphoresis; fever, malaise, weakness EENTM: throat pain; No ear pain, No nose congestion Respiratory: cough, short of breath Cardiovascular: No chest pain, No palpitations Gastrointestinal: diarrhea; No hematemesis; loss of appetite; No nausea, No vomiting Genitourinary: No dysuria, No frequency, No hematuria Musculoskeletal: No back pain, No muscle pain Skin: no symptoms reported Psychiatric/Neurological: No Symptoms Reported Hematologic/Lymphatic: No Symptoms Reported Immunological/Allergic: no symptoms reported ([employer]) Past Pvxeaba-Qhwlbo-Kefyxo Hx Patient Social History Tobacco Use?: Yes Tobacco type used: Cigarettes Smoking Status: Current Everyday Smoker Additional substance use comme: PAST THC Alcohol Use?: No ([employer]) Immunizations Up To Date Tetanus Booster (TDap): Unknown PED Vaccines UTD: No Influenza Vaccine Up-to-Date: Yes; Up-to-Date COVID19 Vaccine Wood Scaler: NO VAX ([employer]) Seasonal Allergies Seasonal Allergies: No ([employer]) Past Medical History Surgery/Hospitalization HX: CVA DM TYPE 2 Surgeries: Yes Appendectomy, Orthopedic Respiratory: No Currently Using CPAP: No Currently Using BIPAP: No Cardiac: Yes (BASED ON MEDICATIONS) High Cholesterol, Hypertension Neurological: Yes Stroke Sexually Transmitted Disease: No HIV/AIDS: No Genitourinary: No Gastrointestinal: No 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 HTN ([employer]) Physical Exam Vital Signs - First Documented 08/15/21 08/15/21 08/15/21 20:36 20:41 23:57 Temp 36.7 Pulse 63 Resp 16 B/P (MAP) 115/61 (79) Pulse Ox 94 O2 Delivery Nasal Cannula O2 Flow Rate 3.00 (JENNIFER GHOSH MD) Capillary Refill : Less Than 3 Seconds (MJ ROSARIO [employer] STUDENT) Height: 5'9.00" Weight: 293lbs. 2.0oz. 132.716206rg; 46.00 BMI Method:Estimated General Appearance: no apparent distress, obese Eyes: Bilateral Eye Normal Inspection, Bilateral Eye EOMI HEENT: PERRL/EOMI, pharyngeal erythema Neck: full range of motion, supple Respiratory: chest non-tender, no respiratory distress, no accessory muscle us e, decreased breath sounds; No accessory muscle use Cardiovascular: normal peripheral pulses, regular rate, rhythm, no JVD, no murmur Gastrointestinal: normal bowel sounds, non tender, soft Extremities: normal range of motion, non-tender, normal inspection, no calf tenderness; No calf tenderness; pedal edema, swelling 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, no motor/sensory deficits, alert, normal mood/affect, oriented x 3 Skin: normal color, warm/dry Lymphatic: no adenopathy (MJ ROSARIO [employer] STUDENT) Progress/Results/Core Measures Suspected Sepsis SIRS Temperature: Pulse: 63 Respiratory Rate: 16 Blood Pressure 115 /61 Mean: 79 (MJ ROSARIO [employer] STUDENT) Results/Orders Lab Results Laboratory Tests Test 08/15/21 20:45 08/15/21 20:46 Range/Units Sodium Level 139 135-145 MMOL/L Potassium Level 3.4 L 3.6-5.0 MMOL/L Chloride Level 104 98-107 MMOL/L Carbon Dioxide Level 22 21-32 MMOL/L Anion Gap 13 5-14 MMOL/L Blood Urea Nitrogen 14 7-18 MG/DL Creatinine 1.44 H 0.60-1.30 MG/DL Estimat Glomerular Filtration Rate 56 BUN/Creatinine Ratio 10 Glucose Level 164 H 70-105 MG/DL Calcium Level 8.4 L 8.5-10.1 MG/DL Glucometer 170 H 70-110 MG/DL (JENNIFER GHOSH MD) My Orders Orders - JENNIFER GHOSH MD Ed Iv/Invasive Line Start (08/15/21 21:09) Basic Metabolic Panel (08/15/21 21:09) Loperamide Tablet (Imodium Tablet) (08/15/21 21:15) Ns Iv 1000 Ml (Sodium Chloride 0.9%) (08/15/21 21:15) Chest 1 View, Ap/Pa Only (08/15/21 21:09) Covid-19 External Lab Results (08/15/21 21:36) Isolation Central Supply Req (08/15/21 21:36) O2 (08/15/21 21:36) Accucheck Stat ONCE (08/15/21 21:36) (JENNIFER GHOSH MD) Medications Given in ED Current Medications Medications Dose Ordered Sig/Jarvis Route Start Time Stop Time Status Last Admin Dose Admin Loperamide HCl 4 mg ONCE ONCE PO 08/15/21 21:15 08/15/21 21:16 DC 08/15/21 21:43 4 MG (JENNIFER GHOSH MD) Vital Signs/I&O 08/15/21 08/15/21 08/15/21 20:36 20:41 23:57 Temp 36.7 36.7 Pulse 63 60 Resp 16 16 B/P (MAP) 115/61 (79) 123/78 Pulse Ox 94 O2 Delivery Nasal Cannula Nasal Cannula O2 Flow Rate 3.00 2.00 (JENNIFER GHOSH MD) Vital Signs/I&O Capillary Refill : Less Than 3 Seconds (MJ ROSARIO STUDENT) Blood Pressure Mean: 79 Point of Care Testing Finger Stick Blood Glucose: 170 Blood Glucose Action Taken: DR. GHOSH NOTIFIED. (MJ ROSARIO STUDENT) Progress Note : Time: 22:09 Progress Note 61-year-old COVID-positive presents to the emergency room with chief complaint of shortness of breath, generalized weakness, diarrhea. Tested yesterday. States that he feels generally worse today. Noted to have room air saturations of 88 to 89% on arrival. Morbidly obese gentleman. History of diabetes, hypertension. Does complain of feeling a little dizzy with standing. Patient is treated in the emergency room with some Imodium as well as a liter of IV fluids. Will monitor symptoms and potentially send home on room air oxygen. BMP is reviewed and is within normal limits as far as renal function and electrolytes. 2327 Bonjjbmk0m, Feeling a little better after IVF, although he did unintentionally pull his IV out. I called "[employer]" and they brought out an oxygen set up for him . Will write for the Anti-viral pack, As I feel like he is at high risk for worsening disease. Return precautions given. (JENNIFER GHOSH MD) Diagnostic Imaging Diagonstic Imaging: CT Plain Films/CT/US/NM/MRI: chest Comments [facility] [place], [place] NAME: TYLER RODRÍGUEZ [facility] REC#: [id number] PT STATUS: REG ER : 1960 PHYSICIAN: JENNIFER GHOSH MD ADMIT DATE: 08/15/21/ER Draft Date of Exam:08/15/21 CHEST 1 VIEW, AP/PA ONLY INDICATION: COVID positive. Shortness of breath. COMPARISON: 11/04/2020 FINDINGS: Single view of the chest demonstrates cardiac enlargement with central vascular congestion. There is no pneumothorax. Loop recorder is seen on the left. Osseous structures are stable. IMPRESSION: Cardiac enlargement with central vascular congestion. Dictated on workstation # [id number] Dict: 08/15/[id number] Trans: 08/15/212158 [facility] [id number] Interpreted by: JOSE L BOUCHER Electronically signed by: (JENNIFER GHOSH MD) Departure Impression Primary Impression: COVID-19 Additional Impression: Hypoxia Disposition: 01 HOME, SELF-CARE Condition: Stable Departure-Patient Inst. Decision time for Depature: 23:25 (JENNIFER GHOSH MD) Referrals: NO,LOCAL PHYSICIAN (PCP) Primary Care Physician RONAN REHMAN APRN (Family) Primary Care Physician Patient Instructions: COVID-19 ED Add. Discharge Instructions: You need to be sure and drink lots of fluids to stay well-hydrated. Take the Molnupiravir (Anti-Covid pill) 4 capsules twice a day for 5 days. You can take this with or without food. Take [id number] Imodium as directed on the bottle for diarrhea symptoms. Tylenol and/or ibuprofen as needed for body aches and fever over 100.4. Follow-up with your primary care physician in 2 weeks. Return to the emergency department for reevaluation if you get worsening symptoms of shortness of breath, lightheadedness, dizziness, weakness or any other emergent concerning symptoms. You should check your oxygen levels periodically with a oxygen monitor especially if your symptoms are worsening. Scripts [molnupiravir] No Conflict Check 800 MG PO BID for 5 Days, #20 CAP Prov: JENNIFER GHOSH MD 08/15/21 Verification and Attestation of Medical Student E/M Service A medical student performed and documented this service in my presence. I reviewed and verified all information documented by the medical student and made modifications to such information, when appropriate. I personally performed the physical exam and medical decision making. Jennifer Ghosh, Aug 15, 2021,22:11 (JENNIFER GHOSH MD) MJ ROSARIO MED STUDENT Aug 15, 2021 21:06 JENNIFER GHOSH MD Aug 15, 2021 22:11
[2021-08-15] MEDS ORDERED: LOPERAMIDE 2 MG (IMODIUM) TABLET PO ONE (21:15)
[2021-08-15] MEDS ORDERED: NS IV 1000 ML 1,000 ML IV SCH (21:15)
[2021-08-15 21:19] LABS: POTASSIUM 3.4 MMOL/L (3.6-5.0)
[2021-08-15 21:20] LABS: CALCIUM 8.4 MG/DL (8.5-10.1)
[2021-08-15 21:25] LABS: CREATININE SERUM 1.44 MG/DL (0.60-1.30)
--- NOTE | 2021-08-15 21:59 | Diagnostic Imaging Report ---
INDICATION: COVID positive. Shortness of breath. COMPARISON: 11/04/2020 FINDINGS: Single view of the chest demonstrates cardiac enlargement with central vascular congestion. There is no pneumothorax. Loop recorder is seen on the left. Osseous structures are stable. IMPRESSION: Cardiac enlargement with central vascular congestion. Dictated by: Dictated on workstation # [id number]
[2021-08-15] MEDS ORDERED: MOLNUPIRAVIR PO (23:35)
[2021-08-15 23:57] VITALS: BP 123/78
== END 2021-08-16 | disposition home or self-care (01) ==
LOC: ER 20:40 → EDUNIT# 20:40 → ER 08-16
DX: U07.1 COVID-19 (principal); R09.02 Hypoxemia; I10 Essential (primary) hypertension; E78.00 Pure hypercholesterolemia, unspecified; E66.9 Obesity, unspecified; E11.9 Type 2 diabetes mellitus without complications; F17.210 Nicotine dependence, cigarettes, uncomplicated; Z68.42 Body mass index [BMI] 45.0-49.9, adult; Z86.73 Personal history of transient ischemic attack (TIA), and cerebral infarction without residual deficits; Z79.82 Long term (current) use of aspirin; Z79.01 Long term (current) use of anticoagulants; Z79.899 Other long term (current) drug therapy
CPT/HCPCS: 36415; 71045; 80048; 82947

== ENCOUNTER 2023-02-26 19:53 | Inpatient (IN) | payer MEDICARE, MEDICAID ==
[~2023-02-26] VITALS: Ht 175.3 cm; Wt 133.0 kg
[~2023-02-26 19:53] MED LIST changes: +MOLNUPIRAVIR PO
--- NOTE | 2023-02-26 20:16 | ED General ---
General Chief Complaint: Respiratory Problems Stated Complaint: FALL/DIZZY/GENERAL WEAKNESS History of Present Illness Date Seen by Provider: Feb 26, 2023 Time Seen by Provider: 20:16 Initial Comments 62 -year-old male presents via EMS patient was noted to have weakness for blood pressure, increased oxygen need. Patient is on 4 L oxygen at night but it is reported that he does not use it during the day. When EMS arrived they reported his oxygen saturation was in the 70s. Placed him on 4 L and improved to the 90s patient was also found to have a low blood pressure in the 70s. They started him on IV fluids and it quickly resolved. Patient himself only reports chronic fatigue and not feeling well has been going on for at least a year. He reports that he just cannot describe why he does not feel well. Does not describe any new or acute changes. Allergies and Home Medications Allergies Coded Allergies: No Known Drug Allergies (Verified , 06/16/19) Patient Home Medication List Home Medication List Reviewed: Yes Amlodipine Besylate (Amlodipine Besylate) 5 Mg Tablet, 5 MG PO DAILY, (Reported) Entered as Reported by: DOMINICK PATEL on 11/04/20932 Ascorbic Acid (Vitamin C) 1,000 Mg Tablet, 1,000 MG PO DAILY, (Reported) Entered as Reported by: DOMINICK PATEL on 11/04/20932 Aspirin (Aspirin EC) 325 Mg Tablet.dr, 325 MG PO DAILY Prescribed by: TAMRA HORTON on 11/09/201536 Atorvastatin Calcium (Atorvastatin Calcium) 80 Mg Tablet, 80 MG PO HS, (Reported) Entered as Reported by: DOMINICK PATEL on 11/04/20932 Carvedilol (Carvedilol) 25 Mg Tablet, 25 MG PO BID, (Reported) Entered as Reported by: ALVARO PHILLIPS on 01/02/19 05 Cefdinir (Cefdinir) 300 Mg Capsule, 300 MG PO BID Prescribed by: TAMRA HORTON on 11/09/201536 Cetirizine HCl (Zyrtec) 10 Mg Tablet, 10 MG PO HS, (Reported) Entered as Reported by: DOMINICK PATEL on 11/04/20932 Cholecalciferol (Vitamin D3) (Vitamin D3) 25 Mcg Tablet, 25 MCG PO DAILY, (Reported) Entered as Reported by: DOMINICK PATEL on 11/04/20932 Clopidogrel Bisulfate (Clopidogrel) 75 Mg Tablet, 75 MG PO DAILY Prescribed by: TAMRA HORTON on 11/05/20 1522 Dapagliflozin/Metformin HCl (Xigduo Xr 5 mg-1,000 mg Tablet) 1 Each Tab.bp.24h, 1 EA PO DAILY, (Reported) Entered as Reported by: DOMINICK PATEL on 11/04/20932 Dulaglutide (Trulicity) 0.75 Mg/0.5 Ml Pen.injctr, 0.75 MG SQ WED, (Reported) Entered as Reported by: DOMINICK PATEL on 11/04/20942 Ezetimibe (Ezetimibe) 10 Mg Tablet, 10 MG PO DAILY, (Reported) Entered as Reported by: ALVARO PHILLIPS on 01/02/19 05 Fish Oil/Dha/Epa (Fish Oil 1,200 mg Fish Oil) 1 Each Capsule, 1 EACH PO BID, (Reported) Entered as Reported by: DOMINICK PATEL on 11/04/20932 Furosemide (Furosemide) 20 Mg Tablet, 20 MG PO DAILY Prescribed by: TAMRA HORTON on 11/09/20 1537 Gabapentin (Neurontin) 300 Mg Capsule, 300 MG PO 0800,1700,2200, (Reported) Entered as Reported by: DOMINICK PATEL on 11/04/20932 Glipizide (Glipizide) 10 Mg Tablet, 10 MG PO HS, (Reported) Entered as Reported by: DOMINICK PATEL on 11/04/20932 Lisinopril (Lisinopril) 40 Mg Tablet, 40 MG PO DAILY, (Reported) Entered as Reported by: DOMINICK PATEL on 11/04/20932 Zinc (Zinc) 50 Mg Tablet, 50 MG PO DAILY, (Reported) Entered as Reported by: DOMINICK PATEL on 11/04/20932 [molnupiravir] , 800 MG PO BID Prescribed by: JENNIFER FARLEY on 08/15/21 0591 Review of Systems Review of Systems Constitutional: dizziness, malaise, weakness EENTM: no symptoms reported Respiratory: see HPI Cardiovascular: see HPI Gastrointestinal: no symptoms reported Genitourinary: no symptoms reported Musculoskeletal: no symptoms reported Skin: no symptoms reported Past Pglgfgk-Bylfmd-Wxdqpl Hx Patient Social History Tobacco Use?: Yes Tobacco type used: Cigarettes Smoking Status: Heavy Tobacco Smoker Smokeless Tobacco Frequency: Never a User Use of E-Cig and/or Vaping dev: No Use of E-Cig and/or Vaping Mukesh: Never a User Substance use?: No Alcohol Use?: No Pt feels they are or have been: No Immunizations Up To Date Tetanus Booster (TDap): Unknown PED Vaccines UTD: No Seasonal Allergies Seasonal Allergies: No Past Medical History Surgery/Hospitalization HX: CVA DM TYPE 2 Surgeries: Yes Appendectomy, Orthopedic Respiratory: No Currently Using CPAP: No Currently Using BIPAP: No Cardiac: Yes (BASED ON MEDICATIONS) High Cholesterol, Hypertension Neurological: Yes Stroke Sexually Transmitted Disease: No HIV/AIDS: No Genitourinary: No Gastrointestinal: No 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 HTN Physical Exam Vital Signs Vital Signs - First Documented Capillary Refill : Height, Weight, BMI Height: 5'9.00" Weight: 293lbs. 2.0oz. 132.919074hv; 46.00 BMI Method:Estimated General Appearance: Obese, Other (chronic ill ) Respiratory: Decreased Breath Sounds (mild diffuse ) Cardiovascular: Regular Rate, Rhythm, Other (bilateral lower ext edema ) Extremity: Pedal Edema Neurologic/Psychiatric: Alert, No Motor/Sensory Deficits Skin: Warm/Dry Progress/Results/Core Measures Suspected Sepsis SIRS Temperature: Pulse: Respiratory Rate: Laboratory Tests 02/26/23 20:08: White Blood Count 7.3 Blood Pressure / Mean: Laboratory Tests 02/26/23 20:08: Creatinine 1.78H, Platelet Count 233, Total Bilirubin 0.6 Results/Orders Lab Results Laboratory Tests Test 02/26/23 20:08 02/26/23 20:31 02/26/23 22:15 Range/Units White Blood Count 7.3 4.3-11.0 10^3/uL Red Blood Count 5.32 4.30-5.52 10^6/uL Hemoglobin 15.7 13.3-17.7 g/dL Hematocrit 48 40-54 % Mean Corpuscular Volume 89 80-99 fL Mean Corpuscular Hemoglobin 30 25-34 pg Mean Corpuscular Hemoglobin Concent 33 32-36 g/dL Red Cell Distribution Width 14.6 H 10.0-14.5 % Platelet Count 233 130-400 10^3/uL Mean Platelet Volume 10.4 9.0-12.2 fL Immature Granulocyte % (Auto) 0 % Neutrophils (%) (Auto) 69 42-75 % Lymphocytes (%) (Auto) 19 12-44 % Monocytes (%) (Auto) 9 0-12 % Eosinophils (%) (Auto) 2 0-10 % Basophils (%) (Auto) 1 0-10 % Neutrophils # (Auto) 5.1 1.8-7.8 10^3/uL Lymphocytes # (Auto) 1.4 1.0-4.0 10^3/uL Monocytes # (Auto) 0.7 0.0-1.0 10^3/uL Eosinophils # (Auto) 0.1 0.0-0.3 10^3/uL Basophils # (Auto) 0.1 0.0-0.1 10^3/uL Immature Granulocyte # (Auto) 0.0 0.0-0.1 10^3/uL Sodium Level 139 135-145 MMOL/L Potassium Level 4.1 3.6-5.0 MMOL/L Chloride Level 106 98-107 MMOL/L Carbon Dioxide Level 22 21-32 MMOL/L Anion Gap 11 5-14 MMOL/L Blood Urea Nitrogen 15 7-18 MG/DL Creatinine 1.78 H 0.60-1.30 MG/DL Estimat Glomerular Filtration Rate 43 BUN/Creatinine Ratio 8 Glucose Level 223 H 70-105 MG/DL Calcium Level 8.6 8.5-10.1 MG/DL Corrected Calcium 9.0 8.5-10.1 MG/DL Magnesium Level 1.8 1.6-2.4 MG/DL Total Bilirubin 0.6 0.1-1.0 MG/DL Aspartate Amino Transf (AST/SGOT) 15 5-34 U/L Alanine Aminotransferase (ALT/SGPT) 15 0-55 U/L Alkaline Phosphatase 79 40-136 U/L Total Protein 6.6 6.4-8.2 GM/DL Albumin 3.5 3.2-4.5 GM/DL Influenza Type A (RT-PCR) Not Detected Not Detecte Influenza Type B (RT-PCR) Not Detected Not Detecte SARS-CoV-2 RNA (RT-PCR) Not Detected Not Detecte Urine Color YELLOW Urine Clarity CLEAR Urine pH 6.0 5-9 Urine Specific [place] 1.010 L 1.016-1.022 Urine Protein NEGATIVE NEGATIVE Urine Glucose (UA) 3+ H NEGATIVE Urine Ketones NEGATIVE NEGATIVE Urine Nitrite NEGATIVE NEGATIVE Urine Bilirubin NEGATIVE NEGATIVE Urine Urobilinogen 0.2 < = 1.0 MG/DL Urine Leukocyte Esterase NEGATIVE NEGATIVE Urine RBC (Auto) NEGATIVE NEGATIVE Urine RBC NONE /HPF Urine WBC NONE /HPF Urine Squamous Epithelial Cells NONE /HPF Urine Crystals NONE /LPF Urine Bacteria NEGATIVE /HPF Urine Casts NONE /LPF Urine Mucus NEGATIVE /LPF Urine Culture Indicated NO My Orders Orders - CASTILLO,LUCIANO L DO Cbc With Automated Diff (02/26/23 20:16) Comprehensive Metabolic Panel (02/26/23 20:16) Magnesium (02/26/23 20:16) Ua Culture If Indicated (02/26/23 20:16) Chest 1 View, Ap/Pa Only (02/26/23 20:24) Influenza A And B By Pcr (02/26/23 20:24) Covid 19 Inhouse Test (02/26/23 20:24) Albuterol/Ipra Inhalation Soln (Duoneb I (02/26/23 20:30) Svn Small Volume Nebulizer (02/26/23 20:24) Ns Iv 1000 Ml (Sodium Chloride 0.9%) (02/26/23 21:54) Ed Admission (Communication) (02/26/23 22:27) Medications Given in ED Current Medications Medications Dose Ordered Sig/Jarvis Route Start Time Stop Time Status Last Admin Dose Admin Albuterol/ Ipratropium 3 ml ONCE ONCE INH 02/26/23 20:30 02/26/23 20:31 DC 02/26/23 20:43 3 ML Vital Signs/I&O 02/26/23 02/26/23 02/26/23 19:53 19:53 20:47 Temp 37.1 Pulse 75 Resp 17 B/P (MAP) 106/65 (79) Pulse Ox 92 93 O2 Delivery Nasal Cannula Nasal Cannula O2 Flow Rate 4.00 4.00 4.00 Capillary Refill : Progress Note : Progress Note Diagnostic studies were ordered reviewed and interpreted by me. Patient's labs shows no significant acute findings. He does have very mild elevated creatinine. Patient x-ray was reviewed and shows maybe mild pneumonia versus may have some edema. Patient does have significant debility and weakness that is chronic. He has a decubitus ulcer on his sacrum. Patient would benefit from hospitalization due to his debility with intent to eventually be discharged to a shelter. He would like to be discharged to a local shelter and has some preferences already stated. Patient to be admitted for viral pneumonia with increased oxygen need and mildly low blood pressure for further inpatient treatment as indicated. Discussed with on-call [facility] resident who accepted admission. Patient was stable upon transfer Diagnostic Imaging Diagonstic Imaging: Xray Plain Films/CT/US/NM/MRI: chest Comments Date of Exam:02/26/23 CHEST 1 VIEW, AP/PA ONLY HISTORY: Shortness of breath COMPARISON: 08/15/2021 TECHNIQUE: Frontal view of the chest FINDINGS: Lung volumes are normal. There are mild airspace opacities in the perihilar region and lung bases. There is stable mild cardiomegaly. A bus driver/monitor device is noted. There is no pleural effusion or pneumothorax. IMPRESSION: 1. Mild perihilar and basilar airspace opacities, may represent edema or infection. Departure Impression Primary Impression: Hypoxia Additional Impressions: Other viral pneumonia Physical debility Decubitus skin ulcer Qualified Codes: L89.159 - Pressure ulcer of sacral region, unspecified stage Disposition: ADMITTED INPATIENT Condition: Stable Admissions Decision to Admit Reason: Admit from ER (General) Decision to Admit/Date: Feb 26, 2023 Time/Decision to Admit Time: 22:26 Departure-Patient Inst. Referrals: [facility] (PCP/Family) Primary Care Physician LUCIANO CASTILLO DO Feb 26, 2023 20:16
[2023-02-26 20:22] LABS: BASOPHILS # (AUTO) 0.1 10^3/uL (0.0-0.1); BASOPHILS % (AUTO) 1 % (0-10); EOSINOPHILS # (AUTO) 0.1 10^3/uL (0.0-0.3); EOSINOPHILS % (AUTO) 2 % (0-10); HEMATOCRIT 48 % (40-54); HEMOGLOBIN 15.7 g/dL (13.3-17.7); LYMPHOCYTES # (AUTO) 1.4 10^3/uL (1.0-4.0); LYMPHOCYTES % (AUTO) 19 % (12-44); MEAN CORPUSCULAR HEMOGLOBIN 30 pg (25-34); MEAN CORPUSCULAR HGB CONC 33 g/dL (32-36); MEAN CORPUSCULAR VOLUME 89 fL (80-99); MEAN PLATELET VOLUME 10.4 fL (9.0-12.2); MONOCYTES # (AUTO) 0.7 10^3/uL (0.0-1.0); MONOCYTES % (AUTO) 9 % (0-12); NEUTROPHILS # (AUTO) 5.1 10^3/uL (1.8-7.8); NEUTROPHILS % (AUTO) 69 % (42-75); PLATELET COUNT 233 10^3/uL (130-400); WHITE BLOOD COUNT 7.3 10^3/uL (4.3-11.0)
[2023-02-26] MEDS ORDERED: RT-ALBUTEROL/IPRATROPIUM 3 ML (DUONEB) VIAL INH ONE (20:30)
[2023-02-26 20:37] LABS: ALBUMIN 3.5 GM/DL (3.2-4.5); BILIRUBIN,TOTAL 0.6 MG/DL (0.1-1.0); CALCIUM 8.6 MG/DL (8.5-10.1); CREATININE SERUM 1.78 MG/DL (0.60-1.30); MAGNESIUM 1.8 MG/DL (1.6-2.4); POTASSIUM 4.1 MMOL/L (3.6-5.0); TOTAL PROTEIN 6.6 GM/DL (6.4-8.2)
--- NOTE | 2023-02-26 20:59 | Diagnostic Imaging Report ---
HISTORY: Shortness of breath COMPARISON: 08/15/2021 TECHNIQUE: Frontal view of the chest FINDINGS: Lung volumes are normal. There are mild airspace opacities in the perihilar region and lung bases. There is stable mild cardiomegaly. A color television console monitor device is noted. There is no pleural effusion or pneumothorax. IMPRESSION: 1. Mild perihilar and basilar airspace opacities, may represent edema or infection. Dictated by: Dictated on workstation # [id number]
[2023-02-26] MEDS ORDERED: NS IV 1000 ML 1,000 ML IV STA (21:54)
[2023-02-26 22:22] LABS: BILIRUBIN,URINE NEGATIVE (NEGATIVE); CLARITY,URINE CLEAR; COLOR,URINE YELLOW; GLUCOSE, URINE (UA) 3+ (NEGATIVE); KETONES,URINE NEGATIVE (NEGATIVE); LEUKOCYTE ESTERASE ,URINE NEGATIVE (NEGATIVE); NITRITE,URINE NEGATIVE (NEGATIVE); PROTEIN,URINE NEGATIVE (NEGATIVE)
[2023-02-26 22:35] LABS: BACTERIA,URINE NEGATIVE /HPF
[2023-02-26] MEDS ORDERED: NON-FORMULARY MEDICATION 1 EA EA (Dulaglutide (Trulicity) 0.75 MG) SQ SCH (23:30)
[2023-02-27] VITALS (7 sets, daily range): BP systolic 115–158; BP diastolic 63–76
[2023-02-27 05:07] LABS: HEMATOCRIT 47 % (40-54); HEMOGLOBIN 15.6 g/dL (13.3-17.7); MEAN CORPUSCULAR HEMOGLOBIN 29 pg (25-34); MEAN CORPUSCULAR HGB CONC 33 g/dL (32-36); MEAN CORPUSCULAR VOLUME 88 fL (80-99); MEAN PLATELET VOLUME 10.3 fL (9.0-12.2); PLATELET COUNT 199 10^3/uL (130-400); WHITE BLOOD COUNT 6.7 10^3/uL (4.3-11.0)
[2023-02-27 05:20] LABS: ALBUMIN 3.5 GM/DL (3.2-4.5); POTASSIUM 3.9 MMOL/L (3.6-5.0)
[2023-02-27 05:21] LABS: CALCIUM 8.9 MG/DL (8.5-10.1)
[2023-02-27 05:22] LABS: TOTAL PROTEIN 6.9 GM/DL (6.4-8.2)
[2023-02-27 05:24] LABS: BILIRUBIN,TOTAL 0.6 MG/DL (0.1-1.0)
[2023-02-27 05:26] LABS: CREATININE SERUM 1.51 MG/DL (0.60-1.30)
[2023-02-27] MEDS ORDERED: inSUlin ASPART (NovoLOG) 1 UNIT/0.01 ML (CHARGE PER UNIT) SQ SCH (08:00)
[2023-02-27] MEDS ORDERED: HYPOCHLOROUS ACID/NaCl (VASHE) 250 ML IR SCH (08:30)
--- NOTE | 2023-02-27 08:37 | Wound Care Assessment ---
Wound Care Assessment Date Seen by Provider: Feb 27, 2023 Time Seen by Provider: 08:32 Chief Complaint Stage 3 pressure ulcer gluteal cleft HPI This pleasant 62 year old gentleman had a fall 1-2 days ago and was down for that period of time. He notes that his girlfriend assisted him in food/water during the time he was down but was unable to lift him up after his knee "gave out". She finally called for assistance. He reports that he has no history of pressure or sacral ulcers prior to the fall and that he was of normal activity level as well. He thinks this ulcer developed as a result of being down for some period of time. He has no h/o incontinence prior to the fall. He notes that he is a heavy smoker (1ppd since age 16) and is diabetic. He is supposed to monitor his sugars at home but does not. He is uncertain as to his last A1C but thinks his glycemic control is "iffy". He is morbidly obesity with a BMI of 46. On exam he has a shallow stage 3 pressure ulcer to his gluteal cleft with stage 1 pressure changes surrounding. He does have some serosanguinous drainage on his Allevyn dressing. I will make recommendations for dressings. He has plans to consider a correction stay upon discharge. Past Medical History: Admits Diabetes Type II Obesity, tobaccoism, lymphedema Smoking Status: Heavy Tobacco Smoker Review of Systems General: Other (obesity) Neurological: Weakness Exam Vital Signs Date Time Temp Pulse Resp B/P (MAP) Pulse Ox O2 Delivery O2 Flow Rate FiO2 02/27/23 04:23 37.1 77 18 124/66 (85) 92 OxyMask 4.00 Capillary Refill : Less Than 3 Seconds General Appearance: no apparent distress, obese HEENT: other (normal hearing) Neck: full range of motion Respiratory: no respiratory distress, no accessory muscle use Extremities: non-tender Neurologic/Psychiatric: alert, normal mood/affect, oriented x 3 Skin: normal color, warm/dry Skin Problem Location: torso Skin Character: drainage (serosanguinous), erythema Wound assessment: 4.5x0.5x0.1cm. The epitheliazation is none. There is no tunneling or undermining. Drainage is medium and serosanguinous. Granulation is none. Necrotic is none. The margins are flat. Surrounding non-blanching erythema (bilateral gluteus) Results Laboratory Tests 02/26/23 20:08: White Blood Count 7.3, Red Blood Count 5.32, Hemoglobin 15.7, Hematocrit 48, Mean Corpuscular Volume 89, Mean Corpuscular Hemoglobin 30, Mean Corpuscular Hemoglobin Concent 33, Red Cell Distribution Width 14.6H, Platelet Count 233, Mean Platelet Volume 10.4, Immature Granulocyte % (Auto) 0, Neutrophils (%) (Auto) 69, Lymphocytes (%) (Auto) 19, Monocytes (%) (Auto) 9, Eosinophils (%) (Auto) 2, Basophils (%) (Auto) 1, Neutrophils # (Auto) 5.1, Lymphocytes # (Auto) 1.4, Monocytes # (Auto) 0.7, Eosinophils # (Auto) 0.1, Basophils # (Auto) 0.1, Immature Granulocyte # (Auto) 0.0, Sodium Level 139, Potassium Level 4.1, Chloride Level 106, Carbon Dioxide Level 22, Anion Gap 11, Blood Urea Nitrogen 15, Creatinine 1.78H, Estimat Glomerular Filtration Rate 43, BUN/Creatinine Ratio 8, Glucose Level 223H, Calcium Level 8.6, Corrected Calcium 9.0, Magnesium Level 1.8, Total Bilirubin 0.6, Aspartate Amino Transf (AST/SGOT) 15, Alanine Aminotransferase (ALT/SGPT) 15, Alkaline Phosphatase 79, Total Protein 6.6, Albumin 3.5 02/26/23 20:31: Influenza Type A (RT-PCR) Not Detected, Influenza Type B (RT-PCR) Not Detected, SARS-CoV-2 RNA (RT-PCR) Not Detected 02/26/23 22:15: Urine Color YELLOW, Urine Clarity CLEAR, Urine pH 6.0, Urine Specific [place] 1.010L, Urine Protein NEGATIVE, Urine Glucose (UA) 3+H, Urine Ketones NEGATIVE, Urine Nitrite NEGATIVE, Urine Bilirubin NEGATIVE, Urine Urobilinogen 0.2, Urine Leukocyte Esterase NEGATIVE, Urine RBC (Auto) NEGATIVE, Urine RBC NONE, Urine WBC NONE, Urine Squamous Epithelial Cells NONE, Urine Crystals NONE, Urine Bacteria NEGATIVE, Urine Casts NONE, Urine Mucus NEGATIVE, Urine Culture Indicated NO 02/27/23 05:00: White Blood Count 6.7, Red Blood Count 5.31, Hemoglobin 15.6, Hematocrit 47, Mean Corpuscular Volume 88, Mean Corpuscular Hemoglobin 29, Mean Corpuscular Hemoglobin Concent 33, Red Cell Distribution Width 14.6H, Platelet Count 199, Mean Platelet Volume 10.3, Sodium Level 140, Potassium Level 3.9, Chloride Level 107, Carbon Dioxide Level 23, Anion Gap 10, Blood Urea Nitrogen 16, Creatinine 1.51H, Estimat Glomerular Filtration Rate 53, BUN/Creatinine Ratio 11, Glucose Level 161H, Calcium Level 8.9, Corrected Calcium 9.3, Total Bilirubin 0.6, Aspartate Amino Transf (AST/SGOT) 19, Alanine Aminotransferase (ALT/SGPT) 18, Alkaline Phosphatase 75, Total Protein 6.9, Albumin 3.5 Assessment/Plan/Dx Assessment: 1. Fall and found down 2. Stage 3 pressure ulcer gluteal cleft 3. Moisture associated dermatitis 4. Massive obesity with generalized weakness 5. Tobaccoism 6. DM2 with hyperglycemia Plan: 1. Defer to primary team. At risk for worsening of pressure ulcer without therapy for strengthening to avoid sedentation 2. Cleanse with vashe. Thick layer barrier cream. Allevyn BFD daily and prn for soiling. Off load area accordingly with increased ambulation and decreased time sitting/in bed. Cushioning in bed. 3. Barrier and appropriate toileting 4. Weight loss recommended 5. Cessation recommended 6. Good glycemic control recommended ENRIQUE MARIA MD Feb 27, 2023 08:37
[2023-02-27] MEDS ORDERED: VITAMIN D3 25 MCG (1,000 UNITS) TABLET PO SCH (09:00)
[2023-02-27] MEDS ORDERED: CLOPIDOGREL 75 MG TABLET PO SCH ×2 (09:00)
[2023-02-27] MEDS ORDERED: ASPIRIN 325 MG TABLET PO SCH (09:00)
[2023-02-27] MEDS ORDERED: ENOXAPARIN 40 MG/0.4 ML SYRINGE SC SCH (09:00)
[2023-02-27] MEDS ORDERED: [UNRECOGNIZED DRUG - OTHER] SC SCH (09:30)
[2023-02-27] MEDS ORDERED: inSUlin ASPART (NovoLOG) 1 UNIT/0.01 ML (CHARGE PER UNIT) SC SCH (10:00)
[2023-02-27] MEDS: VITAMIN D3 25 MCG (1,000 UNITS) TABLET PO SCH (10:15)
[2023-02-27] MEDS: ASPIRIN 325 MG TABLET PO SCH (10:15)
[2023-02-27] MEDS: ENOXAPARIN 40 MG/0.4 ML SYRINGE SC SCH ×2 (10:15→20:45)
[2023-02-27] MEDS ORDERED: ZINC50TA51 PO (11:34)
[2023-02-27] MEDS ORDERED: OMEG100032 PO (11:34)
[2023-02-27] MEDS ORDERED: ASCO500T7 PO (11:34)
[2023-02-27] MEDS ORDERED: DAPA1TAB5 PO (11:34)
[2023-02-27] MEDS ORDERED: ASPI325T32 PO (11:34)
[2023-02-27] MEDS ORDERED: CARV12.53 PO (11:34)
[2023-02-27] MEDS ORDERED: CLOP75TA28 PO (11:34)
[2023-02-27] MEDS ORDERED: ACET-2840 PO (11:34)
--- NOTE | 2023-02-27 12:43 | History & Physical ---
HPI History of Present Illness: Patient is a 62year old male with a history of prior CVA, non-insulin dependent T2DM, and HTN who presented to the ED via EMS on 02/26 with chief complaint of weakness, SOB, and hypotension. He reports that he fell out of his bed prior and was unable to get back up. His girlfriend was also unable to help him up and leeann led for EMS. Patient reports that he normally wears 4L of O2 at night but that this was removed when he fell. EMS reported that his O2 sats were in the 70s when they arrived, and improved to the 90s after administering 4L of O2. EMS also reported that the patient's systolic BP was in the 70s on arrival and started the patient on IV fluids, which improved his BP. Today the patient r eports that he has no complaints except for some weakness. He has maintained O2 sats in the 90s continuing on 4L of supplemental O2. The patient was found to have a decubitus ulcer on admission, today it is clean and bandaged, with no surrounding erythema. Source: patient, EMS Exam Limitations: no limitations Date seen by provider: Feb 27, 2023 Time Seen by Provider: 09:00 Attending Physician [facility] PCP Admitting Physician: Valorie Pedro MD Attending Physician: Valorie Pedro MD Consult Date of Admission Feb 26, 2023 at 23:50 Home Medications Home Medications Reviewed patient Home Medication Reconciliation performed by pharmacy medication reconciliations a and p technician and/or nursing. Patients Allergies have been reviewed. Allergies Coded Allergies: No Known Drug Allergies (Verified , 06/16/19) [id number]-[id number] Hx Patient Social History Drug of Choice: TESTED + FOR THC ON 01/02/19 Smoking Status: Heavy Tobacco Smoker (1/2 PPD to PPD for last 46 years) 2nd Hand Smoke Exposure: No Recent Hopitalizations: No Alcohol Use?: No Substance type: Marijuana (occasional) Tobacco type used: Cigarettes Immunizations Up To Date Tetanus Booster (TDap): Unknown Past Medical History HTN NIDDM CAD HLP JULIANA on CPAP h/o CVA Family Medical History Significant Family History: No Pertinent Family Hx Other Significan Family Hx: HTN Family History: Patient reports no known family medical history. Review of Systems ([facility]) Constitutional: No chills, No fever; weakness EENTM: No ear pain, No blurred vision, No eye pain Respiratory: No cough, No short of breath (no SOB since being on O2) Cardiovascular: edema (1+ in b/l lower extremities) Gastrointestinal: no symptoms reported; No abdominal pain, No nausea, No vomit ing Genitourinary: no symptoms reported; No dysuria, No hematuria Musculoskeletal: no symptoms reported; No back pain, No joint pain Skin: no symptoms reported; No change in hair/nails; other (Decubitus ulcer, ulcer on left knee) Psychiatric/Neurological: No Symptoms Reported; Denies Anxiety, Denies Depressed, Denies Numbness, Denies Tingling; Weakness Reviewed Test Results Reviewed Test Results Lab Laboratory Tests Test 02/26/23 20:08 02/26/23 20:31 02/26/23 22:15 02/27/23 05:00 Range/Units White Blood Count 7.3 6.7 4.3-11.0 10^3/uL Red Blood Count 5.32 5.31 4.30-5.52 10^6/uL Hemoglobin 15.7 15.6 13.3-17.7 g/dL Hematocrit 48 47 40-54 % Mean Corpuscular Volume 89 88 80-99 fL Mean Corpuscular Hemoglobin 30 29 25-34 pg Mean Corpuscular Hemoglobin Concent 33 33 32-36 g/dL Red Cell Distribution Width 14.6 H 14.6 H 10.0-14.5 % Platelet Count 233 199 130-400 10^3/uL Mean Platelet Volume 10.4 10.3 9.0-12.2 fL Immature Granulocyte % (Auto) 0 % Neutrophils (%) (Auto) 69 42-75 % Lymphocytes (%) (Auto) 19 12-44 % Monocytes (%) (Auto) 9 0-12 % Eosinophils (%) (Auto) 2 0-10 % Basophils (%) (Auto) 1 0-10 % Neutrophils # (Auto) 5.1 1.8-7.8 10^3/uL Lymphocytes # (Auto) 1.4 1.0-4.0 10^3/uL Monocytes # (Auto) 0.7 0.0-1.0 10^3/uL Eosinophils # (Auto) 0.1 0.0-0.3 10^3/uL Basophils # (Auto) 0.1 0.0-0.1 10^3/uL Immature Granulocyte # (Auto) 0.0 0.0-0.1 10^3/uL Sodium Level 139 140 135-145 MMOL/L Potassium Level 4.1 3.9 3.6-5.0 MMOL/L Chloride Level 106 107 98-107 MMOL/L Carbon Dioxide Level 22 23 21-32 MMOL/L Anion Gap 11 10 5-14 MMOL/L Blood Urea Nitrogen 15 16 7-18 MG/DL Creatinine 1.78 H 1.51 H 0.60-1.30 MG/DL Estimat Glomerular Filtration Rate 43 53 BUN/Creatinine Ratio 8 11 Glucose Level 223 H 161 H 70-105 MG/DL Calcium Level 8.6 8.9 8.5-10.1 MG/DL Corrected Calcium 9.0 9.3 8.5-10.1 MG/DL Magnesium Level 1.8 1.6-2.4 MG/DL Total Bilirubin 0.6 0.6 0.1-1.0 MG/DL Aspartate Amino Transf (AST/SGOT) 15 19 5-34 U/L Alanine Aminotransferase (ALT/SGPT) 15 18 0-55 U/L Alkaline Phosphatase 79 75 40-136 U/L Total Protein 6.6 6.9 6.4-8.2 GM/DL Albumin 3.5 3.5 3.2-4.5 GM/DL Influenza Type A (RT-PCR) Not Detected Not Detecte Influenza Type B (RT-PCR) Not Detected Not Detecte SARS-CoV-2 RNA (RT-PCR) Not Detected Not Detecte Urine Color YELLOW Urine Clarity CLEAR Urine pH 6.0 5-9 Urine Specific [place] 1.010 L 1.016-1.022 Urine Protein NEGATIVE NEGATIVE Urine Glucose (UA) 3+ H NEGATIVE Urine Ketones NEGATIVE NEGATIVE Urine Nitrite NEGATIVE NEGATIVE Urine Bilirubin NEGATIVE NEGATIVE Urine Urobilinogen 0.2 < = 1.0 MG/DL Urine Leukocyte Esterase NEGATIVE NEGATIVE Urine RBC (Auto) NEGATIVE NEGATIVE Urine RBC NONE /HPF Urine WBC NONE /HPF Urine Squamous Epithelial Cells NONE /HPF Urine Crystals NONE /LPF Urine Bacteria NEGATIVE /HPF Urine Casts NONE /LPF Urine Mucus NEGATIVE /LPF Urine Culture Indicated NO Test 02/27/23 11:47 Range/Units Glucometer 226 H 70-110 MG/DL Physical Exam-([facility]) Physical Exam Vital Signs VS - Last 72 Hours, by Label 02/26/23 02/26/23 02/26/23 02/27/23 19:53 19:53 20:47 00:02 Temp 37.1 Pulse 75 71 Resp 17 18 B/P (MAP) 106/65 (79) 112/74 Pulse Ox 92 93 94 O2 Delivery Nasal Cannula Nasal Cannula Nasal Cannula O2 Flow Rate 4.00 4.00 4.00 4.00 02/27/23 02/27/23 02/27/23 02/27/23 00:34 00:57 04:23 08:38 Temp 37.2 37.1 36.8 Pulse 74 77 79 Resp 20 18 20 B/P (MAP) 154/70 (98) 124/66 (85) 116/71 (86) Pulse Ox 95 92 94 O2 Delivery Nasal Cannula Nasal Cannula OxyMask OxyMask O2 Flow Rate 4.00 4.00 4.00 4.00 02/27/23 11:49 Temp 37.0 Pulse 75 Resp 20 B/P (MAP) 115/63 (80) Pulse Ox 94 O2 Delivery OxyMask O2 Flow Rate 4.00 Capillary Refill : Less Than 3 Seconds General Appearance: WD/WN, no apparent distress HEENT: PERRL/EOMI, other (adentulous) Neck: non-tender, supple Respiratory: chest non-tender, no respiratory distress, no accessory muscle use Cardiovascular: normal peripheral pulses, regular rate, rhythm, no murmur Gastrointestinal: normal bowel sounds, non tender, soft Rectal: deferred Back: no vertebral tenderness Extremities: non-tender, no calf tenderness, normal capillary refill, pedal edema (1+ b/l) Neurologic/Psychiatric: alert, normal mood/affect Skin: normal color, warm/dry Lymphatic: no adenopathy (cervical) Assessment/Plan Assessment/Plan Admission Status: Observation Assessment & Plan Hypoxia: improved with 4L supplemental O2, continue to monitor O2 sat Hypotension: Resolved after infusion of 1L saline in ED, encourage oral hydration Debility: Consult PT, consult social work for placement Decubitus ulcer: currently clean and dressed, continue changing daily and PRN Hyperlipidemia: Continue 10 mg ezetemibe and 80 mg atorvastatin HTN: Currently holding meds due to soft blood pressures Non-insulin dependent T2DM: Continue dulaglutide; SSI during hospital stay Hx of CVA: Continue plavix 75mg and aspirin 325mg Lovenox 40 mg SQ for DVT prophylaxis (1) Acute respiratory failure Status: Acute Assessment & Plan: - Improved when placed on oxygen, currently on home oxygen Qualifiers: Qualified Codes: J96.01 - Acute respiratory failure with hypoxia (2) Acute on chronic renal failure Status: Acute Assessment & Plan: - encouraged PO hydration, dehydrated from being on the ground for so long, will continue to monitor daily BMPs Qualifiers: (3) Hypotension Status: Acute Assessment & Plan: - holding blood pressure meds, will continue to monitor Qualifiers: Qualified Codes: I95.89 - Other hypotension; E86.1 - Hypovolemia (4) HTN (hypertension) Status: Chronic Qualifiers: Qualified Codes: I10 - Essential (primary) hypertension (5) Non-insulin dependent diabetes mellitus Status: Chronic Assessment & Plan: - SSI, holding PO meds, A1c pending (6) CAD (coronary artery disease) Status: Chronic Assessment & Plan: - continue dual anti-plts Qualifiers: Qualified Codes: I25.10 - Atherosclerotic heart disease of [place] coronary artery without angina pectoris (7) JULIANA on CPAP Status: Chronic (8) Physical debility Status: Acute Assessment & Plan: - Discussed need for SNF (9) Decubitus skin ulcer Status: Acute Assessment & Plan: - Wound care consult placed Qualifiers: Qualified Codes: L89.159 - Pressure ulcer of sacral region, unspecified stage (10) H/O: CVA (cerebrovascular accident) Status: Chronic VALORIE PEDRO MD Feb 27, 2023 12:43
--- NOTE | 2023-02-27 14:34 | Diagnostic Imaging Report ---
INDICATION: Right knee pain. TECHNIQUE: Three views of the right knee. CORRELATION STUDY: 11/04/2020. FINDINGS: Marked joint space narrowing medially and less severely laterally. There is prominent marginal osteophyte formation both medially and laterally of both the femur and tibia. Additionally, there are rather bulky osteophytes along the anterior femur and superior pole and to a lesser degree inferior pole of the patella. There is also narrowing of the patellofemoral compartment. Additionally, there is a somewhat flattened appearance about both medial and lateral tibial plateau. Previously noted joint effusion has significantly decreased and nearly resolved. IMPRESSION: 1. Negative for acute bony abnormality of the knee. Severely advanced tricompartmental degenerative changes of the right knee. Dictated by: Dictated on workstation # [id number]
--- NOTE | 2023-02-27 15:13 | Occupational Therapy Eval ---
OT Evaluation-General/PLF Medical Diagnosis Admission Date Feb 26, 2023 at 23:50 Medical Diagnosis: Respiratory distress Onset Date: Feb 26, 2023 Therapy Diagnosis Therapy Diagnosis: FALL/DIZZY/GENERAL WEAKNESS Height/Weight Height (Feet): 5 Height (Inches): 9.00 Weight (Pounds): 293 Weight (Ounces): 2.0 Precautions Precautions/Isolations: Fall Prevention, Standard Precautions Medical History Pertinent Medical History: DM, HTN, Smoking Additional Medical History 62 -year-old male presents via EMS patient was noted to have weakness for blood pressure, increased oxygen need. Patient is on 4 L oxygen at night but it is reported that he does not use it during the day. When EMS arrived they reported his oxygen saturation was in the 70s. Placed him on 4 L and improved to the 90s patient was also found to have a low blood pressure in the 70s. They started him on IV fluids and it quickly resolved. Patient himself only reports chronic fatigue and not feeling well has been going on for at least a year. He reports that he just cannot describe why he does not feel well. Reviewed History: Yes Social History Home: Apartment Current Living Status: Significant Other Entry Into Home: Level Entry ADL-Prior Level of Function SCALE: Activities may be completed with or without assistive devices. 4-[id number]-[id number] completes the activity by him/herself with no assistance from a helper. 5-Set-up or Clean-up Assistance-helper sets up or cleans up; patient completes activity. [place] assists only prior to or following the activity. 4-Supervision or Touching Assistance-helper provides verbal cues and/or touching/steadying and/or contact guard assistance as patient completes activity. Assistance may be provided throughout the activity or intermittently. 3-Partial/Moderate Assistance-helper does LESS THAN HALF the effort. [place] lifts, holds or supports trunk or limbs, but provides less than half the effort. 2-Substantial/Maximal Assistance-helper does MORE THAN HALF the effort. [place] lifts or holds trunk or limbs and provides more than half the effort. 4-Idlvcxuqz-lwbygr does ALL the effort. Patient does none of the effort to complete the activity. Or, the assistance of 2 or more helpers is required for the patient to complete the activity. If activity was not attempted, code reason: 7-Patient Refused. 9-Not Applicable-not attempted and the patient did not perform the activity before the current illness, exacerbation or injury. 10-Not Attempted due to Environmental Limitations-(lack of equipment, weather restraints, etc.). 88-Not Attempted due to Medical Conditions or Safety Concerns. ADL PLOF Comments Some slurred speech Self Care: Independent Functional Cognition: Independent DME/Equipment Comments Uses FWW, Right foot deformity Drive Self: No OT Current Status Subjective agreeable to OT Mental Status/Objective Patient Orientation: Person, Place, Situation Current Glasses/Contacts: Yes Hearing Aids: No Dentures/Partials: No Hand Dominance: Right Upper Extremity ROM BUE WFLS Upper Extremity Coordination FAIR + Upper Extremity Strength -4/5 grossly ADL-Treatment ADL-Current Patient reports only wearing socks when wearing shoes, only wears shoes when leaving home, today patient completes less than 25 % of task of doming socks Eating (QC): 6 Oral Hygiene (QC): 5 Shower/Bathe Self (QC): 7 Upper Body Dressing (QC): 4 Lower Body Dressing (QC): 3 On/Off Footwear (QC): 2 Toileting Hygiene (QC): 7 Education OT Patient Education: Correct positioning, Energy conservation, Modified ADL techniques, Progress toward Goal/Update tx plan, Purpose of tx/functional activities, Reviewed precautions, Rehab process, Safety issues Teaching Recipient: Patient Teaching Methods: Demonstration, Discussion Response to Teaching: Reinforcement Needed OT 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 2=Patient will verbalize/demonstrate understanding of assistive devices/modifications for ADL. 3=Patient will improve strength/tolerance for activity to enable patient to perform ADL's. OT Education/Plan Problem List/Assessment Assessment: Decreased Activ Tolerance, Decreased Safety Aware, Decreased UE Strength, Impaired Cognition, Impaired Coordination, Impaired Funct Balance, Impaired Self-Care Skills Discharge Recommendations Plan/Recommendations: Continue POC Treatment Plan/Plan of Care Treatment,Training & Education: Yes Patient would benefit from OT for education, treatment and training to promote independence in ADL's, mobility, safety and/or upper extremity function for ADL's. Plan of Care: ADL Retraining, Cognitive Retraining, Functional Mobility, Group Exercise/Act as Ind, UE Funct Exercise/Act Treatment Duration: Mar 02, 2023 Frequency: 3 times per week (3-5 times per week) Estimated Hrs Per Day: .25 hour per day Agreement: Yes Rehab Potential: Guarded remains in recliner, All needs met Time Start Time: 15:10 Stop Time: 15:26 DATE: Feb 27, 2023 Total Time Billed (hr/min): 16 Billed Treatment Time EVM 16 min SAL TEMPLE OT Feb 27, 2023 15:13
--- NOTE | 2023-02-27 15:30 | Physical Therapy Evaluation ---
PT Evaluation-General Medical Diagnosis Admission Date Feb 26, 2023 at 23:50 Medical Diagnosis: Pneumonia, hypoxia Onset Date: Feb 26, 2023 Therapy Diagnosis Therapy Diagnosis: Gait deficit, strength deficit Height/Weight Height (Feet): 5 Height (Inches): 9.00 Weight (Pounds): 293 Weight (Ounces): 2.0 Precautions Precautions/Isolations: Fall Prevention, Standard Precautions Weight Bear Status Right Lower Extremity: Right Full Weight Bearing Left Lower Extremity: Left Full Weight Bearing Referral Physician: Dr. Pedro Reason for Referral: Evaluation/Treatment Medical History Pertinent Medical History: DM, HTN, Smoking Reviewed History: Yes Social History Home: Apartment Current Living Status: Significant Other Entry Into Home: Level Entry Prior Prior Level of Function SCALE: Activities may be completed with or without assistive devices. 0-Thcwawqobh-kcjlqoi completes the activity by him/herself with no assistance from a helper. 5-Set-up or Clean-up Assistance-helper sets up or cleans up; patient completes activity. [place] assists only prior to or following the activity. 4-Supervision or Touching Assistance-helper provides verbal cues and/or touching/steadying and/or contact guard assistance as patient completes activity. Assistance may be provided throughout the activity or intermittently. 3-Partial/Moderate Assistance-helper does LESS THAN HALF the effort. [place] lifts, holds or supports trunk or limbs, but provides less than half the effort. 2-Substantial/Maximal Assistance-helper does MORE THAN HALF the effort. [place] lifts or holds trunk or limbs and provides more than half the effort. 8-Rroeepyxx-fybxvk does ALL the effort. Patient does none of the effort to complete the activity. Or, the assistance of 2 or more helpers is required for the patient to complete the activity. If activity was not attempted, code reason: 7-Patient Refused. 9-Not Applicable-not attempted and the patient did not perform the activity before the current illness, exacerbation or injury. 10-Not Attempted due to Environmental Limitations-(lack of equipment, weather restraints, etc.). 88-Not Attempted due to Medical Conditions or Safety Concerns. Bed Mobility: 6 Transfers (B,C,W/C): 6 Gait: 6 Indoor Mobility (Ambulation): Independent Stairs: Not Applicalbe Prior Devices Use: Walker PT Evaluation-Current Subjective Patient sitting in chair upon PT arrival, agreeable to treatment. Patient rates pain at 0/10 at rest. Objective Patient Orientation: Person ROM/Strength ROM Lower Extremities WFLs BLEs all planes. 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 Reports he did when he was a child. Sensory Vision: Wears Glasses Hearing: Functional Sensation Right Lower Extremit: Intact Sensation Left Lower Extremity: Intact Transfers Roll Left to Right (QC): 4 Sit to Lying (QC): 4 Lying to Sitting/Side of Bed(Q: 4 Sit to Stand (QC): 4 Chair/Myh-jf-Eujou Xfer(QC): 4 Gait Does the Patient Walk?: Yes Mode of Locomotion: Walk Anticipated Mode of Locomotion: Walk Walk 10 feet (QC): 4 Distance: 40' Gait Assistive Device: FWW Balance Sitting Static: Normal Sitting Dynamic: Normal Standing Static: Fair Standing Dynamic: Fair Assessment/Needs Patient demonstrates fair overall tolerance to treatment. Patient ambulates 40' with FWW, with SBA and verbal cues for safety, posture and progression. Patient performs all bed mobility and transfers with SBA. Patient ambulates with fair overall gait pattern, decreased stance time on the right LE, shortened stride length and decreased overall right foot mobility. Patient in chair post treatment with all needs met, nursing notified, call light in hand. Rehab Potential: Fair PT Fpc Goals Fpc Goals PT Thiokol Operator Goals Time Frame: Mar 29, 2023 Roll Left & Right (QC): 6 Sit to Lying (QC): 6 Lying-Sitting on Side/Bed(QC): 6 Sit to Stand (QC): 6 Chair/Mql-gu-Lwqsq Xfer(QC): 6 Toilet Transfer (QC): 6 Does the Patient Walk: Yes Walk 10 feet (QC): 6 Walk 50ft with 2 Turns (QC): 6 Walk 150 ft (QC): 6 PT Plan Problem List Problem List: Activity Tolerance, Functional Strength, Safety, Balance, Gait, Transfer, Bed Mobility, ROM Treatment/Plan Treatment Plan: Continue Plan of Care Treatment Plan: Bed Mobility, Education, Functional Activity Andrei, Functional Strength, Group Therapy, Gait, Safety, Therapeutic Exercise, Transfers Treatment Duration: Mar 31, 2023 Frequency: 6 times per week Estimated Hrs Per Day: .25 hour per day Patient and/or Family Agrees t: Yes Safety Risks/Education Patient Education: Gait Training, Transfer Techniques Teaching Recipient: Patient Teaching Methods: Demonstration, Discussion Response to Teaching: Verbalize Understanding, Return Demonstration Time Time In: 1505 Time Out: 1521 DATE: Feb 27, 2023 Total Billed Treatment Time: 16 Total Billed Treatment Visit, DEISY JIN PT Feb 27, 2023 15:30
[2023-02-27] MEDS: inSUlin ASPART (NovoLOG) 1 UNIT/0.01 ML (CHARGE PER UNIT) SC SCH ×2 (16:05→20:43)
[2023-02-27] MEDS: MICONAZOLE 2% POWDER (DESENEX AF) 90 GM TOP SCH (20:46)
[2023-02-28 03:50] VITALS: BP 133/81
[2023-02-28 04:32] LABS: HEMATOCRIT 47 % (40-54); HEMOGLOBIN 15.7 g/dL (13.3-17.7); MEAN CORPUSCULAR HEMOGLOBIN 30 pg (25-34); MEAN CORPUSCULAR HGB CONC 34 g/dL (32-36); MEAN CORPUSCULAR VOLUME 88 fL (80-99); MEAN PLATELET VOLUME 10.5 fL (9.0-12.2); PLATELET COUNT 209 10^3/uL (130-400); WHITE BLOOD COUNT 6.1 10^3/uL (4.3-11.0)
[2023-02-28 04:46] LABS: ALBUMIN 3.6 GM/DL (3.2-4.5); POTASSIUM 3.7 MMOL/L (3.6-5.0)
[2023-02-28 04:47] LABS: CALCIUM 9.2 MG/DL (8.5-10.1)
[2023-02-28 04:48] LABS: TOTAL PROTEIN 7.1 GM/DL (6.4-8.2)
[2023-02-28 04:50] LABS: BILIRUBIN,TOTAL 0.8 MG/DL (0.1-1.0)
[2023-02-28 04:52] LABS: CREATININE SERUM 1.28 MG/DL (0.60-1.30)
[2023-02-28] MEDS: inSUlin ASPART (NovoLOG) 1 UNIT/0.01 ML (CHARGE PER UNIT) SC SCH ×4 (06:12→20:56)
[2023-02-28] MEDS: ASPIRIN 325 MG TABLET PO SCH (08:04)
[2023-02-28] MEDS: VITAMIN D3 25 MCG (1,000 UNITS) TABLET PO SCH (08:04)
[2023-02-28] MEDS: MICONAZOLE 2% POWDER (DESENEX AF) 90 GM TOP SCH ×2 (08:05→20:13)
[2023-02-28] MEDS: ENOXAPARIN 40 MG/0.4 ML SYRINGE SC SCH ×2 (08:05→20:12)
[2023-02-28 08:41] VITALS: BP 139/70
[2023-02-28] MEDS ORDERED: BISMUTH SUBSALICYLATE PO PRN (10:45)
[2023-02-28 11:51] VITALS: BP 117/76
--- NOTE | 2023-02-28 12:29 | Progress Note ---
DARLENE CHING 02/28/23 1229: Subjective Date Seen by a Provider: Feb 28, 2023 Time Seen by a Provider: 08:00 Subjective/Events-last exam Patient is awake and alert sitting up in bed this morning. He reports that he has some mild nausea and requests some pepto but reports no other complaints. Nursing reports that he has been able to get to the bathroom and back to his bed by himself, the patient states this is how far he normally walks at home. Patient had previously told social work that he was not interested in going to a skilled rehab facility, but endorses that he would be willing to this morning. Patient has been on room air this morning and has maintained O2 sats in the low 90s without any shortness of breath. Patient has no other complaints. Review of Systems General: No Chills, No Night Sweats HEENT: No Head Aches, No Visual Changes Pulmonary: No Dyspnea, No Cough Cardiovascular: No: Chest Pain, Palpitations Gastrointestinal: Nausea; No: Vomiting, Abdominal Pain, Diarrhea Genitourinary: No Dysuria, No Hematuria Musculoskeletal: No: neck pain, back pain Neurological: No: Numbness, Change in speech Objective Exam Last Set of Vital Signs Vital Signs Date Time Temp Pulse Resp B/P (MAP) Pulse Ox O2 Delivery O2 Flow Rate FiO2 02/28/23 11:51 36.5 77 20 117/76 (90) 95 Room Air 02/28/23 08:41 4.00 Capillary Refill : Less Than 3 Seconds I&O Intake and Output 02/27/23 23:59 Intake Total 740 ml Output Total 325 ml Balance 415 ml Intake Oral 740 ml Output Urine Total 325 ml # Voids 4 Daily Weight Change No General: Alert, Cooperative HEENT: Atraumatic, PERRLA Neck: Supple, No LAD Lungs: Clear to Auscultation Heart: Regular Rate, No Murmurs Abdomen: Soft, No Tenderness Extremities: Normal Pulses, Other (slight swelling b/l lower extremities) Skin: Other (Decubitus ulcer, cleaned and dressed) Neuro: Normal Speech, Normal Tone Psych/Mental Status: Mental Status NL Results Lab Laboratory Tests 02/27/23 15:29: Glucometer 212H 02/27/23 20:41: Glucometer 168H 02/28/23 04:10: White Blood Count 6.1, Red Blood Count 5.33, Hemoglobin 15.7, Hematocrit 47, Mean Corpuscular Volume 88, Mean Corpuscular Hemoglobin 30, Mean Corpuscular H emoglobin Concent 34, Red Cell Distribution Width 14.4, Platelet Count 209, Mean Platelet Volume 10.5, Sodium Level 139, Potassium Level 3.7, Chloride Level 104, Carbon Dioxide Level 22, Anion Gap 13, Blood Urea Nitrogen 19H, Creatinine 1.28, Estimat Glomerular Filtration Rate 64, BUN/Creatinine Ratio 15, Glucose Level 137H, Calcium Level 9.2, Corrected Calcium 9.5, Total Bilirubin 0.8, Aspartate Amino Transf (AST/SGOT) 24, Alanine Aminotransferase (ALT/SGPT) 20, Alkaline Phosphatase 76, Total Protein 7.1, Albumin 3.6 Assessment/Plan Assessment/Plan Assess & Plan/Chief Complaint Acute respiratory failure: improved with 4L supplemental O2, able to maintain o2 sat in 90s this morning on room air, continue to monitor O2 sat Hypotension: Resolved after infusion of 1L saline in ED, encourage oral hydrat ion Debility: Continue working with PT/OT, social work consulted to discuss placement into a halfway facility Decubitus ulcer: currently clean and dressed, continue changing daily and PRN, wound care consulted Hyperlipidemia: Continue 10 mg ezetemibe and 80 mg atorvastatin HTN: Currently holding meds due to soft blood pressures Non-insulin dependent T2DM: SSI, A1c measured at 8.7, recommend following up with PCP Hx of CVA: Continue plavix 75mg and aspirin 325mg Lovenox 40 mg SQ for DVT prophylaxis JULIANA: continue using CPAP 4L at night DANIELLE PEDRO MD 02/28/23 1509: Objective Exam General: Alert, Oriented X3, Cooperative Lungs: Clear to Auscultation, Normal Air Movement Heart: Regular Rate, No Murmurs Abdomen: Normal Bowel Sounds, Soft, No Tenderness Extremities: Normal Pulses, Other (slight swelling b/l lower extremities) Neuro: Normal Speech Psych/Mental Status: Mental Status NL, Mood NL Assessment/Plan Assessment/Plan Assess & Plan/Chief Complaint Restarted BB for blood pressure control, SW checking on SNF placement due to debility, continue with PT/OT, Plan for discharge in the next 2 days. Danielle Pedro MD Supervisory-Addendum Brief Verification & Attestation Participated in pt care: history, physical Personally performed: exam, history Care discussed with: Medical Student Procedures: n/a Verification and Attestation of Medical Student E/M Service A medical student performed and documented this service in my presence. I reviewed and verified all information documented by the medical student and made modifications to such information, when appropriate. I personally performed the physical exam and medical decision making. Danielle Pedro, Feb 28, 2023,15:07 DARLENE CHING Feb 28, 2023 12:29 DANIELLE PEDRO MD Feb 28, 2023 15:09
--- NOTE | 2023-02-28 13:06 | Physical Therapy Progress Note ---
Therapy Progress Note Patient refused due to feeling ill. Will attempt PT again tomorrow. DEISY PANDEY PT Feb 28, 2023 13:05
--- NOTE | 2023-02-28 13:21 | Occupational Ther Daily Note ---
OT Current Status-Daily Note Subjective Finishing shower, agreeable to participate in therapy w/ OT Mental Status/Objective Patient Orientation: Person, Place, Time, Situation ADL-Treatment showering on shower bench and use of [facility] and [facility] Therapy Code Descriptions/Definitions Functional [place] Measure: 0=Not Assessed/NA 4=Minimal Assistance 1=Total Assistance 5=Supervision or Setup 2=Maximal Assistance 6=Modified [place] 3=Moderate Assistance 7=Complete IndependenceSCALE: Activities may be completed with or without assistive devices. 3-Wlkmcsygxa-omhtdoh completes the activity by him/herself with no assistance from a helper. 5-Set-up or Clean-up Assistance-helper sets up or cleans up; patient completes activity. [place] assists only prior to or following the activity. 4-Supervision or Touching Assistance-helper provides verbal cues and/or touching/steadying and/or contact guard assistance as patient completes activity. Assistance may be provided throughout the activity or intermittently. 3-Partial/Moderate Assistance-helper does LESS THAN HALF the effort. [place] lifts, holds or supports trunk or limbs, but provides less than half the effort. 2-Substantial/Maximal Assistance-helper does MORE THAN HALF the effort. [place] lifts or holds trunk or limbs and provides more than half the effort. 8-Ciwjsqcuk-ygdzqa does ALL the effort. Patient does none of the effort to complete the activity. Or, the assistance of 2 or more helpers is required for the patient to complete the activity. If activity was not attempted, code reason: 7-Patient Refused. 9-Not Applicable-not attempted and the patient did not perform the activity before the current illness, exacerbation or injury. 10-Not Attempted due to Environmental Limitations-(lack of equipment, weather restraints, etc.). 88-Not Attempted due to Medical Conditions or Safety Concerns. Eating (QC): 6 Oral Hygiene (QC): 5 Bathing Location: L Arm, R Arm, L Upper Leg, R Upper Leg, L Lower Leg (including foot), R Lower Leg (including foot), Chest, Abdomen, Buttocks, Perineal Area Shower/Bathe Self (QC): 3 Upper Body Dressing (QC): 5 Lower Body Dressing (QC): 3 On/Off Footwear: 3 Toileting Hygiene (QC): 3 Toilet Transfer (QC): 5 Education OT Patient Education: Correct positioning, Modified ADL techniques, Progress toward Goal/Update tx plan, Purpose of tx/functional activities, Reviewed precautions, Rehab process, Safety issues, Transfer techniques Teaching Recipient: Patient Response to Teaching: Verbalize Understanding, Reinforcement Needed OT Circular Knife Machine Cutter Goals Fpc Goals Oral Hygiene (QC): 6 Toileting Hygiene (QC): 6 Shower/Bathe Self (QC): 4 Upper Body Dressing (QC): 6 Lower Body Dressing (QC): 6 On/Off Footwear (QC): 6 1=Demonstrate adherence to instructed precautions during ADL tasks. 2=Patient will verbalize/demonstrate understanding of assistive devices/modifications for ADL. 3=Patient will improve strength/tolerance for activity to enable patient to perform ADL's. OT Education/Plan Problem List/Assessment Assessment: Impaired Cognition, Impaired Self-Care Skills Discharge Recommendations Plan/Recommendations: Continue POC Treatment Plan/Plan of Care Patient would benefit from OT for education, treatment and training to promote independence in ADL's, mobility, safety and/or upper extremity function for ADL's. Plan of Care: ADL Retraining, Cognitive Retraining, Functional Mobility, Group Exercise/Act as Ind, UE Funct Exercise/Act Treatment Duration: Mar 02, 2023 Frequency: 3 times per week (3-5 times per week) Estimated Hrs Per Day: .25 hour per day Agreement: Yes Rehab Potential: Guarded Time Start Time: 12:50 Stop Time: 13:21 DATE: Feb 28, 2023 Total Time Billed (hr/min): 31 Billed Treatment Time ADL 31 SAL TEMPLE OT Feb 28, 2023 13:21
[2023-02-28 16:00] VITALS: BP 136/79
[2023-02-28] MEDS: carvediloL 12.5 MG TABLET PO SCH (17:29)
[2023-02-28] MEDS: GABAPENTIN 300 MG (NEURONTIN) CAP PO SCH ×2 (17:29→20:13)
[2023-02-28 20:03] VITALS: BP 130/79
[2023-02-28] MEDS ORDERED: CLOPIDOGREL 75 MG TABLET PO SCH (21:00)
[2023-03-01 00:21] VITALS: BP 133/91
[2023-03-01 03:57] VITALS: BP 137/84
[2023-03-01 05:42] LABS: HEMATOCRIT 48 % (40-54); MEAN CORPUSCULAR HEMOGLOBIN 29 pg (25-34); MEAN CORPUSCULAR HGB CONC 34 g/dL (32-36); MEAN CORPUSCULAR VOLUME 87 fL (80-99); MEAN PLATELET VOLUME 10.2 fL (9.0-12.2); PLATELET COUNT 220 10^3/uL (130-400)
[2023-03-01 05:54] LABS: ALBUMIN 3.6 GM/DL (3.2-4.5); POTASSIUM 3.9 MMOL/L (3.6-5.0)
[2023-03-01 05:57] LABS: TOTAL PROTEIN 7.1 GM/DL (6.4-8.2)
[2023-03-01 05:58] LABS: BILIRUBIN,TOTAL 0.8 MG/DL (0.1-1.0)
[2023-03-01 06:00] LABS: CREATININE SERUM 1.18 MG/DL (0.60-1.30)
[2023-03-01] MEDS: inSUlin ASPART (NovoLOG) 1 UNIT/0.01 ML (CHARGE PER UNIT) SC SCH ×3 (06:12→16:34)
[2023-03-01 07:49] VITALS: BP 141/86
[2023-03-01] MEDS: carvediloL 12.5 MG TABLET PO SCH (08:17)
[2023-03-01] MEDS: ENOXAPARIN 40 MG/0.4 ML SYRINGE SC SCH (08:17)
[2023-03-01] MEDS: VITAMIN D3 25 MCG (1,000 UNITS) TABLET PO SCH (08:17)
[2023-03-01] MEDS: MICONAZOLE 2% POWDER (DESENEX AF) 90 GM TOP SCH (08:17)
[2023-03-01] MEDS: ASPIRIN 325 MG TABLET PO SCH (08:17)
[2023-03-01] MEDS: GABAPENTIN 300 MG (NEURONTIN) CAP PO SCH ×2 (08:17→16:33)
--- NOTE | 2023-03-01 10:15 | Physical Therapy Daily Note ---
PT Daily Note-Current Subjective Patient agrees to therapy. Currently in bed "trying to catch up on some sleep". Pain Section J - Health Conditions 1. Rarely or not at all 2. Occasionally 3. Frequently 4. Almost constantly 8. Unable to answer Pain Effect on Sleep: 1 Pain Interference with Therapy: 1 Pain Interference w/Day-to-Day: 1 Mental Status Patient Orientation: Normal For Age Transfers SCALE: Activities may be completed with or without assistive devices. 2-Duowdltdbj-vzvmbbc completes the activity by him/herself with no assistance from a helper. 5-Set-up or Clean-up Assistance-helper sets up or cleans up; patient completes activity. [place] assists only prior to or following the activity. 4-Supervision or Touching Assistance-helper provides verbal cues and/or touching/steadying and/or contact guard assistance as patient completes activity. Assistance may be provided throughout the activity or intermittently. 3-Partial/Moderate Assistance-helper does LESS THAN HALF the effort. [place] lifts, holds or supports trunk or limbs, but provides less than half the effort. 2-Substantial/Maximal Assistance-helper does MORE THAN HALF the effort. [place] lifts or holds trunk or limbs and provides more than half the effort. 3-Vwnsyccnb-jxcvxn does ALL the effort. Patient does none of the effort to complete the activity. Or, the assistance of 2 or more helpers is required for the patient to complete the activity. If activity was not attempted, code reason: 7-Patient Refused. 9-Not Applicable-not attempted and the patient did not perform the activity before the current illness, exacerbation or injury. 10-Not Attempted due to Environmental Limitations-(lack of equipment, weather restraints, etc.). 88-Not Attempted due to Medical Conditions or Safety Concerns. Sit to Lying (QC): 6 Lying to Sitting/Side of Bed(Q: 6 Sit to Stand (QC): 4 Weight Bearing Right Lower Extremity: Right Full Weight Bearing Left Lower Extremity: Left Full Weight Bearing Gait Training Distance: 150' Walk 10 feet (QC): 4 Walk 50 ft with 2 Turns(QC): 4 Walk 150 ft (QC): 4 Gait Assistive Device: FWW slow, slight side step sequence due to right club foot Assessment Patient returned to bed per his request. PT to increase activity as tolerated by patient. PT Mcc Goals Deputy Fire Chief Goals PT Mcc Goals Time Frame: Mar 29, 2023 Roll Left & Right (QC): 6 Sit to Lying (QC): 6 Lying-Sitting on Side/Bed(QC): 6 Sit to Stand (QC): 6 Chair/Hgw-gy-Qings Xfer(QC): 6 Toilet Transfer (QC): 6 Does the Patient Walk: Yes Walk 10 feet (QC): 6 Walk 50ft with 2 Turns (QC): 6 Walk 150 ft (QC): 6 PT Plan Treatment/Plan Treatment Plan: Continue Plan of Care Treatment Plan: Bed Mobility, Education, Functional Activity Andrei, Functional Strength, Group Therapy, Gait, Safety, Therapeutic Exercise, Transfers Treatment Duration: Mar 31, 2023 Frequency: 6 times per week Estimated Hrs Per Day: .25 hour per day Patient and/or Family Agrees t: Yes Time Time In: 936 Time Out: 946 DATE: Mar 01, 2023 Total Billed Treatment Time: 10 Total Billed Treatment 1 visit FA 10 min MIRIAN OLIVA PT Mar 01, 2023 10:15
--- NOTE | 2023-03-01 10:27 | Occupational Ther Daily Note ---
OT Current Status-Daily Note Subjective resting in bed, agreeable to OT Mental Status/Objective Patient Orientation: Person, Place, Time, Situation ADL-Treatment Clothing management for LB garments Therapy Code Descriptions/Definitions Functional [place] Measure: 0=Not Assessed/NA 4=Minimal Assistance 1=Total Assistance 5=Supervision or Setup 2=Maximal Assistance 6=Modified [place] 3=Moderate Assistance 7=Complete IndependenceSCALE: Activities may be completed with or without assistive devices. 9-Kewqcovaua-ofinydo completes the activity by him/herself with no assistance from a helper. 5-Set-up or Clean-up Assistance-helper sets up or cleans up; patient completes activity. [place] assists only prior to or following the activity. 4-Supervision or Touching Assistance-helper provides verbal cues and/or touching/steadying and/or contact guard assistance as patient completes activity. Assistance may be provided throughout the activity or intermittently. 3-Partial/Moderate Assistance-helper does LESS THAN HALF the effort. [place] lifts, holds or supports trunk or limbs, but provides less than half the effort. 2-Substantial/Maximal Assistance-helper does MORE THAN HALF the effort. [place] lifts or holds trunk or limbs and provides more than half the effort. 6-Zmnsocawp-huqjec does ALL the effort. Patient does none of the effort to complete the activity. Or, the assistance of 2 or more helpers is required for the patient to complete the activity. If activity was not attempted, code reason: 7-Patient Refused. 9-Not Applicable-not attempted and the patient did not perform the activity before the current illness, exacerbation or injury. 10-Not Attempted due to Environmental Limitations-(lack of equipment, weather restraints, etc.). 88-Not Attempted due to Medical Conditions or Safety Concerns. Eating (QC): 6 Oral Hygiene (QC): 5 Upper Body Dressing (QC): 5 Lower Body Dressing (QC): 4 (OT facilite aligned seams and adjust waist over hernia) On/Off Footwear: 3 Toileting Hygiene (QC): 4 Toilet Transfer (QC): 4 Education OT Patient Education: Correct positioning, Exercise program, Modified ADL techniques, Progress toward Goal/Update tx plan, Purpose of tx/functional activities, Reviewed precautions, Rehab process, Safety issues, Transfer techniques Teaching Recipient: Patient Teaching Methods: Demonstration Response to Teaching: Verbalize Understanding OT Occupational Safety Specialist Goals Occupational Safety Specialist Goals Oral Hygiene (QC): 6 Toileting Hygiene (QC): 6 Shower/Bathe Self (QC): 4 Upper Body Dressing (QC): 6 Lower Body Dressing (QC): 6 On/Off Footwear (QC): 6 1=Demonstrate adherence to instructed precautions during ADL tasks. 2=Patient will verbalize/demonstrate understanding of assistive dev ices/modifications for ADL. 3=Patient will improve strength/tolerance for activity to enable patient to perform ADL's. OT Education/Plan Problem List/Assessment Assessment: Decreased Activ Tolerance, Decreased UE Strength, Impaired Self- Care Skills Discharge Recommendations Plan/Recommendations: Continue POC Treatment Plan/Plan of Care Treatment,Training & Education: Yes Patient would benefit from OT for education, treatment and training to promote independence in ADL's, mobility, safety and/or upper extremity function for ADL's. Plan of Care: ADL Retraining, Cognitive Retraining, Functional Mobility, Group Exercise/Act as Ind, UE Funct Exercise/Act Treatment Duration: Mar 02, 2023 Frequency: 3 times per week (3-5 times per week) Estimated Hrs Per Day: .25 hour per day Agreement: Yes Rehab Potential: Guarded Time Start Time: 09:36 Stop Time: 09:46 DATE: Mar 01, 2023 Total Time Billed (hr/min): 10 Billed Treatment Time ADL 10 min SAL TEMPLE OT Mar 01, 2023 10:27
[2023-03-01 11:29] VITALS: BP 133/83
--- NOTE | 2023-03-01 12:05 | Progress Note ---
DARLENE CHING 03/01/23 1205: Subjective Date Seen by a Provider: Mar 01, 2023 Time Seen by a Provider: 08:15 Subjective/Events-last exam Patient is awake and alert laying in bed this morning. He states that he has no complaints today. He reports that he has been up and walking around with the use of his walker, has been able to get himself from the bed to the bathroom and was able to make it detention down the king before needing to stop. Patient indicated today that he would not be interested in going to a long-term facility for rehab, but states that he would be willing to work with home health to continue working with PT/OT. Patient states that he has a ground level, one floor house, does not need to walk far distances at home, and that he already has a walker. Patient states that he feels well overall today. Review of Systems General: No Chills, No Night Sweats HEENT: No Head Aches, No Visual Changes, No Eye Pain Pulmonary: No Dyspnea, No Cough Cardiovascular: No: Chest Pain, Palpitations Gastrointestinal: No: Nausea (none since yesterday), Vomiting, Abdominal Pain Genitourinary: No Dysuria, No Hematuria Musculoskeletal: No: neck pain, back pain Neurological: No: Numbness, Change in speech Objective Exam Last Set of Vital Signs Vital Signs Date Time Temp Pulse Resp B/P (MAP) Pulse Ox O2 Delivery O2 Flow Rate FiO2 03/01/23 11:29 36.6 75 19 133/83 (100) 93 Room Air 03/01/23 10:19 0.00 Capillary Refill : Less Than 3 Seconds I&O Intake and Output 03/01/23 00:00 Intake Total 2040 ml Balance 2040 ml Intake Oral 2040 ml # Voids 13 # Bowel Movements 1 General: Alert, Cooperative, No Acute Distress HEENT: Atraumatic Neck: Supple Lungs: Clear to Auscultation, Normal Air Movement Heart: Regular Rate, No Murmurs Abdomen: Soft, No Tenderness Extremities: No Clubbing, No Cyanosis Skin: No Rashes, No Breakdown, Other (Decubitus ulcer, cleaned and dressed) Neuro: Normal Speech, Normal Tone Psych/Mental Status: Mental Status NL Results Lab Laboratory Tests 02/28/23 15:43: Glucometer 177H 8/2/23 20:41: Glucometer 202H 03/01/23 05:20: White Blood Count 6.0, Red Blood Count 5.47, Hemoglobin 16.0, Hematocrit 48, Mean Corpuscular Volume 87, Mean Corpuscular Hemoglobin 29, Mean Corpuscular Hemoglobin Concent 34, Red Cell Distribution Width 13.8, Platelet Count 220, Mean Platelet Volume 10.2, Sodium Level 139, Potassium Level 3.9, Chloride Level 103, Carbon Dioxide Level 25, Anion Gap 11, Blood Urea Nitrogen 19H, Creatinine 1.18, Estimat Glomerular Filtration Rate 71, BUN/Creatinine Ratio 16, Glucose Level 169H, Calcium Level 9.0, Corrected Calcium 9.3, Total Bilirubin 0.8, Aspartate Amino Transf (AST/SGOT) 30, Alanine Aminotransferase (ALT/SGPT) 20, Alkaline Phosphatase 74, Total Protein 7.1, Albumin 3.6 03/01/23 10:46: Glucometer 213H Assessment/Plan Assessment/Plan Assess & Plan/Chief Complaint Acute respiratory failure: resolved, patient has maintained daytime O2 sats in the 90s on room air, uses 4L at night which is his baseline Hypotension: Resolved after infusion of 1L saline in ED, patient states he has continued to hydrate orally Debility: Continue working with PT/OT, social work consulted to help coordinate home health to continue PT/OT Decubitus ulcer: currently clean and dressed, continue changing daily and PRN, wound care consulted Hyperlipidemia: Continue 10 mg ezetemibe and 80 mg atorvastatin HTN: restarted on home carvedilol Non-insulin dependent T2DM: SSI, A1c measured at 8.7, recommend following up with PCP Hx of CVA: Continue plavix 75mg and aspirin 325mg Lovenox 40 mg SQ for DVT prophylaxis JULIANA: continue using CPAP 4L at night DANIELLE PEDRO MD 03/01/23 1646: Supervisory-Addendum Brief Verification & Attestation Participated in pt care: history, physical Personally performed: exam, history Care discussed with: Medical Student Procedures: n/a Verification and Attestation of Medical Student E/M Service A medical student performed and documented this service in my presence. I reviewed and verified all information documented by the medical student and made modifications to such information, when appropriate. I personally performed the physical exam and medical decision making. Danielle Pedro, Mar 01, 2023,16:46 DARLENE CHING Mar 01, 2023 12:05 DANIELLE PEDRO MD Mar 01, 2023 16:46
--- NOTE | 2023-03-01 15:15 | Discharge Summary ---
Discharge Summary Instructions for Patient Via [facility], Assessment/Instructions See problem list Physician to follow Patient: JADASEBarry Discharge Diet for Home: Cardiac Diet Hospital Course Date of Admission: Feb 26, 2023 at 23:50 Admission Diagnosis : Family Physician[facility] Date of Discharge: 03/01/23 Discharge Diagnosis: Acute on Chronic Respiratory Failure with hypoxia Acute on Chronic Renal failure Hypotension HTN NIDDM CAD JULIANA Decub Sacral Ulcer Debility h/o CVA Hospital Course: Uneventful hospital stay. Renal function improved with IVFs. Patient weak and unstable gait. Recommended SNF placement for more PT/OT and patient would like to return home with PT. Labs and Pending Lab Test: Laboratory Tests 02/28/23 15:43: Glucometer 177H 02/28/23 20:41: Glucometer 202H 03/01/23 05:20: White Blood Count 6.0, Red Blood Count 5.47, Hemoglobin 16.0, Hematocrit 48, Mean Corpuscular Volume 87, Mean Corpuscular Hemoglobin 29, Mean Corpuscular Hemoglobin Concent 34, Red Cell Distribution Width 13.8, Platelet Count 220, Mean Platelet Volume 10.2, Sodium Level 139, Potassium Level 3.9, Chloride Level 103, Carbon Dioxide Level 25, Anion Gap 11, Blood Urea Nitrogen 19H, Creatinine 1.18, Estimat Glomerular Filtration Rate 71, BUN/Creatinine Ratio 16, Glucose Level 169H, Calcium Level 9.0, Corrected Calcium 9.3, Total Bilirubin 0.8, Aspartate Amino Transf (AST/SGOT) 30, Alanine Aminotransferase (ALT/SGPT) 20, Alkaline Phosphatase 74, Total Protein 7.1, Albumin 3.6 03/01/23 10:46: Glucometer 213H Home Meds Active Reported Tylenol 8 Hour (Acetaminophen) 650 Mg Tablet.er 1,300 Mg PO 1200 TAKES 2 (650MG) TABS Aspirin EC (Aspirin) 325 Mg Tablet.dr 325 Mg PO DAILY Carvedilol 12.5 Mg Tablet 12.5 Mg PO BID WITH MEALS Xigduo Xr 10 mg-1,000 mg Tab (Dapagliflozin/Metformin HCl) 10 Mg-1,000 Mg Tab.bp.24h 1 Ea PO DAILY Clopidogrel (Clopidogrel Bisulfate) 75 Mg Tablet 75 Mg PO HS Zinc (Zinc Amino Acid Chelate) 50 Mg Tablet 50 Mg PO DAILY Ascorbic Acid 500 Mg Tablet 500 Mg PO DAILY Fish Oil 1,000 mg Softgel ([place]-3/Dha/Epa/Fish Oil) 1,000 Mg (120 Mg-180 Mg) Capsule 2,000 Mg PO DAILY Zyrtec (Cetirizine HCl) 10 Mg Tablet 10 Mg PO DAILY Vitamin D3 (Cholecalciferol (Vitamin D3)) 25 Mcg Tablet 25 Mcg PO DAILY Atorvastatin Calcium 80 Mg Tablet 80 Mg PO HS Lisinopril 40 Mg Tablet 40 Mg PO DAILY Amlodipine Besylate 5 Mg Tablet 5 Mg PO DAILY Neurontin (Gabapentin) 300 Mg Capsule 300 Mg PO 0800,1700,2200 Ezetimibe 10 Mg Tablet 10 Mg PO DAILY Patient Allergies: Coded Allergies: No Known Drug Allergies (Verified , 06/16/19) Height (Feet): 5 Height (Inches): 9.00 Weight (Pounds): 293 Weight (Ounces): 2.0 Changed Medications: Lisinopril (Lisinopril) 40 Mg Tablet 20 MG PO DAILY, #30 TAB (Changed from: 40 MG) Continued Medications: Acetaminophen (Tylenol 8 Hour) 650 Mg Tablet.er 1300 MG PO 1200, TAB TAKES 2 (650MG) TABS Ascorbic Acid (Ascorbic Acid) 500 Mg Tablet 500 MG PO DAILY, TAB Aspirin (Aspirin EC) 325 Mg Tablet.dr 325 MG PO DAILY, TAB Atorvastatin Calcium (Atorvastatin Calcium) 80 Mg Tablet 80 MG PO HS, TAB Carvedilol (Carvedilol) 12.5 Mg Tablet 12.5 MG PO BID WITH MEALS, TAB Cetirizine HCl (Zyrtec) 10 Mg Tablet 10 MG PO DAILY, TAB Cholecalciferol (Vitamin D3) (Vitamin D3) 25 Mcg Tablet 25 MCG PO DAILY, TAB Clopidogrel Bisulfate (Clopidogrel) 75 Mg Tablet 75 MG PO HS, TAB Dapagliflozin/Metformin HCl (Xigduo Xr 10 mg-1,000 mg Tab) 10 Mg-1,000 Mg Tab.bp.24h 1 EA PO DAILY, TAB Ezetimibe (Ezetimibe) 10 Mg Tablet 10 MG PO DAILY, TAB Gabapentin (Neurontin) 300 Mg Capsule 300 MG PO 0800,1700,2200, CAP [place]-3/Dha/Epa/Fish Oil (Fish Oil 1,000 mg Softgel) 1,000 Mg (120 Mg-180 Mg) Capsule 2000 MG PO DAILY, CAP Zinc Amino Acid Chelate (Zinc) 50 Mg Tablet 50 MG PO DAILY, TAB Discontinued Medications: Amlodipine Besylate (Amlodipine Besylate) 5 Mg Tablet 5 MG PO DAILY, TAB Home Health Need/Face to Face Date of Face to Face: Mar 01, 2023 Clinical Findings: Generalized weakness and fatigue, Instability, Unsteady gait, Non-healing wound I have seen Pt [id number]: Yes Discharged To: Home Diagnosis/Conditions: See above Patient is Homebound due to: Jey fall risk due to instabilty, Muscle weakness Homebound Status Due to the above stated illness, injury or surgical procedure (medical condition or diagnosis) and associated clinical findings, the patient is homebound because of his/her inability to leave home except with aid of a supportive device and/or person AND leaving the home requires a considerable and taxing effort or is medically contraindicated. Pt req the following assistanc: Walker Home Health Nursing Orders Home Health Services Order: Nursing Services, Physical Therapy-Evaluate & Treat, Wound Care-Eval/Treat Therapy Orders Therapy Orders: PT to assess for OT Therapy Specific Orders: Gait training, Increase strength/endurance Certify Stmt I certify that this patient is under my care and that I, a nurse practitioner or a physician; a vet assistant working with me, had a face to face encounter that - meets the physician face to face encounter requirements with this patient as dated. Discharge Physical Exam General: Alert, Oriented X3, No Acute Distress Lungs: Clear to Auscultation, Normal Air Movement Heart: Regular Rate, No Murmurs Abdomen: Normal Bowel Sounds, Soft, No Tenderness, No Masses Extremities: Other (trace swelling bilaterally) Neuro: Normal Speech, Cranial Nerves 3-12 NL Psych/Mental Status: Mental Status NL, Mood NL VALORIE DIMAS MD Mar 01, 2023 15:14
[2023-03-01] MEDS ORDERED: LISI40TA9 PO (15:17)
[2023-03-01 15:47] VITALS: BP 142/71
== END 2023-03-01 18:03 | disposition home health service (06) | DRG 193 ==
LOC: EDUNIT# 19:53 → ER 19:56 → 4TH 23:50
PROVIDERS: ADMIT Family Medicine; ATTEND Family Medicine
DX: J12.9 Viral pneumonia, unspecified (principal); J96.21 Acute and chronic respiratory failure with hypoxia; L89.153 Pressure ulcer of sacral region, stage 3; N17.9 Acute kidney failure, unspecified; Z68.41 Body mass index [BMI] 40.0-44.9, adult; E86.0 Dehydration; I95.9 Hypotension, unspecified; G47.33 Obstructive sleep apnea (adult) (pediatric); I12.9 Hypertensive chronic kidney disease with stage 1 through stage 4 chronic kidney disease, or unspecified chronic kidney disease; Z20.822 Contact with and (suspected) exposure to COVID-19; E11.22 Type 2 diabetes mellitus with diabetic chronic kidney disease; E11.65 Type 2 diabetes mellitus with hyperglycemia; N18.9 Chronic kidney disease, unspecified; F17.210 Nicotine dependence, cigarettes, uncomplicated; E78.00 Pure hypercholesterolemia, unspecified; E66.9 Obesity, unspecified; L30.9 Dermatitis, unspecified; Z79.84 Long term (current) use of oral hypoglycemic drugs; Z79.85 Long-term (current) use of injectable non-insulin antidiabetic drugs; Z99.81 Dependence on supplemental oxygen; Z86.73 Personal history of transient ischemic attack (TIA), and cerebral infarction without residual deficits; Z79.899 Other long term (current) drug therapy; Z79.82 Long term (current) use of aspirin
CPT/HCPCS: 36415; 71045; 73562; 80053; 81000; 82947; 83036; 83735; 85025; 85027; 87636; 94640; 94664; 94760; 96360

== ENCOUNTER 2023-03-14 12:03 | Emergency (ER) | payer MEDICARE, MEDICAID ==
[~2023-03-14 12:03] MED LIST changes: +ACET-2840 PO; +ASCO500T7 PO; +CARV12.53 PO; +DAPA1TAB5 PO; +OMEG100032 PO; +ZINC50TA51 PO
[2023-03-14] MEDS ORDERED: NS IV 500 ML 500 ML IV ONE (12:15)
--- NOTE | 2023-03-14 12:18 | ED General ---
General Chief Complaint: Dizziness/Syncope Stated Complaint: DIZZINESS | LIGHTHEADED Source of Information: Patient, EMS, Old Records Exam Limitations: No Limitations History of Present Illness Date Seen by Provider: Mar 14, 2023 Time Seen by Provider: 12:06 Initial Comments 62-year-old male with past medical history of CVA, diabetes, hypertension, hyperlipidemia coming in via EMS from the clinic due to general weakness and lightheadedness. Started this morning when he woke up, he has been walking around using a walker per usual. Denies any room spinning sensation, focal weakness, numbness, vision changes, headache, fever, new shortness of breath, abdominal pain, nausea, vomiting, diarrhea, dysuria, rash, or any other concerns. He does note he has had some very mild chest pressure when he thinks about it and that has been going on since he woke up many hours ago as well. EMS reports his glucose was 230 for them. He states he has been cutting down on soda and has been drinking more water. Allergies and Home Medications Allergies Coded Allergies: No Known Drug Allergies (Verified , 06/16/19) Patient Home Medication List Home Medication List Reviewed: Yes Acetaminophen (Tylenol 8 Hour) 650 Mg Tablet.er, 1,300 MG PO 1200, (Reported) Entered as Reported by: DOMINICK PATEL on 02/27/23 113 Ascorbic Acid (Ascorbic Acid) 500 Mg Tablet, 500 MG PO DAILY, (Reported) Entered as Reported by: DOMINICK PATEL on 02/27/23 113 Aspirin (Aspirin EC) 325 Mg Tablet.dr, 325 MG PO DAILY, (Reported) Entered as Reported by: DOMINICK PATEL on 02/27/23 113 Atorvastatin Calcium (Atorvastatin Calcium) 80 Mg Tablet, 80 MG PO HS, (Reported) Entered as Reported by: DOMINICK PATEL on 11/04/20932 Carvedilol (Carvedilol) 12.5 Mg Tablet, 12.5 MG PO BID WITH MEALS, (Reported) Entered as Reported by: DOMINICK PATEL on 02/27/23 113 Cetirizine HCl (Zyrtec) 10 Mg Tablet, 10 MG PO DAILY, (Reported) Entered as Reported by: DOMINICK PATEL on 11/04/20932 Cholecalciferol (Vitamin D3) (Vitamin D3) 25 Mcg Tablet, 25 MCG PO DAILY, (Reported) Entered as Reported by: DOMINICK PATEL on 11/04/20 0933 Clopidogrel Bisulfate (Clopidogrel) 75 Mg Tablet, 75 MG PO HS, (Reported) Entered as Reported by: DOMINICK PATEL on 02/27/23 1134 Dapagliflozin/Metformin HCl (Xigduo Xr 10 mg-1,000 mg Tab) 10 Mg-1,000 Mg Tab.bp.24h, 1 EA PO DAILY, (Reported) Entered as Reported by: DOMINICK PATEL on 02/27/23 1134 Ezetimibe (Ezetimibe) 10 Mg Tablet, 10 MG PO DAILY, (Reported) Entered as Reported by: ALVARO PHILLIPS on 01/02/19 0513 Gabapentin (Neurontin) 300 Mg Capsule, 300 MG PO 0800,1700,2200, (Reported) Entered as Reported by: DOMINICK PATEL on 11/04/20 0933 Lisinopril (Lisinopril) 40 Mg Tablet, 20 MG PO DAILY Prescribed by: VALORIE DIMAS on 03/01/23 1517 [place]-3/Dha/Epa/Fish Oil (Fish Oil 1,000 mg Softgel) 1,000 Mg (120 Mg-180 Mg) Capsule, 2,000 MG PO DAILY, (Reported) Entered as Reported by: DOMINICK PATEL on 02/27/23 1134 Zinc Amino Acid Chelate (Zinc) 50 Mg Tablet, 50 MG PO DAILY, (Reported) Entered as Reported by: DOMINICK PATEL on 02/27/23 1134 Review of Systems Review of Systems Constitutional: No fever EENTM: no symptoms reported Respiratory: no symptoms reported Cardiovascular: see HPI Gastrointestinal: no symptoms reported Genitourinary: no symptoms reported Musculoskeletal: no symptoms reported Skin: no symptoms reported Psychiatric/Neurological: No Symptoms Reported Hematologic/Lymphatic: No Symptoms Reported Past [id number] Hx Patient Social History Substance use?: No Immunizations Up To Date Tetanus Booster (TDap): Unknown PED Vaccines UTD: No Seasonal Allergies Seasonal Allergies: No Past Medical History Surgery/Hospitalization HX: CVA DM TYPE 2 Surgeries: Yes Appendectomy, Orthopedic Respiratory: No Currently Using CPAP: No Currently Using BIPAP: No Cardiac: Yes (BASED ON MEDICATIONS) High Cholesterol, Hypertension Neurological: Yes Stroke Sexually Transmitted Disease: No HIV/AIDS: No Genitourinary: No Gastrointestinal: No 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 No Pertinent Family Hx HTN Physical Exam Vital Signs Vital Signs - First Documented 03/14/23 12:06 Pulse 75 Resp 26 B/P (MAP) 139/112 (121) Pulse Ox 94 O2 Delivery Room Air Capillary Refill : Height, Weight, BMI Height: 5'9.00" Weight: 293lbs. 2.0oz. [id number]; 41.88 BMI Method:Estimated General Appearance: No Apparent Distress, Chronically ill Eyes: Bilateral Eye Normal Inspection, Bilateral Eye PERRL, Bilateral Eye EOMI HEENT: PERRL/EOMI, Normal ENT Inspection, Pharynx Normal Neck: Full Range of Motion, Normal Inspection, Non Tender, Supple Respiratory: Chest Non Tender, Lungs Clear, Normal Breath Sounds, No Accessory Muscle Use, No Respiratory Distress Cardiovascular: Regular Rate, Rhythm, Normal Peripheral Pulses Gastrointestinal: Normal Bowel Sounds, Non Tender, Soft; No Distended, No Guarding Back: Normal Inspection, No CVA Tenderness, No Vertebral Tenderness Extremity: Normal Capillary Refill, Normal Range of Motion, Non Tender, No Calf Tenderness Neurologic/Psychiatric: Alert, Oriented x3, No Motor/Sensory Deficits, Normal Mood/Affect, 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 and development 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 II-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 Norm as Tested, Other (Normal [id number], normal [id number], normal visual french and visual acuity, normal speech) Skin: Warm/Dry Progress/Results/Core Measures Suspected Sepsis SIRS Temperature: Pulse: Respiratory Rate: Laboratory Tests 03/14/23 12:18: White Blood Count 10.3 Blood Pressure / Mean: Laboratory Tests 03/14/23 12:18: Creatinine 1.33H, INR Comment 0.9, Platelet Count 259, Total Bilirubin 0.7 Results/Orders Lab Results Laboratory Tests Test 03/14/23 12:18 Range/Units White Blood Count 10.3 4.3-11.0 10^3/uL Red Blood Count 5.67 H 4.30-5.52 10^6/uL Hemoglobin 16.7 13.3-17.7 g/dL Hematocrit 52 40-54 % Mean Corpuscular Volume 91 80-99 fL Mean Corpuscular Hemoglobin 30 25-34 pg Mean Corpuscular Hemoglobin Concent 32 32-36 g/dL Red Cell Distribution Width 14.6 H 10.0-14.5 % Platelet Count 259 130-400 10^3/uL Mean Platelet Volume 10.6 9.0-12.2 fL Immature Granulocyte % (Auto) 0 % Neutrophils (%) (Auto) 71 42-75 % Lymphocytes (%) (Auto) 20 12-44 % Monocytes (%) (Auto) 6 0-12 % Eosinophils (%) (Auto) 2 0-10 % Basophils (%) (Auto) 1 0-10 % Neutrophils # (Auto) 7.3 1.8-7.8 10^3/uL Lymphocytes # (Auto) 2.0 1.0-4.0 10^3/uL Monocytes # (Auto) 0.7 0.0-1.0 10^3/uL Eosinophils # (Auto) 0.2 0.0-0.3 10^3/uL Basophils # (Auto) 0.1 0.0-0.1 10^3/uL Immature Granulocyte # (Auto) 0.0 0.0-0.1 10^3/uL Prothrombin Time 12.8 12.2-14.7 SEC INR Comment 0.9 0.8-1.4 Activated Partial Thromboplast Time 34 24-35 SEC Sodium Level 140 135-145 MMOL/L Potassium Level 4.2 3.6-5.0 MMOL/L Chloride Level 103 98-107 MMOL/L Carbon Dioxide Level 25 21-32 MMOL/L Anion Gap 12 5-14 MMOL/L Blood Urea Nitrogen 12 7-18 MG/DL Creatinine 1.33 H 0.60-1.30 MG/DL Estimat Glomerular Filtration Rate 61 BUN/Creatinine Ratio 9 Glucose Level 222 H 70-105 MG/DL Calcium Level 9.4 8.5-10.1 MG/DL Corrected Calcium 9.5 8.5-10.1 MG/DL Magnesium Level 2.1 1.6-2.4 MG/DL Total Bilirubin 0.7 0.1-1.0 MG/DL Aspartate Amino Transf (AST/SGOT) 14 5-34 U/L Alanine Aminotransferase (ALT/SGPT) 16 0-55 U/L Alkaline Phosphatase 91 40-136 U/L Troponin I < 0.028 <0.028 NG/ML B-Type Natriuretic Peptide < 10.0 <100.0 PG/ML Total Protein 7.6 6.4-8.2 GM/DL Albumin 3.9 3.2-4.5 GM/DL My Orders Orders - ELMER NORWOOD MD Bnp [place] (03/14/23 12:12) Cbc With Automated Diff (03/14/23 12:12) Comprehensive Metabolic Panel (03/14/23 12:12) Magnesium (03/14/23 12:12) Protime With Inr (03/14/23 12:12) Partial Thromboplastin Time (03/14/23 12:12) Troponin I [place] (03/14/23 12:12) Chest 1 View, Ap/Pa Only (03/14/23 12:12) Ed Iv/Invasive Line Start (03/14/23 12:12) Ekg Tracing (03/14/23 12:12) Monitor-Rhythm Ecg Trace Only (03/14/23 12:12) Ns Iv 500 Ml (Sodium Chloride 0.9%) (03/14/23 12:15) Medications Given in ED Current Medications Medications Dose Ordered Sig/Jarvis Route Start Time Stop Time Status Last Admin Dose Admin Sodium Chloride 500 ml @ 0 mls/hr Q0M ONCE IV 03/14/23 12:15 03/14/23 12:16 DC 03/14/23 12:31 500 MLS/HR Vital Signs/I&O 03/14/23 03/14/23 12:06 12:29 Pulse 75 74 75 79 Resp 26 B/P (MAP) 139/112 (121) 163/94 (117) 169/114 (132) 185/93 (123) Pulse Ox 94 O2 Delivery Room Air Capillary Refill : Progress Note : Progress Note 62-year-old male with above history coming in due to general weakness and lightheadedness. ABCs were intact and vitals were stable on presentation. Specifically, the patient is not orthostatic between laying and standing. EKG ordered and interpreted by me showing no acute ischemic changes, appears similar to prior. Chest x-ray ordered and interpreted by me showing no large focal infiltrate, no pneumothorax, appears similar to prior. An IV was placed and basic labs were obtained and were significant for normal white blood cell count, no creatinine at his baseline, negative troponin, normal BNP, unremarkable electrolytes. Patient was given a gentle bolus of IV fluids. He had a completely nonfocal neuro exam on arrival and on repeat assessment continues to look well. I believe he stable for discharge with outpatient follow-up. He was sent home with strict return precautions. ECG Initial ECG Impression Date: Mar 14, 2023 Initial ECG Impression Time: 12:19 Initial ECG Rate: 74 Initial ECG Rhythm: Normal Sinus Comment wide QRS with a right bundle branch block, no STEMI, appears similar to prior Departure Impression Primary Impression: Light headed Disposition: 01 HOME, SELF-CARE Condition: Stable Departure-Patient Inst. Decision time for Depature: 13:30 Referrals: [facility] (PCP/Family) Primary Care Physician Patient Instructions: Dizziness, Adult ED Add. Discharge Instructions: We are not seeing any evidence of stroke, heart attack, or anything life- threatening at this time. We are also not seeing any evidence of infection. We would recommend maintaining plenty of fluids at home and following up with your regular doctor especially if you are not feeling better in the next day or so. ELMER NORWOOD MD Mar 14, 2023 12:18
[2023-03-14 12:23] LABS: BASOPHILS # (AUTO) 0.1 10^3/uL (0.0-0.1); BASOPHILS % (AUTO) 1 % (0-10); EOSINOPHILS # (AUTO) 0.2 10^3/uL (0.0-0.3); EOSINOPHILS % (AUTO) 2 % (0-10); HEMATOCRIT 52 % (40-54); HEMOGLOBIN 16.7 g/dL (13.3-17.7); LYMPHOCYTES % (AUTO) 20 % (12-44); MEAN CORPUSCULAR HEMOGLOBIN 30 pg (25-34); MEAN CORPUSCULAR HGB CONC 32 g/dL (32-36); MEAN CORPUSCULAR VOLUME 91 fL (80-99); MEAN PLATELET VOLUME 10.6 fL (9.0-12.2); MONOCYTES # (AUTO) 0.7 10^3/uL (0.0-1.0); MONOCYTES % (AUTO) 6 % (0-12); NEUTROPHILS # (AUTO) 7.3 10^3/uL (1.8-7.8); NEUTROPHILS % (AUTO) 71 % (42-75); PLATELET COUNT 259 10^3/uL (130-400); WHITE BLOOD COUNT 10.3 10^3/uL (4.3-11.0)
[2023-03-14 12:29] VITALS: BP_SYST 163; BP_SYST 169; BP_SYST 185; BP_DIAS 114; BP_DIAS 93; BP_DIAS 94
[2023-03-14 12:31] LABS: ALBUMIN 3.9 GM/DL (3.2-4.5); CHLORIDE 103 MMOL/L (98-107); POTASSIUM 4.2 MMOL/L (3.6-5.0); SODIUM 140 MMOL/L (135-145)
[2023-03-14 12:32] LABS: CALCIUM 9.4 MG/DL (8.5-10.1)
[2023-03-14 12:33] LABS: GLUCOSE 222 MG/DL (70-105); TOTAL PROTEIN 7.6 GM/DL (6.4-8.2)
[2023-03-14 12:34] LABS: CARBON DIOXIDE 25 MMOL/L (21-32); INR 0.9 (0.8-1.4); PROTHROMBIN TIME PATIENT 12.8 SEC (12.2-14.7)
[2023-03-14 12:35] LABS: BILIRUBIN,TOTAL 0.7 MG/DL (0.1-1.0)
[2023-03-14 12:37] LABS: ALKALINE PHOSPHATASE 91 U/L (40-136); CREATININE SERUM 1.33 MG/DL (0.60-1.30); GFR ESTIMATED 61
[2023-03-14 12:38] LABS: BUN/CREATININE RATIO 9
[2023-03-14 12:40] LABS: ALANINE AMINOTRANSFERASE 16 U/L (0-55); MAGNESIUM 2.1 MG/DL (1.6-2.4)
--- NOTE | 2023-03-14 13:26 | Diagnostic Imaging Report ---
INDICATION: weakness, chest pain COMPARISON: 02/26/2023 FINDINGS: Single frontal view of the chest demonstrates normal heart size and pulmonary vascularity. The lungs are well aerated and clear. No large pleural effusion or pneumothorax is seen. The visualized osseous structures show no acute abnormalities. IMPRESSION: 1. No acute cardiopulmonary process. Dictated by: Dictated on workstation # [id number]
[2023-03-14 13:30] VITALS: BP 161/83
== END 2023-03-14 13:32 | disposition home or self-care (01) ==
LOC: EDUNIT# 12:03 → ER 12:04
DX: R42 Dizziness and giddiness (principal)
CPT/HCPCS: 36415; 71045; 80053; 83735; 83880; 84484; 85025; 85610; 85730; 93005; 93041